=== PATIENT | female | born 1930 | race Caucasian/White ===

== ENCOUNTER 2016-11-12 22:23 | Emergency (ER) | payer OTHER ==
[~2016-11-12] VITALS: Ht 152.4 cm; Wt 67.0 kg
[~2016-11-12 22:23] MED LIST: ARTISOL8 OP; ASPEC81 PO; CALC0.2510 PO; CLON0.5T3 PO; LATA0.009; LEVO75TA33 PO; MULT-506 PO; NORT75CA2 PO; NRV5 PO; PRLSR20 PO; SIMV40TA2 PO
[2016-11-12 22:41] VITALS: O2SAT 93
[2016-11-12] MEDS ORDERED: SODIUM CHLORIDE 0.9% 1000ML 1,000 ML IV SCH (22:55)
[2016-11-12 22:57] VITALS: Ht 152.4 cm; Wt 67.0 kg
[2016-11-12 23:38] LABS: PARTIAL THROMBOPLASTIN RATIO 1.1; PROTHROMBIN TIME (PATIENT) 10.6 SECONDS (9.0-12.0)
--- NOTE | 2016-11-12 23:39 | DIAGNOSTIC IMAGING REPORT ---
CT SCAN OF THE BRAIN WITHOUT IV CONTRAST CLINICAL HISTORY: Strokelike symptoms. Fall. Weakness. COMPARISON STUDY: CT of the brain dated 03/24/2016. TECHNIQUE: Unenhanced axial CT scan of the brain is performed from the vertex to the skull base. CT DOSE: 1074.96 mGy.cm FINDINGS: Brain parenchyma: There are age-related involutional changes noting moderate to advanced subcortical and periventricular microangiopathic change. A small focus of left occipital encephalomalacia is unchanged and consistent with a remote infarct. There is no hemorrhage, mass effect, or evidence of acute territorial ischemia by CT criteria. Dean-white matter is preserved. No extra-axial fluid collection is seen. Ventricles, sulci, cisterns: Prominent secondary to involutional change. Intracranial vasculature: There is atherosclerotic calcification of the cavernous carotid and vertebral arteries. Calvarium: Unremarkable. Sinuses and mastoids: The visualized paranasal sinuses are clear. The mastoid air cells are well pneumatized. Orbits: The bony orbits are grossly intact. There are bilateral ocular lens implants. IMPRESSION: Senescent changes as above with no hemorrhage, mass effect, or evidence of acute territorial ischemia by CT criteria. Electronically signed by: Bharat Hester M.D. 11/12/2016 11:37 PM Dictated Date/Time: 11/12/2016 11:34 PM
[2016-11-12 23:40] LABS: BASO % 0.3 %; BASO ABS # 0.02 K/uL (0-0.2); COMPLETE YES; EOS % 1.5 %; HEMATOCRIT 33.9 % (37-47); IG% 0.5 %; LYMPH % 12.9 %; LYMPH ABS # 1.03 K/uL (1.2-3.4); MEAN CELL VOLUME 87.6 fL (80-100); MEAN CORPUSCULAR HEMOGLOBIN 29.7 pg (25-34); MEAN CORPUSCULAR HGB CONC 33.9 g/dl (32-36); MEAN PLATELET VOLUME 8.7 fL (7.4-10.4); MONO % 10.9 %; NEUT % 73.9 %; PLATELET COUNT 277 K/uL (130-400); RED BLOOD COUNT 3.87 M/uL (4.2-5.4); WHITE BLOOD COUNT 7.97 K/uL (4.8-10.8)
[2016-11-12 23:43] LABS: BLOOD UREA NITROGEN 29 mg/dl (7-18); BUN/CREATININE RATIO 16.2 (10-20); CALCIUM 9.5 mg/dl (8.5-10.1); CARBON DIOXIDE 25 mmol/L (21-32); CHLORIDE 94 mmol/L (98-107); GLUCOSE 109 mg/dl (70-99); POTASSIUM 4.4 mmol/L (3.5-5.1); SODIUM 127 mmol/L (136-145)
--- NOTE | 2016-11-12 23:44 | DIAGNOSTIC IMAGING REPORT ---
SINGLE VIEW CHEST CLINICAL HISTORY: Strokelike symptoms. Weakness. FINDINGS: An AP, portable, upright chest radiograph is compared to study dated 03/26/2016. The examination is degraded by portable technique and patient rotation. The heart is enlarged and there is atherosclerotic calcification of the thoracic aorta. The pulmonary vasculature is noncongested. Chronic interstitial thickening is observed. No airspace consolidation or pleural effusion is identified. No pneumothorax is seen. The skeletal structures are osteopenic. The bony thorax is grossly intact. Degenerative change is noted throughout the thoracic spine. IMPRESSION: Cardiomegaly with no acute cardiopulmonary abnormality. Electronically signed by: Bharat Hester M.D. 11/12/2016 11:43 PM Dictated Date/Time: 11/12/2016 11:42 PM
--- NOTE | 2016-11-12 23:47 | EMERGENCY ROOM VISIT NOTE ---
History Report prepared by Jhonny: Yuko Mohr Under the Supervision of: Dr. Jed Morales M.D. First contact with patient: 22:55 Chief Complaint: WEAKNESS Stated Complaint: FALL/ WEAK KNEES, LETHARGIC Nursing Triage Summary: Patient presents to ER via EMS. Per EMS, patient was watching television and was too weak to get off her sit. Once she was up, she attempted to walk to the kitchen using her walker. Patient had to let herself down to the floor and could not get up. Patient is responsive, alert and oriented. Patient lives at home with her . Patient reports UTI 7-10 days ago. 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 Per EMS the patient was watching TV and was too weak to get out of her chair. After getting up, the patient tried to walk to the kitchen but felt too weak and had to let herself down to the floor. The patient states that she was not able to get back up when she was on the floor. She notes that she was diagnosed with a UTI 1 week ago. The patient complains of double vision that she reports she has had intermittently throughout the last year. She denies any loss of consciousness or trauma. 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 Denies any trauma. Review of Systems See HPI for pertinent positives & negatives. A total of 10 systems reviewed and were otherwise negative. Past Medical & Surgical Medical Problems: (1) REBECCA (acute kidney injury) (2) CHF (congestive heart failure) (3) CKD (chronic kidney disease), stage III (4) CTS (carpal tunnel syndrome) (5) Elevated troponin (6) GERD (gastroesophageal reflux disease) (7) Hyperlipidemia (8) Hypertension (9) Hypothyroidism Surgical Problems: (1) H/O colonoscopy (2) H/O knee surgery (3) History of bladder surgery Family History No pertinent family history Social History Smoking Status: Never Smoker Marital Status: Occupation Status: retired Current/Historical Medications Scheduled Amlodipine (Norvasc), 5 MG PO HS Aspirin (Aspirin Ec), 81 MG PO DAILY Calcitriol (Rocaltrol Cap), 0.25 MCG PO DAILY Clonazepam (Klonopin), 0.5 MG PO HS Cyanocobalamin (Vitamin B-12), 1,000 MCG PO DAILY Latanoprost (Xalatan 0.005% Oph Cheryl), 1 DROPS OP HS Levothyroxine Sodium (Levothyroxine Sodium), 75 MCG PO DAILY Multivitamin (Multivitamin), 1 TAB PO DAILY Nortriptyline (Pamelor), 50 MG PO HS Omeprazole (Prilosec), 20 MG PO QAM Sennosides-Docusate Sodium (Senna S), 2 TABS PO HS Simvastatin (Zocor), 20 MG PO HS Scheduled PRN Acetaminophen Tab (Tylenol), 650 MG PO Q4 PRN for Pain or Fever Artificial Tear Solution (Artificial Tears), 1 DROPS OP QID PRN for DRYNESS Allergies Coded Allergies: Quinolones (Unverified Allergy, Mild, "FEELS AWEFUL", 11/13/16) Physical Exam Vital Signs Date Time Temp Pulse Resp B/P (MAP) Pulse Ox O2 Delivery O2 Flow Rate FiO2 11/13/16 01:34 36.7 88 20 136/104 95 11/12/16 22:53 84 23 93 11/12/16 22:41 93 Room Air 11/12/16 22:37 86 11/12/16 22:30 181/100 11/12/16 22:23 36.8 83 16 177/101 93 Room Air Physical Exam GENERAL: Patient is a healthy-appearing well-nourished female HEAD: Normocephalic atraumatic EYES: Ocular movements intact pupils equal and react to light OROPHARYNX mucous membranes are moist no exudates present no erythema or edema present NECK: Supple no nuchal rigidity CHEST: Good equal expansion LUNGS: Clear and equal to auscultation CARDIAC: Normal S1 and S2 ABDOMEN: Soft nontender no guarding BACK: No CVA tenderness EXTREMITIES: No pain upon palpation normal muscle strength in all groups no clubbing cyanosis or edema NEURO: Patient is following commands and answering questions appropriately. Alert and oriented x3 Cranial Nerves 2-12 grossly intact Medical Decision & Procedures ER Provider Diagnostic Interpretation: Radiology results as stated below per my review and radiologist interpretation: CT SCAN OF THE BRAIN WITHOUT IV CONTRAST FINDINGS: Brain parenchyma: There are age-related involutional changes noting moderate to advanced subcortical and periventricular microangiopathic change. A small focus of left occipital encephalomalacia is unchanged and consistent with a remote infarct. There is no hemorrhage, mass effect, or evidence of acute territorial ischemia by CT criteria. Dean-white matter is preserved. No extra-axial fluid collection is seen. Ventricles, sulci, cisterns: Prominent secondary to involutional change. Intracranial vasculature: There is atherosclerotic calcification of the cavernous carotid and vertebral arteries. Calvarium: Unremarkable. Sinuses and mastoids: The visualized paranasal sinuses are clear. The mastoid air cells are well pneumatized. Orbits: The bony orbits are grossly intact. There are bilateral ocular lens implants. IMPRESSION: Senescent changes as above with no hemorrhage, mass effect, or evidence of acute territorial ischemia by CT criteria. Electronically signed by: Bharat Hester M.D. 11/12/2016 11:37 PM Dictated Date/Time: 11/12/2016 11:34 PM SINGLE VIEW CHEST FINDINGS: An AP, portable, upright chest radiograph is compared to study dated 03/26/2016. The examination is degraded by portable technique and patient rotation. The heart is enlarged and there is atherosclerotic calcification of the thoracic aorta. The pulmonary vasculature is noncongested. Chronic interstitial thickening is observed. No airspace consolidation or pleural effusion is identified. No pneumothorax is seen. The skeletal structures are osteopenic. The bony thorax is grossly intact. Degenerative change is noted throughout the thoracic spine. IMPRESSION: Cardiomegaly with no acute cardiopulmonary abnormality. Electronically signed by: Bharat Hester M.D. 11/12/2016 11:43 PM Dictated Date/Time: 11/12/2016 11:42 PM Laboratory Results 11/12/16 23:01 Red Blood Count 3.87, Mean Corpuscular Volume 87.6, Mean Corpuscular Hemoglobin 29.7, Mean Corpuscular Hemoglobin Concent 33.9, Mean Platelet Volume 8.7, Neutrophils (%) (Auto) 73.9, Lymphocytes (%) (Auto) 12.9, Monocytes (%) (Auto) 10.9, Eosinophils (%) (Auto) 1.5, Basophils (%) (Auto) 0.3, Neutrophils # (Auto ) 5.89, Lymphocytes # (Auto) 1.03, Monocytes # (Auto) 0.87, Eosinophils # (Auto ) 0.12, Basophils # (Auto) 0.02 11/12/16 23:01 Test 11/12/16 22:51 11/12/16 23:01 11/13/16 00:05 Bedside Glucose 101 mg/dl (70-90) White Blood Count 7.97 K/uL (4.8-10.8) Red Blood Count 3.87 M/uL (4.2-5.4) Hemoglobin 11.5 g/dL (12.0-16.0) Hematocrit 33.9 % (37-47) Mean Corpuscular Volume 87.6 fL (80-100) Mean Corpuscular Hemoglobin 29.7 pg (25-34) Mean Corpuscular Hemoglobin Concent 33.9 g/dl (32-36) Platelet Count 277 K/uL (130-400) Mean Platelet Volume 8.7 fL (7.4-10.4) Neutrophils (%) (Auto) 73.9 % Lymphocytes (%) (Auto) 12.9 % Monocytes (%) (Auto) 10.9 % Eosinophils (%) (Auto) 1.5 % Basophils (%) (Auto) 0.3 % Neutrophils # (Auto) 5.89 K/uL (1.4-6.5) Lymphocytes # (Auto) 1.03 K/uL (1.2-3.4) Monocytes # (Auto) 0.87 K/uL (0.11-0.59) Eosinophils # (Auto) 0.12 K/uL (0-0.5) Basophils # (Auto) 0.02 K/uL (0-0.2) RDW Standard Deviation 45.3 fL (36.4-46.3) RDW Coefficient of Variation 14.1 % (11.5-14.5) Immature Granulocyte % (Auto) 0.5 % Immature Granulocyte # (Auto) 0.04 K/uL (0.00-0.02) Prothrombin Time 10.6 SECONDS (9.0-12.0) Prothromb Time International Ratio 1.0 (0.9-1.1) Activated Partial Thromboplast Time 29.2 SECONDS (21.0-31.0) Partial Thromboplastin Ratio 1.1 Anion Gap 8.0 mmol/L (3-11) Est Creatinine Clear Calc Drug Dose 18.8 ml/min Estimated GFR () 28.8 Estimated GFR (Non- 24.9 BUN/Creatinine Ratio 16.2 (10-20) Calcium Level 9.5 mg/dl (8.5-10.1) Total Creatine Kinase 93 U/L (26-192) Creatine Kinase MB 2.1 ng/ml (0.5-3.6) Creatine Kinase MB Ratio 2.3 (0-3.0) Troponin I < 0.015 ng/ml (0-0.045) Urine Color YELLOW Urine Appearance CLEAR (CLEAR) Urine pH 7.5 (4.5-7.5) Urine Specific Kinsley 1.011 (1.000-1.030) Urine Protein NEG (NEG) Urine Glucose (UA) NEG (NEG) Urine Ketones NEG (NEG) Urine Occult Blood NEG (NEG) Urine Nitrite NEG (NEG) Urine Bilirubin NEG (NEG) Urine Urobilinogen NEG (NEG) Urine Leukocyte Esterase NEG (NEG) Labs reviewed by ED physician. Medications Administered Medications (Trade) Dose Ordered Sig/Ernestine Route Start Time Stop Time Status Last Admin Dose Admin Sodium Chloride 1,000 ml @ 50 mls/hr Q20H IV 11/12/16 22:55 12/12/16 22:54 11/12/16 23:01 50 MLS/HR Sodium Chloride 500 ml @ 999 mls/hr Q31M STAT IV 11/12/16 23:55 11/13/16 00:25 DC 11/13/16 00:04 999 MLS/HR ECG Indication: weakness Rate (beats per minute): 83 Rhythm: sinus rhythm Findings: 1st degree AV block, no acute ischemic change, no ectopy ED Course 2255: Past medical records reviewed. The patient was evaluated in room B6. A complete history and physical examination was performed. 2255: Sodium Chloride 1000 ml @ 50 mls/hr IV. 2355: Sodium Chloride 500 ml @ 999 mls/hr IV. 0046: The patient was ambulated by nursing staff and is doing well. Her will be getting her in the morning. Medical Decision Differential diagnosis: Etiologies such as metabolic, infection, hypo/hyperglycemia, electrolyte abnormalities, cardiac sources, intracerebral event, toxicologic, neurologic, as well as others were entertained. Blood Pressure Screening: Patient was found to have an elevated blood pressure and was referred to their primary care doctor for recheck and further treatment Medication Reconciliation: I attest that I have personally reviewed the patient' s current medication list This is an 86-year-old female who presents emergency department complaining of generalized weakness. An IV was established, the patient was given normal saline bolus. She has a normal CBC normal renal profile normal liver profile and will chest x-ray normal CAT scan of the head. I do feel the patient can be safely discharged home however the patient's is unable to pick her up until the morning. Patient was in agreement with the treatment plan. Impression Primary Impression: Weakness Scribe Attestation The scribe's documentation has been prepared under my direction and personally reviewed by me in its entirety. I confirm that the note above accurately reflects all work, treatment, procedures, and medical decision making performed by me. Departure Information Dispostion Home / Self-Care Referrals Luther Jean M.D. (PCP) Forms HOME CARE DOCUMENTATION FORM, IMPORTANT VISIT INFORMATION Patient Instructions [facility]
[2016-11-12 23:48] LABS: CKMB/CK RATIO 2.3 (0-3.0)
[2016-11-12] MEDS ORDERED: SODIUM CHLORIDE 0.9% 500ML 500 ML IV STA (23:55)
[2016-11-13] MEDS ORDERED: NORT50CA PO (00:07)
[2016-11-13] MEDS ORDERED: SIMV20TA2 PO (00:07)
[2016-11-13] MEDS ORDERED: AMLO-110 PO (00:07)
[2016-11-13] MEDS ORDERED: LEVO75TA5 PO (00:08)
[2016-11-13] MEDS ORDERED: SENN-91 PO (00:10)
[2016-11-13] MEDS ORDERED: ASPI81TA28 PO (00:10)
[2016-11-13] MEDS ORDERED: LATA0.5S OP (00:11)
[2016-11-13] MEDS ORDERED: ACET325T96 PO (00:12)
[2016-11-13] MEDS ORDERED: CYAN10005 PO (00:12)
[2016-11-13] MEDS ORDERED: ARTISOL12 OP (00:12)
[2016-11-13 00:19] LABS: URINE APPEARANCE CLEAR (CLEAR); URINE BILIRUBIN NEG (NEG); URINE COLOR YELLOW; URINE NITRITE NEG (NEG); URINE PH 7.5 (4.5-7.5); URINE SPECIFIC GRAVITY 1.011 (1.000-1.030); UROBILINOGEN NEG (NEG); ZZUR CULT IF INDIC CLEAN CATCH NO
[2016-11-13 00:30] LABS: MANUAL MICROSCOPIC REQUIRED? NO; REVIEW REQ? NO
[2016-11-13 01:34] VITALS: BP 136/104; PULSE 88; TEMP 36.7; O2SAT 95
== END 2016-11-13 01:35 | disposition home or self-care (01) ==
LOC: EDBD 22:23 → C.EDB 22:24
DX: R53.1 Weakness (principal); N17.9 Acute kidney failure, unspecified; I50.9 Heart failure, unspecified; N18.3 Chronic kidney disease, stage 3 (moderate); G56.00 Carpal tunnel syndrome, unspecified upper limb; K21.9 Gastro-esophageal reflux disease without esophagitis; E78.5 Hyperlipidemia, unspecified; I10 Essential (primary) hypertension; E03.9 Hypothyroidism, unspecified; Z79.82 Long term (current) use of aspirin

== ENCOUNTER 2016-12-07 17:45 | Emergency (ER) | payer OTHER ==
[~2016-12-07] VITALS: Ht 157.5 cm; Wt 64.0 kg
[~2016-12-07 17:45] MED LIST changes: +ACET325T96 PO; +AMLO-110 PO; +ARTISOL12 OP; -ARTISOL8 OP; -ASPEC81 PO; +ASPI81TA28 PO; +CYAN10005 PO; -LATA0.009; +LATA0.5S OP; -LEVO75TA33 PO; +LEVO75TA5 PO; +NORT50CA PO; -NORT75CA2 PO; -NRV5 PO; +SENN-91 PO; +SIMV20TA2 PO; -SIMV40TA2 PO
[2016-12-07] MEDS ORDERED: ACETAMINOPHEN 500 MG TAB PO STA (18:02)
[2016-12-07 18:03] VITALS: TEMP 36.9; Ht 157.5 cm; Wt 64.0 kg
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
[2016-12-07 18:42] LABS: MANUAL MICROSCOPIC REQUIRED? NO; REVIEW REQ? NO; URINE APPEARANCE CLEAR (CLEAR); URINE BILIRUBIN NEG (NEG); URINE COLOR YELLOW; URINE NITRITE NEG (NEG); URINE SPECIFIC GRAVITY 1.008 (1.000-1.030); UROBILINOGEN NEG (NEG); ZZURINE CULT IF INDIC CATH NO
[2016-12-07 18:45] LABS: BASO % 0.3 %; BASO ABS # 0.02 K/uL (0-0.2); COMPLETE YES; EOS % 1.5 %; HEMATOCRIT 36.9 % (37-47); IG% 0.7 %; LYMPH % 14.6 %; MEAN CELL VOLUME 90.2 fL (80-100); MEAN CORPUSCULAR HEMOGLOBIN 29.8 pg (25-34); MEAN CORPUSCULAR HGB CONC 33.1 g/dl (32-36); MEAN PLATELET VOLUME 8.9 fL (7.4-10.4); MONO % 12.1 %; NEUT % 70.8 %; PLATELET COUNT 303 K/uL (130-400); RED BLOOD COUNT 4.09 M/uL (4.2-5.4); WHITE BLOOD COUNT 7.55 K/uL (4.8-10.8)
[2016-12-07 18:53] LABS: INR 0.9 (0.9-1.1); PARTIAL THROMBOPLASTIN RATIO 1.1
[2016-12-07 19:01] LABS: ALT/SGPT 19 U/L (12-78); BLOOD UREA NITROGEN 20 mg/dl (7-18); BUN/CREATININE RATIO 14.5 (10-20); CALCIUM 9.5 mg/dl (8.5-10.1); CARBON DIOXIDE 28 mmol/L (21-32); CHLORIDE 96 mmol/L (98-107); GLUCOSE 99 mg/dl (70-99); POTASSIUM 4.2 mmol/L (3.5-5.1); SODIUM 132 mmol/L (136-145)
[2016-12-07 19:06] LABS: ALKALINE PHOSPHATASE 100 U/L (45-117); AST/SGOT 23 U/L (15-37)
--- NOTE | 2016-12-07 19:07 | DIAGNOSTIC IMAGING REPORT ---
HEAD WITHOUT CONTRAST (CT) CLINICAL HISTORY: 86 years-old Female presenting with fall, hematoma. TECHNIQUE: Multidetector CT imaging of the head was performed without the use of intravenous contrast. IV contrast: None. A dose lowering technique was used consistent with the principles of ALARA (as low as reasonably achievable). COMPARISON: 11/12/2016. CT DOSE (mGy.cm): The estimated cumulative dose is 883.57 inclusive of the cervical spine.. FINDINGS: Fast Food Delivery Driver topogram: Unremarkable. Ventricles and sulci normal in size. Periventricular and subcortical white matter hypoattenuation similar to prior exam, nonspecific but likely indicative of chronic small vessel ischemic change. No mass effect or midline shift. No hemorrhage or acute territorial infarct. No extra-axial fluid collection. Paranasal sinuses and mastoid air cells clear. Calvarium intact. Infiltration of the soft tissues overlying the occipital region. IMPRESSION: 1. No acute intracranial pathology. 2. Possible subcutaneous contusion over the occiput. Electronically signed by: Jacob Vallejo M.D. 12/07/2016 7:06 PM Dictated Date/Time: 12/07/2016 7:03 PM
--- NOTE | 2016-12-07 19:10 | DIAGNOSTIC IMAGING REPORT ---
CT SCAN OF THE CERVICAL SPINE CLINICAL HISTORY: Trauma. Fall. COMPARISON STUDY: No priors. TECHNIQUE: CT scan of the cervical spine is performed from the skull base to the upper thoracic spine. Images are reviewed in the axial, sagittal, and coronal planes. IV contrast was not administered for this examination. A dose lowering technique was utilized adhering to the principles of ALARA. CT DOSE: 883.57 mGy.cm FINDINGS: Skeletal structures: The skeletal structures are osteopenic. There is no evidence of fracture or subluxation involving the cervical spine. Vertebral body height and alignment are maintained. The odontoid process and lateral masses are intact. The atlantoaxial articulation is preserved noting mild productive degenerative change. The spinous processes appear intact. There is moderate to advanced multilevel cervical spondylosis. Uncovertebral and facet arthropathy contribute to neural foraminal stenosis at most levels. Intervertebral discs: There is moderate degenerative disc space narrowing seen at C3-C4 at C6-C7. Mild disc space narrowing is seen at the remaining cervical levels. Central canal: Posterior disc osteophyte complexes at C4-C5, C5-C6, and C6-C7 likely contribute to multilevel acquired compromise of the central canal. Soft tissues: The prevertebral and paraspinous soft tissues are within normal limits. There is advanced atherosclerotic calcification of the carotid bulbs. Cerumen is noted in the right external auditory canal. The thyroid gland is atrophic. Calvarium: The visualized calvarium at the skull base appears intact. Brain parenchyma: Partially visualized brain parenchyma the skull base is within normal limits. Sinuses and mastoids: The visualized paranasal sinuses are clear. There is a trace left mastoid effusion. Lung apices: Clear as visualized. IMPRESSION: 1. There is no evidence of fracture or subluxation involving the cervical spine. 2. Osteopenia and spondylotic change as above. Electronically signed by: Bharat Hester M.D. 12/07/2016 7:09 PM Dictated Date/Time: 12/07/2016 7:04 PM
--- NOTE | 2016-12-07 19:20 | DIAGNOSTIC IMAGING REPORT ---
AP CHEST WITH LEFT-SIDED RIB SERIES CLINICAL HISTORY: Fall. Left-sided chest wall pain. FINDINGS: An AP chest radiograph with 4 additional views from a left-sided rib series is compared to study dated 11/12/2016. The heart is enlarged and there is atherosclerotic calcification of the thoracic aorta. The pulmonary vasculature is noncongested. Chronic interstitial thickening is similar to previous. No airspace consolidation, large pleural effusion, or pneumothorax is seen. The skeletal structures are osteopenic. There is no clear radiographic evidence of acute/distracted left-sided rib fracture on the rib series. Mild contour irregularity of several left anterior lower ribs is age indeterminant and may be chronic. The remainder of the bony thorax is grossly intact. Advanced arthritic changes present in the shoulders. Degenerative change is also seen in the thoracic spine. Lumbosacral spondylosis is partially imaged. IMPRESSION: 1. Cardiomegaly with no acute cardiopulmonary abnormality. 2. There is no definite radiographic evidence of acute/distracted left-sided rib fracture on the rib series. Mild contour deformity of several anterior left lower ribs is age indeterminant and may be chronic. Correlate for point tenderness. Electronically signed by: Bharat Hester M.D. 12/07/2016 7:18 PM Dictated Date/Time: 12/07/2016 7:14 PM
[2016-12-07] MEDS ORDERED: AMLODIPINE BESYLATE 5 MG TAB PO ONE (19:45)
[2016-12-07 20:50] VITALS: BP 192/96; PULSE 68; O2SAT 94
== END 2016-12-07 20:52 | disposition home or self-care (01) ==
LOC: EDBD 17:45 → C.EDA 17:47
DX: S00.03XA Contusion of scalp, initial encounter (principal); S30.1XXA Contusion of abdominal wall, initial encounter; W18.39XA Other fall on same level, initial encounter; W22.09XA Striking against other stationary object, initial encounter; I12.9 Hypertensive chronic kidney disease with stage 1 through stage 4 chronic kidney disease, or unspecified chronic kidney disease; N18.3 Chronic kidney disease, stage 3 (moderate); K21.9 Gastro-esophageal reflux disease without esophagitis; E78.5 Hyperlipidemia, unspecified; E03.9 Hypothyroidism, unspecified; Z98.890 Other specified postprocedural states; Z79.82 Long term (current) use of aspirin; Z79.899 Other long term (current) drug therapy

== ENCOUNTER 2017-04-03 10:16 | Inpatient (IN) | payer OTHER ==
[~2017-04-03] VITALS: Ht 152.4 cm; Wt 58.0 kg
[~2017-04-03 10:16] MED LIST changes: -AMLO-110 PO; +AMLO2.5T2 PO; +ANT25 PO; -ARTISOL12 OP; +ASPEC81 PO; -ASPI81TA28 PO; +CYCL0.052 OP; -LATA0.5S OP; -NORT50CA PO; -SENN-91 PO
[2017-04-03] MEDS ORDERED: ONDANSETRON INJ 2 MG/ML 2 ML VIAL ONE (11:25)
[2017-04-03] MEDS: CEFTRIAXONE SOD INJ 1 GM ADDVIAL IV STA ×2 (11:34→11:43)
[2017-04-03] MEDS ORDERED: SODIUM CHLORIDE 0.9% 1000ML 1,000 ML IV SCH ×2 (11:45→17:30)
[2017-04-03 11:57] LABS: BASO % 0.4 %; BASO ABS # 0.03 K/uL (0-0.2); COMPLETE YES; EOS % 0.4 %; HEMATOCRIT 38.2 % (37-47); IG% 0.4 %; LYMPH % 14.7 %; LYMPH ABS # 1.06 K/uL (1.2-3.4); MEAN CELL VOLUME 91.2 fL (80-100); MEAN CORPUSCULAR HEMOGLOBIN 30.8 pg (25-34); MEAN CORPUSCULAR HGB CONC 33.8 g/dl (32-36); MEAN PLATELET VOLUME 9.6 fL (7.4-10.4); MONO % 9.8 %; NEUT % 74.3 %; PLATELET COUNT 329 K/uL (130-400); RED BLOOD COUNT 4.19 M/uL (4.2-5.4); WHITE BLOOD COUNT 7.21 K/uL (4.8-10.8)
[2017-04-03] MEDS ORDERED: NORT75CA2 PO (12:10)
[2017-04-03] MEDS ORDERED: CLON0.5T3 PO ×2 (12:10)
[2017-04-03] MEDS ORDERED: LISI10TA PO (12:10)
[2017-04-03] MEDS ORDERED: FURO-85 PO (12:10)
[2017-04-03] MEDS ORDERED: POLY1SOL12 (12:10)
[2017-04-03 12:11] LABS: URINE APPEARANCE CLEAR (CLEAR); URINE BILIRUBIN NEG (NEG); URINE COLOR YELLOW; URINE EPITHELIAL CELL AUTO >30 /lpf (0-5); URINE NITRITE NEG (NEG); URINE PH 6.5 (4.5-7.5); URINE SPECIFIC GRAVITY 1.016 (1.000-1.030); UROBILINOGEN NEG (NEG)
[2017-04-03 12:12] LABS: MANUAL MICROSCOPIC REQUIRED? NO; REVIEW REQ? NO; ZZUR CULT IF INDIC CLEAN CATCH NO
[2017-04-03 12:23] LABS: ALT/SGPT 20 U/L (12-78); AST/SGOT 22 U/L (15-37); BLOOD UREA NITROGEN 18 mg/dl (7-18); CALCIUM 9.4 mg/dl (8.5-10.1); CARBON DIOXIDE 30 mmol/L (21-32); CHLORIDE 96 mmol/L (98-107); CREATININE 1.29 mg/dl (0.60-1.20); GLUCOSE 104 mg/dl (70-99); POTASSIUM 4.1 mmol/L (3.5-5.1); SODIUM 133 mmol/L (136-145)
[2017-04-03 12:25] LABS: ALKALINE PHOSPHATASE 92 U/L (45-117)
[2017-04-03] MEDS ORDERED: CEFTRIAXONE SOD INJ 1 GM ADDVIAL IV STA (12:34)
[2017-04-03] MEDS ORDERED: ONDANSETRON INJ 2 MG/ML 2 ML VIAL IV STA (16:10)
--- NOTE | 2017-04-03 16:12 | History and Physical ---
History & Physical Date & Time of Service: Apr 03, 2017 at 15:52 Chief Complaint: Severe Stomach Pain Since Tuesday Primary Care Physician: Luther Jean M.D. History of Present Illness This is a 87yo F with a PMH of diastolic HF, HTN, CKD III, hypothyroidism, last discharged from [facility] for evaluation of dizziness and found to have Benign paroxysmal vertigo without problems with urination and discharged on 03/19/2017, with patient now returning for urinary tract infection which as per ER documentation with associated symptoms of nausea x 2 weeks with dysuria and fevers but patient could not take outpatient oral medication Review of outpatient records that urine culture from 03/28/17 resulted in Klebsiella oxytoca with resistance to ampicillin, intermediate sensitivity to ampicillin/sulbactam, and is susepctible to the following: CEFEPIME, CEFTRIAXONE , CIPROFLOXACIN, GENTAMICIN, NITROFURANTOIN , and TRIMETH-SULFAMETHOXAZOLE . Patient has listed allergies to Quinolones and Bisacodyl Patient was given Ceftriaxone 1 gram IV in the ER on admission. Negative urinalysis on ED admission. Patient was see and evaluated by hospitalist physician. Patient reports some pain when urinating but no pain in abdomen or flanks or chest. No shortness of breath. She is wake and alert with no abdominal tenderness on physical exam Past Medical/Surgical History Medical Problems: (1) CHF (congestive heart failure) Status: Chronic (2) CKD (chronic kidney disease), stage III Status: Chronic (3) CTS (carpal tunnel syndrome) Status: Chronic (4) GERD (gastroesophageal reflux disease) Status: Chronic (5) Hyperlipidemia Status: Chronic (6) Hypertension Status: Chronic (7) Hypothyroidism Status: Chronic Surgical Problems: (1) H/O colonoscopy Status: Chronic (2) H/O knee surgery Status: Chronic (3) History of bladder surgery Status: Chronic Family History No pertinent family history Social History Smoking Status: Never Smoker Marital Status: Housing status: lives with family Occupational Status: retired Multi-Drug Resistant Organisms History of MDRO: No Allergies Coded Allergies: Quinolones (Unverified Allergy, Mild, "FEELS AWEFUL", 04/03/17) Home Medications Scheduled Aspirin (Aspirin EC Low Dose), 1 TAB PO DAILY Calcitriol (Rocaltrol Cap), 0.25 MCG PO DAILY Clonazepam (Klonopin), 1 TAB PO HS Cyanocobalamin (Vitamin B-12), 1,000 MCG PO DAILY Cyclosporine (Ophth) (Restasis), 1 DROP OP BID Furosemide (Lasix), 20 MG PO DAILY Levothyroxine Sodium (Levothyroxine Sodium), 75 MCG PO DAILY Lisinopril (Prinivil), 10 MG PO DAILY Multivitamin (Multivitamin), 1 TAB PO DAILY Nortriptyline Hcl (Pamelor), 75 MG PO DAILY Omeprazole (Prilosec), 20 MG PO QAM Simvastatin (Zocor), 40 MG PO HS Scheduled PRN Acetaminophen Tab (Tylenol), 650 MG PO Q4 PRN for Pain or Fever Meclizine HCl (Meclizine HCl), 25 MG PO Q8 PRN for Dizziness or Vertigo Miscellaneous Medications Clonazepam (Klonopin), 0.5 MG PO Polyvinyl Alcohol-Povidone (Op (Artificial Tears) Review of Systems Constitutional: + fever Eyes: No worsening of vision, No eye pain ENT: No nasal symptoms, No sore throat Respiratory: No cough, No sputum, No wheezing, No shortness of breath Cardiovascular: No chest pain, No edema, No palpitations Abdomen: No pain, No nausea, No vomiting, No diarrhea, No constipation Musculoskeletal: No joint pain, No muscle pain, No swelling, No calf pain Genitourinary - Female: + dysuria Neurologic: No weakness Psychiatric: No substance abuse Endocrine: No fatigue Hematologic / Lymphatic: No abnormal bleeding/bruising Integumentary: No rash, No itch Physical Exam Vital Signs Date Time Temp Pulse Resp B/P (MAP) Pulse Ox O2 Delivery O2 Flow Rate FiO2 04/03/17 15:17 79 18 213/94 96 Room Air 04/03/17 13:09 78 18 160/94 92 Room Air 04/03/17 12:59 88 04/03/17 12:43 75 17 176/76 95 Room Air 04/03/17 10:33 36.9 83 20 187/94 96 Room Air General Appearance: WD/WN, no apparent distress Head: normocephalic, atraumatic Eyes: normal inspection, PERRL, EOMI, sclerae normal ENT: normal ENT inspection, hearing grossly normal, pharynx normal Neck: supple, no JVD, trachea midline Respiratory/Chest: chest non-tender, lungs clear, normal breath sounds, no respiratory distress, no accessory muscle use Cardiovascular: regular rate, rhythm, no edema, no JVD Abdomen/GI: normal bowel sounds, non tender, soft Back: normal inspection, no CVA tenderness, no muscle spasm, normal range of motion Extremities/Musculoskelatal: normal inspection, no calf tenderness, normal capillary refill, no pedal edema, normal range of motion, non-tender Neurologic/Psych: no motor/sensory deficits, normal mood/affect, oriented x 3 Skin: normal color, warm/dry, no rash Diagnostics Laboratory Results Results Past 24 Hours Test 04/03/17 11:15 04/03/17 11:20 Range/Units Urine Color YELLOW Urine Appearance CLEAR CLEAR Urine pH 6.5 4.5-7.5 Urine Specific [place] 1.016 1.000-1.030 Urine Protein NEG NEG Urine Glucose (UA) NEG NEG Urine Ketones TRACE NEG Urine Occult Blood NEG NEG Urine Nitrite NEG NEG Urine Bilirubin NEG NEG Urine Urobilinogen NEG NEG Urine Leukocyte Esterase SMALL NEG Urine WBC (Auto) 1-5 0-5 /hpf Urine RBC (Auto) 0-4 0-4 /hpf Urine Hyaline Casts (Auto) 0 0-5 /lpf Urine Epithelial Cells (Auto) >30 0-5 /lpf Urine Bacteria (Auto) NEG NEG White Blood Count 7.21 4.8-10.8 K/uL Red Blood Count 4.19 4.2-5.4 M/uL Hemoglobin 12.9 12.0-16.0 g/dL Hematocrit 38.2 37-47 % Mean Corpuscular Volume 91.2 80-100 fL Mean Corpuscular Hemoglobin 30.8 25-34 pg Mean Corpuscular Hemoglobin Concent 33.8 32-36 g/dl Platelet Count 329 130-400 K/uL Mean Platelet Volume 9.6 7.4-10.4 fL Neutrophils (%) (Auto) 74.3 % Lymphocytes (%) (Auto) 14.7 % Monocytes (%) (Auto) 9.8 % Eosinophils (%) (Auto) 0.4 % Basophils (%) (Auto) 0.4 % Neutrophils # (Auto) 5.35 1.4-6.5 K/uL Lymphocytes # (Auto) 1.06 1.2-3.4 K/uL Monocytes # (Auto) 0.71 0.11-0.59 K/uL Eosinophils # (Auto) 0.03 0-0.5 K/uL Basophils # (Auto) 0.03 0-0.2 K/uL RDW Standard Deviation 47.9 36.4-46.3 fL RDW Coefficient of Variation 14.2 11.5-14.5 % Immature Granulocyte % (Auto) 0.4 % Immature Granulocyte # (Auto) 0.03 0.00-0.02 K/uL Sodium Level 133 136-145 mmol/L Potassium Level 4.1 3.5-5.1 mmol/L Chloride Level 96 98-107 mmol/L Carbon Dioxide Level 30 21-32 mmol/L Anion Gap 7.0 3-11 mmol/L Blood Urea Nitrogen 18 7-18 mg/dl Creatinine 1.29 0.60-1.20 mg/dl Est Creatinine Clear Calc Drug Dose 23.4 ml/min Estimated GFR () 42.8 Estimated GFR (Non- 36.9 BUN/Creatinine Ratio 14.0 10-20 Random Glucose 104 70-99 mg/dl Calcium Level 9.4 8.5-10.1 mg/dl Total Bilirubin 0.5 0.2-1 mg/dl Direct Bilirubin < 0.1 0-0.2 mg/dl Aspartate Amino Transf (AST/SGOT) 22 15-37 U/L Alanine Aminotransferase (ALT/SGPT) 20 12-78 U/L Alkaline Phosphatase 92 45-117 U/L Troponin I < 0.015 0-0.045 ng/ml Total Protein 8.6 6.4-8.2 gm/dl Albumin 3.9 3.4-5.0 gm/dl Lipase 105 73-393 U/L EKG Atrial fibrillation with a competing junctional pacemaker Abnormal ECG When compared with ECG of 18-MAR-2017 13:58, Atrial fibrillation has replaced Sinus rhythm QRS duration has decreased Impression Assessment and Plan This is a 87yo F with a PMH of diastolic HF, HTN, CKD III, hypothyroidism, last discharged from [facility] for evaluation of dizziness and found to have Benign paroxysmal vertigo without problems with urination and discharged on 03/19/2017, with patient now returning for urinary tract infection which as per ER documentation with associated symptoms of nausea x 2 weeks with dysuria and fevers but patient could not take outpatient oral medication Review of outpatient records that urine culture from 03/28/17 resulted in Klebsiella oxytoca with resistance to ampicillin, intermediate sensitivity to ampicillin/sulbactam, and is susepctible to the following: CEFEPIME, CEFTRIAXONE , CIPROFLOXACIN, GENTAMICIN, NITROFURANTOIN , and TRIMETH-SULFAMETHOXAZOLE . Patient has listed allergies to Quinolones and Bisacodyl Patient was given Ceftriaxone 1 gram IV in the ER on admission. Negative urinalysis on ED admission. Continue Ceftriaxone IV daily for now. Monitor clinical symptoms HTN history continue home dosed lisinopril Diastolic HF history continue home dosed Lasix, statin, aspirin Atrial fibrillation with a competing junctional pacemaker Abnormal ECG When compared with ECG of 18-MAR-2017 13:58, Atrial fibrillation has replaced Sinus rhythm QRS duration has decreased -some artifacts visible on the EKG, will obtain repeat EKG Hypothyroidism history continue home dosed Levothyroxine Benign paroxysmal vertigo, no acute complaints, meclizine if needed Vision: Continue home eye drops Continue home dose calcitriol and vitamins DVT ppx: heparin subc Full Code Level of Care Med/Surg Resuscitation Status FULL RESUSCITATION VTE Prophylaxis VTE Risk Assessment Done? Y/N: Yes Risk Level: Moderate Given or contraindicated: Unfractionated heparin SQ
[2017-04-03] MEDS ORDERED: AMLODIPINE BESYLATE 5 MG TAB PO SCH (16:15)
[2017-04-03 16:55] VITALS: BP 180/92; PULSE 93; TEMP 36.3; O2SAT 91
[2017-04-03 17:17] VITALS: Ht 152.4 cm; Wt 58.0 kg
--- NOTE | 2017-04-03 17:51 | EMERGENCY ROOM VISIT NOTE ---
History Report prepared by Jhonny: Yulissa Obregon Under the Supervision of: Dr. Elio Sosa M.D. First contact with patient: 10:48 Chief Complaint: ABDOMINAL PAIN Stated Complaint: SEVERE STOMACH PAIN SINCE TUESDAY History of Present Illness The patient is a 87 year old female who presents to the Emergency Room with complaints of worsening nausea beginning 2 weeks ago ago. The patient states that she was recently diagnosed with a urinary infection. She states that she was prescribed an antibiotic but has been too sick to take it. She also reports having burning with urination, fevers, and sinus pressure. Pt denies LOC, headache, chills, diaphoresis, visual changes, neck pain, chest pain, breathing difficulties, vomiting, abdominal pain, back pain, melena, hematochezia, numbness, weakness, lymphadenopathy, rash, or other complaints. The patient denies a history of heart problems. Source of History: patient Onset: 2 weeks ago Position: other (global) Quality: other (nausea) Timing: worsening Associated Symptoms: + fevers, + urinary symptoms (burning with urination ) , No headache Note: additional symptom: sinus pressure Review of Systems See HPI for pertinent positives and negatives. A total of ten systems were reviewed and were otherwise negative. Past Medical & Surgical Medical Problems: (1) REBECCA (acute kidney injury) (2) CHF (congestive heart failure) (3) CKD (chronic kidney disease), stage III (4) CTS (carpal tunnel syndrome) (5) Elevated troponin (6) GERD (gastroesophageal reflux disease) (7) Hyperlipidemia (8) Hypertension (9) Hypothyroidism (10) UTI (urinary tract infection) Surgical Problems: (1) H/O colonoscopy (2) H/O knee surgery (3) History of bladder surgery Family History No pertinent family history Social History Smoking Status: Never Smoker Marital Status: Occupation Status: retired Current/Historical Medications Scheduled Aspirin (Aspirin EC Low Dose), 1 TAB PO DAILY Calcitriol (Rocaltrol Cap), 0.25 MCG PO DAILY Clonazepam (Klonopin), 1 TAB PO HS Cyanocobalamin (Vitamin B-12), 1,000 MCG PO DAILY Cyclosporine (Ophth) (Restasis), 1 DROP OP BID Furosemide (Lasix), 20 MG PO DAILY Levothyroxine Sodium (Levothyroxine Sodium), 75 MCG PO DAILY Lisinopril (Prinivil), 10 MG PO DAILY Multivitamin (Multivitamin), 1 TAB PO DAILY Nortriptyline Hcl (Pamelor), 75 MG PO DAILY Omeprazole (Prilosec), 20 MG PO QAM Simvastatin (Zocor), 40 MG PO HS Scheduled PRN Acetaminophen Tab (Tylenol), 650 MG PO Q4 PRN for Pain or Fever Meclizine HCl (Meclizine HCl), 25 MG PO Q8 PRN for Dizziness or Vertigo Miscellaneous Medications Clonazepam (Klonopin), 0.5 MG PO Polyvinyl Alcohol-Povidone (Op (Artificial Tears) Allergies Coded Allergies: Quinolones (Unverified Allergy, Mild, "FEELS AWEFUL", 04/03/17) Physical Exam Vital Signs Date Time Temp Pulse Resp B/P (MAP) Pulse Ox O2 Delivery O2 Flow Rate FiO2 04/03/17 13:09 78 18 160/94 92 Room Air 04/03/17 12:59 88 04/03/17 12:43 75 17 176/76 95 Room Air 04/03/17 10:33 36.9 83 20 187/94 96 Room Air Physical Exam GENERAL: Awake, alert, well-appearing, in no distress HENT: Normocephalic, atraumatic. Oropharynx unremarkable. Dry mucous membranes. EYES: Normal conjunctiva. Sclera non-icteric. NECK: Supple. No nuchal rigidity. FROM. No JVD. RESPIRATORY: Clear to auscultation. CARDIAC: Borderline bradycardia, normal rhythm. Extremities warm and well perfused. Pulses equal. ABDOMEN: Soft, non-distended. No tenderness to palpation. No rebound or guarding. No masses. RECTAL: Deferred. MUSCULOSKELETAL: Chest examination reveals no tenderness. The back is symmetrical on inspection without obvious abnormality. There is no CVA tenderness to palpation. No joint edema. LOWER EXTREMITIES: Calves are equal size bilaterally and non-tender. No edema. No discoloration. NEURO: Normal sensorium. No sensory or motor deficits noted. SKIN: No rash or jaundice noted. Medical Decision & Procedures Laboratory Results 04/03/17 11:20 Red Blood Count 4.19, Mean Corpuscular Volume 91.2, Mean Corpuscular Hemoglobin 30.8, Mean Corpuscular Hemoglobin Concent 33.8, Mean Platelet Volume 9.6, Neutrophils (%) (Auto) 74.3, Lymphocytes (%) (Auto) 14.7, Monocytes (%) (Auto) 9.8, Eosinophils (%) (Auto) 0.4, Basophils (%) (Auto) 0.4, Neutrophils # (Auto) 5.35, Lymphocytes # (Auto) 1.06, Monocytes # (Auto) 0.71, Eosinophils # (Auto) 0.03, Basophils # (Auto) 0.03 04/03/17 11:20 Test 04/03/17 11:15 04/03/17 11:20 Urine Color YELLOW Urine Appearance CLEAR (CLEAR) Urine pH 6.5 (4.5-7.5) Urine Specific [place] 1.016 (1.000-1.030) Urine Protein NEG (NEG) Urine Glucose (UA) NEG (NEG) Urine Ketones TRACE (NEG) Urine Occult Blood NEG (NEG) Urine Nitrite NEG (NEG) Urine Bilirubin NEG (NEG) Urine Urobilinogen NEG (NEG) Urine Leukocyte Esterase SMALL (NEG) Urine WBC (Auto) 1-5 /hpf (0-5) Urine RBC (Auto) 0-4 /hpf (0-4) Urine Hyaline Casts (Auto) 0 /lpf (0-5) Urine Epithelial Cells (Auto) >30 /lpf (0-5) Urine Bacteria (Auto) NEG (NEG) White Blood Count 7.21 K/uL (4.8-10.8) Red Blood Count 4.19 M/uL (4.2-5.4) Hemoglobin 12.9 g/dL (12.0-16.0) Hematocrit 38.2 % (37-47) Mean Corpuscular Volume 91.2 fL (80-100) Mean Corpuscular Hemoglobin 30.8 pg (25-34) Mean Corpuscular Hemoglobin Concent 33.8 g/dl (32-36) Platelet Count 329 K/uL (130-400) Mean Platelet Volume 9.6 fL (7.4-10.4) Neutrophils (%) (Auto) 74.3 % Lymphocytes (%) (Auto) 14.7 % Monocytes (%) (Auto) 9.8 % Eosinophils (%) (Auto) 0.4 % Basophils (%) (Auto) 0.4 % Neutrophils # (Auto) 5.35 K/uL (1.4-6.5) Lymphocytes # (Auto) 1.06 K/uL (1.2-3.4) Monocytes # (Auto) 0.71 K/uL (0.11-0.59) Eosinophils # (Auto) 0.03 K/uL (0-0.5) Basophils # (Auto) 0.03 K/uL (0-0.2) RDW Standard Deviation 47.9 fL (36.4-46.3) RDW Coefficient of Variation 14.2 % (11.5-14.5) Immature Granulocyte % (Auto) 0.4 % Immature Granulocyte # (Auto) 0.03 K/uL (0.00-0.02) Anion Gap 7.0 mmol/L (3-11) Est Creatinine Clear Calc Drug Dose 23.4 ml/min Estimated GFR () 42.8 Estimated GFR (Non- 36.9 BUN/Creatinine Ratio 14.0 (10-20) Calcium Level 9.4 mg/dl (8.5-10.1) Total Bilirubin 0.5 mg/dl (0.2-1) Direct Bilirubin < 0.1 mg/dl (0-0.2) Aspartate Amino Transf (AST/SGOT) 22 U/L (15-37) Alanine Aminotransferase (ALT/SGPT) 20 U/L (12-78) Alkaline Phosphatase 92 U/L (45-117) Troponin I < 0.015 ng/ml (0-0.045) Total Protein 8.6 gm/dl (6.4-8.2) Albumin 3.9 gm/dl (3.4-5.0) Lipase 105 U/L (73-393) Laboratory results reviewed by me Medications Administered Medications (Trade) Dose Ordered Sig/Ernestine Route Start Time Stop Time Status Last Admin Dose Admin Ondansetron HCl (Zofran Inj) 4 mg STK-MED ONCE .ROUTE 04/03/17 11:25 04/03/17 11:26 DC 04/03/17 11:43 4 MG Sodium Chloride 1,000 ml @ 999 mls/hr Q1H1M IV 04/03/17 11:45 04/03/17 17:31 DC 04/03/17 11:45 999 MLS/HR ECG Indication: abdominal pain Rate (beats per minute): 76 Rhythm: sinus rhythm Findings: PAC, no acute ischemic change, other (poor baseline data ) ED Course 1124: The patient was evaluated in room C9. A complete history and physical exam was performed. 1125: Ordered Zofran Inj 4 mg. 1134: Ordered Ceftriaxone Sodium 1 gm IV. 1145: Ordered Sodium Chloride 1,000 ml @ 999 mls/hr IV. 1234: Ordered Rocephin Inj 1 gm IV. 1457: Discussed the patient's case with Dr. Foy. The patient will be evaluated for further treatment and disposition. 1505: Upon reexamination, the patient was resting. I discussed the test results and treatment plan with her. The patient will be evaluated for further management. Medical Decision Triage Nursing notes reviewed. The patient's presentation and history were concerning for nausea and recent diagnosis of UTI Etiologies such as urinary tract infection, pyelonephritis, medication side effect, food borne illness, infections, obstruction, pancreatitis, appendicitis , diverticulitis, inflammatory bowel disease, biliary pathology, as well as others were entertained. The patient was evaluated. She was uncomfortable but did not have any tenderness on examination of her abdomen. All records were obtained and she was found to have a Klebsiella UTI. This was sensitive to Rocephin. This was ordered. She was given Zofran. She was hydrated. On reassessment she was feeling somewhat better but still had nausea. She was given additional Zofran. [facility] She is not doing well as an outpatient further management in the hospital was appropriate to prevent further deterioration. Medication Reconcilliation Current Medication List: was personally reviewed by me Blood Pressure Screening Patient's blood pressure: Elevated blood pressure will be monitored by hospitalist Consults Time Called: 2007 Consulting Physician: Dr. Foy Returned Call: [phone] Discussed the patient's case. The patient will be evaluated for further treatment and disposition. Impression Primary Impression: UTI (urinary tract infection) Additional Impression: Nausea Scribe Attestation The scribe's documentation has been prepared under my direction and personally reviewed by me in its entirety. I confirm that the note above accurately reflects all work, treatment, procedures, and medical decision making performed by me. Departure Information Dispostion Being Evaluated By Hospitalist Referrals Luther Jean M.D. (PCP) Patient Instructions [facility] Problem Qualifiers
[2017-04-03] MEDS ORDERED: CLONAZEPAM 0.5 MG TAB PO SCH (21:00)
[2017-04-03] MEDS: NORTRIPTYLINE HCL 25 MG CAP PO SCH (21:13)
[2017-04-03] MEDS: HEPARIN SOD 5000 UNIT/0.5 ML CARP SQ SCH (21:14)
[2017-04-03] MEDS: CLONAZEPAM 0.5 MG TAB PO SCH (21:34)
[2017-04-03] MEDS: SIMVASTATIN 40 MG TAB PO SCH (22:08)
[2017-04-03] MEDS: HydrALAZINE HCL 20 MG/ML VIAL IV. PRN (22:15)
[2017-04-03 22:49] VITALS: BP 178/76; PULSE 69; TEMP 36.5; O2SAT 95
[2017-04-03 23:23] VITALS: BP 124/73; PULSE 78
[2017-04-04] MEDS: LEVOTHYROXINE 75 MCG TAB PO SCH (05:53)
[2017-04-04] MEDS: HEPARIN SOD 5000 UNIT/0.5 ML CARP SQ SCH ×3 (05:54→21:13)
[2017-04-04 07:19] VITALS: BP 124/69; PULSE 70; TEMP 36.4; O2SAT 95
[2017-04-04] MEDS ORDERED: LISINOPRIL 10 MG TAB PO SCH (08:00)
[2017-04-04] MEDS ORDERED: FUROSEMIDE 20 MG TAB PO SCH (08:00)
[2017-04-04 08:15] VITALS: O2SAT 95
[2017-04-04] MEDS: CALCITRIOL 0.25 MCG CAP PO SCH (08:16)
[2017-04-04] MEDS: PANTOprazole SOD 40 MG TAB PO SCH (08:16)
[2017-04-04] MEDS: MULTIVITAMIN TAB PO SCH (08:16)
[2017-04-04] MEDS: CYANOCOBALAMIN 500 MCG TAB (VIT B-12) PO SCH (08:17)
[2017-04-04] MEDS: ASPIRIN 81 MG ECTAB PO SCH (08:17)
[2017-04-04 08:58] LABS: BASO % 0.5 %; BASO ABS # 0.03 K/uL (0-0.2); COMPLETE YES; EOS % 1.9 %; HEMATOCRIT 34.5 % (37-47); IG% 0.3 %; LYMPH ABS # 1.12 K/uL (1.2-3.4); MEAN CORPUSCULAR HEMOGLOBIN 30.7 pg (25-34); MEAN PLATELET VOLUME 9.5 fL (7.4-10.4); MONO % 13.9 %; NEUT % 64.4 %; PLATELET COUNT 267 K/uL (130-400); RED BLOOD COUNT 3.71 M/uL (4.2-5.4); WHITE BLOOD COUNT 5.89 K/uL (4.8-10.8)
[2017-04-04 09:30] LABS: BUN/CREATININE RATIO 13.4 (10-20); CALCIUM 8.8 mg/dl (8.5-10.1); CREATININE 1.07 mg/dl (0.60-1.20); POTASSIUM 3.9 mmol/L (3.5-5.1)
[2017-04-04 09:36] LABS: ALB/GLOB RATIO 0.9 (0.9-2)
[2017-04-04] MEDS: CEFTRIAXONE SOD INJ 1 GM in DEXTROSE 5% ADD-VANTAGE 50ML 50 ML IV SCH (12:02)
[2017-04-04 15:30] VITALS: O2SAT 100
[2017-04-04 16:14] VITALS: BP 150/79; PULSE 66; TEMP 36.4; O2SAT 100
[2017-04-04] MEDS: NORTRIPTYLINE HCL 25 MG CAP PO SCH (21:11)
[2017-04-04] MEDS: CLONAZEPAM 0.5 MG TAB PO SCH (21:11)
[2017-04-04] MEDS: SIMVASTATIN 40 MG TAB PO SCH (21:12)
--- NOTE | 2017-04-04 22:42 | Progress Note ---
Internal Med Progress Note Date of Service: Apr 04, 2017. Provider Documentation: SUBJECTIVE: feels much better today no nausea or vomiting tolerating diet well no urinary symptoms no weakness wants to be discharged home tomorrow OBJECTIVE: Vital Signs-as noted below Exam: General-elderly female, no sign of distress, comfortable , very pleasant, conversing Eyes-sclera non icteric , PERRLA/EOMI ENT-normal hearing , normal oral mucosa ,normal oropharynx Neck-no thyromegaly , trachea midline Lungs-CTA , no wheeze rales Heart-regular S1/S2 Abdomen-soft,non tender Extremities-no edema, no rash or deformity Neuro-AO x3, no focal neurological deficit Lab data as noted below. ASSESSMENT & PLAN: UTI : Presented with urinary symptom nausea . vomiting , chills unable to keep PO abx symptom improved started empirically with IV Rocephin urine culture -pin point growth ( pt was on Abx ) can be changed to oral agent ( GI symptom has resolved ) HYPONATREMIA : due to poor pO intake /dehydration Na level normalized with IVF REBECCA ON CKD STAGE 3 due to poor pO intake /dehydration /UTI Cr improved to baseline with IVF GENERALIZED WEAKNESS : due to above improved DEPRESSION : on SSRI reports of ongoing depressive symptom /poor sleep Psych consulted for adjustment of meds DVT PROPHYLAXIS sub q heparin DISPOSITION PT/OT eval requested possible discharge home tomorrow Vital Signs: Date Time Temp Pulse Resp B/P (MAP) Pulse Ox O2 Delivery O2 Flow Rate FiO2 04/04/17 16:14 36.4 66 18 150/79 (102) 100 Room Air 04/04/17 15:30 100 Room Air 04/04/17 08:15 95 Room Air 04/04/17 07:19 36.4 70 18 124/69 (87) 95 Room Air 04/04/17 00:07 Room Air Lab Results: Results Past 24 Hours Test 04/04/17 07:36 Range/Units White Blood Count 5.89 4.8-10.8 K/uL Red Blood Count 3.71 4.2-5.4 M/uL Hemoglobin 11.4 12.0-16.0 g/dL Hematocrit 34.5 37-47 % Mean Corpuscular Volume 93.0 80-100 fL Mean Corpuscular Hemoglobin 30.7 25-34 pg Mean Corpuscular Hemoglobin Concent 33.0 32-36 g/dl Platelet Count 267 130-400 K/uL Mean Platelet Volume 9.5 7.4-10.4 fL Neutrophils (%) (Auto) 64.4 % Lymphocytes (%) (Auto) 19.0 % Monocytes (%) (Auto) 13.9 % Eosinophils (%) (Auto) 1.9 % Basophils (%) (Auto) 0.5 % Neutrophils # (Auto) 3.79 1.4-6.5 K/uL Lymphocytes # (Auto) 1.12 1.2-3.4 K/uL Monocytes # (Auto) 0.82 0.11-0.59 K/uL Eosinophils # (Auto) 0.11 0-0.5 K/uL Basophils # (Auto) 0.03 0-0.2 K/uL RDW Standard Deviation 49.6 36.4-46.3 fL RDW Coefficient of Variation 14.6 11.5-14.5 % Immature Granulocyte % (Auto) 0.3 % Immature Granulocyte # (Auto) 0.02 0.00-0.02 K/uL Sodium Level 137 136-145 mmol/L Potassium Level 3.9 3.5-5.1 mmol/L Chloride Level 101 98-107 mmol/L Carbon Dioxide Level 26 21-32 mmol/L Anion Gap 10.0 3-11 mmol/L Blood Urea Nitrogen 14 7-18 mg/dl Creatinine 1.07 0.60-1.20 mg/dl Est Creatinine Clear Calc Drug Dose 13.5 ml/min Estimated GFR () 53.7 Estimated GFR (Non- 46.3 BUN/Creatinine Ratio 13.4 10-20 Random Glucose 94 70-99 mg/dl Calcium Level 8.8 8.5-10.1 mg/dl Total Bilirubin 0.3 0.2-1 mg/dl Aspartate Amino Transf (AST/SGOT) 16 15-37 U/L Alanine Aminotransferase (ALT/SGPT) 13 12-78 U/L Alkaline Phosphatase 72 45-117 U/L Total Protein 6.9 6.4-8.2 gm/dl Albumin 3.2 3.4-5.0 gm/dl Globulin 3.7 2.5-4.0 gm/dl Albumin/Globulin Ratio 0.9 0.9-2
[2017-04-05] VITALS (7 sets, daily range): BP systolic 135–180; BP diastolic 72–83; PULSE 74–89; TEMP 36.4–36.7; O2SAT 94–95
[2017-04-05] MEDS: HydrALAZINE HCL 20 MG/ML VIAL IV. PRN (01:11)
[2017-04-05] MEDS: LEVOTHYROXINE 75 MCG TAB PO SCH (05:36)
[2017-04-05] MEDS: HEPARIN SOD 5000 UNIT/0.5 ML CARP SQ SCH ×3 (05:40→21:26)
[2017-04-05] MEDS: CYANOCOBALAMIN 500 MCG TAB (VIT B-12) PO SCH (07:50)
[2017-04-05] MEDS: ASPIRIN 81 MG ECTAB PO SCH (07:50)
[2017-04-05] MEDS: CALCITRIOL 0.25 MCG CAP PO SCH (07:50)
[2017-04-05] MEDS: MULTIVITAMIN TAB PO SCH (07:50)
[2017-04-05] MEDS: PANTOprazole SOD 40 MG TAB PO SCH (07:50)
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
[2017-04-05] MEDS ORDERED: ESCITALOPRAM OXALATE 10 MG TAB PO ONE (11:30)
[2017-04-05] MEDS: CEFTRIAXONE SOD INJ 1 GM in DEXTROSE 5% ADD-VANTAGE 50ML 50 ML IV SCH (12:06)
--- NOTE | 2017-04-05 13:37 | Progress Note ---
Internal Med Progress Note Date of Service: Apr 05, 2017. Provider Documentation: SUBJECTIVE: Seen and examined at bedside States feeling well today Dysuria, nausea resolved Denies chest pain, SOB, dizziness No other complaints Eager to get discharged OBJECTIVE: Vital Signs-as noted below Physical Exam: General Appearance:Moderately built and nourished, no apparent distress Head: normocephalic, Atraumatic Eyes: normal inspection, EOMI, PERRL Neck: supple, Trachea midline Respiratory/Chest: Normal breath sounds, Basal Creps Cardiovascular: S1, S2, No murmur Abdomen/GI:Soft, Non tender, Bowel sounds present Extremities/Musculoskelatal:normal inspection, no edema Neurologic/Psych:AAOX3, grossly no focal neurological deficits Skin: normal color, warm Lab data as noted below. ASSESSMENT & PLAN: UTI : Presented with urinary symptoms, nausea,chills unable to tolerate PO abx Continue IV Rocephin Day#3 urine culture: pending HYPONATREMIA : Likely due poor pO intake/dehydration Na level normalized S/P IVF REBECCA on CKD III: Likely prerenal Cr levels back to baseline S/P IVF Lisinopril, lasix held GENERALIZED WEAKNESS : due to above improved DEPRESSION : on SSRI reports of ongoing depressive symptom /poor sleep Appreciate Psych Input Nortriptyline discontinued secondary to side effects Started on Lexapro Continue Klonopin Needs follow up with Psych as outpatient DVT Px: SQ heparin DISPOSITION PT/OT Plan to discharge tomorrow if stable Vital Signs: Date Time Temp Pulse Resp B/P (MAP) Pulse Ox O2 Delivery O2 Flow Rate FiO2 04/05/17 08:00 95 Room Air 04/05/17 07:16 36.7 84 16 145/73 (97) 95 Room Air 04/05/17 03:00 135/81 (99) 04/05/17 01:00 165/81 (109) 04/05/17 00:00 36.6 74 18 180/72 (108) 94 Room Air 04/04/17 23:10 Room Air 04/04/17 16:14 36.4 66 18 150/79 (102) 100 Room Air 04/04/17 15:30 100 Room Air
[2017-04-05] MEDS: SIMVASTATIN 40 MG TAB PO SCH (21:26)
[2017-04-05] MEDS: CLONAZEPAM 0.5 MG TAB PO SCH (21:26)
[2017-04-06 00:03] VITALS: BP 162/70; PULSE 78; TEMP 36.6; O2SAT 97
[2017-04-06] MEDS: LEVOTHYROXINE 75 MCG TAB PO SCH (05:53)
[2017-04-06] MEDS: HEPARIN SOD 5000 UNIT/0.5 ML CARP SQ SCH (05:53)
[2017-04-06] MEDS: PANTOprazole SOD 40 MG TAB PO SCH (07:38)
[2017-04-06] MEDS: CYANOCOBALAMIN 500 MCG TAB (VIT B-12) PO SCH (07:38)
[2017-04-06] MEDS: MULTIVITAMIN TAB PO SCH (07:38)
[2017-04-06] MEDS: CALCITRIOL 0.25 MCG CAP PO SCH (07:38)
[2017-04-06] MEDS: ASPIRIN 81 MG ECTAB PO SCH (07:38)
[2017-04-06 07:48] VITALS: BP 166/76; PULSE 65; TEMP 36.2; O2SAT 97
[2017-04-06] MEDS ORDERED: ESCITALOPRAM OXALATE 10 MG TAB PO SCH (08:00)
[2017-04-06 08:31] LABS: HEMATOCRIT 38.2 % (37-47); MEAN CELL VOLUME 93.2 fL (80-100); MEAN CORPUSCULAR HEMOGLOBIN 30.5 pg (25-34); MEAN CORPUSCULAR HGB CONC 32.7 g/dl (32-36); MEAN PLATELET VOLUME 9.1 fL (7.4-10.4); PLATELET COUNT 287 K/uL (130-400); WHITE BLOOD COUNT 8.73 K/uL (4.8-10.8)
[2017-04-06 09:07] LABS: BUN/CREATININE RATIO 21.6 (10-20); CALCIUM 9.6 mg/dl (8.5-10.1); CREATININE 1.46 mg/dl (0.60-1.20); POTASSIUM 3.9 mmol/L (3.5-5.1)
[2017-04-06] MEDS: CEFTRIAXONE SOD INJ 1 GM in DEXTROSE 5% ADD-VANTAGE 50ML 50 ML IV SCH (11:40)
--- NOTE | 2017-04-06 15:01 | Progress Note ---
Internal Med Progress Note Date of Service: Apr 06, 2017. Provider Documentation: SUBJECTIVE: Seen and examined at bedside Doing well No new complaints Denies Dysuria nausea resolved Denies chest pain, SOB, dizziness Weakness improved Eager to get discharged Family at bedside OBJECTIVE: Vital Signs-as noted below Physical Exam: General Appearance:Moderately built and nourished, no apparent distress Head: normocephalic, Atraumatic Eyes: normal inspection, EOMI, PERRL Neck: supple, Trachea midline Respiratory/Chest: Normal breath sounds, Basal Creps Cardiovascular: S1, S2, No murmur Abdomen/GI:Soft, Non tender, Bowel sounds present Extremities/Musculoskelatal:normal inspection, no edema Neurologic/Psych:AAOX3, grossly no focal neurological deficits Skin: normal color, warm Lab data as noted below. ASSESSMENT & PLAN: UTI : Presented with urinary symptoms, nausea,chills unable to tolerate PO abx On IV Rocephin Day#3. Plan to discharge on Augmentin urine culture: Enterococcus HYPONATREMIA : Likely due poor pO intake/dehydration Na level normalized S/P IVF REBECCA on CKD III: Likely prerenal Cr levels back to baseline S/P IVF Lisinopril, lasix held GENERALIZED WEAKNESS : due to above improved DEPRESSION : on SSRI reports of ongoing depressive symptom /poor sleep Appreciate Psych Input Nortriptyline discontinued secondary to side effects Started on Lexapro Continue Klonopin Needs follow up with Psych as outpatient DVT Px: SQ heparin DISPOSITION PT/OT Plan to discharge home today Follow up with on 04/12/17 at 11:05am Follow up with your Psychiatrist in 2 weeks Seek immediate medical attention if your symptoms reoccur or worsen Your Urine culture is pending: Follow up with your Doctor for results Medication changes: Your Nortriptyline was discontinued (as per recommendations from Psychiatry) You are started on Lexapro 5mg daily Complete the antibiotic course as prescribed Vital Signs: Date Time Temp Pulse Resp B/P (MAP) Pulse Ox O2 Delivery O2 Flow Rate FiO2 04/06/17 08:15 Room Air 04/06/17 07:48 36.2 65 16 166/76 (106) 97 04/06/17 00:03 36.6 78 18 162/70 (100) 97 Room Air 04/06/17 00:00 Room Air 04/05/17 15:30 95 Room Air 04/05/17 15:11 36.4 89 18 159/83 (108) Room Air Lab Results: Results Past 24 Hours Test 04/06/17 08:20 Range/Units White Blood Count 8.73 4.8-10.8 K/uL Red Blood Count 4.10 4.2-5.4 M/uL Hemoglobin 12.5 12.0-16.0 g/dL Hematocrit 38.2 37-47 % Mean Corpuscular Volume 93.2 80-100 fL Mean Corpuscular Hemoglobin 30.5 25-34 pg Mean Corpuscular Hemoglobin Concent 32.7 32-36 g/dl RDW Standard Deviation 50.7 36.4-46.3 fL RDW Coefficient of Variation 14.9 11.5-14.5 % Platelet Count 287 130-400 K/uL Mean Platelet Volume 9.1 7.4-10.4 fL Sodium Level 136 136-145 mmol/L Potassium Level 3.9 3.5-5.1 mmol/L Chloride Level 102 98-107 mmol/L Carbon Dioxide Level 27 21-32 mmol/L Anion Gap 7.0 3-11 mmol/L Blood Urea Nitrogen 32 7-18 mg/dl Creatinine 1.46 0.60-1.20 mg/dl Est Creatinine Clear Calc Drug Dose 21.2 ml/min Estimated GFR () 36.9 Estimated GFR (Non- 31.8 BUN/Creatinine Ratio 21.6 10-20 Random Glucose 100 70-99 mg/dl Calcium Level 9.6 8.5-10.1 mg/dl
[2017-04-06] MEDS ORDERED: LXP10 PO (15:05)
[2017-04-06] MEDS ORDERED: AMOX500T PO (15:06)
--- NOTE | 2017-04-06 15:09 | Discharge Summary ---
Discharge Summary Date of Service Apr 06, 2017. Discharge Summary Admission Date: Apr 03, 2017 at 15:13 Discharge Date: Apr 06, 2017 Discharge Disposition: Home with services Principal Diagnosis: UTI Procedures: None Consultations: Psychiatry Pending Studies/Follow-Up: Follow up with on 04/12/17 at 11:05am Follow up with your Psychiatrist in 2 weeks Seek immediate medical attention if your symptoms reoccur or worsen Your Urine culture is pending: Follow up with your Doctor for results Medication changes: Your Nortriptyline was discontinued (as per recommendations from Psychiatry) You are started on Lexapro 5mg daily Complete the antibiotic course as prescribed Medication Reconciliation New Medications: Amoxicillin & Pot Clavulanate (Augmentin 500MG) 1 Tab Tab 500 MG PO BID for 5 Days, #10 TAB Escitalopram Oxalate (Escitalopram Oxalate) 10 Mg Tab 5 MG PO QAM for 30 Days, #30 TAB Continued Medications: Acetaminophen Tab (Tylenol) 325 Mg Tab 650 MG PO Q4 PRN for Pain or Fever Aspirin (Aspirin EC Low Dose) 81 Mg Ectab 1 TAB PO DAILY Calcitriol (Rocaltrol Cap) 0.25 Mcg Cap 0.25 MCG PO DAILY, CAP Clonazepam (Klonopin) 0.5 Mg Tab 0.5 MG PO, TAB Cyanocobalamin (Vitamin B-12) 1,000 Mcg Tab 1000 MCG PO DAILY Cyclosporine (Ophth) (Restasis) 0.05 % Emu 1 DROP OP BID, BTL Furosemide (Lasix) 20 Mg Tab 20 MG PO DAILY, TAB Levothyroxine Sodium (Levothyroxine Sodium) 75 Mcg Tab 75 MCG PO DAILY, 3 Refills Lisinopril (Prinivil) 10 Mg Tab 10 MG PO DAILY, TAB Meclizine HCl (Meclizine HCl) 25 Mg Tab 25 MG PO Q8 PRN for Dizziness or Vertigo for 10 Days, #30 TAB Multivitamin (Multivitamin) Tab 1 TAB PO DAILY, TAB Omeprazole (Prilosec) 20 Mg Capcr 20 MG PO QAM, 0 Refills Polyvinyl Alcohol-Povidone (Op (Artificial Tears) 1 Cheryl Cheryl Simvastatin (Zocor) 20 Mg Tab 40 MG PO HS, TAB Discontinued Medications: Clonazepam (Klonopin) 0.5 Mg Tab 1 TAB PO HS for 30 Days, TAB Nortriptyline Hcl (Pamelor) 75 Mg Cap 75 MG PO DAILY, CAP Admission Information HPI (per Admitting provider): This is a 87yo F with a PMH of diastolic HF, HTN, CKD III, hypothyroidism, last discharged from [facility] for evaluation of dizziness and found to have Benign paroxysmal vertigo without problems with urination and discharged on 03/19/2017, with patient now returning for urinary tract infection which as per ER documentation with associated symptoms of nausea x 2 weeks with dysuria and fevers but patient could not take outpatient oral medication Review of outpatient records that urine culture from 03/28/17 resulted in Klebsiella oxytoca with resistance to ampicillin, intermediate sensitivity to ampicillin/sulbactam, and is susepctible to the following: CEFEPIME, CEFTRIAXONE , CIPROFLOXACIN, GENTAMICIN, NITROFURANTOIN , and TRIMETH-SULFAMETHOXAZOLE . Patient has listed allergies to Quinolones and Bisacodyl Patient was given Ceftriaxone 1 gram IV in the ER on admission. Negative urinalysis on ED admission. Patient was see and evaluated by hospitalist physician. Patient reports some pain when urinating but no pain in abdomen or flanks or chest. No shortness of breath. She is wake and alert with no abdominal tenderness on physical exam Physical Exam (per Admitting): General Appearance: WD/WN, no apparent distress Head: normocephalic, atraumatic Eyes: normal inspection, PERRL, EOMI, sclerae normal ENT: normal ENT inspection, hearing grossly normal, pharynx normal Neck: supple, no JVD, trachea midline Respiratory/Chest: chest non-tender, lungs clear, normal breath sounds, no respiratory distress, no accessory muscle use Cardiovascular: regular rate, rhythm, no edema, no JVD Abdomen/GI: normal bowel sounds, non tender, soft Back: normal inspection, no CVA tenderness, no muscle spasm, normal range of motion Extremities/Musculoskelatal: normal inspection, no calf tenderness, normal capillary refill, no pedal edema, normal range of motion, non-tender Neurologic/Psych: no motor/sensory deficits, normal mood/affect, oriented x 3 Skin: normal color, warm/dry, no rash Hospital Course UTI : Presented with urinary symptoms, nausea,chills unable to tolerate PO abx On IV Rocephin Day#3. Plan to discharge on Augmentin urine culture: Enterococcus HYPONATREMIA : Likely due poor pO intake/dehydration Na level normalized S/P IVF REBECCA on CKD III: Likely prerenal Cr levels back to baseline S/P IVF Lisinopril, lasix held GENERALIZED WEAKNESS : due to above improved DEPRESSION : on SSRI reports of ongoing depressive symptom /poor sleep Appreciate Psych Input Nortriptyline discontinued secondary to side effects Started on Lexapro Continue Klonopin Needs follow up with Psych as outpatient DVT Px: SQ heparin DISPOSITION PT/OT Plan to discharge home today Follow up with on 04/12/17 at 11:05am Follow up with your Psychiatrist in 2 weeks Seek immediate medical attention if your symptoms reoccur or worsen Your Urine culture is pending: Follow up with your Doctor for results Medication changes: Your Nortriptyline was discontinued (as per recommendations from Psychiatry) You are started on Lexapro 5mg daily Complete the antibiotic course as prescribed Total time spent on discharge = 35 minutes This includes examination of the patient, discharge planning, medication reconciliation, and communication with other providers. Discharge Instructions Discharge Instructions Date of Service Apr 06, 2017. Admission Reason for Admission: Uti (Urinary Tract Infection) Discharge Discharge Diagnosis / Problem: UTI Discharge Goals Goal(s): Decrease discomfort, Improve function Activity Recommendations Activity Limitations: resume your previous activity Exercise/Sports Limitations: as tolerated . Instructions / Follow-Up Instructions / Follow-Up Follow up with on 04/12/17 at 11:05am Follow up with your Psychiatrist in 2 weeks Seek immediate medical attention if your symptoms reoccur or worsen Your Urine culture is pending: Follow up with your Doctor for results Medication changes: Your Nortriptyline was discontinued (as per recommendations from Psychiatry) You are started on Lexapro 5mg daily Complete the antibiotic course as prescribed Current Hospital Diet Patient's current hospital diet: AHA Diet (Heart Healthy) Discharge Diet Recommended Diet: AHA Diet (Heart Healthy) Pending Studies Studies pending at discharge: yes List of pending studies: Urine culture Medical Emergencies . Who to Call and When: Medical Emergencies: If at any time you feel your situation is an emergency, please call 911 immediately. . Non-Emergent Contact Non-Emergency issues call your: Primary Care Provider Call Non-Emergent contact if: you have a fever, your pain is not controlled, your pain is worsening, your pain is unusual for you, your pain is concerning you, you have any medication questions Seek immediate medical attention if your symptoms reoccur or worsen . . "Provider Documentation" section prepared by Jeison Howell. . VTE Core Measure Inpt VTE Proph given/why not?: Unfractionated heparin SQ
[2017-04-06 15:12] VITALS: BP 166/76; PULSE 65; TEMP 36.2; O2SAT 97
== END 2017-04-06 15:35 | disposition home health service (06) | DRG 690 ==
LOC: C.EDB 10:17 → C.MS4W 15:13 → ENRESERV 15:43
PROVIDERS: ADMIT Hospitalist; ATTEND Internal Medicine
DX: N39.0 Urinary tract infection, site not specified (principal); N17.9 Acute kidney failure, unspecified; E87.1 Hypo-osmolality and hyponatremia; F33.1 Major depressive disorder, recurrent, moderate; I13.0 Hypertensive heart and chronic kidney disease with heart failure and stage 1 through stage 4 chronic kidney disease, or unspecified chronic kidney disease; I50.30 Unspecified diastolic (congestive) heart failure; B95.2 Enterococcus as the cause of diseases classified elsewhere; R94.31 Abnormal electrocardiogram [ECG] [EKG]; E86.0 Dehydration; R11.2 Nausea with vomiting, unspecified; R53.1 Weakness; F41.1 Generalized anxiety disorder; N18.3 Chronic kidney disease, stage 3 (moderate); E03.9 Hypothyroidism, unspecified; H81.10 Benign paroxysmal vertigo, unspecified ear; Z95.0 Presence of cardiac pacemaker; Z79.82 Long term (current) use of aspirin; Z79.899 Other long term (current) drug therapy; Z88.1 Allergy status to other antibiotic agents

== ENCOUNTER 2017-04-09 18:18 | Inpatient (IN) | payer OTHER ==
[~2017-04-09] VITALS: Ht 152.4 cm; Wt 60.0 kg
[~2017-04-09 18:18] MED LIST changes: -AMLO2.5T2 PO; +AMOX500T PO; +FURO-85 PO; +LISI10TA PO; +LXP10 PO; +POLY1SOL12
[2017-04-09 18:39] LABS: BASO % 0.3 %; BASO ABS # 0.02 K/uL (0-0.2); COMPLETE YES; EOS % 0.8 %; HEMATOCRIT 34.5 % (37-47); IG% 0.8 %; LYMPH % 17.2 %; LYMPH ABS # 1.26 K/uL (1.2-3.4); MEAN CORPUSCULAR HEMOGLOBIN 30.6 pg (25-34); MEAN CORPUSCULAR HGB CONC 33.6 g/dl (32-36); MEAN PLATELET VOLUME 9.7 fL (7.4-10.4); MONO % 15.2 %; NEUT % 65.7 %; PLATELET COUNT 266 K/uL (130-400); RED BLOOD COUNT 3.79 M/uL (4.2-5.4); WHITE BLOOD COUNT 7.32 K/uL (4.8-10.8)
[2017-04-09 18:59] LABS: ALT/SGPT 22 U/L (12-78); BLOOD UREA NITROGEN 21 mg/dl (7-18); BUN/CREATININE RATIO 15.5 (10-20); CALCIUM 9.4 mg/dl (8.5-10.1); CARBON DIOXIDE 27 mmol/L (21-32); CHLORIDE 92 mmol/L (98-107); CREATININE 1.34 mg/dl (0.60-1.20); GLUCOSE 107 mg/dl (70-99); SODIUM 129 mmol/L (136-145)
[2017-04-09 19:01] LABS: URINE APPEARANCE CLEAR (CLEAR); URINE BILIRUBIN NEG (NEG); URINE COLOR YELLOW; URINE NITRITE NEG (NEG); URINE PH 7.5 (4.5-7.5); UROBILINOGEN NEG (NEG)
[2017-04-09 19:02] LABS: ALKALINE PHOSPHATASE 75 U/L (45-117); AST/SGOT 28 U/L (15-37)
[2017-04-09 19:04] LABS: MANUAL MICROSCOPIC REQUIRED? NO; REVIEW REQ? NO
[2017-04-09] MEDS ORDERED: ONDANSETRON INJ 2 MG/ML 2 ML VIAL IV PRN ×2 (19:15→23:45)
--- NOTE | 2017-04-09 19:38 | EMERGENCY ROOM VISIT NOTE ---
History First contact with patient: 18:25 Chief Complaint: ABDOMINAL PAIN Stated Complaint: ABD PAIN/DIARRHEA Nursing Triage Summary: Pt arrives ALS for evaluation of abd pain, nausea, diarrhea. Pt was recently d/c'd from [facility], 04/06/17. History of Present Illness The patient is an 87 year old female who presents to the Emergency Room with complaints of diarrhea and nausea for 3 days. The pt was admitted for a UTI last week and was discharged 4 days ago. She states she has not been taking an oral antibiotic despite discharge stating she would be on augmentin. She has had 3+ diarrheal episodes daily with urgency and several episodes of fecal incontinence. She states that it is dark brown in color and also reports it is followed by mucous. She may have noticed some blackness of the stool, but she is unsure. She denies maria luz blood. She reports no abdominal pain The nausea has been fairly constant and is not related to eating food. She has not vomited. The nausea is not improved by passing a bowel motion. Review of Systems Constitutional: + weakness, No fever, No chills, No sweats, No weight loss, No fatigue, No problem reported Eyes: No worsening of vision, No eye pain, No redness, No discharge, No diplopia, No problem reported ENT: No hearing loss, No unusual epistaxis, No nasal symptoms, No sore throat, No tinnitus, No dental problems, No trouble swallowing, No problem reported Respiratory: No cough, No sputum, No wheezing, No shortness of breath, No dyspnea on exertion, No dyspnea at rest, No hemoptysis, No problem reported Cardiovascular: No chest pain, No orthopnea, No PND, No edema, No claudication, No palpitations, No problem reported Abdomen: + nausea, + diarrhea, No pain, No vomiting, No constipation, No GI bleeding, No problem reported Genitourinary - Female: No dysuria, No urinary frequency, No urinary urgency , No urinary incontinence, No urinary retention, No hematuria, No dysmenorrhea, No menorrhagia, No metrorrhagia, No rash, No vaginal bleeding, No vaginal discharge, No vaginal itching, No vulvodynia, No , No problem reported Neurologic: + weakness (reports a few falls recently at home) Integumentary: No rash Past Medical/Surgical History Medical Problems: (1) REBECCA (acute kidney injury) (2) CHF (congestive heart failure) (3) CKD (chronic kidney disease), stage III (4) CTS (carpal tunnel syndrome) (5) Elevated troponin (6) Generalized anxiety disorder (7) GERD (gastroesophageal reflux disease) (8) Hyperlipidemia (9) Hypertension (10) Hypothyroidism (11) Major depressive disorder, recurrent, moderate (12) UTI (urinary tract infection) Surgical Problems: (1) H/O colonoscopy (2) H/O knee surgery (3) History of bladder surgery Family History No pertinent family history Social History Smoking Status: Never Smoker Marital Status: Occupation Status: retired Current/Historical Medications Scheduled Amoxicillin & Pot Clavulanate (Augmentin 500MG), 500 MG PO BID Aspirin (Aspirin EC Low Dose), 1 TAB PO DAILY Calcitriol (Rocaltrol Cap), 0.25 MCG PO DAILY Cyanocobalamin (Vitamin B-12), 1,000 MCG PO DAILY Cyclosporine (Ophth) (Restasis), 1 DROP OP BID Escitalopram Oxalate (Escitalopram Oxalate), 5 MG PO QAM Furosemide (Lasix), 20 MG PO DAILY Levothyroxine Sodium (Levothyroxine Sodium), 75 MCG PO DAILY Lisinopril (Prinivil), 10 MG PO DAILY Multivitamin (Multivitamin), 1 TAB PO DAILY Omeprazole (Prilosec), 20 MG PO QAM Simvastatin (Zocor), 40 MG PO HS Scheduled PRN Acetaminophen Tab (Tylenol), 650 MG PO Q4 PRN for Pain or Fever Meclizine HCl (Meclizine HCl), 25 MG PO Q8 PRN for Dizziness or Vertigo Miscellaneous Medications Clonazepam (Klonopin), 0.5 MG PO Polyvinyl Alcohol-Povidone (Op (Artificial Tears) Physical Exam Vital Signs Date Time Temp Pulse Resp B/P (MAP) Pulse Ox O2 Delivery O2 Flow Rate FiO2 04/09/17 23:45 84 20 185/80 95 Room Air 04/09/17 22:19 78 168/98 91 04/09/17 20:30 81 18 157/86 94 Room Air 04/09/17 19:42 78 20 175/109 96 Room Air 04/09/17 18:50 74 04/09/17 18:47 36.9 87 22 187/120 97 Room Air Physical Exam General Appearance: WD/WN, no apparent distress Head: normocephalic, atraumatic Eyes: normal inspection, EOMI ENT: normal ENT inspection, + pertinent finding (TELIDA) Neck: supple, no adenopathy Respiratory/Chest: chest non-tender, lungs clear, normal breath sounds, no respiratory distress, no accessory muscle use Cardiovascular: regular rate, rhythm, no edema, no gallop, no JVD, no murmur Abdomen / GI: normal bowel sounds, soft, no organomegaly, no pulsatile mass , + tenderness (RLQ) Extremities: normal inspection, no calf tenderness, no pedal edema Neurologic/Psych: pole inspector II-XII nml as tested, no motor/sensory deficits, alert , normal mood/affect, normal reflexes, oriented x 3 Medical Decision & Procedures ER Provider Diagnostic Interpretation: CT OF THE ABDOMEN AND PELVIS WITHOUT CONTRAST CLINICAL HISTORY: Right lower quadrant pain and diarrhea. COMPARISON STUDY: No previous studies for comparison. TECHNIQUE: Axial images of the abdomen and pelvis were obtained without IV contrast. Images were reviewed in the axial, sagittal, and coronal planes. A dose lowering technique was utilized adhering to the principles of ALARA. FINDINGS: Visualized portions of the lower chest demonstrate coarse calcifications within the lateral right breast. These are suboptimally assessed on this exam but favor a fibroadenoma. Unenhanced images of the liver, spleen, adrenal glands, kidneys and pancreas are unremarkable. Evaluation is suboptimal as unenhanced exam. There is no biliary or pancreatic ductal dilatation. There is no hydronephrosis. No urinary calculi are identified. There is no evidence for a bowel obstruction. A moderate amount stool within the colon is noted. The appendix is partially visualized. Visualized portions are normal. Moderate distention of the bladder is noted. A small right lateral bladder diverticulum is present. There is no lymphadenopathy. No pneumatosis, free air or portal venous gas is present. There is moderate atherosclerotic plaque of the abdominal aorta and major branch vessels. No bowel wall thickening is identified although sensitivity is diminished on this unenhanced exam. IMPRESSION: 1. No acute process within the abdomen or pelvis although evaluation suboptimal on this unenhanced exam. 2. No urinary calculi or hydronephrosis. 3. Mild cardiomegaly. 4. Moderate amount of stool within the colon. No bowel obstruction. 5. Moderate distention of the bladder. Laboratory Results Test 04/09/17 18:00 04/09/17 18:40 Immature Granulocyte % (Auto) 0.8 % White Blood Count 7.32 K/uL (4.8-10.8) Red Blood Count 3.79 M/uL (4.2-5.4) Hemoglobin 11.6 g/dL (12.0-16.0) Hematocrit 34.5 % (37-47) Mean Corpuscular Volume 91.0 fL (80-100) Mean Corpuscular Hemoglobin 30.6 pg (25-34) Mean Corpuscular Hemoglobin Concent 33.6 g/dl (32-36) Platelet Count 266 K/uL (130-400) Mean Platelet Volume 9.7 fL (7.4-10.4) Neutrophils (%) (Auto) 65.7 % Lymphocytes (%) (Auto) 17.2 % Monocytes (%) (Auto) 15.2 % Eosinophils (%) (Auto) 0.8 % Basophils (%) (Auto) 0.3 % Neutrophils # (Auto) 4.81 K/uL (1.4-6.5) Lymphocytes # (Auto) 1.26 K/uL (1.2-3.4) Monocytes # (Auto) 1.11 K/uL (0.11-0.59) Eosinophils # (Auto) 0.06 K/uL (0-0.5) Basophils # (Auto) 0.02 K/uL (0-0.2) Immature Granulocyte # (Auto) 0.06 K/uL (0.00-0.02) Total Bilirubin 0.3 mg/dl (0.2-1) Direct Bilirubin < 0.1 mg/dl (0-0.2) Aspartate Amino Transf (AST/SGOT) 28 U/L (15-37) Alanine Aminotransferase (ALT/SGPT) 22 U/L (12-78) Alkaline Phosphatase 75 U/L (45-117) Total Protein 8.1 gm/dl (6.4-8.2) Albumin 3.6 gm/dl (3.4-5.0) Lipase 217 U/L (73-393) Urine Color YELLOW Urine Appearance CLEAR (CLEAR) Urine pH 7.5 (4.5-7.5) Urine Specific [place] 1.010 (1.000-1.030) Urine Protein NEG (NEG) Urine Glucose (UA) NEG (NEG) Urine Ketones NEG (NEG) Urine Occult Blood NEG (NEG) Urine Nitrite NEG (NEG) Urine Bilirubin NEG (NEG) Urine Urobilinogen NEG (NEG) Urine Leukocyte Esterase NEG (NEG) Date/Time Source Procedure Growth Status 04/09/17 20:50 Stool C.difficile Toxin B Gene (PCR) - Final No C. difficile toxin B gene detected Complete Medications Administered Medications (Trade) Dose Ordered Sig/Ernestine Route Start Time Stop Time Status Last Admin Dose Admin Ondansetron HCl (Zofran Inj) 4 mg Q6H PRN IV 04/09/17 23:45 05/09/17 23:44 04/10/17 08:22 4 MG ECG Indication: abdominal pain Rate (beats per minute): 81 Rhythm: sinus rhythm Findings: 1st degree AV block, PAC Comparison ECG Date: 04/03/17 Change: no significant change ED Course 1830: full h&p obtained by myself 0: discussed case with Dr. Sosa. Ordered UA with cath, CBC, CMP, Stool C.diff 0: Discussed findings with patient and niece, both amenable with plan to admit 0: Dr. Sosa discusses case with Dr. Mcfadden, [facility], who will evaluate patient. Medical Decision Prior records/ancillary studies reviewed. Triage Nursing notes reviewed. Additional history obtained from patient. The patient's history was concerning for diarrhea. Differential diagnosis: Etiologies such as appendicitis, diverticulitis, PUD, biliary pathology, UTI, pancreatitis, obstruction, colitis, infections, inflammatory bowel disease, renal colic, as well as others were entertained. Physical examination findings: As above. ER treatment provided: Zofran 4 mg On reassessment the patient felt better. Diagnostics interpreted by me: ECG: as above The labs revealed negative C.diff toxin and Na+ of 129. Imaging studies: as above Consultation: A consultation was placed with the [facility] hospitalists. The case was discussed and diagnostics were reviewed. The patient was evaluated in the ER for further treatment. By the evaluation outlined above emergent etiologies such as appendicitis, diverticulitis, PUD, biliary pathology, UTI, pancreatitis, obstruction, mesenteric ischemia, aortic pathology, infections, inflammatory bowel disease, renal colic, as well as others were deemed relatively unlikely. Impression Primary Impression: Diarrhea Departure Information Dispostion Admitted as an inpatient Condition GOOD Referrals Luther Jean M.D. (PCP) Patient Instructions My [facility] Resident Tracking Resident Involvement: Resident Care Provided Care Provided: Adult ED Problem Qualifiers Primary Impression: Diarrhea Diarrhea type: unspecified type Qualified Codes: R19.7 - Diarrhea, unspecified
--- NOTE | 2017-04-09 20:56 | DIAGNOSTIC IMAGING REPORT ---
CT OF THE ABDOMEN AND PELVIS WITHOUT CONTRAST CLINICAL HISTORY: Right lower quadrant pain and diarrhea. COMPARISON STUDY: No previous studies for comparison. TECHNIQUE: Axial images of the abdomen and pelvis were obtained without IV contrast. Images were reviewed in the axial, sagittal, and coronal planes. A dose lowering technique was utilized adhering to the principles of ALARA. FINDINGS: Visualized portions of the lower chest demonstrate coarse calcifications within the lateral right breast. These are suboptimally assessed on this exam but favor a fibroadenoma. Unenhanced images of the liver, spleen, adrenal glands, kidneys and pancreas are unremarkable. Evaluation is suboptimal as unenhanced exam. There is no biliary or pancreatic ductal dilatation. There is no hydronephrosis. No urinary calculi are identified. There is no evidence for a bowel obstruction. A moderate amount stool within the colon is noted. The appendix is partially visualized. Visualized portions are normal. Moderate distention of the bladder is noted. A small right lateral bladder diverticulum is present. There is no lymphadenopathy. No pneumatosis, free air or portal venous gas is present. There is moderate atherosclerotic plaque of the abdominal aorta and major branch vessels. No bowel wall thickening is identified although sensitivity is diminished on this unenhanced exam. IMPRESSION: 1. No acute process within the abdomen or pelvis although evaluation suboptimal on this unenhanced exam. 2. No urinary calculi or hydronephrosis. 3. Mild cardiomegaly. 4. Moderate amount of stool within the colon. No bowel obstruction. 5. Moderate distention of the bladder. Electronically signed by: Anish Meraz M.D. 04/09/2017 8:55 PM Dictated Date/Time: 04/09/2017 8:48 PM
--- NOTE | 2017-04-09 22:57 | EMERGENCY ROOM VISIT NOTE ---
History Report prepared by Jhonny: Jaclyn Gonsalves Under the Supervision of: Dr. Elio Sosa M.D. First contact with patient: 18:25 Stated Complaint: ABD PAIN/DIARRHEA History of Present Illness The patient is an 87 year old female who presents to the Emergency Room with complaints of constant diarrhea starting 4 days ago. The patient states that she was here on the for UTI and was admitted to be treated with Rocephin. She was then discharged with Augmentin. She reports that she has had 4 days straight of diarrhea since being discharged. The patient complains of nausea and weakness. She denies taking any new medications since she started having diarrhea. Pt denies LOC, headache, fevers, chills, diaphoresis, visual changes, neck pain , chest pain, breathing difficulties, vomiting, abdominal pain, back pain, melena, hematochezia, urinary symptoms, numbness, lymphadenopathy, rash, or other complaints. Source of History: patient Onset: 4 days ago Position: other (global) Quality: other (global) Timing: constant Associated Symptoms: + nausea, + weakness Review of Systems See HPI for pertinent positives and negatives. A total of ten systems were reviewed and were otherwise negative. Past Medical & Surgical Medical Problems: (1) REBECCA (acute kidney injury) (2) CHF (congestive heart failure) (3) CKD (chronic kidney disease), stage III (4) CTS (carpal tunnel syndrome) (5) Elevated troponin (6) Generalized anxiety disorder (7) GERD (gastroesophageal reflux disease) (8) Hyperlipidemia (9) Hypertension (10) Hypothyroidism (11) Major depressive disorder, recurrent, moderate (12) UTI (urinary tract infection) Surgical Problems: (1) H/O colonoscopy (2) H/O knee surgery (3) History of bladder surgery Family History No pertinent family history Social History Smoking Status: Never Smoker Marital Status: Housing Status: lives with significant other Occupation Status: retired Current/Historical Medications Scheduled Amoxicillin & Pot Clavulanate (Augmentin 500MG), 500 MG PO BID Aspirin (Aspirin EC Low Dose), 1 TAB PO DAILY Calcitriol (Rocaltrol Cap), 0.25 MCG PO DAILY Cyanocobalamin (Vitamin B-12), 1,000 MCG PO DAILY Cyclosporine (Ophth) (Restasis), 1 DROP OP BID Escitalopram Oxalate (Escitalopram Oxalate), 5 MG PO QAM Furosemide (Lasix), 20 MG PO DAILY Levothyroxine Sodium (Levothyroxine Sodium), 75 MCG PO DAILY Lisinopril (Prinivil), 10 MG PO DAILY Multivitamin (Multivitamin), 1 TAB PO DAILY Omeprazole (Prilosec), 20 MG PO QAM Simvastatin (Zocor), 40 MG PO HS Scheduled PRN Acetaminophen Tab (Tylenol), 650 MG PO Q4 PRN for Pain or Fever Meclizine HCl (Meclizine HCl), 25 MG PO Q8 PRN for Dizziness or Vertigo Miscellaneous Medications Clonazepam (Klonopin), 0.5 MG PO Polyvinyl Alcohol-Povidone (Op (Artificial Tears) Allergies Coded Allergies: Quinolones (Unverified Allergy, Mild, "FEELS AWEFUL", 04/09/17) Physical Exam Vital Signs Date Time Temp Pulse Resp B/P (MAP) Pulse Ox O2 Delivery O2 Flow Rate FiO2 04/09/17 22:19 78 168/98 91 04/09/17 20:30 81 18 157/86 94 Room Air 04/09/17 19:42 78 20 175/109 96 Room Air 04/09/17 18:50 74 04/09/17 18:47 36.9 87 22 187/120 97 Room Air Physical Exam GENERAL: Awake, alert, well-appearing, in no distress HENT: Normocephalic, atraumatic. Oropharynx unremarkable. EYES: Normal conjunctiva. Sclera non-icteric. NECK: Supple. No nuchal rigidity. FROM. No JVD. RESPIRATORY: Clear to auscultation. CARDIAC: Regular rate, normal rhythm. Extremities warm and well perfused. Pulses equal. ABDOMEN: Soft, non-distended. RLQ tenderness to palpation. No rebound or guarding. No masses. RECTAL: Deferred. MUSCULOSKELETAL: Chest examination reveals no tenderness. The back is symmetrical on inspection without obvious abnormality. There is no CVA tenderness to palpation. No joint edema. LOWER EXTREMITIES: Calves are equal size bilaterally and non-tender. No edema. No discoloration. NEURO: Normal sensorium. No sensory or motor deficits noted. SKIN: No rash or jaundice noted. Medical Decision & Procedures ER Provider Diagnostic Interpretation: Radiology results as stated below per my review and radiologist interpretation: CT OF THE ABDOMEN AND PELVIS WITHOUT CONTRAST CLINICAL HISTORY: Right lower quadrant pain and diarrhea. COMPARISON STUDY: No previous studies for comparison. TECHNIQUE: Axial images of the abdomen and pelvis were obtained without IV contrast. Images were reviewed in the axial, sagittal, and coronal planes. A dose lowering technique was utilized adhering to the principles of ALARA. FINDINGS: Visualized portions of the lower chest demonstrate coarse calcifications within the lateral right breast. These are suboptimally assessed on this exam but favor a fibroadenoma. Unenhanced images of the liver, spleen, adrenal glands, kidneys and pancreas are unremarkable. Evaluation is suboptimal as unenhanced exam. There is no biliary or pancreatic ductal dilatation. There is no hydronephrosis. No urinary calculi are identified. There is no evidence for a bowel obstruction. A moderate amount stool within the colon is noted. The appendix is partially visualized. Visualized portions are normal. Moderate distention of the bladder is noted. A small right lateral bladder diverticulum is present. There is no lymphadenopathy. No pneumatosis, free air or portal venous gas is present. There is moderate atherosclerotic plaque of the abdominal aorta and major branch vessels. No bowel wall thickening is identified although sensitivity is diminished on this unenhanced exam. IMPRESSION: 1. No acute process within the abdomen or pelvis although evaluation suboptimal on this unenhanced exam. 2. No urinary calculi or hydronephrosis. 3. Mild cardiomegaly. 4. Moderate amount of stool within the colon. No bowel obstruction. 5. Moderate distention of the bladder. Electronically signed by: Anish Meraz M.D. 04/09/2017 8:55 PM Dictated Date/Time: 04/09/2017 8:48 PM Laboratory Results 04/09/17 18:00 Red Blood Count 3.79, Mean Corpuscular Volume 91.0, Mean Corpuscular Hemoglobin 30.6, Mean Corpuscular Hemoglobin Concent 33.6, Mean Platelet Volume 9.7, Neutrophils (%) (Auto) 65.7, Lymphocytes (%) (Auto) 17.2, Monocytes (%) (Auto) 15.2, Eosinophils (%) (Auto) 0.8, Basophils (%) (Auto) 0.3, Neutrophils # (Auto ) 4.81, Lymphocytes # (Auto) 1.26, Monocytes # (Auto) 1.11, Eosinophils # (Auto ) 0.06, Basophils # (Auto) 0.02 04/09/17 18:00 Test 04/09/17 18:00 04/09/17 18:40 White Blood Count 7.32 K/uL (4.8-10.8) Red Blood Count 3.79 M/uL (4.2-5.4) Hemoglobin 11.6 g/dL (12.0-16.0) Hematocrit 34.5 % (37-47) Mean Corpuscular Volume 91.0 fL (80-100) Mean Corpuscular Hemoglobin 30.6 pg (25-34) Mean Corpuscular Hemoglobin Concent 33.6 g/dl (32-36) Platelet Count 266 K/uL (130-400) Mean Platelet Volume 9.7 fL (7.4-10.4) Neutrophils (%) (Auto) 65.7 % Lymphocytes (%) (Auto) 17.2 % Monocytes (%) (Auto) 15.2 % Eosinophils (%) (Auto) 0.8 % Basophils (%) (Auto) 0.3 % Neutrophils # (Auto) 4.81 K/uL (1.4-6.5) Lymphocytes # (Auto) 1.26 K/uL (1.2-3.4) Monocytes # (Auto) 1.11 K/uL (0.11-0.59) Eosinophils # (Auto) 0.06 K/uL (0-0.5) Basophils # (Auto) 0.02 K/uL (0-0.2) RDW Standard Deviation 47.9 fL (36.4-46.3) RDW Coefficient of Variation 14.3 % (11.5-14.5) Immature Granulocyte % (Auto) 0.8 % Immature Granulocyte # (Auto) 0.06 K/uL (0.00-0.02) Anion Gap 10.0 mmol/L (3-11) Est Creatinine Clear Calc Drug Dose 23.5 ml/min Estimated GFR () 40.9 Estimated GFR (Non- 35.3 BUN/Creatinine Ratio 15.5 (10-20) Calcium Level 9.4 mg/dl (8.5-10.1) Total Bilirubin 0.3 mg/dl (0.2-1) Direct Bilirubin < 0.1 mg/dl (0-0.2) Aspartate Amino Transf (AST/SGOT) 28 U/L (15-37) Alanine Aminotransferase (ALT/SGPT) 22 U/L (12-78) Alkaline Phosphatase 75 U/L (45-117) Total Protein 8.1 gm/dl (6.4-8.2) Albumin 3.6 gm/dl (3.4-5.0) Lipase 217 U/L (73-393) Urine Color YELLOW Urine Appearance CLEAR (CLEAR) Urine pH 7.5 (4.5-7.5) Urine Specific [place] 1.010 (1.000-1.030) Urine Protein NEG (NEG) Urine Glucose (UA) NEG (NEG) Urine Ketones NEG (NEG) Urine Occult Blood NEG (NEG) Urine Nitrite NEG (NEG) Urine Bilirubin NEG (NEG) Urine Urobilinogen NEG (NEG) Urine Leukocyte Esterase NEG (NEG) Date/Time Source Procedure Growth Status 04/09/17 20:50 Stool C.difficile Toxin B Gene (PCR) - Final No C. difficile toxin B gene detected Complete Laboratory results reviewed by me ECG Indication: weakness Rate (beats per minute): 81 Rhythm: sinus rhythm Findings: 1st degree AV block, PAC, no acute ischemic change Comparison ECG Date: 04/03/2017 Change: no significant change ED Course 1909: The patient was evaluated in room B12B. A complete history and physical exam was performed. 1914: Ordered Zofran Inj 4 mg PRN IV Nausea. 2248: I reevaluated the patient and the family states that she is not doing well at home. Medical Decision Triage Nursing notes reviewed. The patient's presentation and history were concerning for diarrhea, nausea, and recent treatment for urinary tract infection. Etiologies such as C. difficile infection, medication side effect, metabolic, infection, hypo/hyperglycemia, electrolyte abnormalities, cardiac sources, intracerebral event, toxicologic, neurologic, as well as others were entertained. The patient was evaluated. She is generally weak. She has a mild right lower tenderness in her abdomen. CT imaging was ordered and noted as above. The patient had hyponatremia on her chemistry panel. Remainder of her labs are unremarkable. Urinalysis did not show any sign of infection. She was generally weak and having trouble ambulating. She had nausea and was treated with Zofran. The patient is doing well at home per family. Because of this further treatment in the hospital was felt to be appropriate given the hyponatremia and weakness with associated nausea. The patient had a stool sample sent and C. difficile was negative. Consultation with the hospitalist service. The patient was evaluated in the Emergency Room for further management. The patient was seen and examined with Dr. Mi Layton, resident physician. We discussed the case and treatments ordered, reviewed the results, and determine the disposition. Please refer to the resident's note for additional details. I have been directly involved with the management and disposition as well as independently evaluated the patient as documented in this note. . Medication Reconcilliation Current Medication List: was personally reviewed by me Blood Pressure Screening Patient's blood pressure: Elevated blood pressure Blood pressure disposition: Referred to PCP Consults Time Called: [id number] Consulting Physician: Dr. Mcfadden Returned Call: [phone] Discussed the patient's history, presentation, and workup. He will evaluate her for further management. Impression Primary Impression: Hyponatremia Additional Impressions: Nausea Weakness Scribe Attestation The scribe's documentation has been prepared under my direction and personally reviewed by me in its entirety. I confirm that the note above accurately reflects all work, treatment, procedures, and medical decision making performed by me. Departure Information Dispostion Being Evaluated By Hospitalist Referrals Luther Jean M.D. (PCP) Problem Qualifiers
[2017-04-09] MEDS ORDERED: ACETAMINOPHEN 325 MG TAB PO PRN ×2 (23:45)
[2017-04-09] MEDS ORDERED: MAGNESIUM HYDROXIDE SUSP 30 ML UDC PO PRN (23:45)
[2017-04-09] MEDS ORDERED: ALUMINUM/MAGNESIUM/SIMETH (MAALOX MAX) 30 ML UDC PO PRN (23:45)
[2017-04-10] VITALS (7 sets, daily range): BP systolic 109–190; BP diastolic 61–96; PULSE 41–90; TEMP 36.3–36.7; O2SAT 91–98; Ht 152.4 cm; Wt 60.0 kg
[2017-04-10] MEDS ORDERED: IV FLUIDS COMPLETED PRN (02:15)
--- NOTE | 2017-04-10 02:17 | History and Physical ---
History & Physical Date & Time of Service: Apr 10, 2017 at 02:03 Chief Complaint: Hyponatremia, Nausea, Weakness Primary Care Physician: Luther Jean M.D. History of Present Illness Source: patient, clinic records, hospital records This is an 87 year old female with a PMH of diastolic CHF, CKD stage 3, HTN, hypothyroidism, major depression presents with weakness, hyponatremia, diarrhea. Patient was recently here for enterococcal UTI at [facility]. Was discharged on 04/06 on Augmentin. She was doing well, but diarrhea started and she became really weak and tired. Upon presentation, noted to have low Na levels , diarrhea persisted. CT abdomen - no acute findings. Denies fevers/chills, denies shortness of breath, denies chest pain. Past Medical/Surgical History Medical Problems: (1) CHF (congestive heart failure) Status: Chronic (2) CKD (chronic kidney disease), stage III Status: Chronic (3) CTS (carpal tunnel syndrome) Status: Chronic (4) GERD (gastroesophageal reflux disease) Status: Chronic (5) Hyperlipidemia Status: Chronic (6) Hypertension Status: Chronic (7) Hypothyroidism Status: Chronic Surgical Problems: (1) H/O colonoscopy Status: Chronic (2) H/O knee surgery Status: Chronic (3) History of bladder surgery Status: Chronic Family History No pertinent family history Social History Smoking Status: Never Smoker Marital Status: Housing status: lives with family Occupational Status: retired Multi-Drug Resistant Organisms History of MDRO: No Allergies Coded Allergies: Quinolones (Unverified Allergy, Mild, "FEELS AWEFUL", 04/09/17) Home Medications Scheduled Amoxicillin & Pot Clavulanate (Augmentin 500MG), 500 MG PO BID Aspirin (Aspirin EC Low Dose), 1 TAB PO DAILY Calcitriol (Rocaltrol Cap), 0.25 MCG PO DAILY Cyanocobalamin (Vitamin B-12), 1,000 MCG PO DAILY Cyclosporine (Ophth) (Restasis), 1 DROP OP BID Escitalopram Oxalate (Escitalopram Oxalate), 5 MG PO QAM Furosemide (Lasix), 20 MG PO DAILY Levothyroxine Sodium (Levothyroxine Sodium), 75 MCG PO DAILY Lisinopril (Prinivil), 10 MG PO DAILY Multivitamin (Multivitamin), 1 TAB PO DAILY Omeprazole (Prilosec), 20 MG PO QAM Simvastatin (Zocor), 40 MG PO HS Scheduled PRN Acetaminophen Tab (Tylenol), 650 MG PO Q4 PRN for Pain or Fever Meclizine HCl (Meclizine HCl), 25 MG PO Q8 PRN for Dizziness or Vertigo Miscellaneous Medications Clonazepam (Klonopin), 0.5 MG PO Polyvinyl Alcohol-Povidone (Op (Artificial Tears) Review of Systems Constitutional: + weakness, + fatigue, No fever, No chills, No sweats, No weight loss Eyes: No eye pain ENT: No unusual epistaxis Respiratory: No cough, No sputum, No shortness of breath, No dyspnea on exertion, No dyspnea at rest, No hemoptysis Cardiovascular: No chest pain, No edema, No palpitations Abdomen: + nausea, + diarrhea, No pain, No vomiting, No constipation, No GI bleeding Musculoskeletal: No joint pain, No muscle pain Genitourinary - Female: No dysuria, No urinary frequency, No urinary urgency, No urinary incontinence, No urinary retention, No hematuria Neurologic: + weakness, No memory loss, No paralysis, No numbness/tingling, No vertigo, No balance problems Psychiatric: No depression symptoms, No anxiety, No insomnia Endocrine: No fatigue Hematologic / Lymphatic: No abnormal bleeding/bruising Integumentary: No rash, No itch Allergic / Immunologic: No environmental allergies, No seasonal allergies Physical Exam Vital Signs Date Time Temp Pulse Resp B/P (MAP) Pulse Ox O2 Delivery O2 Flow Rate FiO2 04/10/17 01:46 168/90 (116) 04/10/17 00:45 36.5 73 18 190/96 94 Room Air 04/09/17 23:45 84 20 185/80 95 Room Air 04/09/17 22:19 78 168/98 91 04/09/17 20:30 81 18 157/86 94 Room Air 04/09/17 19:42 78 20 175/109 96 Room Air 04/09/17 18:50 74 04/09/17 18:47 36.9 87 22 187/120 97 Room Air General Appearance: no apparent distress Head: normocephalic, atraumatic Eyes: normal inspection ENT: hearing grossly normal Neck: supple Respiratory/Chest: chest non-tender, lungs clear, normal breath sounds, no respiratory distress, no accessory muscle use Cardiovascular: regular rate, rhythm, no edema, no murmur Abdomen/GI: normal bowel sounds, soft, no organomegaly, + tenderness (mildly tender in the lower abdomen) Back: no muscle spasm Extremities/Musculoskelatal: normal inspection, no calf tenderness, normal capillary refill, no pedal edema, normal range of motion Neurologic/Psych: commercial retoucher II-XII nml as tested, no motor/sensory deficits, alert, normal mood/affect, oriented x 3 Skin: normal color Lymphatic: no adenopathy Diagnostics Laboratory Results Results Past 24 Hours Test 04/09/17 18:00 04/09/17 18:40 Range/Units White Blood Count 7.32 4.8-10.8 K/uL Red Blood Count 3.79 4.2-5.4 M/uL Hemoglobin 11.6 12.0-16.0 g/dL Hematocrit 34.5 37-47 % Mean Corpuscular Volume 91.0 80-100 fL Mean Corpuscular Hemoglobin 30.6 25-34 pg Mean Corpuscular Hemoglobin Concent 33.6 32-36 g/dl Platelet Count 266 130-400 K/uL Mean Platelet Volume 9.7 7.4-10.4 fL Neutrophils (%) (Auto) 65.7 % Lymphocytes (%) (Auto) 17.2 % Monocytes (%) (Auto) 15.2 % Eosinophils (%) (Auto) 0.8 % Basophils (%) (Auto) 0.3 % Neutrophils # (Auto) 4.81 1.4-6.5 K/uL Lymphocytes # (Auto) 1.26 1.2-3.4 K/uL Monocytes # (Auto) 1.11 0.11-0.59 K/uL Eosinophils # (Auto) 0.06 0-0.5 K/uL Basophils # (Auto) 0.02 0-0.2 K/uL RDW Standard Deviation 47.9 36.4-46.3 fL RDW Coefficient of Variation 14.3 11.5-14.5 % Immature Granulocyte % (Auto) 0.8 % Immature Granulocyte # (Auto) 0.06 0.00-0.02 K/uL Sodium Level 129 136-145 mmol/L Potassium Level 4.0 3.5-5.1 mmol/L Chloride Level 92 98-107 mmol/L Carbon Dioxide Level 27 21-32 mmol/L Anion Gap 10.0 3-11 mmol/L Blood Urea Nitrogen 21 7-18 mg/dl Creatinine 1.34 0.60-1.20 mg/dl Est Creatinine Clear Calc Drug Dose 23.5 ml/min Estimated GFR () 40.9 Estimated GFR (Non- 35.3 BUN/Creatinine Ratio 15.5 10-20 Random Glucose 107 70-99 mg/dl Calcium Level 9.4 8.5-10.1 mg/dl Total Bilirubin 0.3 0.2-1 mg/dl Direct Bilirubin < 0.1 0-0.2 mg/dl Aspartate Amino Transf (AST/SGOT) 28 15-37 U/L Alanine Aminotransferase (ALT/SGPT) 22 12-78 U/L Alkaline Phosphatase 75 45-117 U/L Total Protein 8.1 6.4-8.2 gm/dl Albumin 3.6 3.4-5.0 gm/dl Lipase 217 73-393 U/L Urine Color YELLOW Urine Appearance CLEAR CLEAR Urine pH 7.5 4.5-7.5 Urine Specific [place] 1.010 1.000-1.030 Urine Protein NEG NEG Urine Glucose (UA) NEG NEG Urine Ketones NEG NEG Urine Occult Blood NEG NEG Urine Nitrite NEG NEG Urine Bilirubin NEG NEG Urine Urobilinogen NEG NEG Urine Leukocyte Esterase NEG NEG Microbiology Results 04/09/17 C.difficile Toxin B Gene (PCR) - Final, Complete No C. difficile toxin B gene detected 04/09/17 Urine Culture, Received Pending Diagnostic Radiology CT OF THE ABDOMEN AND PELVIS WITHOUT CONTRAST CLINICAL HISTORY: Right lower quadrant pain and diarrhea. COMPARISON STUDY: No previous studies for comparison. TECHNIQUE: Axial images of the abdomen and pelvis were obtained without IV contrast. Images were reviewed in the axial, sagittal, and coronal planes. A dose lowering technique was utilized adhering to the principles of ALARA. FINDINGS: Visualized portions of the lower chest demonstrate coarse calcifications within the lateral right breast. These are suboptimally assessed on this exam but favor a fibroadenoma. Unenhanced images of the liver, spleen, adrenal glands, kidneys and pancreas are unremarkable. Evaluation is suboptimal as unenhanced exam. There is no biliary or pancreatic ductal dilatation. There is no hydronephrosis. No urinary calculi are identified. There is no evidence for a bowel obstruction. A moderate amount stool within the colon is noted. The appendix is partially visualized. Visualized portions are normal. Moderate distention of the bladder is noted. A small right lateral bladder diverticulum is present. There is no lymphadenopathy. No pneumatosis, free air or portal venous gas is present. There is moderate atherosclerotic plaque of the abdominal aorta and major branch vessels. No bowel wall thickening is identified although sensitivity is diminished on this unenhanced exam. IMPRESSION: 1. No acute process within the abdomen or pelvis although evaluation suboptimal on this unenhanced exam. 2. No urinary calculi or hydronephrosis. 3. Mild cardiomegaly. 4. Moderate amount of stool within the colon. No bowel obstruction. 5. Moderate distention of the bladder. EKG NSR 1st degree AV block Impression Assessment and Plan This is an 87 year old female with a PMH of diastolic CHF, CKD stage 3, HTN, hypothyroidism, major depression presents with weakness, hyponatremia, diarrhea Hyponatremia secondary to Diarrhea Weakness patient admitted with diarrhea; c. diff negative currently on Augmentin for enterococcal UTI; will continue x2 days IVF hydration recheck Na in AM monitor electrolytes discharge planning eval, PT/OT - may need placement CKD stage 3 continue IVFs creat at baseline HTN continue Lisinopril Hypothyroidism continue Synthroid DVT ppx subq heparin FULL CODE Advanced Directives Existing Living Will: No Existing Power of Flexo Operator: No VTE Prophylaxis VTE Risk Assessment Done? Y/N: Yes Risk Level: Moderate
[2017-04-10] MEDS ORDERED: AMLODIPINE BESYLATE 5 MG TAB PO ONE (03:00)
[2017-04-10] MEDS: SODIUM CHLORIDE 0.9% 1000ML 1,000 ML IV SCH ×2 (03:10→15:50)
[2017-04-10] MEDS: HEPARIN SOD 5000 UNIT/0.5 ML CARP SQ SCH ×3 (05:56→21:11)
[2017-04-10] MEDS: LEVOTHYROXINE 75 MCG TAB PO SCH (05:56)
[2017-04-10 06:53] LABS: HEMATOCRIT 34.1 % (37-47); MEAN CELL VOLUME 90.9 fL (80-100); MEAN CORPUSCULAR HEMOGLOBIN 31.5 pg (25-34); MEAN CORPUSCULAR HGB CONC 34.6 g/dl (32-36); MEAN PLATELET VOLUME 9.4 fL (7.4-10.4); PLATELET COUNT 240 K/uL (130-400); RED BLOOD COUNT 3.75 M/uL (4.2-5.4); WHITE BLOOD COUNT 6.56 K/uL (4.8-10.8)
[2017-04-10 07:22] LABS: BUN/CREATININE RATIO 14.9 (10-20); CALCIUM 9.5 mg/dl (8.5-10.1); CREATININE 0.97 mg/dl (0.60-1.20); POTASSIUM 3.7 mmol/L (3.5-5.1)
[2017-04-10] MEDS: CLONAZEPAM 0.5 MG TAB PO SCH ×2 (08:16→21:03)
[2017-04-10] MEDS: ESCITALOPRAM OXALATE 10 MG TAB PO SCH (08:17)
[2017-04-10] MEDS: ASPIRIN 81 MG ECTAB PO SCH (08:17)
[2017-04-10] MEDS: CALCITRIOL 0.25 MCG CAP PO SCH (08:18)
[2017-04-10] MEDS: PANTOprazole SOD 40 MG TAB PO SCH (08:18)
[2017-04-10] MEDS: AMOXICILLIN/CLAVULANATE TAB 500 MG TAB PO SCH ×2 (08:18→17:04)
[2017-04-10] MEDS ORDERED: LISINOPRIL 10 MG TAB PO SCH (09:00)
--- NOTE | 2017-04-10 14:12 | Progress Note ---
Internal Med Progress Note Date of Service: Apr 10, 2017. Provider Documentation: SUBJECTIVE: Seen and examined at bedside Feels tired Reports abdominal discomfort No diarrhea since hospitalization Denies chest pain, SOB, dizziness Family at bedside No other complaints OBJECTIVE: Vital Signs-as noted below Physical Exam: General Appearance:Moderately built and nourished, no apparent distress Head: normocephalic, Atraumatic Eyes: normal inspection, EOMI, PERRL Neck: supple, Trachea midline Respiratory/Chest: Normal breath sounds, L Basal creps Cardiovascular: S1, S2, No murmur Abdomen/GI:Soft, Non tender, Bowel sounds present, + distended Extremities/Musculoskelatal:normal inspection, no edema Neurologic/Psych:AAOX3, grossly no focal neurological deficits Skin: normal color, warm Lab data as noted below. ASSESSMENT & PLAN: Patient is an 87 yr old female with a PMH of diastolic CHF, CKD stage 3, HTN, hypothyroidism, major depression presents with weakness, hyponatremia, diarrhea. Constipation/Overflow Diarrhea Hyponatremia secondary to dehydration Generalized Weakness Stool for c.diff: negative CT ABD:Moderate stool Continue IV fluids Monitor sodium levels Urine culture: No growth continue Augmentin for enterococcal UTI Start bowel regimen encourage ambulation PT/OT CKD III: continue IVFs cr at baseline Monitor renal function HTN continue Lisinopril Hypothyroidism continue Synthroid DVT px SQ heparin Code Status: Full Code Disposition: surgical services assistant consulted PT/OT Vital Signs: Date Time Temp Pulse Resp B/P (MAP) Pulse Ox O2 Delivery O2 Flow Rate FiO2 04/10/17 08:00 Room Air 04/10/17 07:53 36.7 90 16 144/76 (98) 91 Room Air 04/10/17 05:56 152/77 (102) 04/10/17 01:46 168/90 (116) 04/10/17 00:45 36.5 73 18 190/96 94 Room Air 04/09/17 23:45 84 20 185/80 95 Room Air 04/09/17 22:19 78 168/98 91 04/09/17 20:30 81 18 157/86 94 Room Air 04/09/17 19:42 78 20 175/109 96 Room Air 04/09/17 18:50 74 04/09/17 18:47 36.9 87 22 187/120 97 Room Air Lab Results: Results Past 24 Hours Test 04/09/17 18:00 04/09/17 18:40 04/10/17 06:30 Range/Units White Blood Count 7.32 6.56 4.8-10.8 K/uL Red Blood Count 3.79 3.75 4.2-5.4 M/uL Hemoglobin 11.6 11.8 12.0-16.0 g/dL Hematocrit 34.5 34.1 37-47 % Mean Corpuscular Volume 91.0 90.9 80-100 fL Mean Corpuscular Hemoglobin 30.6 31.5 25-34 pg Mean Corpuscular Hemoglobin Concent 33.6 34.6 32-36 g/dl Platelet Count 266 240 130-400 K/uL Mean Platelet Volume 9.7 9.4 7.4-10.4 fL Neutrophils (%) (Auto) 65.7 % Lymphocytes (%) (Auto) 17.2 % Monocytes (%) (Auto) 15.2 % Eosinophils (%) (Auto) 0.8 % Basophils (%) (Auto) 0.3 % Neutrophils # (Auto) 4.81 1.4-6.5 K/uL Lymphocytes # (Auto) 1.26 1.2-3.4 K/uL Monocytes # (Auto) 1.11 0.11-0.59 K/uL Eosinophils # (Auto) 0.06 0-0.5 K/uL Basophils # (Auto) 0.02 0-0.2 K/uL RDW Standard Deviation 47.9 47.9 36.4-46.3 fL RDW Coefficient of Variation 14.3 14.4 11.5-14.5 % Immature Granulocyte % (Auto) 0.8 % Immature Granulocyte # (Auto) 0.06 0.00-0.02 K/uL Sodium Level 129 128 136-145 mmol/L Potassium Level 4.0 3.7 3.5-5.1 mmol/L Chloride Level 92 93 98-107 mmol/L Carbon Dioxide Level 27 28 21-32 mmol/L Anion Gap 10.0 7.0 3-11 mmol/L Blood Urea Nitrogen 21 14 7-18 mg/dl Creatinine 1.34 0.97 0.60-1.20 mg/dl Est Creatinine Clear Calc Drug Dose 23.5 32.0 ml/min Estimated GFR () 40.9 60.4 Estimated GFR (Non- 35.3 52.1 BUN/Creatinine Ratio 15.5 14.9 10-20 Random Glucose 107 106 70-99 mg/dl Calcium Level 9.4 9.5 8.5-10.1 mg/dl Total Bilirubin 0.3 0.2-1 mg/dl Direct Bilirubin < 0.1 0-0.2 mg/dl Aspartate Amino Transf (AST/SGOT) 28 15-37 U/L Alanine Aminotransferase (ALT/SGPT) 22 12-78 U/L Alkaline Phosphatase 75 45-117 U/L Total Protein 8.1 6.4-8.2 gm/dl Albumin 3.6 3.4-5.0 gm/dl Lipase 217 73-393 U/L Urine Color YELLOW Urine Appearance CLEAR CLEAR Urine pH 7.5 4.5-7.5 Urine Specific [place] 1.010 1.000-1.030 Urine Protein NEG NEG Urine Glucose (UA) NEG NEG Urine Ketones NEG NEG Urine Occult Blood NEG NEG Urine Nitrite NEG NEG Urine Bilirubin NEG NEG Urine Urobilinogen NEG NEG Urine Leukocyte Esterase NEG NEG Magnesium Level 2.0 1.8-2.4 mg/dl Microbiology Results 04/09/17 C.difficile Toxin B Gene (PCR) - Final, Complete No C. difficile toxin B gene detected 04/09/17 Urine Culture - Preliminary, Resulted NO GROWTH - LESS THAN 1,000 COLONIES/...
[2017-04-10] MEDS: LACTOBACILLUS ACIDOPHILUS 1 GM PACK PO SCH (17:04)
[2017-04-10] MEDS: DOCUSATE SODIUM/SENNA 50/8.6MG TAB PO SCH (21:03)
[2017-04-10] MEDS: SIMVASTATIN 20 MG TAB PO SCH (21:04)
[2017-04-11 00:20] VITALS: BP 186/80; PULSE 73
[2017-04-11] MEDS ORDERED: LISINOPRIL 10 MG TAB PO ONE (01:37)
[2017-04-11 02:57] VITALS: BP 170/79; PULSE 76
[2017-04-11] MEDS: SODIUM CHLORIDE 0.9% 1000ML 1,000 ML IV SCH (03:46)
[2017-04-11 05:04] VITALS: BP 173/71; PULSE 78; TEMP 36.6; O2SAT 94
[2017-04-11] MEDS: LEVOTHYROXINE 75 MCG TAB PO SCH (05:38)
[2017-04-11] MEDS: HEPARIN SOD 5000 UNIT/0.5 ML CARP SQ SCH ×3 (05:40→22:24)
[2017-04-11 06:29] LABS: BUN/CREATININE RATIO 10.2 (10-20); CALCIUM 8.6 mg/dl (8.5-10.1); CREATININE 0.94 mg/dl (0.60-1.20); POTASSIUM 3.4 mmol/L (3.5-5.1)
[2017-04-11 07:46] VITALS: BP 150/69; PULSE 65; TEMP 36.8; O2SAT 93
[2017-04-11] MEDS: PANTOprazole SOD 40 MG TAB PO SCH (07:55)
[2017-04-11] MEDS: ESCITALOPRAM OXALATE 10 MG TAB PO SCH (07:55)
[2017-04-11] MEDS: ASPIRIN 81 MG ECTAB PO SCH (07:55)
[2017-04-11] MEDS: AMOXICILLIN/CLAVULANATE TAB 500 MG TAB PO SCH ×2 (07:55→17:12)
[2017-04-11] MEDS: LACTOBACILLUS ACIDOPHILUS 1 GM PACK PO SCH ×3 (07:55→17:13)
[2017-04-11] MEDS: DOCUSATE SODIUM/SENNA 50/8.6MG TAB PO SCH (07:56)
[2017-04-11] MEDS: CLONAZEPAM 0.5 MG TAB PO SCH (07:56)
[2017-04-11] MEDS: CALCITRIOL 0.25 MCG CAP PO SCH (07:56)
[2017-04-11] MEDS ORDERED: POTASSIUM CHLORIDE 10 MEQ TABCR PO STA (14:23)
--- NOTE | 2017-04-11 14:41 | Progress Note ---
Internal Med Progress Note Date of Service: Apr 11, 2017. Provider Documentation: SUBJECTIVE: Seen and examined at bedside No BM yet, +flatus Denies abdominal pain, nausea No diarrhea since hospitalization Denies chest pain, SOB, dizziness Family at bedside No other complaints Encouraged to ambulate OBJECTIVE: Vital Signs-as noted below Physical Exam: General Appearance:Moderately built and nourished, no apparent distress Head: normocephalic, Atraumatic Eyes: normal inspection, EOMI, PERRL Neck: supple, Trachea midline Respiratory/Chest: Normal breath sounds, L Basal creps Cardiovascular: S1, S2, No murmur Abdomen/GI:Soft, Non tender, Bowel sounds present, + distended Extremities/Musculoskelatal:normal inspection, no edema Neurologic/Psych:AAOX3, grossly no focal neurological deficits Skin: normal color, warm Lab data as noted below. ASSESSMENT & PLAN: Patient is an 87 yr old female with a PMH of diastolic CHF, CKD stage 3, HTN, hypothyroidism, major depression presents with weakness, hyponatremia, diarrhea. Constipation/Overflow Diarrhea Hyponatremia secondary to dehydration Generalized Weakness Stool for c.diff: negative CT ABD:Moderate stool Sodium levels better DC IV fluids Urine culture: No growth continue Augmentin for enterococcal UTI (recent admission) continue bowel regimen encourage ambulation PT/OT No diarrhea since hospitalization CKD III: cr at baseline Monitor renal function HTN continue Lisinopril Hypothyroidism continue Synthroid DVT px SQ heparin Code Status: Full Code Disposition: micrographics services supervisor consulted PT/OT Plan to discharge tomorrow if stable Vital Signs: Date Time Temp Pulse Resp B/P (MAP) Pulse Ox O2 Delivery O2 Flow Rate FiO2 04/11/17 08:00 Room Air 04/11/17 07:46 36.8 65 18 150/69 (96) 93 04/11/17 05:04 36.6 78 18 173/71 (105) 94 Room Air 04/11/17 02:57 76 170/79 (109) 04/11/17 00:20 73 186/80 (115) 04/11/17 00:15 Room Air 04/10/17 23:51 36.4 41 20 179/70 (106) 95 Room Air 04/10/17 16:00 Room Air 04/10/17 15:08 36.3 54 18 154/77 (102) 98 Room Air 04/10/17 15:02 66 94 Lab Results: Results Past 24 Hours Test 04/11/17 05:25 Range/Units Sodium Level 131 136-145 mmol/L Potassium Level 3.4 3.5-5.1 mmol/L Chloride Level 97 98-107 mmol/L Carbon Dioxide Level 27 21-32 mmol/L Anion Gap 7.0 3-11 mmol/L Blood Urea Nitrogen 10 7-18 mg/dl Creatinine 0.94 0.60-1.20 mg/dl Est Creatinine Clear Calc Drug Dose 33.0 ml/min Estimated GFR () 62.8 Estimated GFR (Non- 54.2 BUN/Creatinine Ratio 10.2 10-20 Random Glucose 102 70-99 mg/dl Calcium Level 8.6 8.5-10.1 mg/dl Magnesium Level 2.0 1.8-2.4 mg/dl
[2017-04-11] MEDS ORDERED: POLYETHYLENE (MIRALAX) 17 GM PACK PO PRN (14:45)
[2017-04-11 15:55] VITALS: BP 171/67; PULSE 53; TEMP 36.2; O2SAT 97
[2017-04-11] MEDS: SIMVASTATIN 20 MG TAB PO SCH (22:22)
[2017-04-11 23:41] VITALS: BP 158/70; PULSE 70; TEMP 36.4; O2SAT 93
[2017-04-12] MEDS: LEVOTHYROXINE 75 MCG TAB PO SCH (05:57)
[2017-04-12] MEDS: HEPARIN SOD 5000 UNIT/0.5 ML CARP SQ SCH ×3 (06:00→20:35)
[2017-04-12 07:25] VITALS: BP 189/74; PULSE 66; TEMP 36.7; O2SAT 96
[2017-04-12 07:27] LABS: HEMATOCRIT 33.2 % (37-47); MEAN CELL VOLUME 91.2 fL (80-100); MEAN CORPUSCULAR HEMOGLOBIN 30.5 pg (25-34); MEAN CORPUSCULAR HGB CONC 33.4 g/dl (32-36); MEAN PLATELET VOLUME 9.8 fL (7.4-10.4); PLATELET COUNT 238 K/uL (130-400); RED BLOOD COUNT 3.64 M/uL (4.2-5.4); WHITE BLOOD COUNT 4.89 K/uL (4.8-10.8)
[2017-04-12 07:55] LABS: BUN/CREATININE RATIO 7.1 (10-20); CALCIUM 8.7 mg/dl (8.5-10.1); CREATININE 0.9 mg/dl (0.60-1.20); MAGNESIUM 2.1 mg/dl (1.8-2.4); POTASSIUM 3.9 mmol/L (3.5-5.1)
[2017-04-12] MEDS: LISINOPRIL 10 MG TAB PO SCH (08:54)
[2017-04-12] MEDS: CALCITRIOL 0.25 MCG CAP PO SCH (08:54)
[2017-04-12] MEDS: ASPIRIN 81 MG ECTAB PO SCH (08:55)
[2017-04-12] MEDS: ESCITALOPRAM OXALATE 10 MG TAB PO SCH (08:55)
[2017-04-12] MEDS: AMOXICILLIN/CLAVULANATE TAB 500 MG TAB PO SCH ×2 (08:55→17:18)
[2017-04-12] MEDS: PANTOprazole SOD 40 MG TAB PO SCH (08:56)
[2017-04-12] MEDS: DOCUSATE SODIUM/SENNA 50/8.6MG TAB PO SCH (08:56)
[2017-04-12] MEDS: LACTOBACILLUS ACIDOPHILUS 1 GM PACK PO SCH ×3 (08:57→17:18)
[2017-04-12] MEDS: CLONAZEPAM 0.5 MG TAB PO SCH ×2 (09:01→20:36)
[2017-04-12 11:45] VITALS: BP 187/73
--- NOTE | 2017-04-12 11:52 | Progress Note ---
Internal Med Progress Note Date of Service: Apr 12, 2017. Provider Documentation: SUBJECTIVE: Seen and examined at bedside Reports mild headache and dizziness BP high Constipation resolved Family at bedside Denies abdominal pain, nausea, chest pain, SOB No other complaints ambulating better OBJECTIVE: Vital Signs-as noted below Physical Exam: General Appearance:Moderately built and nourished, no apparent distress Head: normocephalic, Atraumatic Eyes: normal inspection, EOMI, PERRL Neck: supple, Trachea midline Respiratory/Chest: Normal breath sounds, CTA Cardiovascular: S1, S2, No murmur Abdomen/GI:Soft, Non tender, Bowel sounds present Extremities/Musculoskelatal:normal inspection, no edema Neurologic/Psych:AAOX3, grossly no focal neurological deficits Skin: normal color, warm Lab data as noted below. ASSESSMENT & PLAN: Patient is an 87 yr old female with a PMH of diastolic CHF, CKD stage 3, HTN, hypothyroidism, major depression presents with weakness, hyponatremia, diarrhea. Constipation/Overflow Diarrhea Hyponatremia secondary to dehydration Generalized Weakness Stool for c.diff: negative CT ABD:Moderate stool Sodium levels better DC IV fluids Urine culture: No growth continue Augmentin for enterococcal UTI (recent admission) to complete the course continue bowel regimen PRN encourage ambulation PT/OT constipation resolved CKD III: cr at baseline Monitor renal function Headache/Dizziness: Likely secondary to High BP Monitor HTN Labile continue Lisinopril Restart home amlodipine 5mg daily Hypothyroidism continue Synthroid DVT px SQ heparin Code Status: Full Code Disposition: manager support services consulted PT/OT Plan to discharge tomorrow if stable May benefit form Home PT Vital Signs: Date Time Temp Pulse Resp B/P (MAP) Pulse Ox O2 Delivery O2 Flow Rate FiO2 04/12/17 07:25 36.7 66 18 189/74 (112) 96 Room Air 04/12/17 07:20 Room Air 04/11/17 23:41 36.4 70 18 158/70 (99) 93 Room Air 04/11/17 23:40 Room Air 04/11/17 19:40 Room Air 04/11/17 16:00 Room Air 04/11/17 15:55 36.2 53 18 171/67 (101) 97 Room Air Lab Results: Results Past 24 Hours Test 04/12/17 06:51 Range/Units White Blood Count 4.89 4.8-10.8 K/uL Red Blood Count 3.64 4.2-5.4 M/uL Hemoglobin 11.1 12.0-16.0 g/dL Hematocrit 33.2 37-47 % Mean Corpuscular Volume 91.2 80-100 fL Mean Corpuscular Hemoglobin 30.5 25-34 pg Mean Corpuscular Hemoglobin Concent 33.4 32-36 g/dl RDW Standard Deviation 48.8 36.4-46.3 fL RDW Coefficient of Variation 14.6 11.5-14.5 % Platelet Count 238 130-400 K/uL Mean Platelet Volume 9.8 7.4-10.4 fL Sodium Level 130 136-145 mmol/L Potassium Level 3.9 3.5-5.1 mmol/L Chloride Level 98 98-107 mmol/L Carbon Dioxide Level 28 21-32 mmol/L Anion Gap 4.0 3-11 mmol/L Blood Urea Nitrogen 6 7-18 mg/dl Creatinine 0.90 0.60-1.20 mg/dl Est Creatinine Clear Calc Drug Dose 34.4 ml/min Estimated GFR () 66.2 Estimated GFR (Non- 57.1 BUN/Creatinine Ratio 7.1 10-20 Random Glucose 99 70-99 mg/dl Calcium Level 8.7 8.5-10.1 mg/dl Magnesium Level 2.1 1.8-2.4 mg/dl
[2017-04-12] MEDS ORDERED: AMLODIPINE BESYLATE 5 MG TAB PO ONE (12:00)
[2017-04-12] MEDS ORDERED: DOCUSATE SODIUM 100 MG CAP PO PRN (12:00)
[2017-04-12 13:22] VITALS: BP 152/85; PULSE 63
[2017-04-12 15:01] VITALS: BP 152/77; PULSE 79; TEMP 36.4; O2SAT 95
[2017-04-12] MEDS: SIMVASTATIN 20 MG TAB PO SCH (20:36)
[2017-04-12 22:43] VITALS: BP 137/76; PULSE 80; TEMP 36.8; O2SAT 95
[2017-04-13] VITALS: O2SAT 95
[2017-04-13] MEDS: LEVOTHYROXINE 75 MCG TAB PO SCH (05:58)
[2017-04-13] MEDS: HEPARIN SOD 5000 UNIT/0.5 ML CARP SQ SCH ×3 (05:58→21:04)
[2017-04-13 07:02] VITALS: BP 196/84; PULSE 79; TEMP 36.4; O2SAT 96
[2017-04-13 07:35] VITALS: BP 156/76
[2017-04-13] MEDS: CLONAZEPAM 0.5 MG TAB PO SCH ×2 (07:51→20:58)
[2017-04-13] MEDS: ESCITALOPRAM OXALATE 10 MG TAB PO SCH (07:51)
[2017-04-13] MEDS: PANTOprazole SOD 40 MG TAB PO SCH (07:51)
[2017-04-13] MEDS: AMOXICILLIN/CLAVULANATE TAB 500 MG TAB PO SCH ×2 (07:51→18:30)
[2017-04-13] MEDS: ASPIRIN 81 MG ECTAB PO SCH (07:51)
[2017-04-13] MEDS: CALCITRIOL 0.25 MCG CAP PO SCH (07:52)
[2017-04-13] MEDS: LISINOPRIL 10 MG TAB PO SCH (07:52)
[2017-04-13] MEDS: LACTOBACILLUS ACIDOPHILUS 1 GM PACK PO SCH ×3 (07:52→18:30)
[2017-04-13] MEDS ORDERED: FUROSEMIDE 20 MG TAB PO SCH (08:00)
[2017-04-13 08:11] LABS: MEAN CELL VOLUME 90.9 fL (80-100); MEAN CORPUSCULAR HEMOGLOBIN 29.8 pg (25-34); MEAN CORPUSCULAR HGB CONC 32.7 g/dl (32-36); MEAN PLATELET VOLUME 9.8 fL (7.4-10.4); PLATELET COUNT 253 K/uL (130-400); RED BLOOD COUNT 3.63 M/uL (4.2-5.4); WHITE BLOOD COUNT 6.75 K/uL (4.8-10.8)
[2017-04-13 08:42] LABS: BUN/CREATININE RATIO 14.3 (10-20); CALCIUM 9.2 mg/dl (8.5-10.1); CREATININE 1.05 mg/dl (0.60-1.20); POTASSIUM 3.9 mmol/L (3.5-5.1)
[2017-04-13 13:24] VITALS: BP 127/77; PULSE 73
[2017-04-13 15:03] VITALS: BP 147/78; PULSE 68; TEMP 36.6; O2SAT 98
[2017-04-13] MEDS ORDERED: SODIUM CHLORIDE 0.9% 1000ML 1,000 ML IV SCH (15:30)
[2017-04-13] MEDS ORDERED: NURSING VERBAL MED ORDER ONE (15:45)
[2017-04-13] MEDS: AMLODIPINE BESYLATE 5 MG TAB PO SCH (20:59)
[2017-04-13] MEDS: SIMVASTATIN 20 MG TAB PO SCH (21:00)
--- NOTE | 2017-04-13 21:31 | Progress Note ---
Medicine Progress Note Date & Time of Visit: Apr 13, 2017 at 21:28. Subjective patient seen resting in chair comfortable denies diarrhea denies headache, chest pain, dyspnea no other symptoms Objective Last 8 Hrs Date Time Temp Pulse Resp B/P (MAP) Pulse Ox O2 Delivery O2 Flow Rate FiO2 04/13/17 15:03 36.6 68 18 147/78 (101) 98 Room Air Physical Exam: General- oriented x 3, not in distress, speaks in sentences with no effort Head- atraumatic Eyes- PERRL, EOMI, anicteric ENT- oropharynx clear Neck- supple, no JVD, no adenopathy, no thyromegaly Lungs- clear to auscultation bilaterally Heart- regular rhythm; no murmur, normal rate Abdomen- normal bowel sounds, soft, nontender, no masses or hepatosplenomegaly Extremities- no pretibial edema, no calf tenderness; peripheral pulses intact Neuro- alert, oriented x 3; no gross focal deficits Skin- warm & dry Laboratory Results: Last 24 Hours Test 04/13/17 07:30 White Blood Count 6.75 K/uL Red Blood Count 3.63 M/uL Hemoglobin 10.8 g/dL Hematocrit 33.0 % Mean Corpuscular Volume 90.9 fL Mean Corpuscular Hemoglobin 29.8 pg Mean Corpuscular Hemoglobin Concent 32.7 g/dl RDW Standard Deviation 48.5 fL RDW Coefficient of Variation 14.4 % Platelet Count 253 K/uL Mean Platelet Volume 9.8 fL Sodium Level 129 mmol/L Potassium Level 3.9 mmol/L Chloride Level 96 mmol/L Carbon Dioxide Level 26 mmol/L Anion Gap 7.0 mmol/L Blood Urea Nitrogen 15 mg/dl Creatinine 1.05 mg/dl Est Creatinine Clear Calc Drug Dose 29.5 ml/min Estimated GFR () 54.9 Estimated GFR (Non- 47.4 BUN/Creatinine Ratio 14.3 Random Glucose 107 mg/dl Calcium Level 9.2 mg/dl Assessment & Plan Patient is an 87 yr old female with a PMH of diastolic CHF, CKD stage 3, HTN, hypothyroidism, major depression presents with weakness, hyponatremia, diarrhea. Constipation/Overflow Diarrhea Hyponatremia secondary to dehydration Generalized Weakness Stool for c.diff: negative CT ABD:Moderate stool Sodium levels better DC IV fluids Urine culture: No growth continue Augmentin for enterococcal UTI (recent admission) to complete the course continue bowel regimen PRN encourage ambulation PT/OT constipation resolved -- Na not improving, still at 129 appears hypovolemic stop Lasix IV NSS at 60cc/hr monitor Na CKD III: cr at baseline Monitor renal function Headache/Dizziness: Likely secondary to High BP resolved HTN Labile continue Lisinopril Restarted home amlodipine 5mg daily -- BP improved Hypothyroidism continue Synthroid DVT px SQ heparin Code Status: Full Code Disposition: possible d/c home when sodium improves Current Inpatient Medications: Current Inpatient Medications Medications (Trade) Dose Ordered Sig/Ernestine Route Start Time Stop Time Status Last Admin Dose Admin Heparin Sodium (Porcine) (Heparin Sq 5000 Unit/0.5ml) 5,000 unit Q8H SQ 04/10/17 06:00 05/10/17 05:59 04/13/17 21:04 5,000 UNIT Acetaminophen (Tylenol Tab) 650 mg Q4H PRN PO 04/09/17 23:45 05/09/17 23:44 Al Hydrox/Mg Hydrox/Simethicone (Maalox Max Susp) 15 ml Q4H PRN PO 04/09/17 23:45 05/09/17 23:44 Magnesium Hydroxide (Milk Of Magnesia Susp) 30 ml Q6H PRN PO 04/09/17 23:45 05/09/17 23:44 04/11/17 07:56 30 ML Ondansetron HCl (Zofran Inj) 4 mg Q6H PRN IV 04/09/17 23:45 05/09/17 23:44 04/10/17 08:22 4 MG Amoxicillin/ Clavulanate Potassium (Augmentin Tab) 500 mg BIDM PO 04/10/17 08:00 04/20/17 07:59 04/13/17 18:30 500 MG Aspirin (Ecotrin Tab) 81 mg DAILY PO 04/10/17 09:00 05/10/17 08:59 04/13/17 07:51 81 MG Calcitriol (Rocaltrol Cap) 0.25 mcg DAILY PO 04/10/17 09:00 05/10/17 08:59 04/13/17 07:52 0.25 MCG Clonazepam (Klonopin Tab) 0.5 mg BID PO 04/10/17 09:00 05/10/17 08:59 04/13/17 20:58 0.5 MG Escitalopram Oxalate (Lexapro Tab) 5 mg QAM PO 04/10/17 09:00 05/10/17 08:59 04/13/17 07:51 5 MG Levothyroxine Sodium (Synthroid Tab) 75 mcg DAILYBB PO 04/10/17 06:30 05/10/17 06:59 04/13/17 05:58 75 MCG Simvastatin (Zocor Tab) 40 mg HS PO 04/10/17 21:00 05/10/17 20:59 04/13/17 21:00 40 MG Pantoprazole Sodium (Protonix Tab) 40 mg QAM PO 04/10/17 09:00 05/10/17 08:59 04/13/17 07:51 40 MG Miscellaneous (Iv Fluids Completed) 1 ea PRN PRN N/A 04/10/17 02:15 04/10/18 02:14 Lactobacillus Acidophilus (Lactinex Granules Pack) 1 gm TIDM PO 04/10/17 17:00 05/10/17 16:59 04/13/17 18:30 1 GM Lisinopril (Zestril Tab) 10 mg DAILY PO 04/12/17 08:00 05/10/17 08:59 04/13/17 07:52 10 MG Polyethylene (Miralax Powder Packet) 17 gm DAILY PRN PO 04/11/17 14:45 05/11/17 14:44 Amlodipine Besylate (Norvasc Tab) 5 mg QPM PO 04/13/17 21:00 05/13/17 20:59 04/13/17 20:59 5 MG Docusate Sodium (coLACE CAP) 100 mg BID PRN PO 04/12/17 12:00 05/12/17 11:59 Sodium Chloride 1,000 ml @ 60 mls/hr [id number] IV 04/13/17 15:30 05/13/17 15:29 04/13/17 15:38 60 MLS/HR
[2017-04-13 22:46] VITALS: BP 162/76; PULSE 73; TEMP 36.9; O2SAT 96
[2017-04-14] VITALS (7 sets, daily range): BP systolic 125–179; BP diastolic 71–78; PULSE 64–76; TEMP 36.6–36.9; O2SAT 96–98
[2017-04-14] MEDS: HEPARIN SOD 5000 UNIT/0.5 ML CARP SQ SCH ×2 (02:00→13:27)
[2017-04-14] MEDS: LEVOTHYROXINE 75 MCG TAB PO SCH (06:14)
[2017-04-14] MEDS: ASPIRIN 81 MG ECTAB PO SCH (08:10)
[2017-04-14] MEDS: CALCITRIOL 0.25 MCG CAP PO SCH (08:10)
[2017-04-14] MEDS: AMOXICILLIN/CLAVULANATE TAB 500 MG TAB PO SCH ×2 (08:10→18:28)
[2017-04-14] MEDS: ESCITALOPRAM OXALATE 10 MG TAB PO SCH (08:10)
[2017-04-14] MEDS: PANTOprazole SOD 40 MG TAB PO SCH (08:10)
[2017-04-14] MEDS: LISINOPRIL 10 MG TAB PO SCH (08:12)
[2017-04-14] MEDS: LACTOBACILLUS ACIDOPHILUS 1 GM PACK PO SCH ×3 (08:12→18:28)
[2017-04-14] MEDS: CLONAZEPAM 0.5 MG TAB PO SCH ×2 (08:14→20:29)
[2017-04-14] MEDS: SODIUM CHLORIDE 0.9% 1000ML 1,000 ML IV SCH (16:20)
--- NOTE | 2017-04-14 17:10 | NEPHROLOGY CONSULTATION ---
DATE OF CONSULTATION: 04/14/2017 ATTENDING OF RECORD: Dr. Gotti. REASON FOR CONSULTATION: Hyponatremia. HISTORY OF PRESENT ILLNESS: This is an 87-year-old female with significant history of diastolic heart failure, hypertension with underlying chronic kidney disease stage III, with UTI symptoms, had enterococcal UTI and was treated with Augmentin. The patient though developed diarrhea, generalized weakness, and significant abdominal pain. CT was negative. Sodium levels on admission were noted to be 129 and was 129-130 over the first 4 days, but then trended down to 123 and is now 126. The patient is out of bed to chair and sitting down with her . The patient feels good, although interested in going home soon. PAST MEDICAL HISTORY: Diastolic heart failure, CKD stage III, GERD, hypertension, hyperlipidemia, and hypothyroidism. PAST SURGICAL HISTORY: Knee surgery and bladder procedures. FAMILY HISTORY: No renal disease in family. SOCIAL HISTORY: No smoking, no alcohol, and no drugs. She is and lives at home with family. CURRENT MEDICATIONS: 1. Heparin 5,000 units subQ q. 12 hours. 2. Norvasc 5 mg a day. 3. Colace as needed. 4. Lisinopril 10 mg daily. 5. Zocor 40 mg at night. 6. Aspirin 81 mg a day. 7. Calcitriol 0.25 mcg daily. 8. Klonopin 0.5 mg p.o. b.i.d. 9. Protonix 40 mg daily. 10. Augmentin 500 mg p.o. b.i.d. 11. Synthroid 75 mcg daily. REVIEW OF SYSTEMS: Memory not good. The patient is with difficulty hearing. No headaches, no blurry vision, no dysphagia, no shortness of breath, no chest pain, no nausea or vomiting, no diarrhea or constipation, and no dysuria or hematuria. All other review of systems otherwise negative. PHYSICAL EXAMINATION: VITAL SIGNS: Temperature 36.6, pulse 64, respiratory rate 18, blood pressure 139/78, and satting 96% on room air. GENERAL: Awake, alert, and oriented x2 with poor memory. EYES: No scleral icterus. ENT: Mucous membranes are dry. NECK: Supple. PULMONARY: Clear to auscultation. CARDIAC: Regular rate with occasional ectopy. ABDOMEN: Bowel sounds positive. Soft, nontender, and nondistended. EXTREMITIES: No significant clubbing, cyanosis or edema. NEUROLOGICALLY: Nonfocal except for poor memory. DERMATOLOGIC: No rash or ulcers noted. LABORATORY DATA: Sodium level is 126, potassium 3.9, chloride is 96, bicarbonate is 26, BUN is 15, creatinine is 1.05, glucose 107, calcium is 9.2, and magnesium is 2.1. White count 6, H&H 10 and 33, and platelet count is 253. UA was bland on admission. C. diff was negative. Urine cultures negative. Abdominal pelvis CT on admission showed moderate distention of the bladder, mild cardiomegaly. No acute process in the abdomen. Moderate amount of stool within the colon. IMPRESSION AND PLAN: Hyponatremia. The patient originally presented with hyponatremia with sodium level of 129, dropped down to 128 in the setting of what appeared to be volume depletion with diarrhea, abdominal pain and poor appetite. Sodium levels were relatively stable during the first 4 days; however, on the , the patient's sodium levels dropped down to 123. The patient did take Lasix 2 doses on the and 1 dose on the and then was stopped with the sodium levels trending down. The patient was started on normal saline at 60 mL an hour for a liter. From the to , sodium levels went from 123 up to 126. Urine osm has been ordered and is pending. We will place the patient on 1 liter fluid restriction and start the patient on low rate normal saline at 50 mL an hour. Monitor for diastolic heart failure and volume overload. I personally feel that the patient still is dry and would benefit from normal saline. I will follow the sodium levels and if the sodium levels start to drop more significantly, we will stop the IV fluids. There is a possibility that the patient have an underlying syndrome of inappropriate antidiuretic hormone as well and may benefit from salt tablets and Lasix, but for now we would rather give normal saline since in my clinical examination, the patient appears hypovolemic. I appreciate the consultation. RAGHAV
--- NOTE | 2017-04-14 20:01 | Progress Note ---
Medicine Progress Note Date & Time of Visit: Apr 14, 2017 at 19:58. Subjective seen resting in bed, comfortable states she feels fine overall denies confusion, abdominal pain, headache, dizziness no other symptoms Objective Last 8 Hrs Date Time Temp Pulse Resp B/P (MAP) Pulse Ox O2 Delivery O2 Flow Rate FiO2 04/14/17 19:55 150/75 (100) 04/14/17 19:39 36.6 64 18 96 04/14/17 19:23 36.9 65 16 179/76 (110) 98 Room Air 04/14/17 16:00 Room Air 04/14/17 15:06 36.6 64 18 139/78 (98) 96 Room Air Physical Exam: General- oriented x 3, not in distress, speaks in sentences with no effort Eyes- EOMI, anicteric Neck- supple, no JVD Lungs- clear breath sounds bilaterally Heart- regular rhythm; no murmur, normal rate Abdomen- normal bowel sounds, soft, nontender Extremities- no pretibial edema, no calf tenderness Neuro- alert, oriented x 3; no gross focal deficits Skin- warm & dry Laboratory Results: Last 24 Hours Test 04/13/17 21:56 04/14/17 04:14 04/14/17 09:38 04/14/17 15:50 Sodium Level 123 mmol/L 126 mmol/L 126 mmol/L Urine Osmolality 445 mOms/kg Test 04/14/17 16:00 04/14/17 18:07 Sodium Level 120 mmol/L 125 mmol/L Assessment & Plan Patient is an 87 yr old female with a PMH of diastolic CHF, CKD stage 3, HTN, hypothyroidism, major depression presents with weakness, hyponatremia, diarrhea. HYPONATREMIA - Urine Osm 445 - Hypovolemic? was having diarrhea and was on Lasix on NSS 50cc/hr monitor Na - from Lexapro? hold for now Constipation/Overflow Diarrhea Generalized Weakness Stool for c.diff: negative CT ABD:Moderate stool Urine culture: No growth constipation resolved UTI continue Augmentin for enterococcal UTI (recent admission) to complete the course CKD III: cr at baseline Monitor renal function Headache/Dizziness: Likely secondary to High BP resolved HTN Labile continue Lisinopril Restarted home amlodipine 5mg daily -- BP improved Hypothyroidism continue Synthroid DVT px SQ heparin Code Status: Full Code Disposition: possible d/c home when sodium improves Current Inpatient Medications: Current Inpatient Medications Medications (Trade) Dose Ordered Sig/Ernestine Route Start Time Stop Time Status Last Admin Dose Admin Acetaminophen (Tylenol Tab) 650 mg Q4H PRN PO 04/09/17 23:45 05/09/17 23:44 Al Hydrox/Mg Hydrox/Simethicone (Maalox Max Susp) 15 ml Q4H PRN PO 04/09/17 23:45 05/09/17 23:44 Magnesium Hydroxide (Milk Of Magnesia Susp) 30 ml Q6H PRN PO 04/09/17 23:45 05/09/17 23:44 04/11/17 07:56 30 ML Ondansetron HCl (Zofran Inj) 4 mg Q6H PRN IV 04/09/17 23:45 05/09/17 23:44 04/10/17 08:22 4 MG Amoxicillin/ Clavulanate Potassium (Augmentin Tab) 500 mg BIDM PO 04/10/17 08:00 04/20/17 07:59 04/14/17 18:28 500 MG Aspirin (Ecotrin Tab) 81 mg DAILY PO 04/10/17 09:00 05/10/17 08:59 04/14/17 08:10 81 MG Calcitriol (Rocaltrol Cap) 0.25 mcg DAILY PO 04/10/17 09:00 05/10/17 08:59 04/14/17 08:10 0.25 MCG Clonazepam (Klonopin Tab) 0.5 mg BID PO 04/10/17 09:00 05/10/17 08:59 04/14/17 08:14 0.5 MG Levothyroxine Sodium (Synthroid Tab) 75 mcg DAILYBB PO 04/10/17 06:30 05/10/17 06:59 04/14/17 06:14 75 MCG Simvastatin (Zocor Tab) 40 mg HS PO 04/10/17 21:00 05/10/17 20:59 04/13/17 21:00 40 MG Pantoprazole Sodium (Protonix Tab) 40 mg QAM PO 04/10/17 09:00 05/10/17 08:59 04/14/17 08:10 40 MG Miscellaneous (Iv Fluids Completed) 1 ea PRN PRN N/A 04/10/17 02:15 04/10/18 02:14 Lactobacillus Acidophilus (Lactinex Granules Pack) 1 gm TIDM PO 04/10/17 17:00 05/10/17 16:59 04/14/17 18:28 1 GM Lisinopril (Zestril Tab) 10 mg DAILY PO 04/12/17 08:00 05/10/17 08:59 04/14/17 08:12 10 MG Polyethylene (Miralax Powder Packet) 17 gm DAILY PRN PO 04/11/17 14:45 05/11/17 14:44 Amlodipine Besylate (Norvasc Tab) 5 mg QPM PO 04/13/17 21:00 05/13/17 20:59 04/13/17 20:59 5 MG Docusate Sodium (coLACE CAP) 100 mg BID PRN PO 04/12/17 12:00 05/12/17 11:59 Heparin Sodium (Porcine) (Heparin Sq 5000 Unit/0.5ml) 5,000 unit Q12H SQ 04/14/17 02:00 05/10/17 05:59 04/14/17 13:27 5,000 UNIT Sodium Chloride 1,000 ml @ 50 mls/hr Q20H IV 04/14/17 15:30 05/14/17 15:29 04/14/17 16:20 50 MLS/HR
[2017-04-14] MEDS: SIMVASTATIN 20 MG TAB PO SCH (20:29)
[2017-04-14] MEDS: AMLODIPINE BESYLATE 5 MG TAB PO SCH (20:29)
[2017-04-15] VITALS (11 sets, daily range): BP systolic 149–167; BP diastolic 70–77; PULSE 60–77; TEMP 36.3–36.9; O2SAT 95–98
[2017-04-15] MEDS: SODIUM CHLORIDE 0.9% 1000ML 1,000 ML IV SCH ×3 (03:10→23:41)
[2017-04-15] MEDS: HEPARIN SOD 5000 UNIT/0.5 ML CARP SQ SCH ×2 (03:12→13:30)
[2017-04-15 05:18] LABS: THYROID STIMULATING HORMONE 1.65 uIu/ml (0.300-4.500)
[2017-04-15] MEDS: LEVOTHYROXINE 75 MCG TAB PO SCH (06:35)
--- NOTE | 2017-04-15 06:35 | Psychiatric Consultation ---
Psychiatric Consultation Date of Service: Apr 14, 2017. Request from Dr. Cueva o discuss meds. Patient with hyponatremia just started last month on Lexapro. Is questioning other meds. Patient's mood is generally good, although frustrated that she can't go home yet, per attending. Recommend allowing her to stay off of antidepressants for now, trending Na. Generally all ADM's can contribute to hyponatremia, Dr. Cueva did not require a full consult at this time.
[2017-04-15] MEDS: LISINOPRIL 10 MG TAB PO SCH (07:50)
[2017-04-15] MEDS: ASPIRIN 81 MG ECTAB PO SCH (07:51)
[2017-04-15] MEDS: LACTOBACILLUS ACIDOPHILUS 1 GM PACK PO SCH ×3 (07:51→16:43)
[2017-04-15] MEDS: AMOXICILLIN/CLAVULANATE TAB 500 MG TAB PO SCH ×2 (07:51→16:43)
[2017-04-15] MEDS: CALCITRIOL 0.25 MCG CAP PO SCH (07:51)
[2017-04-15] MEDS: PANTOprazole SOD 40 MG TAB PO SCH (07:51)
[2017-04-15] MEDS: CLONAZEPAM 0.5 MG TAB PO SCH ×2 (07:53→21:41)
--- NOTE | 2017-04-15 08:53 | Nephrology Progress Note ---
Nephrology Progress Note Date of Service: Apr 15, 2017. Subjective 87 yo female with hyponatremia which is improving on normal saline and free water restriction. sodium above 130 this morning. pt comfortable. hoping to go home soon. no complaints. no sob. Objective Date Time Temp Pulse Resp B/P (MAP) Pulse Ox O2 Delivery O2 Flow Rate FiO2 04/15/17 07:50 36.8 66 16 158/70 (99) 98 04/15/17 04:00 96 Room Air 04/15/17 00:02 96 Room Air 04/14/17 20:00 96 Room Air 04/14/17 19:55 150/75 (100) 04/14/17 19:39 36.6 64 18 96 04/14/17 19:23 36.9 65 16 179/76 (110) 98 Room Air 04/14/17 16:00 Room Air 04/14/17 15:06 36.6 64 18 139/78 (98) 96 Room Air Physical Exam: General-aaox2 Eyes-no scleral icterus ENT-mmm Neck-supple Lungs-cta Heart-regular with ectopy Abdomen-bs+ s/nt/nd Extremities-no c/c/e Neuro-nonfocal except for memory Current Inpatient Medications Medications (Trade) Dose Ordered Sig/Ernestine Route Start Time Stop Time Status Last Admin Dose Admin Acetaminophen (Tylenol Tab) 650 mg Q4H PRN PO 04/09/17 23:45 05/09/17 23:44 Al Hydrox/Mg Hydrox/Simethicone (Maalox Max Susp) 15 ml Q4H PRN PO 04/09/17 23:45 05/09/17 23:44 Magnesium Hydroxide (Milk Of Magnesia Susp) 30 ml Q6H PRN PO 04/09/17 23:45 05/09/17 23:44 04/11/17 07:56 30 ML Ondansetron HCl (Zofran Inj) 4 mg Q6H PRN IV 04/09/17 23:45 05/09/17 23:44 04/10/17 08:22 4 MG Amoxicillin/ Clavulanate Potassium (Augmentin Tab) 500 mg BIDM PO 04/10/17 08:00 04/20/17 07:59 04/15/17 07:51 500 MG Aspirin (Ecotrin Tab) 81 mg DAILY PO 04/10/17 09:00 05/10/17 08:59 04/15/17 07:51 81 MG Calcitriol (Rocaltrol Cap) 0.25 mcg DAILY PO 04/10/17 09:00 05/10/17 08:59 04/15/17 07:51 0.25 MCG Clonazepam (Klonopin Tab) 0.5 mg BID PO 04/10/17 09:00 05/10/17 08:59 04/15/17 07:53 0.5 MG Levothyroxine Sodium (Synthroid Tab) 75 mcg DAILYBB PO 04/10/17 06:30 05/10/17 06:59 04/15/17 06:35 75 MCG Simvastatin (Zocor Tab) 40 mg HS PO 04/10/17 21:00 05/10/17 20:59 04/14/17 20:29 40 MG Pantoprazole Sodium (Protonix Tab) 40 mg QAM PO 04/10/17 09:00 05/10/17 08:59 04/15/17 07:51 40 MG Miscellaneous (Iv Fluids Completed) 1 ea PRN PRN N/A 04/10/17 02:15 04/10/18 02:14 Lactobacillus Acidophilus (Lactinex Granules Pack) 1 gm TIDM PO 04/10/17 17:00 05/10/17 16:59 04/15/17 07:51 1 GM Lisinopril (Zestril Tab) 10 mg DAILY PO 04/12/17 08:00 05/10/17 08:59 04/15/17 07:50 10 MG Polyethylene (Miralax Powder Packet) 17 gm DAILY PRN PO 04/11/17 14:45 05/11/17 14:44 Amlodipine Besylate (Norvasc Tab) 5 mg QPM PO 04/13/17 21:00 05/13/17 20:59 04/14/17 20:29 5 MG Docusate Sodium (coLACE CAP) 100 mg BID PRN PO 04/12/17 12:00 05/12/17 11:59 Heparin Sodium (Porcine) (Heparin Sq 5000 Unit/0.5ml) 5,000 unit Q12H SQ 04/14/17 02:00 05/10/17 05:59 04/15/17 03:12 5,000 UNIT Sodium Chloride 1,000 ml @ 100 mls/hr Q10H IV 04/14/17 15:30 05/14/17 15:29 04/15/17 03:10 100 MLS/HR Last 24 Hours Test 04/14/17 09:38 04/14/17 15:50 04/14/17 16:00 04/14/17 18:07 Sodium Level 126 mmol/L 120 mmol/L 125 mmol/L Urine Osmolality 445 mOms/kg Test 04/14/17 20:07 04/14/17 23:45 04/15/17 04:14 04/15/17 08:08 Sodium Level 123 mmol/L 128 mmol/L 128 mmol/L 132 mmol/L Thyroid Stimulating Hormone (TSH) 1.650 uIu/ml Assessment & Plan hyponatremia-appears pt had hypovolemic hyponatremia since sodium levels are improving with normal saline with urine osm in the 400s. continue normal saline for 24 hours and stop tomorrow morning. continue the free water restriction as well. does not need q4 hour labs, will switch to q8.
--- NOTE | 2017-04-15 18:44 | Progress Note ---
Medicine Progress Note Date & Time of Visit: Apr 15, 2017 at 18:42. Subjective patient seen resting in bedside chair comfortable, in good spirits states she feels fine denies dizziness, weakness, nausea no other symptoms Objective Last 8 Hrs Date Time Temp Pulse Resp B/P (MAP) Pulse Ox O2 Delivery O2 Flow Rate FiO2 04/15/17 16:21 36.5 77 22 150/77 (101) 97 Room Air 04/15/17 16:00 95 Room Air 04/15/17 12:00 95 Room Air 04/15/17 11:30 36.9 60 16 149/76 (100) 95 Physical Exam: General- oriented x 3, not in distress, speaks in sentences with no effort Eyes- anicteric Neck- no JVD Lungs- clear breath sounds bilaterally, no rales/wheezes Heart- regular rhythm; no murmur, normal rate Abdomen- normal bowel sounds, soft, nontender Extremities- no pretibial edema, no calf tenderness Neuro- alert, oriented x 3; no gross focal deficits Skin- warm & dry Laboratory Results: Last 24 Hours Test 04/14/17 20:07 04/14/17 23:45 04/15/17 04:14 04/15/17 08:08 Sodium Level 123 mmol/L 128 mmol/L 128 mmol/L 132 mmol/L Thyroid Stimulating Hormone (TSH) 1.650 uIu/ml Test 04/15/17 16:08 Sodium Level 130 mmol/L Assessment & Plan Patient is an 87 yr old female with a PMH of diastolic CHF, CKD stage 3, HTN, hypothyroidism, major depression presents with weakness, hyponatremia, diarrhea. HYPONATREMIA - Urine Osm 445 - Hypovolemic? was having diarrhea and was on Lasix on NSS 100cc/hr Na improving to 130s appreciate Dr. Murrell's recommendations - from Lexapro? hold for now Constipation/Overflow Diarrhea Generalized Weakness Stool for c.diff: negative CT ABD:Moderate stool Urine culture: No growth constipation resolved UTI continue Augmentin for enterococcal UTI (recent admission) to complete the course CKD III: cr at baseline Monitor renal function Headache/Dizziness: Likely secondary to High BP resolved HTN Labile continue Lisinopril Restarted home amlodipine 5mg daily -- BP improved Hypothyroidism continue Synthroid DVT px SQ heparin Code Status: Full Code Disposition: possible d/c home when sodium improves Current Inpatient Medications: Current Inpatient Medications Medications (Trade) Dose Ordered Sig/Ernestine Route Start Time Stop Time Status Last Admin Dose Admin Acetaminophen (Tylenol Tab) 650 mg Q4H PRN PO 04/09/17 23:45 05/09/17 23:44 Al Hydrox/Mg Hydrox/Simethicone (Maalox Max Susp) 15 ml Q4H PRN PO 04/09/17 23:45 05/09/17 23:44 Magnesium Hydroxide (Milk Of Magnesia Susp) 30 ml Q6H PRN PO 04/09/17 23:45 05/09/17 23:44 04/11/17 07:56 30 ML Ondansetron HCl (Zofran Inj) 4 mg Q6H PRN IV 04/09/17 23:45 05/09/17 23:44 04/10/17 08:22 4 MG Amoxicillin/ Clavulanate Potassium (Augmentin Tab) 500 mg BIDM PO 04/10/17 08:00 04/20/17 07:59 04/15/17 16:43 500 MG Aspirin (Ecotrin Tab) 81 mg DAILY PO 04/10/17 09:00 05/10/17 08:59 04/15/17 07:51 81 MG Calcitriol (Rocaltrol Cap) 0.25 mcg DAILY PO 04/10/17 09:00 05/10/17 08:59 04/15/17 07:51 0.25 MCG Clonazepam (Klonopin Tab) 0.5 mg BID PO 04/10/17 09:00 05/10/17 08:59 04/15/17 07:53 0.5 MG Levothyroxine Sodium (Synthroid Tab) 75 mcg DAILYBB PO 04/10/17 06:30 05/10/17 06:59 04/15/17 06:35 75 MCG Simvastatin (Zocor Tab) 40 mg HS PO 04/10/17 21:00 05/10/17 20:59 04/14/17 20:29 40 MG Pantoprazole Sodium (Protonix Tab) 40 mg QAM PO 04/10/17 09:00 05/10/17 08:59 04/15/17 07:51 40 MG Miscellaneous (Iv Fluids Completed) 1 ea PRN PRN N/A 04/10/17 02:15 04/10/18 02:14 Lactobacillus Acidophilus (Lactinex Granules Pack) 1 gm TIDM PO 04/10/17 17:00 05/10/17 16:59 04/15/17 16:43 1 GM Lisinopril (Zestril Tab) 10 mg DAILY PO 04/12/17 08:00 05/10/17 08:59 04/15/17 07:50 10 MG Polyethylene (Miralax Powder Packet) 17 gm DAILY PRN PO 04/11/17 14:45 05/11/17 14:44 Amlodipine Besylate (Norvasc Tab) 5 mg QPM PO 04/13/17 21:00 05/13/17 20:59 04/14/17 20:29 5 MG Docusate Sodium (coLACE CAP) 100 mg BID PRN PO 04/12/17 12:00 05/12/17 11:59 Heparin Sodium (Porcine) (Heparin Sq 5000 Unit/0.5ml) 5,000 unit Q12H SQ 04/14/17 02:00 05/10/17 05:59 04/15/17 13:30 5,000 UNIT Sodium Chloride 1,000 ml @ 100 mls/hr Q10H IV 04/14/17 15:30 05/14/17 15:29 04/15/17 13:30 100 MLS/HR
[2017-04-15] MEDS: SIMVASTATIN 20 MG TAB PO SCH (21:42)
[2017-04-15] MEDS: AMLODIPINE BESYLATE 5 MG TAB PO SCH (21:42)
[2017-04-16 03:40] VITALS: BP 145/56; PULSE 73; TEMP 36.4; O2SAT 97
[2017-04-16] MEDS: HEPARIN SOD 5000 UNIT/0.5 ML CARP SQ SCH ×2 (03:54→14:00)
[2017-04-16 04:00] VITALS: O2SAT 95
[2017-04-16 06:23] LABS: HEMATOCRIT 31.6 % (37-47); MEAN CELL VOLUME 91.9 fL (80-100); MEAN CORPUSCULAR HEMOGLOBIN 30.2 pg (25-34); MEAN CORPUSCULAR HGB CONC 32.9 g/dl (32-36); MEAN PLATELET VOLUME 10.1 fL (7.4-10.4); PLATELET COUNT 244 K/uL (130-400); RED BLOOD COUNT 3.44 M/uL (4.2-5.4); WHITE BLOOD COUNT 8.07 K/uL (4.8-10.8)
[2017-04-16] MEDS: LEVOTHYROXINE 75 MCG TAB PO SCH (06:24)
[2017-04-16 06:55] LABS: CALCIUM 8.8 mg/dl (8.5-10.1); CREATININE 1.01 mg/dl (0.60-1.20); POTASSIUM 3.7 mmol/L (3.5-5.1)
[2017-04-16 08:07] VITALS: BP 161/96; PULSE 90; TEMP 36.8; O2SAT 93
[2017-04-16] MEDS: PANTOprazole SOD 40 MG TAB PO SCH (08:09)
[2017-04-16] MEDS: ASPIRIN 81 MG ECTAB PO SCH (08:10)
[2017-04-16] MEDS: LACTOBACILLUS ACIDOPHILUS 1 GM PACK PO SCH ×2 (08:10→12:30)
[2017-04-16] MEDS: LISINOPRIL 10 MG TAB PO SCH (08:10)
[2017-04-16] MEDS: AMOXICILLIN/CLAVULANATE TAB 500 MG TAB PO SCH (08:10)
[2017-04-16] MEDS: CALCITRIOL 0.25 MCG CAP PO SCH (08:11)
[2017-04-16] MEDS: CLONAZEPAM 0.5 MG TAB PO SCH (08:14)
--- NOTE | 2017-04-16 08:44 | Nephrology Progress Note ---
Nephrology Progress Note Date of Service: Apr 16, 2017. Subjective 87 yo female with hyponatremia which improved on normal saline and free water restriction. pt doing well. no sob. no complaints. urinating a lot from the iv fluids. Objective Date Time Temp Pulse Resp B/P (MAP) Pulse Ox O2 Delivery O2 Flow Rate FiO2 04/16/17 08:07 36.8 90 18 161/96 (117) 93 Room Air 04/16/17 04:00 95 Room Air 04/16/17 03:40 36.4 73 16 145/56 (85) 97 Room Air 04/15/17 23:59 95 Room Air 04/15/17 23:40 36.3 72 16 167/75 (105) 95 Room Air 04/15/17 20:00 95 Room Air 04/15/17 16:21 36.5 77 22 150/77 (101) 97 Room Air 04/15/17 16:00 95 Room Air 04/15/17 12:00 95 Room Air 04/15/17 11:30 36.9 60 16 149/76 (100) 95 Physical Exam: General-aaox2 Eyes-no scleral icterus ENT-mmm Neck-supple Lungs-clear Heart-regular with ectopy Abdomen-bs+ s/nt/nd Extremities-no c/c/e Neuro-nonfocal Current Inpatient Medications Medications (Trade) Dose Ordered Sig/Ernestine Route Start Time Stop Time Status Last Admin Dose Admin Acetaminophen (Tylenol Tab) 650 mg Q4H PRN PO 04/09/17 23:45 05/09/17 23:44 Al Hydrox/Mg Hydrox/Simethicone (Maalox Max Susp) 15 ml Q4H PRN PO 04/09/17 23:45 05/09/17 23:44 Magnesium Hydroxide (Milk Of Magnesia Susp) 30 ml Q6H PRN PO 04/09/17 23:45 05/09/17 23:44 04/11/17 07:56 30 ML Ondansetron HCl (Zofran Inj) 4 mg Q6H PRN IV 04/09/17 23:45 05/09/17 23:44 04/10/17 08:22 4 MG Amoxicillin/ Clavulanate Potassium (Augmentin Tab) 500 mg BIDM PO 04/10/17 08:00 04/20/17 07:59 04/16/17 08:10 500 MG Aspirin (Ecotrin Tab) 81 mg DAILY PO 04/10/17 09:00 05/10/17 08:59 04/16/17 08:10 81 MG Calcitriol (Rocaltrol Cap) 0.25 mcg DAILY PO 04/10/17 09:00 05/10/17 08:59 04/16/17 08:11 0.25 MCG Clonazepam (Klonopin Tab) 0.5 mg BID PO 04/10/17 09:00 05/10/17 08:59 04/16/17 08:14 0.5 MG Levothyroxine Sodium (Synthroid Tab) 75 mcg DAILYBB PO 04/10/17 06:30 05/10/17 06:59 04/16/17 06:24 75 MCG Simvastatin (Zocor Tab) 40 mg HS PO 04/10/17 21:00 05/10/17 20:59 04/15/17 21:42 40 MG Pantoprazole Sodium (Protonix Tab) 40 mg QAM PO 04/10/17 09:00 05/10/17 08:59 04/16/17 08:09 40 MG Miscellaneous (Iv Fluids Completed) 1 ea PRN PRN N/A 04/10/17 02:15 04/10/18 02:14 Lactobacillus Acidophilus (Lactinex Granules Pack) 1 gm TIDM PO 04/10/17 17:00 05/10/17 16:59 04/16/17 08:10 1 GM Lisinopril (Zestril Tab) 10 mg DAILY PO 04/12/17 08:00 05/10/17 08:59 04/16/17 08:10 10 MG Polyethylene (Miralax Powder Packet) 17 gm DAILY PRN PO 04/11/17 14:45 05/11/17 14:44 Amlodipine Besylate (Norvasc Tab) 5 mg QPM PO 04/13/17 21:00 05/13/17 20:59 04/15/17 21:42 5 MG Docusate Sodium (coLACE CAP) 100 mg BID PRN PO 04/12/17 12:00 05/12/17 11:59 Heparin Sodium (Porcine) (Heparin Sq 5000 Unit/0.5ml) 5,000 unit Q12H SQ 04/14/17 02:00 05/10/17 05:59 04/16/17 03:54 5,000 UNIT Last 24 Hours Test 04/15/17 16:08 04/16/17 05:36 Sodium Level 130 mmol/L 134 mmol/L White Blood Count 8.07 K/uL Red Blood Count 3.44 M/uL Hemoglobin 10.4 g/dL Hematocrit 31.6 % Mean Corpuscular Volume 91.9 fL Mean Corpuscular Hemoglobin 30.2 pg Mean Corpuscular Hemoglobin Concent 32.9 g/dl RDW Standard Deviation 49.6 fL RDW Coefficient of Variation 14.7 % Platelet Count 244 K/uL Mean Platelet Volume 10.1 fL Potassium Level 3.7 mmol/L Chloride Level 101 mmol/L Carbon Dioxide Level 27 mmol/L Anion Gap 6.0 mmol/L Blood Urea Nitrogen 16 mg/dl Creatinine 1.01 mg/dl Est Creatinine Clear Calc Drug Dose 31.2 ml/min Estimated GFR () 57.6 Estimated GFR (Non- 49.7 BUN/Creatinine Ratio 16.0 Random Glucose 106 mg/dl Calcium Level 8.8 mg/dl Assessment & Plan hyponatremia-appears pt had hypovolemic hyponatremia initially. pts volume stores appear repleted. may have underlying siadh component as well of unclear etiology. would continue the free water restriction and recheck sodium levels on tuesday as an outpt. to recheck urine osm again today if possible. tsh levels are good. stopped the iv fluids this morning.
[2017-04-16 11:32] VITALS: BP 161/78; PULSE 71; TEMP 36.3; O2SAT 94
--- NOTE | 2017-04-16 15:50 | Progress Note ---
Medicine Progress Note Date & Time of Visit: Apr 16, 2017 at 15:46. Subjective patient seen resting in chair, comfortable, in good spirits states she feels fine overall denies dizziness, nausea, confusion no chest pain, dyspnea, palpitations no other symptoms states she is ready and would like to be discharged today Objective Last 8 Hrs Date Time Temp Pulse Resp B/P (MAP) Pulse Ox O2 Delivery O2 Flow Rate FiO2 04/16/17 12:00 Room Air 04/16/17 11:32 36.3 71 18 161/78 (105) 94 Room Air 04/16/17 08:07 36.8 90 18 161/96 (117) 93 Room Air 04/16/17 08:00 Room Air Physical Exam: General- oriented x 3, not in distress, speaks in sentences with no effort Eyes- anicteric Neck- no JVD Lungs- clear breath sounds bilaterally, no wheezing, no crackles Heart- regular rhythm; no murmur, normal rate Abdomen- normal bowel sounds, soft, nontender Extremities- no pretibial edema, no calf tenderness Neuro- alert, oriented x 3; no gross focal deficits Skin- warm & dry Laboratory Results: Last 24 Hours Test 04/15/17 16:08 04/16/17 05:36 04/16/17 09:55 Sodium Level 130 mmol/L 134 mmol/L White Blood Count 8.07 K/uL Red Blood Count 3.44 M/uL Hemoglobin 10.4 g/dL Hematocrit 31.6 % Mean Corpuscular Volume 91.9 fL Mean Corpuscular Hemoglobin 30.2 pg Mean Corpuscular Hemoglobin Concent 32.9 g/dl RDW Standard Deviation 49.6 fL RDW Coefficient of Variation 14.7 % Platelet Count 244 K/uL Mean Platelet Volume 10.1 fL Potassium Level 3.7 mmol/L Chloride Level 101 mmol/L Carbon Dioxide Level 27 mmol/L Anion Gap 6.0 mmol/L Blood Urea Nitrogen 16 mg/dl Creatinine 1.01 mg/dl Est Creatinine Clear Calc Drug Dose 31.2 ml/min Estimated GFR () 57.6 Estimated GFR (Non- 49.7 BUN/Creatinine Ratio 16.0 Random Glucose 106 mg/dl Calcium Level 8.8 mg/dl Urine Osmolality 359 mOms/kg Assessment & Plan Patient is an 87 yr old female with a PMH of diastolic CHF, CKD stage 3, HTN, hypothyroidism, major depression presents with weakness, hyponatremia, diarrhea. HYPONATREMIA - Urine Osm 445 - likely Hypovolemic from Diarrhea, Lasix Na went as low as [address] Murrell consulted given NSS 100cc/hr Na improving to 130s - HOLD lasix for now Fluid restriction 1500cc/day repeat Na on Tuesday04/18/17 - from Lexapro? hold for now monitor as outpatient Constipation/Overflow Diarrhea Generalized Weakness Stool for c.diff: negative CT ABD:Moderate stool Urine culture: No growth constipation and diarrhea resolved UTI received Augmentin for enterococcal UTI (recent admission) x 7 days asymptomatic CKD III: cr at baseline Monitor renal function Headache/Dizziness: Likely secondary to High BP resolved HTN Labile continue Lisinopril Restarted home amlodipine 5mg daily -- BP improved Hypothyroidism continue Synthroid DVT px SQ heparin Code Status: Full Code Disposition: d/c home ff up with PCP in 3-5 days Current Inpatient Medications: Current Inpatient Medications Medications (Trade) Dose Ordered Sig/Ernestine Route Start Time Stop Time Status Last Admin Dose Admin Acetaminophen (Tylenol Tab) 650 mg Q4H PRN PO 04/09/17 23:45 05/09/17 23:44 Al Hydrox/Mg Hydrox/Simethicone (Maalox Max Susp) 15 ml Q4H PRN PO 04/09/17 23:45 05/09/17 23:44 Magnesium Hydroxide (Milk Of Magnesia Susp) 30 ml Q6H PRN PO 04/09/17 23:45 05/09/17 23:44 04/11/17 07:56 30 ML Ondansetron HCl (Zofran Inj) 4 mg Q6H PRN IV 04/09/17 23:45 05/09/17 23:44 04/10/17 08:22 4 MG Amoxicillin/ Clavulanate Potassium (Augmentin Tab) 500 mg BIDM PO 04/10/17 08:00 04/20/17 07:59 04/16/17 08:10 500 MG Aspirin (Ecotrin Tab) 81 mg DAILY PO 04/10/17 09:00 05/10/17 08:59 04/16/17 08:10 81 MG Calcitriol (Rocaltrol Cap) 0.25 mcg DAILY PO 04/10/17 09:00 05/10/17 08:59 04/16/17 08:11 0.25 MCG Clonazepam (Klonopin Tab) 0.5 mg BID PO 04/10/17 09:00 05/10/17 08:59 04/16/17 08:14 0.5 MG Levothyroxine Sodium (Synthroid Tab) 75 mcg DAILYBB PO 04/10/17 06:30 05/10/17 06:59 04/16/17 06:24 75 MCG Simvastatin (Zocor Tab) 40 mg HS PO 04/10/17 21:00 05/10/17 20:59 04/15/17 21:42 40 MG Pantoprazole Sodium (Protonix Tab) 40 mg QAM PO 04/10/17 09:00 05/10/17 08:59 04/16/17 08:09 40 MG Miscellaneous (Iv Fluids Completed) 1 ea PRN PRN N/A 04/10/17 02:15 04/10/18 02:14 Lactobacillus Acidophilus (Lactinex Granules Pack) 1 gm TIDM PO 04/10/17 17:00 05/10/17 16:59 04/16/17 12:30 1 GM Lisinopril (Zestril Tab) 10 mg DAILY PO 04/12/17 08:00 05/10/17 08:59 04/16/17 08:10 10 MG Polyethylene (Miralax Powder Packet) 17 gm DAILY PRN PO 04/11/17 14:45 05/11/17 14:44 Amlodipine Besylate (Norvasc Tab) 5 mg QPM PO 04/13/17 21:00 05/13/17 20:59 04/15/17 21:42 5 MG Docusate Sodium (coLACE CAP) 100 mg BID PRN PO 04/12/17 12:00 05/12/17 11:59 Heparin Sodium (Porcine) (Heparin Sq 5000 Unit/0.5ml) 5,000 unit Q12H SQ 04/14/17 02:00 05/10/17 05:59 04/16/17 03:54 5,000 UNIT
[2017-04-16] MEDS ORDERED: NRV5 PO (15:51)
--- NOTE | 2017-04-16 15:57 | Discharge Instructions ---
Discharge Instructions Date of Service Apr 16, 2017. Admission Reason for Admission: Hyponatremia, Nausea, Weakness Discharge Discharge Diagnosis / Problem: WEAKNESS, CONSTIPATION, LOW SODIUM LEVEL Discharge Goals Goal(s): Diagnostic testing, Therapeutic intervention Activity Recommendations Activity Limitations: as noted below (INCREASE ACTIVITY GRADUALLY TOLERATED) . Instructions / Follow-Up Instructions / Follow-Up PLEASE REVIEW YOUR NEW MEDICATION LIST AND FOLLOW INSTRUCTIONS CAREFULLY. REPEAT BLOOD WORK ON Tuesday04/18/[address] GODFREY'S OFFICE. DO NOT EXCEED FLUID INTAKE MORE THAN 1500CC PER DAY. CALL YOUR DOCTOR OR RETURN TO ER IMMEDIATELY IF WITH RECURRENCE/WORSENING OF SYMPTOMS, LEG SWELLING, SHORTNESS OF BREATH. FOLLOW UP WITH PRIMARY CARE PHYSICIAN IN 3-5 DAYS. (CLINIC WILL CALL YOU FOR THE APPOINTMENT). Current Hospital Diet Patient's current hospital diet: AHA Diet (Heart Healthy) Discharge Diet Recommended Diet: AHA Diet (Heart Healthy) Fluid Restriction: 1500 ml (6 cups) Procedures Procedures Performed: CT ABDOMEN Pending Studies Studies pending at discharge: yes List of pending studies: REPEAT BLOODWORK ON Tuesday04/18/[address] GODFREY'S OFFICE Medical Emergencies . Who to Call and When: Medical Emergencies: If at any time you feel your situation is an emergency, please call 911 immediately. . Non-Emergent Contact Non-Emergency issues call your: Primary Care Provider Call Non-Emergent contact if: you have a fever, you have any medication questions . . "Provider Documentation" section prepared by Hugo Gotti. . VTE Core Measure Inpt VTE Proph given/why not?: Unfractionated heparin SQ
[2017-04-16 16:03] VITALS: BP 161/78; PULSE 71; TEMP 36.3; O2SAT 94
--- NOTE | 2017-04-16 16:26 | Discharge Summary ---
Discharge Summary Date of Service Apr 16, 2017. Discharge Summary Admission Date: Apr 14, 2017 at 09:09 Discharge Date: Apr 16, 2017 Discharge Disposition: Home Principal Diagnosis: Constipation/Overflow Diarrhea; Generalized Weakness Secondary Diagnoses/Problems: Please refer to hospital course below. Procedures: CT OF THE ABDOMEN AND PELVIS WITHOUT CONTRAST CLINICAL HISTORY: Right lower quadrant pain and diarrhea. COMPARISON STUDY: No previous studies for comparison. TECHNIQUE: Axial images of the abdomen and pelvis were obtained without IV contrast. Images were reviewed in the axial, sagittal, and coronal planes. A dose lowering technique was utilized adhering to the principles of ALARA. FINDINGS: Visualized portions of the lower chest demonstrate coarse calcifications within the lateral right breast. These are suboptimally assessed on this exam but favor a fibroadenoma. Unenhanced images of the liver, spleen, adrenal glands, kidneys and pancreas are unremarkable. Evaluation is suboptimal as unenhanced exam. There is no biliary or pancreatic ductal dilatation. There is no hydronephrosis. No urinary calculi are identified. There is no evidence for a bowel obstruction. A moderate amount stool within the colon is noted. The appendix is partially visualized. Visualized portions are normal. Moderate distention of the bladder is noted. A small right lateral bladder diverticulum is present. There is no lymphadenopathy. No pneumatosis, free air or portal venous gas is present. There is moderate atherosclerotic plaque of the abdominal aorta and major branch vessels. No bowel wall thickening is identified although sensitivity is diminished on this unenhanced exam. IMPRESSION: 1. No acute process within the abdomen or pelvis although evaluation suboptimal on this unenhanced exam. 2. No urinary calculi or hydronephrosis. 3. Mild cardiomegaly. 4. Moderate amount of stool within the colon. No bowel obstruction. 5. Moderate distention of the bladder. Electronically signed by: Ainsh Meraz M.D. 04/09/2017 8:55 PM Consultations: Nephrology Dr. Murrell Pending Studies/Follow-Up: Please refer to hospital course below. Medication Reconciliation New Medications: Amlodipine Besylate (Amlodipine Besylate) 5 Mg Tab 5 MG PO QPM for 30 Days, #30 TAB 2 Refills Continued Medications: Acetaminophen Tab (Tylenol) 325 Mg Tab 650 MG PO Q4 PRN for Pain or Fever Aspirin (Aspirin EC Low Dose) 81 Mg Ectab 1 TAB PO DAILY Calcitriol (Rocaltrol Cap) 0.25 Mcg Cap 0.25 MCG PO DAILY, CAP Clonazepam (Klonopin) 0.5 Mg Tab 0.5 MG PO, TAB Cyanocobalamin (Vitamin B-12) 1,000 Mcg Tab 1000 MCG PO DAILY Cyclosporine (Ophth) (Restasis) 0.05 % Emu 1 DROP OP BID, BTL Levothyroxine Sodium (Levothyroxine Sodium) 75 Mcg Tab 75 MCG PO DAILY, 3 Refills Lisinopril (Prinivil) 10 Mg Tab 10 MG PO DAILY, TAB Meclizine HCl (Meclizine HCl) 25 Mg Tab 25 MG PO Q8 PRN for Dizziness or Vertigo for 10 Days, #30 TAB Multivitamin (Multivitamin) Tab 1 TAB PO DAILY, TAB Omeprazole (Prilosec) 20 Mg Capcr 20 MG PO QAM, 0 Refills Polyvinyl Alcohol-Povidone (Op (Artificial Tears) 1 Cheryl Cheryl Simvastatin (Zocor) 20 Mg Tab 40 MG PO HS, TAB Discontinued Medications: Escitalopram Oxalate (Escitalopram Oxalate) 10 Mg Tab 5 MG PO QAM for 30 Days, #30 TAB Furosemide (Lasix) 20 Mg Tab 20 MG PO DAILY, TAB Admission Information HPI (per Admitting provider): This is an 87 year old female with a PMH of diastolic CHF, CKD stage 3, HTN, hypothyroidism, major depression presents with weakness, hyponatremia, diarrhea. Patient was recently here for enterococcal UTI at [facility]. Was discharged on 04/06 on Augmentin. She was doing well, but diarrhea started and she became really weak and tired. Upon presentation, noted to have low Na levels , diarrhea persisted. CT abdomen - no acute findings. Denies fevers/chills, denies shortness of breath, denies chest pain. Physical Exam (per Admitting): General Appearance: no apparent distress Head: normocephalic, atraumatic Eyes: normal inspection ENT: hearing grossly normal Neck: supple Respiratory/Chest: chest non-tender, lungs clear, normal breath sounds, no respiratory distress, no accessory muscle use Cardiovascular: regular rate, rhythm, no edema, no murmur Abdomen/GI: normal bowel sounds, soft, no organomegaly, + tenderness ( mildly tender in the lower abdomen) Back: no muscle spasm Extremities/Musculoskelatal: normal inspection, no calf tenderness, normal capillary refill, no pedal edema, normal range of motion 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 HYPONATREMIA - likely Hypovolemic from Diarrhea, Lasix - Urine Osm 445 Na went as low as [address] Murrell consulted given NSS 100cc/hr Na improving to 130s - HOLD lasix for now Fluid restriction 1500cc/day repeat Na on Tuesday04/18/17 - from Lexapro? hold for now monitor as outpatient Constipation/Overflow Diarrhea Generalized Weakness Stool for c.diff: negative CT ABD:Moderate stool Urine culture: No growth constipation and diarrhea resolved UTI received Augmentin for enterococcal UTI (recent admission) x 7 days asymptomatic CKD III: cr at baseline Monitor renal function Headache/Dizziness: Likely secondary to High BP resolved HTN Labile continue Lisinopril Restarted home amlodipine 5mg daily -- BP improved Hypothyroidism continue Synthroid Disposition: d/c home ff up with PCP in 3-5 days Total time spent on discharge = 30 minutes This includes examination of the patient, discharge planning, medication reconciliation, and communication with other providers. Discharge Instructions Discharge Instructions Date of Service Apr 16, 2017. Admission Reason for Admission: Hyponatremia, Nausea, Weakness Discharge Discharge Diagnosis / Problem: WEAKNESS, CONSTIPATION, LOW SODIUM LEVEL Discharge Goals Goal(s): Diagnostic testing, Therapeutic intervention Activity Recommendations Activity Limitations: as noted below (INCREASE ACTIVITY GRADUALLY TOLERATED) . Instructions / Follow-Up Instructions / Follow-Up PLEASE REVIEW YOUR NEW MEDICATION LIST AND FOLLOW INSTRUCTIONS CAREFULLY. REPEAT BLOOD WORK ON Tuesday04/18/[address] GODFREY'S OFFICE. DO NOT EXCEED FLUID INTAKE MORE THAN 1500CC PER DAY. CALL YOUR DOCTOR OR RETURN TO ER IMMEDIATELY IF WITH RECURRENCE/WORSENING OF SYMPTOMS, LEG SWELLING, SHORTNESS OF BREATH. FOLLOW UP WITH PRIMARY CARE PHYSICIAN IN 3-5 DAYS. (CLINIC WILL CALL YOU FOR THE APPOINTMENT). Current Hospital Diet Patient's current hospital diet: AHA Diet (Heart Healthy) Discharge Diet Recommended Diet: AHA Diet (Heart Healthy) Fluid Restriction: 1500 ml (6 cups) Procedures Procedures Performed: CT ABDOMEN Pending Studies Studies pending at discharge: yes List of pending studies: REPEAT BLOODWORK ON Tuesday04/18/[address] GODFREY'S OFFICE Medical Emergencies . Who to Call and When: Medical Emergencies: If at any time you feel your situation is an emergency, please call 911 immediately. . Non-Emergent Contact Non-Emergency issues call your: Primary Care Provider Call Non-Emergent contact if: you have a fever, you have any medication questions . . "Provider Documentation" section prepared by Hugo Gotti. . VTE Core Measure Inpt VTE Proph given/why not?: Unfractionated heparin SQ
== END 2017-04-16 16:30 | disposition home health service (06) | DRG 641 ==
LOC: EDBD 18:18 → C.EDB 18:21 → C.MED 23:47 → ENRESERV 04-10 00:11 → C.MS4W 04-11 20:01 → OBSVTOIN 04-14 09:09 → ENRESERV 04-14 18:17 → C.2T 04-14 19:38
PROVIDERS: ADMIT Family Medicine; ATTEND Internal Medicine
DX: E87.1 Hypo-osmolality and hyponatremia (principal); I13.0 Hypertensive heart and chronic kidney disease with heart failure and stage 1 through stage 4 chronic kidney disease, or unspecified chronic kidney disease; I50.30 Unspecified diastolic (congestive) heart failure; N39.0 Urinary tract infection, site not specified; K59.00 Constipation, unspecified; R19.7 Diarrhea, unspecified; E86.0 Dehydration; B95.2 Enterococcus as the cause of diseases classified elsewhere; N18.3 Chronic kidney disease, stage 3 (moderate); K21.9 Gastro-esophageal reflux disease without esophagitis; E78.5 Hyperlipidemia, unspecified; E03.9 Hypothyroidism, unspecified; F32.9 Major depressive disorder, single episode, unspecified; R51 Headache; R42 Dizziness and giddiness; Z79.2 Long term (current) use of antibiotics; Z79.82 Long term (current) use of aspirin; Z79.899 Other long term (current) drug therapy

== ENCOUNTER 2017-09-17 16:27 | Inpatient (IN) | payer OTHER ==
[~2017-09-17] VITALS: Ht 152.4 cm; Wt 57.5 kg
[~2017-09-17 16:27] MED LIST changes: +ACET-1693 PO; -ACET325T96 PO; -AMOX500T PO; -ASPEC81 PO; +ASPI-320 PO; -FURO-85 PO; -LXP10 PO; +NRV5 PO
[2017-09-17] MEDS ORDERED: AMLO-110 PO (17:01)
[2017-09-17] MEDS ORDERED: LEVO75TA PO (17:01)
[2017-09-17] MEDS ORDERED: MECL1TAB42 PO (17:01)
[2017-09-17] MEDS ORDERED: HydrALAZINE HCL 20 MG/ML VIAL IV. STA (17:18)
--- NOTE | 2017-09-17 17:24 | EMERGENCY ROOM VISIT NOTE ---
History Report prepared by Jhonny: Jaclyn Gonsalves Under the Supervision of: Dr. Ellie Campo M.D. First contact with patient: 16:37 Stated Complaint: DIZZY History of Present Illness The patient is an 87 year old female who presents to the Emergency Room with complaints of worsening dizziness starting today. The patient states that she just does not feel well. She describes it as "feeling awful." She states that she has not been able to urinate, but when she can, it patel. The patient complains of weakness and some abdominal pain. She notes that she did take her blood pressure medications today. Source of History: patient Onset: today Position: other (global) Quality: other (dizziness) Timing: worsening Associated Symptoms: + abdominal pain, + urinary symptoms, + weakness Note: The patient complains of feeling awful. Review of Systems See HPI for pertinent positives & negatives. A total of 10 systems reviewed and were otherwise negative. Past Medical & Surgical Medical Problems: (1) REBECCA (acute kidney injury) (2) CHF (congestive heart failure) (3) CKD (chronic kidney disease), stage III (4) CTS (carpal tunnel syndrome) (5) Elevated troponin (6) Generalized anxiety disorder (7) GERD (gastroesophageal reflux disease) (8) Hyperlipidemia (9) Hypertension (10) Hypothyroidism (11) Major depressive disorder, recurrent, moderate (12) UTI (urinary tract infection) Surgical Problems: (1) H/O colonoscopy (2) H/O knee surgery (3) History of bladder surgery Family History No pertinent family history Social History Smoking Status: Never Smoker Marital Status: Housing Status: lives with significant other Occupation Status: retired Current/Historical Medications Scheduled Amlodipine (Norvasc), 2.5 MG PO DAILY Aspirin (Aspirin EC Low Dose), 81 MG PO DAILY Calcitriol (Rocaltrol Cap), 0.25 MCG PO DAILY Cyanocobalamin (Vitamin B-12), 1,000 MCG PO DAILY Cyclosporine (Ophth) (Restasis), 1 DROP OP BID Levothyroxine Sodium (Synthroid), 75 MCG PO DAILY Lisinopril (Prinivil), 5 MG PO DAILY Multivitamin (Multivitamin), 1 TAB PO DAILY Omeprazole (Prilosec), 20 MG PO QAM Simvastatin (Zocor), 40 MG PO HS Scheduled PRN Acetaminophen Tab (Tylenol), 650 MG PO Q4 PRN for Pain or Fever Meclizine Hcl (Meclizine Hcl), 25 MG PO TID PRN for Dizziness or Vertigo Allergies Coded Allergies: Quinolones (Unverified Allergy, Mild, "FEELS AWEFUL", 04/09/17) Physical Exam Vital Signs Date Time Temp Pulse Resp B/P (MAP) Pulse Ox O2 Delivery O2 Flow Rate FiO2 09/17/17 20:13 76 162/83 98 Room Air 09/17/17 19:14 101 182/67 91 Room Air 09/17/17 18:03 96 18 223/106 99 Room Air 09/17/17 17:37 87 24 242/178 94 Room Air 09/17/17 17:27 71 20 216/111 95 Room Air 09/17/17 16:52 71 09/17/17 16:45 36.8 78 26 242/178 98 Room Air Physical Exam Vital signs reviewed. Noted to be hypertensive. General: Elderly, well-appearing, in no significant distress. HEENT: No scleral icterus, PERRLA, neck supple. Atraumatic. Cardiovascular: Controlled rate and irregular rhythm, no extra sounds. Pulmonary: Coarse breath sounds bilaterally, normal work of breathing. Abdomen: Soft, mild suprapubic abdominal tenderness, nondistended, positive bowel sounds. Musculoskeletal: Atraumatic, no peripheral edema. Neurologic: Patient awake alert and oriented x 3, full strength in all 4 extremities. Cranial nerves 2 through 12 grossly intact. Skin: Warm, dry, no rash Medical Decision & Procedures ER Provider Diagnostic Interpretation: Radiology results as stated below per my review and radiologist interpretation: CHEST ONE VIEW PORTABLE CLINICAL HISTORY: 87 years-old Female presenting with dizzy. TECHNIQUE: Portable upright AP view of the chest was obtained. COMPARISON: 03/18/2017. FINDINGS: Atherosclerosis of aortic arch. Cardiac silhouette enlarged. Pulmonary vascular prominence. No focal opacity. No large effusion or pneumothorax. Degenerative changes of the thoracic spine. Upper abdomen normal. IMPRESSION: 1. Cardiomegaly. No other convincing evidence of acute cardiopulmonary disease. Electronically signed by: Jacob Vallejo M.D. 09/17/2017 5:35 PM Dictated Date/Time: 09/17/2017 5:34 PM ABD/PELVIS NO IV OR ORAL CONT CLINICAL HISTORY: 87 years-old Female presenting with LLQ abd pain. TECHNIQUE: Multidetector CT of the abdomen and pelvis was performed without the use of intravenous contrast. IV contrast: None. A dose lowering technique was used consistent with the principles of ALARA (as low as reasonably achievable). COMPARISON: 04/09/2017. CT DOSE (mGy.cm): The estimated cumulative dose is 236.81 mGy.cm. FINDINGS: Internal Medicine Nurse topogram: Unremarkable. Lung bases: Lungs and pleural spaces clear. Normal heart size. Coronary artery calcification. No pericardial or pleural effusion. Liver: Normal morphology. Normal density. Questionable lesion may be present in the right hepatic lobe (series 3 image 46), indeterminate. Biliary: No gross biliary ductal dilatation allowing for noncontrast technique. Normal gallbladder. Pancreas: Moderate parenchymal atrophy. Spleen: Normal noncontrast appearance. Adrenal glands: Nodular thickening of the bilateral adrenal glands, nonspecific. Underlying nodule is difficult to exclude. Kidneys and ureters: Normal noncontrast appearance. No nephrolithiasis. No hydronephrosis. Normal ureters. Bladder: Bladder diverticulum noted along the right lateral wall.. Pelvic organs: Normal noncontrast appearance. Bowel: Moderate stool burden in the right colon. The appendix is normal. No bowel obstruction. Peritoneal cavity: No free fluid or intraperitoneal gas. Lymph nodes: No gross lymphadenopathy allowing for noncontrast technique. Vasculature: Atherosclerosis of the normal caliber abdominal aorta. Abdominal wall: Diastasis of the rectus abdominis. Musculoskeletal: Degenerative changes of the spine. Osteopenia. Old deformities of right lateral ribs. IMPRESSION: 1. No acute intra-abdominal pathology. 2. Moderate stool burden. 3. Nonspecific nodular thickening of the bilateral adrenal glands, unchanged. 4. Questionable lesion in the right hepatic lobe. There is clinical concern, nonurgent ultrasound could be obtained. 5. Osteopenia. Electronically signed by: Jacob Vallejo M.D. 09/17/2017 7:25 PM Dictated Date/Time: 09/17/2017 7:18 PM Laboratory Results Test 09/17/17 16:51 09/17/17 17:28 Urine Color YELLOW Urine Appearance CLEAR (CLEAR) Urine pH 8.0 (4.5-7.5) Urine Specific Lynd 1.009 (1.000-1.030) Urine Protein NEG (NEG) Urine Glucose (UA) NEG (NEG) Urine Ketones NEG (NEG) Urine Occult Blood TRACE (NEG) Urine Nitrite NEG (NEG) Urine Bilirubin NEG (NEG) Urine Urobilinogen NEG (NEG) Urine Leukocyte Esterase NEG (NEG) Urine WBC (Auto) 0 /hpf (0-5) Urine RBC (Auto) 0-4 /hpf (0-4) Urine Hyaline Casts (Auto) 0 /lpf (0-5) Urine Epithelial Cells (Auto) 0-5 /lpf (0-5) Urine Bacteria (Auto) NEG (NEG) Urine Osmolality 187 mOms/kg (500-800) Urine Random Sodium 70 mEq/L Magnesium Level 2.1 mg/dl (1.8-2.4) Total Bilirubin 0.5 mg/dl (0.2-1) Direct Bilirubin mg/dl (0-0.2) Aspartate Amino Transf (AST/SGOT) 29 U/L (15-37) Alanine Aminotransferase (ALT/SGPT) 22 U/L (12-78) Alkaline Phosphatase 77 U/L (45-117) Troponin I < 0.015 ng/ml (0-0.045) Total Protein 8.7 gm/dl (6.4-8.2) Albumin 3.9 gm/dl (3.4-5.0) Lipase 251 U/L (73-393) Thyroid Stimulating Hormone (TSH) 1.150 uIu/ml (0.300-4.500) Chemistry Specimen Hemolysis Laboratory results per my review. Medications Administered Medications (Trade) Dose Ordered Sig/Ernestine Route Start Time Stop Time Status Last Admin Dose Admin Hydralazine HCl (HydrALAZINE INJ) 10 mg NOW STAT IV. 09/17/17 17:18 09/17/17 17:22 DC 09/17/17 17:39 10 MG Sodium Chloride 1,000 ml @ 125 mls/hr Q8H STAT IV 09/17/17 18:16 09/17/17 23:33 DC 09/17/17 18:16 125 MLS/HR Fentanyl Citrate (Fentanyl Inj) 25 mcg NOW STAT IV 09/17/17 18:29 09/17/17 18:30 DC 09/17/17 18:42 25 MCG Lisinopril (Zestril Tab) 10 mg NOW STAT PO 09/17/17 20:11 09/17/17 20:12 DC 09/17/17 20:26 10 MG ECG Per My Interpretation Indication: other (dizziness) Rate (beats per minute): 81 Rhythm: atrial fibrillation Findings: no acute ischemic change, no ectopy ED Course 1645: Past medical records reviewed. The patient was evaluated in room A11B. A complete history and physical examination was performed. 1717: Ordered Hydralazine HCl 10 mg IV. 1815: Ordered NSS 1000 ml @ 125 mls/hr IV. 1821: I reevaluated the patient and she is now complaining of abdominal pain. 1828: Ordered Fentanyl Citrate 25 mcg IV. 1948: I reviewed the patient's case with Dr. Marcos Luque. He will evaluate the patient for further management. 2006: I reevaluated the patient and updated her on the treatment plan. Medical Decision Differential diagnosis: Etiologies such as benign positional vertigo, dehydration, hypovolemia, anemia, tumor, infection, hypoglycemia, electrolyte abnormalities, cardiac sources, intracerebral event, toxicologic, neurologic, as well as others were entertained. This patient was evaluated and appeared to be in no significant distress. Physical examination is notable for a marked hypertension. Patient was otherwise unrevealing on exam. Patient was straight cathed for urine sample. This appears to be negative for infection. Laboratory work reveals a hyponatremia. Patient did receive hydralazine 10 mg IV 2. She was hydrated with normal saline solution. She did complain of abdominal pain in the left lower quadrant a CT scan was performed. She did receive 25 mcg of IV fentanyl at this time. CT scan is significant for a moderate stool burden and chronic findings, otherwise negative. Given the patient's hyponatremia and hypertension , which have been an issue in the past, she will be referred to the hospitalist service for further evaluation and management. Medication Reconcilliation Current Medication List: was personally reviewed by me Blood Pressure Screening Patient's blood pressure: Elevated blood pressure Will be further monitored by the hospitalist. Consults Time Called: 1941 Consulting Physician: Dr. Marcos Luque Returned Call: 1948 I reviewed the patient's case with Dr. Marcos Luque. He will evaluate the patient for further management. Impression Primary Impression: Hyponatremia Additional Impression: Hypertension Scribe Attestation The scribe's documentation has been prepared under my direction and personally reviewed by me in its entirety. I confirm that the note above accurately reflects all work, treatment, procedures, and medical decision making performed by me. Departure Information Dispostion Being Evaluated By Hospitalist Referrals Luther Jean M.D. (PCP) Problem Qualifiers
--- NOTE | 2017-09-17 17:37 | DIAGNOSTIC IMAGING REPORT ---
CHEST ONE VIEW PORTABLE CLINICAL HISTORY: 87 years-old Female presenting with dizzy. TECHNIQUE: Portable upright AP view of the chest was obtained. COMPARISON: 03/18/2017. FINDINGS: Atherosclerosis of aortic arch. Cardiac silhouette enlarged. Pulmonary vascular prominence. No focal opacity. No large effusion or pneumothorax. Degenerative changes of the thoracic spine. Upper abdomen normal. IMPRESSION: 1. Cardiomegaly. No other convincing evidence of acute cardiopulmonary disease. Electronically signed by: Jacob Vallejo M.D. 09/17/2017 5:35 PM Dictated Date/Time: 09/17/2017 5:34 PM
[2017-09-17 18:04] LABS: ALBUMIN 3.9 gm/dl (3.4-5.0); ALKALINE PHOSPHATASE 77 U/L (45-117); ALT/SGPT 22 U/L (12-78); AST/SGOT 29 U/L (15-37); BLOOD UREA NITROGEN 17 mg/dl (7-18); CALCIUM 9.1 mg/dl (8.5-10.1); CARBON DIOXIDE 28 mmol/L (21-32); GLUCOSE 90 mg/dl (70-99); LIPASE 251 U/L (73-393); POTASSIUM 4.2 mmol/L (3.5-5.1); SODIUM 123 mmol/L (136-145); TOTAL PROTEIN 8.7 gm/dl (6.4-8.2)
[2017-09-17] MEDS ORDERED: SODIUM CHLORIDE 0.9% 1000ML 1,000 ML IV STA (18:16)
[2017-09-17] MEDS ORDERED: FENTANYL CITRATE INJ 50 MCG/1 ML 2 ML VIAL IV STA (18:29)
[2017-09-17 19:06] LABS: BASO % 0.1 %; BASO ABS # 0.01 K/uL (0-0.2); EOS % 0.4 %; EOS ABS # 0.03 K/uL (0-0.5); HEMATOCRIT 37.4 % (37-47); HEMOGLOBIN 13.3 g/dL (12.0-16.0); IG# 0.04 K/uL (0.00-0.02); LYMPH % 12.9 %; LYMPH ABS # 1.03 K/uL (1.2-3.4); MEAN CELL VOLUME 86.8 fL (80-100); MEAN CORPUSCULAR HEMOGLOBIN 30.9 pg (25-34); MEAN CORPUSCULAR HGB CONC 35.6 g/dl (32-36); MEAN PLATELET VOLUME 8.2 fL (7.4-10.4); MONO % 10.9 %; MONO ABS # 0.87 K/uL (0.11-0.59); NEUT % 75.2 %; NEUT ABS # 5.99 K/uL (1.4-6.5); PLATELET COUNT 297 K/uL (130-400); RED CELL DISTRIBUTION WIDTH CV 14.1 % (11.5-14.5); RED CELL DISTRIBUTION WIDTH SD 44.8 fL (36.4-46.3); WHITE BLOOD COUNT 7.97 K/uL (4.8-10.8)
--- NOTE | 2017-09-17 19:27 | DIAGNOSTIC IMAGING REPORT ---
ABD/PELVIS NO IV OR ORAL CONT CLINICAL HISTORY: 87 years-old Female presenting with LLQ abd pain. TECHNIQUE: Multidetector CT of the abdomen and pelvis was performed without the use of intravenous contrast. IV contrast: None. A dose lowering technique was used consistent with the principles of ALARA (as low as reasonably achievable). COMPARISON: 04/09/2017. CT DOSE (mGy.cm): The estimated cumulative dose is 236.81 mGy.cm. FINDINGS: Appian Bpm Developer topogram: Unremarkable. Lung bases: Lungs and pleural spaces clear. Normal heart size. Coronary artery calcification. No pericardial or pleural effusion. Liver: Normal morphology. Normal density. Questionable lesion may be present in the right hepatic lobe (series 3 image 46), indeterminate. Biliary: No gross biliary ductal dilatation allowing for noncontrast technique. Normal gallbladder. Pancreas: Moderate parenchymal atrophy. Spleen: Normal noncontrast appearance. Adrenal glands: Nodular thickening of the bilateral adrenal glands, nonspecific. Underlying nodule is difficult to exclude. Kidneys and ureters: Normal noncontrast appearance. No nephrolithiasis. No hydronephrosis. Normal ureters. Bladder: Bladder diverticulum noted along the right lateral wall.. Pelvic organs: Normal noncontrast appearance. Bowel: Moderate stool burden in the right colon. The appendix is normal. No bowel obstruction. Peritoneal cavity: No free fluid or intraperitoneal gas. Lymph nodes: No gross lymphadenopathy allowing for noncontrast technique. Vasculature: Atherosclerosis of the normal caliber abdominal aorta. Abdominal wall: Diastasis of the rectus abdominis. Musculoskeletal: Degenerative changes of the spine. Osteopenia. Old deformities of right lateral ribs. IMPRESSION: 1. No acute intra-abdominal pathology. 2. Moderate stool burden. 3. Nonspecific nodular thickening of the bilateral adrenal glands, unchanged. 4. Questionable lesion in the right hepatic lobe. There is clinical concern, nonurgent ultrasound could be obtained. 5. Osteopenia. Electronically signed by: Jacob Vallejo M.D. 09/17/2017 7:25 PM Dictated Date/Time: 09/17/2017 7:18 PM
[2017-09-17] MEDS ORDERED: LISINOPRIL 10 MG TAB PO STA (20:11)
[2017-09-17 20:40] LABS: OSMOLALITY,URINE 187 mOms/kg (500-800)
[2017-09-17 20:41] LABS: SODIUM RANDOM URINE 70 mEq/L
--- NOTE | 2017-09-17 21:31 | DIAGNOSTIC IMAGING REPORT ---
HEAD WITHOUT CONTRAST (CT) CLINICAL HISTORY: 87 years-old Female presenting with dizzy, crowe. TECHNIQUE: Multidetector CT imaging of the head was performed without the use of intravenous contrast. IV contrast: None. A dose lowering technique was used consistent with the principles of ALARA (as low as reasonably achievable). COMPARISON: 03/18/2017. CT DOSE (mGy.cm): The estimated cumulative dose is 601.98 mGy.cm. FINDINGS: Printed Circuit Board Preassembler topogram: Unremarkable. Proportional ventricular and sulcal prominence, likely age-related parenchymal volume loss. Periventricular and subcortical white matter hypoattenuation, nonspecific but likely indicative of chronic small vessel ischemic change. 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 No mass effect or midline shift. No hemorrhage or acute territorial infarct. No extra-axial fluid collection. Paranasal sinuses and mastoid air cells clear. Calvarium intact. Bilateral [place] lenses are absent. IMPRESSION: 1. Chronic small vessel ischemic change. 2. 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 3. No acute intracranial abnormality. Electronically signed by: Jacob Vallejo M.D. 09/17/2017 9:29 PM Dictated Date/Time: 09/17/2017 9:27 PM
[2017-09-17] MEDS ORDERED: ACETAMINOPHEN 325 MG TAB PO PRN (22:00)
[2017-09-17] MEDS ORDERED: PROCHLORPERAZINE INJ 5 MG in SYRINGE 4 ML IV PRN (22:00)
[2017-09-17] MEDS ORDERED: MECLIZINE HCL 12.5 MG TAB PO PRN (22:00)
[2017-09-17] MEDS ORDERED: NITROGLYCERIN 0.4 MG SL PER TAB CHARGE SL PRN (22:00)
[2017-09-17] MEDS ORDERED: TRAMADOL HCL 50 MG TAB PO PRN (22:00)
[2017-09-17 22:34] VITALS: BP 152/70; PULSE 113; TEMP 36.4; O2SAT 97
[2017-09-17 23:30] VITALS: Ht 152.4 cm; Wt 57.5 kg
[2017-09-18] VITALS (7 sets, daily range): BP systolic 114–189; BP diastolic 67–93; PULSE 68–84; TEMP 36.6–36.9; O2SAT 92–99
--- NOTE | 2017-09-18 00:46 | HISTORY & PHYSICAL EXAMINATION ---
DATE OF ADMISSION: 09/17/2017 PRIMARY CARE PHYSICIAN: Dr. Jean. CHIEF COMPLAINT: Dizziness. HISTORY OF PRESENT ILLNESS: History obtained from patient and records. Medical history is significant for hypertension, mood disorder, anxiety disorder , hyperlipidemia, hypothyroidism, chronic hyponatremia. Patient admitted in March 2017 for hyponatremia, nausea, weakness. Patient seen at PCP's office about 2 weeks ago for left knee pain, given intra- articular triamcinolone injection. More left leg swelling noted. Patient thinks steroid injection made LLE pain worse. Yesterday, she noted dizziness described as lightheadedness as if she is going to pass out. She also had frontal headache symptoms, achy. Some nausea, appetite not too good, feeling awful. Patient has good bowel movement. Some bladder discomfort. Some stress taking care of her at home. Compliant with home meds. Denies NSAID intake. Unaware of BP control at home. Patient brought to the Emergency Room. MEDICAL HISTORY: As above. SURGERIES: She has had knee surgery, bladder surgery. HOME MEDICATIONS: Levothyroxine, lisinopril, meclizine, multivitamins, Prilosec, Zocor, Tylenol, Norvasc, aspirin, Restasis, Rocaltrol, vitamin B12. ALLERGIES: QUINOLONES. FAMILY HISTORY: Hypertension. 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 REVIEW OF SYSTEMS: As per HPI. All 10 systems reviewed, all other ROS negative. PHYSICAL EXAMINATION: VITAL SIGNS: Blood pressure noted to be 216/111, pulse rate is 70, RR 24, temperature 36.6. Initial blood pressure 240/178. GENERAL: Noted to be slightly anxious, no respiratory distress, looks younger for stated age. some hearing impairment SKIN: Normal color, warm. HEENT: [place] palpebral conjunctivae. No ptosis. Dry mucosa. NECK: Supple, nontender. CHEST: CTA, no tenderness. HEART: Regular rate and rhythm, no murmur. ABDOMEN: Some distention, nontender. EXTREMITIES: Minimal left lower extremity swelling, minimal tenderness. NEUROLOGIC: No gross focality except for marked hearing impairment. LABORATORY DATA: Hemoglobin was noted to be 13.3, hematocrit 37.4, white blood cell count 7.97, platelets 297. Sodium 122, potassium 4.2, CO2 of 28, BUN 17, creatinine 0.9, glucose was noted to be 90. Chest x-ray, cardiomegaly. EKG, as per my interpretation, rate 80 NSR, normal axis, no ischemia. UA, trace occult blood, negative ketones. CT head, no acute pathology. CT abdomen and pelvis showed moderate stool burden, questionable lesion in right hepatic lobe. ASSESSMENT: 1. [id number] hyponatremia secondary to poor p.o. intake secondary to possible uncontrolled blood pressure possibly related to recent steroid injection 2. anxiety contributory to HTN 3. hyperlipidemia on statin therapy. PLAN: PCU. Careful correction of sodium. Sodium restriction Nephrology consult RE hyponatremia. (Patient known to [facility].) Titrate blood pressure medicine. PT, OT eval. DVT prophylaxis, Lovenox subQ. Full code. MTDD
[2017-09-18 03:48] LABS: BASO % 0.1 %; BASO ABS # 0.01 K/uL (0-0.2); EOS % 0.4 %; EOS ABS # 0.04 K/uL (0-0.5); HEMATOCRIT 34.6 % (37-47); HEMOGLOBIN 12.1 g/dL (12.0-16.0); IG# 0.03 K/uL (0.00-0.02); LYMPH % 6.6 %; LYMPH ABS # 0.67 K/uL (1.2-3.4); MEAN CELL VOLUME 87.6 fL (80-100); MEAN CORPUSCULAR HEMOGLOBIN 30.6 pg (25-34); MEAN PLATELET VOLUME 8.2 fL (7.4-10.4); MONO ABS # 1.11 K/uL (0.11-0.59); NEUT % 81.6 %; NEUT ABS # 8.24 K/uL (1.4-6.5); PLATELET COUNT 267 K/uL (130-400); RED CELL DISTRIBUTION WIDTH CV 14.5 % (11.5-14.5); RED CELL DISTRIBUTION WIDTH SD 46.3 fL (36.4-46.3)
[2017-09-18 04:19] LABS: CALCIUM 8.7 mg/dl (8.5-10.1); CREATININE 0.95 mg/dl (0.60-1.20)
[2017-09-18] MEDS ORDERED: SODIUM CHLORIDE 0.9% 1000ML 1,000 ML IV ONE (04:30)
[2017-09-18] MEDS: LEVOTHYROXINE 75 MCG TAB PO SCH (06:00)
[2017-09-18] MEDS: ASPIRIN 81 MG ECTAB PO SCH (07:47)
[2017-09-18] MEDS: MULTIVITAMIN TAB PO SCH (07:47)
[2017-09-18] MEDS: PANTOprazole SOD 40 MG TAB PO SCH (07:48)
[2017-09-18] MEDS: AMLODIPINE BESYLATE 5 MG TAB PO SCH (07:48)
[2017-09-18] MEDS: RESTASIS~ORDER AWAITING ACTION SCH ×4 (08:50→23:33)
[2017-09-18] MEDS ORDERED: LISINOPRIL 10 MG TAB PO SCH (09:00)
--- NOTE | 2017-09-18 09:29 | DIAGNOSTIC IMAGING REPORT ---
L VENOUS DOPP LOWER EXT UNILAT HISTORY: 87 years-old Female LLE swelling acute left lower extremity pain and swelling COMPARISON: None available TECHNIQUE: Multiple real-time sonographic images of the left lower extremity deep venous structures were obtained assessing grayscale appearance, color and spectral flow FINDINGS: Normal compressibility, flow, phasicity and augmentation of the left lower extremity deep venous structures. IMPRESSION: No sonographic evidence of deep venous thrombosis. The above report was generated using voice recognition software. It may contain grammatical, syntax or spelling errors. Electronically signed by: Shade Hopkins M.D. 09/18/2017 9:28 AM Dictated Date/Time: 09/18/2017 9:27 AM
[2017-09-18] MEDS: ENOXAPARIN 30 MG/0.3 ML SYR SC SCH (09:45)
--- NOTE | 2017-09-18 10:06 | Progress Note ---
Medicine Progress Note Date & Time of Visit: September 18, 2017 at 10:06. Subjective seen resting in bed, comfortable talking with family at bedside states she feels improved no dizziness (+) lower abdominal pain- mild no BM yet denies other symptoms Objective Last 8 Hrs Date Time Temp Pulse Resp B/P (MAP) Pulse Ox O2 Delivery O2 Flow Rate FiO2 09/18/17 08:00 Room Air 09/18/17 07:26 36.9 69 18 174/93 (120) 95 Room Air 09/18/17 04:40 36.7 72 18 140/76 (97) 93 Room Air 09/18/17 04:10 Room Air Physical Exam: General- oriented x 3, not in distress, speaks in sentences with no effort Head- atraumatic Eyes- PERRL, EOMI, anicteric ENT- oropharynx clear Neck- supple, no JVD, no adenopathy Lungs- clear breath sounds bilaterally, no rales/wheezes Heart- regular rhythm; no murmur, normal rate Abdomen- normal bowel sounds, soft, nontender,non distended Extremities- no pretibial edema, no calf tenderness; peripheral pulses intact Neuro- alert, oriented x 3; decreased hearing otherwise, no other gross focal deficits Laboratory Results: Last 24 Hours Test 09/17/17 16:51 09/17/17 17:28 09/17/17 21:36 09/18/17 00:07 Urine Color YELLOW Urine Appearance CLEAR Urine pH 8.0 Urine Specific Col[place] 1.009 Urine Protein NEG Urine Glucose (UA) NEG Urine Ketones NEG Urine Occult Blood TRACE Urine Nitrite NEG Urine Bilirubin NEG Urine Urobilinogen NEG Urine Leukocyte Esterase NEG Urine WBC (Auto) 0 /hpf Urine RBC (Auto) 0-4 /hpf Urine Hyaline Casts (Auto) 0 /lpf Urine Epithelial Cells (Auto) 0-5 /lpf Urine Bacteria (Auto) NEG Urine Osmolality 187 mOms/kg Urine Random Sodium 70 mEq/L White Blood Count 7.97 K/uL Red Blood Count 4.31 M/uL Hemoglobin 13.3 g/dL Hematocrit 37.4 % Mean Corpuscular Volume 86.8 fL Mean Corpuscular Hemoglobin 30.9 pg Mean Corpuscular Hemoglobin Concent 35.6 g/dl Platelet Count 297 K/uL Mean Platelet Volume 8.2 fL Neutrophils (%) (Auto) 75.2 % Lymphocytes (%) (Auto) 12.9 % Monocytes (%) (Auto) 10.9 % Eosinophils (%) (Auto) 0.4 % Basophils (%) (Auto) 0.1 % Neutrophils # (Auto) 5.99 K/uL Lymphocytes # (Auto) 1.03 K/uL Monocytes # (Auto) 0.87 K/uL Eosinophils # (Auto) 0.03 K/uL Basophils # (Auto) 0.01 K/uL RDW Standard Deviation 44.8 fL RDW Coefficient of Variation 14.1 % Immature Granulocyte % (Auto) 0.5 % Immature Granulocyte # (Auto) 0.04 K/uL Sodium Level 123 mmol/L 127 mmol/L Potassium Level 4.2 mmol/L Chloride Level 87 mmol/L Carbon Dioxide Level 28 mmol/L Anion Gap 8.0 mmol/L Blood Urea Nitrogen 17 mg/dl Creatinine 0.90 mg/dl Est Creatinine Clear Calc Drug Dose 34.7 ml/min Estimated GFR () 66.2 Estimated GFR (Non- 57.1 BUN/Creatinine Ratio 18.9 Random Glucose 90 mg/dl Calcium Level 9.1 mg/dl Magnesium Level 2.1 mg/dl Total Bilirubin 0.5 mg/dl Direct Bilirubin mg/dl Aspartate Amino Transf (AST/SGOT) 29 U/L Alanine Aminotransferase (ALT/SGPT) 22 U/L Alkaline Phosphatase 77 U/L Troponin I < 0.015 ng/ml Total Protein 8.7 gm/dl Albumin 3.9 gm/dl Lipase 251 U/L Thyroid Stimulating Hormone (TSH) 1.150 uIu/ml Chemistry Specimen Hemolysis Osmolality 262 mOsm/kg Test 09/18/17 03:40 White Blood Count 10.10 K/uL Red Blood Count 3.95 M/uL Hemoglobin 12.1 g/dL Hematocrit 34.6 % Mean Corpuscular Volume 87.6 fL Mean Corpuscular Hemoglobin 30.6 pg Mean Corpuscular Hemoglobin Concent 35.0 g/dl Platelet Count 267 K/uL Mean Platelet Volume 8.2 fL Neutrophils (%) (Auto) 81.6 % Lymphocytes (%) (Auto) 6.6 % Monocytes (%) (Auto) 11.0 % Eosinophils (%) (Auto) 0.4 % Basophils (%) (Auto) 0.1 % Neutrophils # (Auto) 8.24 K/uL Lymphocytes # (Auto) 0.67 K/uL Monocytes # (Auto) 1.11 K/uL Eosinophils # (Auto) 0.04 K/uL Basophils # (Auto) 0.01 K/uL RDW Standard Deviation 46.3 fL RDW Coefficient of Variation 14.5 % Immature Granulocyte % (Auto) 0.3 % Immature Granulocyte # (Auto) 0.03 K/uL Prothrombin Time 10.3 SECONDS Prothromb Time International Ratio 1.0 Sodium Level 127 mmol/L Potassium Level 4.0 mmol/L Chloride Level 96 mmol/L Carbon Dioxide Level 28 mmol/L Anion Gap 3.0 mmol/L Blood Urea Nitrogen 17 mg/dl Creatinine 0.95 mg/dl Est Creatinine Clear Calc Drug Dose 32.3 ml/min Estimated GFR () 62.0 Estimated GFR (Non- 53.5 BUN/Creatinine Ratio 18.0 Random Glucose 111 mg/dl Calcium Level 8.7 mg/dl Assessment & Plan 87 year old female wit history of HTN, Anxiety, Hyponatremia 1. [id number] hyponatremia secondary to poor p.o. intake -- IV NSS started Na improved to 127 -- Nephro consulted 2. Lower Abdominal Pain -- likely from constipation Laxatives ordered -- UA normal 3. HTN -- stable continue Amlodipine and Lisinopril DVT Prophylaxis Lovenox Disposition pending lives at home with PT/OT jes Current Inpatient Medications: Current Inpatient Medications Medications (Trade) Dose Ordered Sig/Ernestine Route Start Time Stop Time Status Last Admin Dose Admin Lisinopril (Zestril Tab) 10 mg DAILY PO 09/18/17 09:00 10/18/17 08:59 09/18/17 07:48 10 MG Enoxaparin Sodium (Lovenox Inj) 30 mg Q24H SC 09/18/17 09:00 10/18/17 08:59 09/18/17 09:45 30 MG Acetaminophen (Tylenol Tab) 650 mg Q4H PRN PO 09/17/17 22:00 10/17/17 21:59 09/18/17 09:42 650 MG Nitroglycerin (Nitrostat Tab) 0.4 mg UD PRN SL 09/17/17 22:00 10/17/17 21:59 Amlodipine Besylate (Norvasc Tab) 2.5 mg DAILY PO 09/18/17 09:00 10/18/17 08:59 09/18/17 07:48 2.5 MG Aspirin (Ecotrin Tab) 81 mg DAILY PO 09/18/17 09:00 10/18/17 08:59 09/18/17 07:47 81 MG Levothyroxine Sodium (Synthroid Tab) 75 mcg DAILYBB PO 09/18/17 06:30 10/18/17 06:59 09/18/17 06:00 75 MCG Meclizine HCl (Antivert Tab) 25 mg TID PRN PO 09/17/17 22:00 10/17/17 21:59 Multivitamins (Multivitamin Tab) 1 tab DAILY PO 09/18/17 09:00 10/18/17 08:59 09/18/17 07:47 1 TAB Simvastatin (Zocor Tab) 40 mg HS PO 09/18/17 21:00 10/18/17 20:59 Miscellaneous Information (Order Awaiting Action) 1 ea QS N/A 09/18/17 00:00 10/18/17 00:00 Pantoprazole Sodium (Protonix Tab) 40 mg QAM PO 09/18/17 09:00 10/18/17 08:59 09/18/17 07:48 40 MG Prochlorperazine Edisylate 5 mg/ Syringe 5 ml @ 5 mls/min Q6H PRN IV 09/17/17 22:00 10/17/17 21:59 Tramadol HCl (Ultram Tab) 25 mg Q6H PRN PO 09/17/17 22:00 10/17/17 21:59 Sodium Chloride 1,000 ml @ 60 mls/hr [id number] ONCE IV 09/18/17 04:30 09/18/17 21:09 09/18/17 05:39 60 MLS/HR
[2017-09-18] MEDS ORDERED: MAGNESIUM HYDROXIDE SUSP 30 ML UDC PO PRN (10:15)
[2017-09-18] MEDS ORDERED: DOCUSATE SODIUM/SENNA 50/8.6MG TAB PO ONE (10:15)
--- NOTE | 2017-09-18 12:12 | Nephrology Consultation ---
Nephrology Consultation Date of Consultation: September 18, 2017. Attending Physician: Dr Gotti Requesting Physician: Dr Gotti Reason for Consultation: hyponatremia History of Present Illness 87 year old female admitted overnight for acute on chronic hyponatremia and uncontrolled bp whom I'm asked to evaluate for the same after she presented last evening to ER w/ dizziness and feeling poorly. her presenting sodium was 123 last evening at 1730; it came up to 127 at 0300 this am. Serum osms were 262; urine osms [address] urine Na 70; urine specific gravity 1.009. She developed presyncopal sx and severe frontal LINDSAY and N yesterday and presented to ER for eval. Has hx of chronic hyponatremia and other disorders as below. At home she drinks probably at probably at least 64 oz water and tea daily. denies decreased food intake or more water intake or thirst recently. Recently had L knee injection mid August. Past Medical/Surgical History -chronic hyponatremia >> admitted here 03/2017 for same -ckd 3 follows w/ me in CKD clinic -HTN -hypothyroid -anxiety -OA -HL -chronic voiding sx/urinary frequency/ nocturnal polyuria baseline 3-4 voids/ night c/b UTI; follows w/ urology -chronic ambulatory dysfunction/walker dependent -hx knee and bladder surgery Family History No pertinent family history Social History Smoking Status: Never Smoker Marital Status: Housing Status: lives with significant other Occupation Status: retired Allergies Coded Allergies: Quinolones (Unverified Allergy, Mild, "FEELS AWEFUL", 04/09/17) Medications Current Inpatient Medications Medications (Trade) Dose Ordered Sig/Ernestine Route Start Time Stop Time Status Last Admin Dose Admin Lisinopril (Zestril Tab) 10 mg DAILY PO 09/18/17 09:00 10/18/17 08:59 09/18/17 07:48 10 MG Enoxaparin Sodium (Lovenox Inj) 30 mg Q24H SC 09/18/17 09:00 10/18/17 08:59 09/18/17 09:45 30 MG Acetaminophen (Tylenol Tab) 650 mg Q4H PRN PO 09/17/17 22:00 10/17/17 21:59 09/18/17 09:42 650 MG Nitroglycerin (Nitrostat Tab) 0.4 mg UD PRN SL 09/17/17 22:00 6/4/18 21:59 Amlodipine Besylate (Norvasc Tab) 2.5 mg DAILY PO 09/18/17 09:00 10/18/17 08:59 09/18/17 07:48 2.5 MG Aspirin (Ecotrin Tab) 81 mg DAILY PO 09/18/17 09:00 10/18/17 08:59 09/18/17 07:47 81 MG Levothyroxine Sodium (Synthroid Tab) 75 mcg DAILYBB PO 09/18/17 06:30 10/18/17 06:59 09/18/17 06:00 75 MCG Meclizine HCl (Antivert Tab) 25 mg TID PRN PO 09/17/17 22:00 10/17/17 21:59 Multivitamins (Multivitamin Tab) 1 tab DAILY PO 09/18/17 09:00 10/18/17 08:59 09/18/17 07:47 1 TAB Simvastatin (Zocor Tab) 40 mg HS PO 09/18/17 21:00 10/18/17 20:59 Miscellaneous Information (Order Awaiting Action) 1 ea QS N/A 09/18/17 00:00 10/18/17 00:00 Pantoprazole Sodium (Protonix Tab) 40 mg QAM PO 09/18/17 09:00 10/18/17 08:59 09/18/17 07:48 40 MG Prochlorperazine Edisylate 5 mg/ Syringe 5 ml @ 5 mls/min Q6H PRN IV 09/17/17 22:00 10/17/17 21:59 Tramadol HCl (Ultram Tab) 25 mg Q6H PRN PO 09/17/17 22:00 10/17/17 21:59 Sodium Chloride 1,000 ml @ 60 mls/hr [id number] ONCE IV 09/18/17 04:30 09/18/17 21:09 09/18/17 05:39 60 MLS/HR Magnesium Hydroxide (Milk Of Magnesia Susp) 30 ml Q6H PRN PO 09/18/17 10:15 10/18/17 10:14 UNV Senna/Docusate Sodium (Senokot S Tab) 1 tab QAM PO 09/19/17 09:00 10/19/17 08:59 UNV Senna/Docusate Sodium (Senokot S Tab) 1 tab ONE PO 09/18/17 10:15 10/18/17 10:14 UNV Home Meds and Scripts Medications Dose Route/Sig Max Daily Dose Days Date Category Meclizine Hcl 25 Mg Tab 25 Mg PO TID PRN 09/17/17 Reported Synthroid (Levothyroxine Sodium) 75 Mcg Tab 75 Mcg PO DAILY 09/17/17 Reported Norvasc (Amlodipine Besylate) 5 Mg Tab 2.5 Mg PO DAILY 09/17/17 Reported Prinivil (Lisinopril) 10 Mg Tab 5 Mg PO DAILY 04/03/17 Reported Aspirin EC Low Dose (Aspirin) 81 Mg Ectab 81 Mg PO DAILY 03/18/17 Reported Restasis (Cyclosporine (Ophth)) 0.05 % Emu 1 Drop OP BID 03/18/17 Reported Tylenol (Acetaminophen) 325 Mg Tab 650 Mg PO Q4 PRN 11/13/16 Reported Vitamin B-12 (Cyanocobalamin) 1,000 Mcg Tab 1,000 Mcg PO DAILY 11/13/16 Reported Zocor (Simvastatin) 20 Mg Tab 40 Mg PO HS 11/13/16 Reported Rocaltrol Cap (Calcitriol) 0.25 Mcg Cap 0.25 Mcg PO DAILY 03/24/16 Reported Multivitamin (Multivitamins) Tab 1 Tab PO DAILY 03/24/16 Reported Prilosec (Omeprazole) 20 Mg Capcr 20 Mg PO QAM 05/03/08 Reported Review of Systems Constitutional: + weakness, + fatigue Eyes: No worsening of vision ENT: No hearing loss Respiratory: No cough, No shortness of breath Cardiac: No chest pain, No edema, No palpitations Abdomen: + pain (low ant abd pain), + nausea, + constipation, No vomiting, No diarrhea Musculoskeletal: + joint pain (knee), No muscle pain Female : + urinary frequency, No dysuria, No hematuria Neuro: + weakness, + problem reported (lindsay [employer]), No memory loss Psych: + anxiety, No depression symptoms Heme: No abnormal bleeding/bruising Endo: + fatigue Skin: No rash, No itch, No new/changing skin lesions Physical Exam Date Time Temp Pulse Resp B/P (MAP) Pulse Ox O2 Delivery O2 Flow Rate FiO2 09/18/17 08:00 Room Air 09/18/17 07:26 36.9 69 18 174/93 (120) 95 Room Air 09/18/17 04:40 36.7 72 18 140/76 (97) 93 Room Air 09/18/17 04:10 Room Air 09/18/17 00:00 Room Air 09/17/17 23:30 Room Air 09/17/17 22:34 36.4 113 17 152/70 (97) 97 Room Air 09/17/17 22:12 113 190/91 94 09/17/17 20:13 76 162/83 98 Room Air 09/17/17 19:14 101 182/67 91 Room Air 09/17/17 18:03 96 18 223/106 99 Room Air 09/17/17 17:37 87 24 242/178 94 Room Air 09/17/17 17:27 71 20 216/111 95 Room Air 09/17/17 16:52 71 09/17/17 16:45 36.8 78 26 242/178 98 Room Air General Appearance: WD/WN, no apparent distress, + pertinent finding (on RA, maneuvers w/ help for exam) Eyes: EOMI ENT: + pertinent finding (hard of hearing) Neck: supple Respiratory/Chest: no respiratory distress, + decreased breath sounds, + crackles (leonel R base) Cardiovascular: regular rate, rhythm, no edema Abdomen: normal bowel sounds, non tender, soft, + pertinent finding (no galeano) Extremities: no pedal edema Neurologic/Psych: alert, normal mood/affect, oriented x 3 (slight psychomotor delay leonel in answering ? d/t hearing ) Skin: no jaundice, warm/dry, no rash, + pallor Diagnostics Last 24 Hours Test 09/17/17 16:51 09/17/17 17:28 09/17/17 21:36 09/18/17 00:07 Urine Color YELLOW Urine Appearance CLEAR Urine pH 8.0 Urine Specific Tucker 1.009 Urine Protein NEG Urine Glucose (UA) NEG Urine Ketones NEG Urine Occult Blood TRACE Urine Nitrite NEG Urine Bilirubin NEG Urine Urobilinogen NEG Urine Leukocyte Esterase NEG Urine WBC (Auto) 0 /hpf Urine RBC (Auto) 0-4 /hpf Urine Hyaline Casts (Auto) 0 /lpf Urine Epithelial Cells (Auto) 0-5 /lpf Urine Bacteria (Auto) NEG Urine Osmolality 187 mOms/kg Urine Random Sodium 70 mEq/L White Blood Count 7.97 K/uL Red Blood Count 4.31 M/uL Hemoglobin 13.3 g/dL Hematocrit 37.4 % Mean Corpuscular Volume 86.8 fL Mean Corpuscular Hemoglobin 30.9 pg Mean Corpuscular Hemoglobin Concent 35.6 g/dl Platelet Count 297 K/uL Mean Platelet Volume 8.2 fL Neutrophils (%) (Auto) 75.2 % Lymphocytes (%) (Auto) 12.9 % Monocytes (%) (Auto) 10.9 % Eosinophils (%) (Auto) 0.4 % Basophils (%) (Auto) 0.1 % Neutrophils # (Auto) 5.99 K/uL Lymphocytes # (Auto) 1.03 K/uL Monocytes # (Auto) 0.87 K/uL Eosinophils # (Auto) 0.03 K/uL Basophils # (Auto) 0.01 K/uL RDW Standard Deviation 44.8 fL RDW Coefficient of Variation 14.1 % Immature Granulocyte % (Auto) 0.5 % Immature Granulocyte # (Auto) 0.04 K/uL Sodium Level 123 mmol/L 127 mmol/L Potassium Level 4.2 mmol/L Chloride Level 87 mmol/L Carbon Dioxide Level 28 mmol/L Anion Gap 8.0 mmol/L Blood Urea Nitrogen 17 mg/dl Creatinine 0.90 mg/dl Est Creatinine Clear Calc Drug Dose 34.7 ml/min Estimated GFR () 66.2 Estimated GFR (Non- 57.1 BUN/Creatinine Ratio 18.9 Random Glucose 90 mg/dl Calcium Level 9.1 mg/dl Magnesium Level 2.1 mg/dl Total Bilirubin 0.5 mg/dl Direct Bilirubin mg/dl Aspartate Amino Transf (AST/SGOT) 29 U/L Alanine Aminotransferase (ALT/SGPT) 22 U/L Alkaline Phosphatase 77 U/L Troponin I < 0.015 ng/ml Total Protein 8.7 gm/dl Albumin 3.9 gm/dl Lipase 251 U/L Thyroid Stimulating Hormone (TSH) 1.150 uIu/ml Chemistry Specimen Hemolysis Osmolality 262 mOsm/kg Test 09/18/17 03:40 White Blood Count 10.10 K/uL Red Blood Count 3.95 M/uL Hemoglobin 12.1 g/dL Hematocrit 34.6 % Mean Corpuscular Volume 87.6 fL Mean Corpuscular Hemoglobin 30.6 pg Mean Corpuscular Hemoglobin Concent 35.0 g/dl Platelet Count 267 K/uL Mean Platelet Volume 8.2 fL Neutrophils (%) (Auto) 81.6 % Lymphocytes (%) (Auto) 6.6 % Monocytes (%) (Auto) 11.0 % Eosinophils (%) (Auto) 0.4 % Basophils (%) (Auto) 0.1 % Neutrophils # (Auto) 8.24 K/uL Lymphocytes # (Auto) 0.67 K/uL Monocytes # (Auto) 1.11 K/uL Eosinophils # (Auto) 0.04 K/uL Basophils # (Auto) 0.01 K/uL RDW Standard Deviation 46.3 fL RDW Coefficient of Variation 14.5 % Immature Granulocyte % (Auto) 0.3 % Immature Granulocyte # (Auto) 0.03 K/uL Prothrombin Time 10.3 SECONDS Prothromb Time International Ratio 1.0 Sodium Level 127 mmol/L Potassium Level 4.0 mmol/L Chloride Level 96 mmol/L Carbon Dioxide Level 28 mmol/L Anion Gap 3.0 mmol/L Blood Urea Nitrogen 17 mg/dl Creatinine 0.95 mg/dl Est Creatinine Clear Calc Drug Dose 32.3 ml/min Estimated GFR () 62.0 Estimated GFR (Non- 53.5 BUN/Creatinine Ratio 18.0 Random Glucose 111 mg/dl Calcium Level 8.7 mg/dl Diagnostic Radiology: cxr > cardiomegaly; no acute CP disease CT abd/pelvis>no acute bowel process; moderate stool burden; ? R hepatic lobe lesion for non urgent f/u Assessment & Plan 87 y/o F w/ chronic hyponatremia and HTN admitted w/ same. hypotonic hyponatremia w/ evidence of low solute diet/ too much water ingestion -imrpoving appropriately> recheck at noon and 1800 (orders adjusted) -for now cont 2L fluid limit > may need to adjust depending on f/u labs -she is getting low rate of NS and appears to be tolerating/improving with this -goal sNa for tomorrow AM is 130 HTN -recheck after am meds--on 10 mg here rather than 5 mg lisinopril home dose; on 2.5 mg amlodipine here and home -use hydralazine prn if bp remains elevated; avoid bblockade given ambulatory dysfunction appreciate consult; will follow with you. Care coordinated w/ Dr. Gotti
[2017-09-18 12:24] LABS: CALCIUM 8.3 mg/dl (8.5-10.1); CREATININE 1.01 mg/dl (0.60-1.20); POTASSIUM 3.7 mmol/L (3.5-5.1)
[2017-09-18 18:31] LABS: CALCIUM 8.3 mg/dl (8.5-10.1); CREATININE 1.06 mg/dl (0.60-1.20); POTASSIUM 3.7 mmol/L (3.5-5.1)
[2017-09-18] MEDS ORDERED: SIMVASTATIN 20 MG TAB PO SCH (21:00)
[2017-09-19 03:49] VITALS: BP 215/84; PULSE 84; TEMP 36.5; O2SAT 97
[2017-09-19] MEDS ORDERED: LISINOPRIL 10 MG TAB PO ONE (04:20)
[2017-09-19] MEDS: LEVOTHYROXINE 75 MCG TAB PO SCH (04:48)
[2017-09-19] MEDS: RESTASIS~ORDER AWAITING ACTION SCH (07:02)
[2017-09-19 07:05] VITALS: BP 184/74; PULSE 75; TEMP 36.5; O2SAT 98
[2017-09-19 07:20] LABS: CALCIUM 8.6 mg/dl (8.5-10.1); CREATININE 0.9 mg/dl (0.60-1.20); POTASSIUM 3.8 mmol/L (3.5-5.1)
[2017-09-19] MEDS: MULTIVITAMIN TAB PO SCH (07:42)
[2017-09-19] MEDS: AMLODIPINE BESYLATE 5 MG TAB PO SCH (07:42)
[2017-09-19] MEDS: ASPIRIN 81 MG ECTAB PO SCH (07:42)
[2017-09-19] MEDS: ENOXAPARIN 30 MG/0.3 ML SYR SC SCH (07:43)
[2017-09-19] MEDS: PANTOprazole SOD 40 MG TAB PO SCH (07:43)
[2017-09-19] MEDS ORDERED: LISINOPRIL 10 MG TAB PO SCH (09:00)
[2017-09-19] MEDS ORDERED: DOCUSATE SODIUM/SENNA 50/8.6MG TAB PO SCH (09:00)
[2017-09-19 10:23] VITALS: BP 127/63; O2SAT 97
[2017-09-19 11:51] VITALS: BP 163/74; PULSE 85; TEMP 36.4; O2SAT 98
[2017-09-19 15:12] VITALS: BP 155/75; PULSE 75; TEMP 36.7; O2SAT 95
--- NOTE | 2017-09-19 16:36 | Progress Note ---
Medicine Progress Note Date & Time of Visit: September 19, 2017 at 16:21. Subjective seen resting in bed, comfortable states she feels much better denies dizziness, ambulating with no problems abdominal pain has resolved denies other symptoms patient and her states she is back to her baseline states she is ready and would like to be discharged today Objective Last 8 Hrs Date Time Temp Pulse Resp B/P (MAP) Pulse Ox O2 Delivery O2 Flow Rate FiO2 09/19/17 15:12 36.7 75 18 155/75 (101) 95 Room Air 09/19/17 12:00 Room Air 09/19/17 11:51 36.4 85 18 163/74 (103) 98 Room Air 09/19/17 10:23 97 Physical Exam: General- oriented x 3, not in distress, speaks in sentences with no effort Eyes-anicteric Neck- supple, no JVD Lungs- clear BS bilaterally, no rales/wheezes Heart- regular rhythm; no murmur, normal rate Abdomen- normal bowel sounds, soft, nontender,non distended Extremities- no pretibial edema, no calf tenderness Neuro- alert, oriented x 3; decreased hearing otherwise, no other gross focal deficits Laboratory Results: Last 24 Hours Test 09/18/17 17:56 09/19/17 06:12 Sodium Level 126 mmol/L 129 mmol/L Potassium Level 3.7 mmol/L 3.8 mmol/L Chloride Level 95 mmol/L 95 mmol/L Carbon Dioxide Level 25 mmol/L 28 mmol/L Anion Gap 6.0 mmol/L 6.0 mmol/L Blood Urea Nitrogen 19 mg/dl 13 mg/dl Creatinine 1.06 mg/dl 0.90 mg/dl Est Creatinine Clear Calc Drug Dose 28.9 ml/min 34.3 ml/min Estimated GFR () 54.3 66.2 Estimated GFR (Non- 46.8 57.1 BUN/Creatinine Ratio 18.3 14.2 Random Glucose 120 mg/dl 103 mg/dl Calcium Level 8.3 mg/dl 8.6 mg/dl Assessment & Plan 87 year old female wit history of HTN, Anxiety, Hyponatremia 1. [id number] hyponatremia, Hypotonic/Hypovolemic -- serum osm 260s (low) -- IV NSS given Na gradually improved from 123 to 129 -- Nephro consulted- Dr. Stephne/Dr. Murrell -- on discharge day 09/19/18, Sodium level improved to 129 advised to ensure adequate daily fluid intake- 6 glasses/daily advised not to drink iced tea anymore, recommended plain water -- repeat Na level on 09/21/17 2. Lower Abdominal Pain -- likely from constipation Laxatives ordered (+) BMs, abdominal pain resolved -- UA normal 3. HTN -- elevated up to systolic 220s on admission Lisinopril gradually improved -- discharge on Lisinopril 20mg continue Amlodipine -- monitor BP as outpatient Disposition d/c home with home health services ff up with PCP Dr. Rodriguez TueSeptember 21, 2017 at 10:05 AM. Current Inpatient Medications: Current Inpatient Medications Medications (Trade) Dose Ordered Sig/Ernestine Route Start Time Stop Time Status Last Admin Dose Admin Enoxaparin Sodium (Lovenox Inj) 30 mg Q24H SC 09/18/17 09:00 10/18/17 08:59 09/19/17 07:43 30 MG Acetaminophen (Tylenol Tab) 650 mg Q4H PRN PO 09/17/17 22:00 10/17/17 21:59 09/18/17 09:42 650 MG Nitroglycerin (Nitrostat Tab) 0.4 mg UD PRN SL 09/17/17 22:00 10/17/17 21:59 Amlodipine Besylate (Norvasc Tab) 2.5 mg DAILY PO 09/18/17 09:00 10/18/17 08:59 09/19/17 07:42 2.5 MG Aspirin (Ecotrin Tab) 81 mg DAILY PO 09/18/17 09:00 10/18/17 08:59 09/19/17 07:42 81 MG Levothyroxine Sodium (Synthroid Tab) 75 mcg DAILYBB PO 09/18/17 06:30 10/18/17 06:59 09/19/17 04:48 75 MCG Meclizine HCl (Antivert Tab) 25 mg TID PRN PO 09/17/17 22:00 10/17/17 21:59 Multivitamins (Multivitamin Tab) 1 tab DAILY PO 09/18/17 09:00 10/18/17 08:59 09/19/17 07:42 1 TAB Simvastatin (Zocor Tab) 40 mg HS PO 09/18/17 21:00 10/18/17 20:59 5/6/18 20:44 40 MG Miscellaneous Information (Order Awaiting Action) 1 ea QS N/A 09/18/17 00:00 10/18/17 00:00 Pantoprazole Sodium (Protonix Tab) 40 mg QAM PO 09/18/17 09:00 10/18/17 08:59 09/19/17 07:43 40 MG Prochlorperazine Edisylate 5 mg/ Syringe 5 ml @ 5 mls/min Q6H PRN IV 09/17/17 22:00 10/17/17 21:59 Tramadol HCl (Ultram Tab) 25 mg Q6H PRN PO 09/17/17 22:00 10/17/17 21:59 Magnesium Hydroxide (Milk Of Magnesia Susp) 30 ml Q6H PRN PO 09/18/17 10:15 10/18/17 10:14 09/18/17 22:40 30 ML Senna/Docusate Sodium (Senokot S Tab) 1 tab QAM PO 09/19/17 09:00 10/19/17 08:59 09/19/17 07:42 1 TAB Lisinopril (Zestril Tab) 20 mg DAILY PO 09/20/17 09:00 10/18/17 08:59
[2017-09-19] MEDS ORDERED: LSN10 PO (16:41)
[2017-09-19] MEDS ORDERED: SENN8.6T7 PO (16:41)
--- NOTE | 2017-09-19 16:45 | Discharge Instructions ---
Discharge Instructions Date of Service September 19, 2017. Admission Reason for Admission: Hyponatremia Discharge Discharge Diagnosis / Problem: LOW SODIUM LEVEL Discharge Goals Goal(s): Diagnostic testing, Therapeutic intervention Activity Recommendations Activity Limitations: as noted below (NO HEAVY EXERTION UNTIL RE-EVALUATED BY PRIMARY CARE PHYSICIAN) Lifting Limitations: until after follow-up appointment Exercise/Sports Limitations: until after follow-up appointment Driving or Machine Use: NO DRIVING . Instructions / Follow-Up Instructions / Follow-Up PLEASE REVIEW YOUR NEW MEDICATION LIST AND FOLLOW INSTRUCTIONS CAREFULLY. CALL YOUR PRIMARY CARE PHYSICIAN OR RETURN TO ER IMMEDIATELY IF WITH RECURRENCE OF SYMPTOMS, DIZZINESS, LIGHTHEADEDNESS, WEAKNESS. PLEASE FOLLOW UP WITH DR. JACOB (ASSOCIATE OF DR. GODFREY) ON THURSDAY SEPTEMBER 21, 2017 AT 10:05 AM TO HAVE YOUR BLOOD PRESSURE CHECKED AND FOR BLOOD WORK TO CHECK YOUR SODIUM. Current Hospital Diet Patient's current hospital diet: AHA Diet (Heart Healthy) Discharge Diet Recommended Diet: AHA Diet (Heart Healthy) Fluid Restriction: 2000 ml (8 cups) Pending Studies Studies pending at discharge: yes List of pending studies: REPEAT BLOODWORK CARE OF PRIMARY CARE PHYSICIAN ON WEDNESDAY SEPTEMBER 20, 2017. Medical Emergencies . Who to Call and When: Medical Emergencies: If at any time you feel your situation is an emergency, please call 911 immediately. . Non-Emergent Contact Non-Emergency issues call your: Primary Care Provider Call Non-Emergent contact if: you have a fever, your pain is not controlled, your pain is worsening, you have any medication questions . . "Provider Documentation" section prepared by Hugo Gotti. .
[2017-09-19 17:16] VITALS: BP 155/75; PULSE 75; TEMP 36.7; O2SAT 95
[2017-09-20] MEDS ORDERED: LISINOPRIL 10 MG TAB PO SCH (09:00)
--- NOTE | 2017-09-20 17:52 | Discharge Summary ---
Discharge Summary Date of Service September 20, 2017. Discharge Summary Admission Date: September 17, 2017 at 21:34 Discharge Date: September 19, 2017 Discharge Disposition: Home Principal Diagnosis: [id number] hyponatremia, Hypotonic/Hypovolemic Secondary Diagnoses/Problems: Please refer to hospital course below. Procedures: HEAD WITHOUT CONTRAST (CT) CLINICAL HISTORY: 87 years-old Female presenting with dizzy, crowe. TECHNIQUE: Multidetector CT imaging of the head was performed without the use of intravenous contrast. IV contrast: None. A dose lowering technique was used consistent with the principles of ALARA (as low as reasonably achievable). COMPARISON: 03/18/2017. CT DOSE (mGy.cm): The estimated cumulative dose is 601.98 mGy.cm. 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 Proportional ventricular and sulcal prominence, likely age-related parenchymal volume loss. Periventricular and subcortical white matter hypoattenuation, nonspecific but likely indicative of chronic small vessel ischemic change. 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 No mass effect or midline shift. No hemorrhage or acute territorial infarct. No extra-axial fluid collection. Paranasal sinuses and mastoid air cells clear. Calvarium intact. Bilateral kluti kaah lenses are absent. IMPRESSION: 1. Chronic small vessel ischemic change. 2. 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 3. No acute intracranial abnormality. ABD/PELVIS NO IV OR ORAL CONT CLINICAL HISTORY: 87 years-old Female presenting with LLQ abd pain. TECHNIQUE: Multidetector CT of the abdomen and pelvis was performed without the use of intravenous contrast. IV contrast: None. A dose lowering technique was used consistent with the principles of ALARA (as low as reasonably achievable). COMPARISON: 04/09/2017. CT DOSE (mGy.cm): The estimated cumulative dose is 236.81 mGy.cm. 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 Lung bases: Lungs and pleural spaces clear. Normal heart size. Coronary artery calcification. No pericardial or pleural effusion. Liver: Normal morphology. Normal density. Questionable lesion may be present in the right hepatic lobe (series 3 image 46), indeterminate. Biliary: No gross biliary ductal dilatation allowing for noncontrast technique. Normal gallbladder. Pancreas: Moderate parenchymal atrophy. Spleen: Normal noncontrast appearance. Adrenal glands: Nodular thickening of the bilateral adrenal glands, nonspecific. Underlying nodule is difficult to exclude. Kidneys and ureters: Normal noncontrast appearance. No nephrolithiasis. No hydronephrosis. Normal ureters. Bladder: Bladder diverticulum noted along the right lateral wall.. Pelvic organs: Normal noncontrast appearance. Bowel: Moderate stool burden in the right colon. The appendix is normal. No bowel obstruction. Peritoneal cavity: No free fluid or intraperitoneal gas. Lymph nodes: No gross lymphadenopathy allowing for noncontrast technique. Vasculature: Atherosclerosis of the normal caliber abdominal aorta. Abdominal wall: Diastasis of the rectus abdominis. Musculoskeletal: Degenerative changes of the spine. Osteopenia. Old deformities of right lateral ribs. IMPRESSION: 1. No acute intra-abdominal pathology. 2. Moderate stool burden. 3. Nonspecific nodular thickening of the bilateral adrenal glands, unchanged. 4. Questionable lesion in the right hepatic lobe. There is clinical concern, nonurgent ultrasound could be obtained. 5. Osteopenia. L VENOUS DOPP LOWER EXT UNILAT HISTORY: 87 years-old Female LLE swelling acute left lower extremity pain and swelling COMPARISON: None available TECHNIQUE: Multiple real-time sonographic images of the left lower extremity deep venous structures were obtained assessing grayscale appearance, color and spectral flow FINDINGS: Normal compressibility, flow, phasicity and augmentation of the left lower extremity deep venous structures. IMPRESSION: No sonographic evidence of deep venous thrombosis. Consultations: Nephrology Dr. Murrell, Dr. Stephen Medication Reconciliation New Medications: Lisinopril (Zestril) 10 Mg Tab 20 MG PO DAILY for 30 Days, #60 TAB 2 Refills Sennosides-Docusate Sodium (Senokot S) 1 Tab Tab 1 TAB PO QAM PRN for Constipation for 10 Days, #10 TAB 1 Refill take 1 tab po daily PRN for constipation Continued Medications: Acetaminophen Tab (Tylenol) 325 Mg Tab 650 MG PO Q4 PRN for Pain or Fever Amlodipine (Norvasc) 5 Mg Tab 2.5 MG PO DAILY Aspirin (Aspirin EC Low Dose) 81 Mg Ectab 81 MG PO DAILY Calcitriol (Rocaltrol Cap) 0.25 Mcg Cap 0.25 MCG PO DAILY, CAP Cyanocobalamin (Vitamin B-12) 1,000 Mcg Tab 1000 MCG PO DAILY Cyclosporine (Ophth) (Restasis) 0.05 % Emu 1 DROP OP BID, BTL Levothyroxine Sodium (Synthroid) 75 Mcg Tab 75 MCG PO DAILY Meclizine Hcl (Meclizine Hcl) 25 Mg Tab 25 MG PO TID PRN for Dizziness or Vertigo Multivitamin (Multivitamin) Tab 1 TAB PO DAILY, TAB Omeprazole (Prilosec) 20 Mg Capcr 20 MG PO QAM Simvastatin (Zocor) 20 Mg Tab 40 MG PO HS, TAB Discontinued Medications: Lisinopril (Prinivil) 10 Mg Tab 5 MG PO DAILY Admission Information HPI (per Admitting provider): DATE OF ADMISSION: 09/17/2017 PRIMARY CARE PHYSICIAN: Dr. Jean. CHIEF COMPLAINT: Dizziness. HISTORY OF PRESENT ILLNESS: History obtained from patient and records. Medical history is significant for hypertension, mood disorder, anxiety disorder , hyperlipidemia, hypothyroidism, chronic hyponatremia. Patient admitted in March 2017 for hyponatremia, nausea, weakness. Patient seen at PCP's office about 2 weeks ago for left knee pain, given intra- articular triamcinolone injection. More left leg swelling noted. Patient thinks steroid injection made LLE pain worse. Yesterday, she noted dizziness described as lightheadedness as if she is going to pass out. She also had frontal headache symptoms, achy. Some nausea, appetite not too good, feeling awful. Patient has good bowel movement. Some bladder discomfort. Some stress taking care of her at home. Compliant with home meds. Denies NSAID intake. Unaware of BP control at home. Physical Exam (per Admitting): VITAL SIGNS: Blood pressure noted to be 216/111, pulse rate is 70, RR 24, temperature 36.6. Initial blood pressure 240/178. GENERAL: Noted to be slightly anxious, no respiratory distress, looks younger for stated age. some hearing impairment SKIN: Normal color, warm. HEENT: [place] palpebral conjunctivae. No ptosis. Dry mucosa. NECK: Supple, nontender. CHEST: CTA, no tenderness. HEART: Regular rate and rhythm, no murmur. ABDOMEN: Some distention, nontender. EXTREMITIES: Minimal left lower extremity swelling, minimal tenderness. NEUROLOGIC: No gross focality except for marked hearing impairment. Hospital Course 87 year old female wit history of HTN, Anxiety, Hyponatremia 1. [id number] hyponatremia, Hypotonic/Hypovolemic -- serum osm 260s (low) -- IV NSS given Na gradually improved from 123 to 129 -- Nephro consulted- Dr. Stephen/Dr. Murrell -- on discharge day 09/19/18, Sodium level improved to 129 advised to ensure adequate daily fluid intake- 6 glasses/daily advised not to drink iced tea anymore, recommended plain water -- repeat Na level on 09/21/17 2. Lower Abdominal Pain -- likely from constipation Laxatives ordered (+) BMs, abdominal pain resolved -- UA normal 3. HTN -- elevated up to systolic 220s on admission Lisinopril gradually improved -- discharge on Lisinopril 20mg continue Amlodipine -- monitor BP as outpatient 4. Abnormal CT findings - Nonspecific nodular thickening of the bilateral adrenal glands, unchanged. Questionable lesion in the right hepatic lobe. There is clinical concern, nonurgent ultrasound could be obtained. - further work up and ff up as outpatient Disposition d/c home with home health services ff up with PCP Dr. Jacob TueSeptember 21, 2017 at 10:05 AM. Total time spent on discharge = 40 minutes This includes examination of the patient, discharge planning, medication reconciliation, and communication with other providers. Discharge Instructions Discharge Instructions Date of Service September 19, 2017. Admission Reason for Admission: Hyponatremia Discharge Discharge Diagnosis / Problem: LOW SODIUM LEVEL Discharge Goals Goal(s): Diagnostic testing, Therapeutic intervention Activity Recommendations Activity Limitations: as noted below (NO HEAVY EXERTION UNTIL RE-EVALUATED BY PRIMARY CARE PHYSICIAN) Lifting Limitations: until after follow-up appointment Exercise/Sports Limitations: until after follow-up appointment Driving or Machine Use: NO DRIVING . Instructions / Follow-Up Instructions / Follow-Up PLEASE REVIEW YOUR NEW MEDICATION LIST AND FOLLOW INSTRUCTIONS CAREFULLY. CALL YOUR PRIMARY CARE PHYSICIAN OR RETURN TO ER IMMEDIATELY IF WITH RECURRENCE OF SYMPTOMS, DIZZINESS, LIGHTHEADEDNESS, WEAKNESS. PLEASE FOLLOW UP WITH DR. JACOB (ASSOCIATE OF DR. JEAN) ON THURSDAY SEPTEMBER 21, 2017 AT 10:05 AM TO HAVE YOUR BLOOD PRESSURE CHECKED AND FOR BLOOD WORK TO CHECK YOUR SODIUM. Current Hospital Diet Patient's current hospital diet: AHA Diet (Heart Healthy) Discharge Diet Recommended Diet: AHA Diet (Heart Healthy) Fluid Restriction: 2000 ml (8 cups) Pending Studies Studies pending at discharge: yes List of pending studies: REPEAT BLOODWORK CARE OF PRIMARY CARE PHYSICIAN ON WEDNESDAY SEPTEMBER 20, 2017. Medical Emergencies . Who to Call and When: Medical Emergencies: If at any time you feel your situation is an emergency, please call 911 immediately. . Non-Emergent Contact Non-Emergency issues call your: Primary Care Provider Call Non-Emergent contact if: you have a fever, your pain is not controlled, your pain is worsening, you have any medication questions . . "Provider Documentation" section prepared by Hugo Gotti. .
== END 2017-09-19 17:51 | disposition home health service (06) | DRG 641 ==
LOC: EDBD 16:27 → C.EDA 16:28 → C.MED 21:34 → CANRESERV 21:56 → ENRESERV 21:56
PROVIDERS: ADMIT Hospitalist; ATTEND Internal Medicine
DX: E87.1 Hypo-osmolality and hyponatremia (principal); F33.1 Major depressive disorder, recurrent, moderate; N18.3 Chronic kidney disease, stage 3 (moderate); F41.1 Generalized anxiety disorder; E03.9 Hypothyroidism, unspecified; I12.9 Hypertensive chronic kidney disease with stage 1 through stage 4 chronic kidney disease, or unspecified chronic kidney disease; K21.9 Gastro-esophageal reflux disease without esophagitis; E78.5 Hyperlipidemia, unspecified; K59.00 Constipation, unspecified; E86.1 Hypovolemia; Z79.82 Long term (current) use of aspirin; Z79.899 Other long term (current) drug therapy; Z87.440 Personal history of urinary (tract) infections

== ENCOUNTER 2017-12-09 07:15 | Emergency (ER) | payer OTHER ==
[~2017-12-09] VITALS: Ht 152.4 cm; Wt 59.7 kg
[~2017-12-09 07:15] MED LIST changes: +AMLO5TAB3 PO; -ANT25 PO; +BUSP5TAB59 PO; -CLON0.5T3 PO; -CYCL0.052 OP; +DOCU-94 PO; +LEVO75TA PO; -LEVO75TA5 PO; +LISI-730 PO; -LISI10TA PO; +MECL1TAB42 PO; -NRV5 PO; +ONDA4TAB46 PO; -POLY1SOL12; +TRAM-10 PO
[2017-12-09] MEDS ORDERED: ACETAMINOPHEN 325 MG TAB PO STA (07:24)
[2017-12-09 07:25] VITALS: TEMP 37; Ht 152.4 cm; Wt 59.7 kg
[2017-12-09] MEDS ORDERED: FENTANYL CITRATE INJ 50 MCG/1 ML 2 ML VIAL IV ONE (07:30)
--- NOTE | 2017-12-09 07:30 | EMERGENCY ROOM VISIT NOTE ---
History Report prepared by Jhonny: Chandu Pablo Under the Supervision of: Dr. Trevon Joseph M.D. First contact with patient: 07:17 Stated Complaint: HIP PAIN/ LUMP IN THROAT X 2 WKS History of Present Illness The patient is an 87 year old white female with a past medical history of CHF, CKD, CTS, GERD, HLD, Hypothyroid disorder, and major depressive disorder, who presents to the Emergency Room with complaints of persistent hip pain that began 4 weeks ago following a falling episode. She rates the severity of her current pain as a 10/10 in severity. The patient was seen in the emergency department on 11/09 after a falling episode where she received a laceration to her forehead above her left eyebrow. The patient notes that her hip pain was present before the fall occurred. She is able to ambulate with a walker. She also complains of a "lump" in her throat along with nausea and vomiting. She did not take her blood pressure medications this morning. Source of History: patient Onset: 4 weeks ago Position: leg (hip) Symptom Intensity: 10/10 Timing: other (persistent) Associated Symptoms: + sorethroat ("Lump in her throat' ), + nausea, + vomiting Review of Systems See HPI for pertinent positives and negatives. A total of ten systems were reviewed and were otherwise negative. Past Medical & Surgical Medical Problems: (1) REBECCA (acute kidney injury) (2) CHF (congestive heart failure) (3) CKD (chronic kidney disease), stage III (4) CTS (carpal tunnel syndrome) (5) Elevated troponin (6) Generalized anxiety disorder (7) GERD (gastroesophageal reflux disease) (8) Hyperlipidemia (9) Hypertension (10) Hypothyroidism (11) Major depressive disorder, recurrent, moderate (12) UTI (urinary tract infection) Surgical Problems: (1) H/O colonoscopy (2) H/O knee surgery (3) History of bladder surgery Family History No pertinent family history Social History Smoking Status: Never Smoker Marital Status: Housing Status: lives with significant other Occupation Status: retired Current/Historical Medications Scheduled Amlodipine (Norvasc), 2.5 MG PO HS Aspirin (Aspirin EC Low Dose), 81 MG PO QAM Calcitriol (Rocaltrol Cap), 0.25 MCG PO QAM Cyanocobalamin (Vitamin B-12), 1,000 MCG PO Q2D WITH LUNCH Docusate Sodium (Colace), 100 MG PO BID Levothyroxine Sodium (Synthroid), 75 MCG PO DAILYBB Lisinopril (Lisinopril), 5 MG PO QAM Multivitamin (Multivitamin), 1 TAB PO QDL Omeprazole (Prilosec), 20 MG PO BIDM Simvastatin (Zocor), 20 MG PO HS Scheduled PRN Acetaminophen Tab (Tylenol), 650 MG PO Q4 PRN for Pain or Fever Buspirone Hcl (Buspirone Hcl), 5 MG PO BID PRN for Anxiety/Agitation Meclizine Hcl (Meclizine Hcl), 25 MG PO Q8 PRN for Dizziness or Vertigo Ondansetron Hcl (Zofran), 4 MG PO Q12 PRN for Nausea Tramadol (Ultram), 100 MG PO Q4H PRN for Pain Allergies Coded Allergies: Quinolones (Verified Allergy, Mild, "FEELS AWEFUL", 11/09/17) Uncoded Allergies: "CUT FLOWER" (Allergy, Mild, "MAYES MY NOSE", 11/08/17) "PERFUMES" (Allergy, Mild, "MAYES MY NOSE", 11/08/17) Physical Exam Vital Signs Date Time Temp Pulse Resp B/P (MAP) Pulse Ox O2 Delivery O2 Flow Rate FiO2 12/09/17 09:23 85 18 198/113 97 Room Air 12/09/17 07:29 65 12/09/17 07:25 37.0 75 16 179/97 97 Room Air Physical Exam GENERAL: Awake, alert, well-appearing, NAD HENT: Normocephalic, atraumatic.posterior oropharynx is clear. No tonsillar or uvular swelling/deviation. EYES: Normal conjunctiva. Sclera non-icteric. PERRL. No anisocoria. NECK: Supple. No nuchal rigidity. FROM. Non-stridulous. RESPIRATORY: CTAB, no rhonchi, wheezing, crackles CARDIAC: RRR, no MRG ABDOMEN: Soft, NTND, BS+ MSK: No chest wall TTP, no LE edema. Bilateral hip discomfort on exam. NVI distally. NEURO: GCS 15, CN 2-12 intact, moves all 4s on command SKIN: No rash or jaundice noted. Medical Decision & Procedures ER Provider Diagnostic Interpretation: Radiology results as stated below per my review and radiologist interpretation: CHEST 1 VW FRONT-NOT PORTABLE CLINICAL HISTORY: FALL 3 WEEKS AGO trauma COMPARISON STUDY: 09/17/2017 FINDINGS: The bones soft tissues and hemidiaphragms are normal. The cardiomediastinal silhouette is normal. The lungs are clear. The pulmonary vasculature is normal. IMPRESSION: Negative chest. The above report was generated using voice recognition software. It may contain grammatical, syntax or spelling errors. Electronically signed by: Arsalan Coffman M.D. 12/09/2017 8:43 AM Dictated Date/Time: 12/09/2017 8:43 AM PELVIS/BILATERAL HIP 2 VIEWS: CLINICAL HISTORY: Trauma COMPARISON STUDY: None FINDINGS: No acute bony abnormality. Moderate degenerative change. IMPRESSION: No evidence for fracture or acute bony pathology. The above report was generated using voice recognition software. It may contain grammatical, syntax or spelling errors. Electronically signed by: Arsalan Coffman M.D. 12/09/2017 8:53 AM Dictated Date/Time: 12/09/2017 8:49 AM Laboratory Results 12/09/17 07:15 Red Blood Count 4.11, Mean Corpuscular Volume 91.5, Mean Corpuscular Hemoglobin 32.6, Mean Corpuscular Hemoglobin Concent 35.6, Mean Platelet Volume 8.8, Neutrophils (%) (Auto) 68.2, Lymphocytes (%) (Auto) 15.0, Monocytes (%) (Auto) 12.5, Eosinophils (%) (Auto) 0.1, Basophils (%) (Auto) 0.1, Neutrophils # (Auto ) 5.67, Lymphocytes # (Auto) 1.25, Monocytes # (Auto) 1.04, Eosinophils # (Auto ) 0.01, Basophils # (Auto) 0.01 12/09/17 07:15 Test 12/09/17 07:15 White Blood Count 8.32 K/uL (4.8-10.8) Red Blood Count 4.11 M/uL (4.2-5.4) Hemoglobin 13.4 g/dL (12.0-16.0) Hematocrit 37.6 % (37-47) Mean Corpuscular Volume 91.5 fL (80-100) Mean Corpuscular Hemoglobin 32.6 pg (25-34) Mean Corpuscular Hemoglobin Concent 35.6 g/dl (32-36) Platelet Count 235 K/uL (130-400) Mean Platelet Volume 8.8 fL (7.4-10.4) Neutrophils (%) (Auto) 68.2 % Lymphocytes (%) (Auto) 15.0 % Monocytes (%) (Auto) 12.5 % Eosinophils (%) (Auto) 0.1 % Basophils (%) (Auto) 0.1 % Neutrophils # (Auto) 5.67 K/uL (1.4-6.5) Lymphocytes # (Auto) 1.25 K/uL (1.2-3.4) Monocytes # (Auto) 1.04 K/uL (0.11-0.59) Eosinophils # (Auto) 0.01 K/uL (0-0.5) Basophils # (Auto) 0.01 K/uL (0-0.2) RDW Standard Deviation 50.7 fL (36.4-46.3) RDW Coefficient of Variation 15.0 % (11.5-14.5) Immature Granulocyte % (Auto) 4.1 % Immature Granulocyte # (Auto) 0.34 K/uL (0.00-0.02) Anion Gap 9.0 mmol/L (3-11) Est Creatinine Clear Calc Drug Dose 29.1 ml/min Estimated GFR () 53.1 Estimated GFR (Non- 45.8 BUN/Creatinine Ratio 18.8 (10-20) Calcium Level 8.9 mg/dl (8.5-10.1) Total Bilirubin 0.8 mg/dl (0.2-1) Direct Bilirubin 0.2 mg/dl (0-0.2) Aspartate Amino Transf (AST/SGOT) 16 U/L (15-37) Alanine Aminotransferase (ALT/SGPT) 19 U/L (12-78) Alkaline Phosphatase 80 U/L (45-117) Total Protein 7.0 gm/dl (6.4-8.2) Albumin 3.6 gm/dl (3.4-5.0) Lipase 171 U/L (73-393) Laboratory results reviewed by me Medications Administered Medications (Trade) Dose Ordered Sig/Ernestine Route Start Time Stop Time Status Last Admin Dose Admin Acetaminophen (Tylenol Tab) 650 mg NOW STAT PO 12/09/17 07:24 12/09/17 07:27 DC 12/09/17 07:54 650 MG Fentanyl Citrate (Fentanyl Inj) 25 mcg NOW ONCE IV 12/09/17 07:30 12/09/17 07:31 DC 12/09/17 08:01 25 MCG Sodium Chloride 500 ml @ 999 mls/hr Q31M STAT IV 12/09/17 08:10 12/09/17 08:40 DC 12/09/17 08:10 999 MLS/HR Lisinopril (Zestril Tab) 5 mg STK-MED ONCE .ROUTE 12/09/17 09:17 12/09/17 09:18 DC 12/09/17 09:17 5 MG ECG Per My Interpretation Indication: other (lump in throat) Rate (beats per minute): 66 Rhythm: sinus with SA Findings: T-wave inversion (Lead 3), other (normal axis, ) ED Course 0717: The patient was evaluated in room A10. A complete history and physical exam was performed. 0943: The [employer] has informed me that the patient does in fact have Home Health care for both her and her . She has a shower helper as well. Medical Decision The patient is an 87 year old white female with a past medical history of CHF, CKD, CTS, GERD, HLD, Hypothyroid disorder, and major depressive disorder, who presents to the Emergency Room with complaints of persistent hip pain that began 4 weeks ago following a falling episode. Nursing notes reviewed. Ancillary studies and prior records reviewed. Differential diagnosis: Etiologies such as viral syndrome, tonsillitis, streptococcal pharyngitis, mononucleosis, peritonsillar abscess, retropharyngeal abscess, otitis, pneumonia , influenza, fracture, dislocation, neurovascular compromise, compartment syndrome, soft tissue injury, as well as others were entertained. Patient was seen in and evaluated the bedside. The patient had been relating to having some hip pain and sore throat. Patient's sore throat is described as feeling as though there is a lump throat ongoing 2 weeks. The patient has had chronic hip pain it has been ongoing for some time. This proceeded a fall that occurred 3 weeks prior where she did receive stitches to her forehead. The patient did not take her morning antihypertensive medication. Patient did blood work completed, EKG, troponin, chest x-ray, and pelvis film with hip views. Patient was also given medications for symptom control. Patient's blood work is fairly unremarkable. EKG unremarkable and troponin was not elevated. Patient's plain films do not show any acute issues. Patient was feeling improved. I do not believe that she requires advanced imaging of the neck as she is non-stridulous not tachypneic nor hypoxic and the patient is handling her secretions without issue. I did discuss the patient's social situation. She lives at home with her who is 89. I did ask whether not the patient would like some in-home help including possible PT and/or OT. Patient is amenable. Case management did discuss this with the patient. Medication Reconcilliation Current Medication List: was personally reviewed by me Blood Pressure Screening Patient's blood pressure: Elevated blood pressure Blood pressure disposition: Referred to PCP Impression Primary Impression: Hip pain, bilateral Additional Impressions: Globus sensation Hypertension Scribe Attestation The scribe's documentation has been prepared under my direction and personally reviewed by me in its entirety. I confirm that the note above accurately reflects all work, treatment, procedures, and medical decision making performed by me. Departure Information Dispostion Home / Self-Care Referrals Luther Jean M.D. (PCP) Patient Instructions My [facility], Sore Throat - [facility] Additional Instructions Please return to the emergency department if you have worsening or recurrent symptoms not amenable to at-home treatment. Please call for a follow-up appointment with her primary care physician. Please take your medications as prescribed. If you have other concerns and/or complaints please feel free to also call your primary care physician's office or return the ED for further evaluation, management, and treatment. You were found to have an elevated blood pressure today (>120 sytolic or >90 diastolic). Per medicare guidelines, you need to follow up with this blood pressure screening with your Primary Care Physician (PCP). For a new PCP call [phone]. You may take tylenol 550 mg every 6 hours as needed for pain/fever unless told by your physician to not take it or have liver problems. Take your medications as prescribed. You have been examined and treated today on an emergency basis only. This is not a substitute for, or an effort to provide, complete comprehensive medical care. It is impossible to recognize and treat all injuries or illnesses in a single emergency department visit. It is therefore important that you follow up closely with [facility], your PCP, and/or your specialist(s). Call as soon as possible for an appointment. Thank you for your time and consideration. I look forward to speaking with you again soon. Please don't hesitate to call us if you have any questions. Problem Qualifiers
[2017-12-09 07:41] LABS: BASO % 0.1 %; BASO ABS # 0.01 K/uL (0-0.2); EOS % 0.1 %; EOS ABS # 0.01 K/uL (0-0.5); HEMATOCRIT 37.6 % (37-47); HEMOGLOBIN 13.4 g/dL (12.0-16.0); IG# 0.34 K/uL (0.00-0.02); LYMPH ABS # 1.25 K/uL (1.2-3.4); MEAN CELL VOLUME 91.5 fL (80-100); MEAN CORPUSCULAR HEMOGLOBIN 32.6 pg (25-34); MEAN CORPUSCULAR HGB CONC 35.6 g/dl (32-36); MEAN PLATELET VOLUME 8.8 fL (7.4-10.4); MONO % 12.5 %; MONO ABS # 1.04 K/uL (0.11-0.59); NEUT % 68.2 %; NEUT ABS # 5.67 K/uL (1.4-6.5); PLATELET COUNT 235 K/uL (130-400); RED CELL DISTRIBUTION WIDTH SD 50.7 fL (36.4-46.3); WHITE BLOOD COUNT 8.32 K/uL (4.8-10.8)
[2017-12-09 08:00] LABS: ALBUMIN 3.6 gm/dl (3.4-5.0); CALCIUM 8.9 mg/dl (8.5-10.1); CREATININE 1.08 mg/dl (0.60-1.20); POTASSIUM 3.6 mmol/L (3.5-5.1)
[2017-12-09] MEDS ORDERED: SODIUM CHLORIDE 0.9% 500ML 500 ML IV STA (08:10)
--- NOTE | 2017-12-09 08:45 | DIAGNOSTIC IMAGING REPORT ---
CHEST 1 VW FRONT-NOT PORTABLE CLINICAL HISTORY: FALL 3 WEEKS AGO trauma COMPARISON STUDY: 09/17/2017 FINDINGS: The bones soft tissues and hemidiaphragms are normal. The cardiomediastinal silhouette is normal. The lungs are clear. The pulmonary vasculature is normal. IMPRESSION: Negative chest. The above report was generated using voice recognition software. It may contain grammatical, syntax or spelling errors. Electronically signed by: Arsalan Coffman M.D. 12/09/2017 8:43 AM Dictated Date/Time: 12/09/2017 8:43 AM
--- NOTE | 2017-12-09 08:54 | DIAGNOSTIC IMAGING REPORT ---
PELVIS/BILATERAL HIP 2 VIEWS: CLINICAL HISTORY: Trauma COMPARISON STUDY: None FINDINGS: No acute bony abnormality. Moderate degenerative change. IMPRESSION: No evidence for fracture or acute bony pathology. The above report was generated using voice recognition software. It may contain grammatical, syntax or spelling errors. Electronically signed by: Arsalan Coffman M.D. 12/09/2017 8:53 AM Dictated Date/Time: 12/09/2017 8:49 AM
[2017-12-09] MEDS ORDERED: LISINOPRIL 5 MG TAB PO SCH (09:00)
[2017-12-09] MEDS ORDERED: LISINOPRIL 5 MG TAB ONE (09:17)
[2017-12-09 13:06] VITALS: BP 177/95; PULSE 73; O2SAT 99
== END 2017-12-09 12:57 | disposition home or self-care (01) ==
LOC: EDBD 07:15 → C.EDA 07:17
DX: M25.551 Pain in right hip (principal); M25.552 Pain in left hip; F45.8 Other somatoform disorders; I13.0 Hypertensive heart and chronic kidney disease with heart failure and stage 1 through stage 4 chronic kidney disease, or unspecified chronic kidney disease; R11.2 Nausea with vomiting, unspecified; I50.9 Heart failure, unspecified; N18.3 Chronic kidney disease, stage 3 (moderate); E78.5 Hyperlipidemia, unspecified; K21.9 Gastro-esophageal reflux disease without esophagitis; E03.9 Hypothyroidism, unspecified; Z79.82 Long term (current) use of aspirin; Z79.899 Other long term (current) drug therapy; Z88.1 Allergy status to other antibiotic agents; Z91.048 Other nonmedicinal substance allergy status

== ENCOUNTER 2017-12-31 11:19 | Inpatient (IN) | payer OTHER ==
[~2017-12-31] VITALS: Ht 152.4 cm; Wt 56.0 kg
[2017-12-31 12:17] LABS: BASO % 0.2 %; BASO ABS # 0.02 K/uL (0-0.2); EOS % 0.1 %; EOS ABS # 0.01 K/uL (0-0.5); HEMATOCRIT 35.1 % (37-47); IG# 0.19 K/uL (0.00-0.02); LYMPH % 10.4 %; MEAN CELL VOLUME 93.6 fL (80-100); MEAN CORPUSCULAR HGB CONC 34.2 g/dl (32-36); MONO % 15.7 %; MONO ABS # 1.66 K/uL (0.11-0.59); NEUT % 71.8 %; NEUT ABS # 7.61 K/uL (1.4-6.5); PLATELET COUNT 425 K/uL (130-400); RED CELL DISTRIBUTION WIDTH SD 54.9 fL (36.4-46.3); WHITE BLOOD COUNT 10.59 K/uL (4.8-10.8)
--- NOTE | 2017-12-31 12:23 | EMERGENCY ROOM VISIT NOTE ---
ED Visit Note First contact with patient: 11:35 The patient was seen and examined with Abel Rivera PA-C. I agree with the history, physical and findings. Please see the note for disposition and details.
[2017-12-31 12:28] LABS: ALBUMIN 3.7 gm/dl (3.4-5.0); ALKALINE PHOSPHATASE 94 U/L (45-117); ALT/SGPT 23 U/L (12-78); AST/SGOT 18 U/L (15-37); BLOOD UREA NITROGEN 23 mg/dl (7-18); CALCIUM 9.1 mg/dl (8.5-10.1); CARBON DIOXIDE 26 mmol/L (21-32); CREATININE 1.12 mg/dl (0.60-1.20); GLUCOSE 107 mg/dl (70-99); POTASSIUM 3.7 mmol/L (3.5-5.1); SODIUM 128 mmol/L (136-145); TOTAL PROTEIN 7.3 gm/dl (6.4-8.2)
--- NOTE | 2017-12-31 13:28 | DIAGNOSTIC IMAGING REPORT ---
L-SPINE MIN 4 VIEWS ROUTINE CLINICAL HISTORY: 87 years-old Female presenting with low back pain. TECHNIQUE: Frontal, bilateral oblique, lateral, and coned in lateral views of the lumbar spine were obtained. COMPARISON: CT from 11/08/2017. FINDINGS: No significant scoliosis. Straightening of normal lumbar lordosis. Interval development of a compression deformity of the inferior endplate of L1 with approximately 50% anterior vertebral body height loss. This is new from the prior exam. Remaining vertebral bodies demonstrate normal height and alignment. Multilevel intervertebral disc height loss with vacuum disc phenomenon and osteophytosis noted at several levels. There is also significant posterior bony spurring resulting in multilevel osseous neural foraminal narrowing. Osteopenia. Atherosclerosis. Marked stool burden in the right colon with a moderate stool burden in the remaining colon. Lung bases clear. IMPRESSION: 1. Interval development of a compression deformity of L1 consistent with compression fracture in the setting of osteopenia. 2. Advanced multilevel degenerative changes with multilevel osseous neural foraminal narrowing. Electronically signed by: Jacob Vallejo M.D. 12/31/2017 1:26 PM Dictated Date/Time: 12/31/2017 1:24 PM
[2017-12-31] MEDS ORDERED: OXYCODONE/ACETAMINOPHEN 5-325 TAB PO STA (14:42)
[2017-12-31] MEDS ORDERED: SENN-83 PO (15:14)
[2017-12-31] MEDS ORDERED: OXYC-57 PO (15:14)
[2017-12-31] MEDS ORDERED: VLTG TOP (15:14)
[2017-12-31] MEDS ORDERED: POLY335019 PO (15:14)
[2017-12-31] MEDS ORDERED: CYCL0.052 OP (15:14)
[2017-12-31] MEDS ORDERED: LISI-461 PO (15:14)
--- NOTE | 2017-12-31 15:41 | History and Physical ---
History & Physical Date & Time of Service: Dec 31, 2017 at 15:41 . Chief Complaint: severe low back pain . Primary Care Physician: Luther Jean M.D. . History of Present Illness Source: patient, clinic records, hospital records 87-year-old female followed by Dr. Jean. History of hypertension, diastolic CHF, lumbar spinal stenosis, and other problems noted below. She lives at home with her . They live in a two-story dwelling, but stay on the first floor. Patient ambulates with a walker. is in declining health. She has been experiencing low back pain for several years, but recently worse. Back pain attributed to lumbar spinal stenosis. She has been seen by Pain Management. Fell 2 or 3 months ago and suffered a laceration of her forehead. Recently experiencing worsening low back pain radiating to both hips. Taking tramadol and oxycodone/acetaminophen with minimal relief. Evaluated today in the ED. Unable to ambulate independently; referred for hospitalization. . Past Medical/Surgical History Chronic and Resolved Medical Problems: (1) CHF (congestive heart failure) Status: Chronic (2) CKD (chronic kidney disease), stage III Status: Chronic (3) CTS (carpal tunnel syndrome) Status: Chronic (4) Generalized anxiety disorder Status: Chronic (5) GERD (gastroesophageal reflux disease) Status: Chronic (6) Glaucoma Status: Chronic (7) Hyperlipidemia Status: Chronic (8) Hypertension Status: Chronic (9) Hyponatremia Status: Chronic (10) Hypothyroidism Status: Chronic (11) Major depressive disorder, recurrent, moderate Status: Chronic (12) Osteoporosis Status: Chronic (13) Spinal stenosis of lumbar region Status: Chronic Surgical Problems: (1) H/O colonoscopy Status: Chronic (2) H/O knee surgery Status: Chronic (3) History of bladder surgery Status: Chronic . Family History Cancer MOTHER SISTER Social History Smoking Status: Never Smoker Alcohol Use: none Marital Status: Housing status: lives with family Occupational Status: retired Allergies Coded Allergies: Quinolones (Verified Adverse Reaction, Mild, "FEELS AWFUL", 12/31/17) Uncoded Allergies: "CUT FLOWER" (Allergy, Mild, "MAYES MY NOSE", 11/08/17) "PERFUMES" (Allergy, Mild, "MAYES MY NOSE", 11/08/17) deodorant (Adverse Reaction, Intermediate, RASH, 12/31/17) Home Medications Scheduled Amlodipine (Norvasc), 2.5 MG PO HS Aspirin (Aspirin EC Low Dose), 81 MG PO QAM Calcitriol (Rocaltrol Cap), 0.25 MCG PO QAM Cyanocobalamin (Vitamin B-12), 1,000 MCG PO Q2D Cyclosporine (Ophth) (Restasis), 1 DROP OP BID Diclofenac Sod (Voltaren), 1 APPLN TOP BID Docusate Sodium (Colace), 100 MG PO BID Levothyroxine Sodium (Synthroid), 75 MCG PO DAILYBB Lisinopril (Zestril), 20 MG PO DAILY Multivitamin (Multivitamin), 1 TAB PO QDL Omeprazole (Prilosec), 20 MG PO BIDM Polyethylene Glycol 3350 (Miralax), 17 GM PO DAILY Simvastatin (Zocor), 20 MG PO HS Scheduled PRN Acetaminophen Tab (Tylenol), 650 MG PO Q4 PRN for Pain or Fever Buspirone Hcl (Buspirone Hcl), 5 MG PO BID PRN for Anxiety/Agitation Meclizine Hcl (Meclizine Hcl), 25 MG PO Q8 PRN for Dizziness or Vertigo Ondansetron Hcl (Zofran), 4 MG PO Q12 PRN for Nausea Oxycodone/Acetaminophen 5MG/325MG (Percocet 5MG/325MG), 1 TABLET PO Q6H PRN for Pain Sennosides-Docusate Sodium ([place]-S), 1 TAB PO DAILY PRN for Constipation Tramadol (Ultram), 50 MG PO Q6 PRN for Pain Review of Systems Constitutional: No fever, No weight loss Eyes: No worsening of vision ENT: + hearing loss, + nasal symptoms Respiratory: No cough, No shortness of breath Cardiovascular: + edema (pedal), No chest pain Abdomen: + nausea, + constipation, No vomiting, No diarrhea, No GI bleeding Musculoskeletal: + joint pain (back and knees) Genitourinary - Female: No dysuria, No hematuria Neurologic: + balance problems, No memory loss Psychiatric: + depression symptoms Endocrine: + fatigue Hematologic / Lymphatic: + abnormal bleeding/bruising Integumentary: No rash Physical Exam Vital Signs Date Time Temp Pulse Resp B/P (MAP) Pulse Ox O2 Delivery O2 Flow Rate FiO2 12/31/17 14:39 68 207/120 95 Room Air 12/31/17 13:36 62 17 179/120 95 Room Air 12/31/17 12:48 72 20 191/120 96 Room Air 12/31/17 11:30 77 20 176/89 95 Room Air 12/31/17 11:28 64 12/31/17 11:23 36.6 72 20 153/104 95 Room Air CONSTITUTIONAL vital signs as noted above elderly female, no acute distress EYES conjunctivae clear; lids normal pupils equal and reactive to light EARS, NOSE, MOUTH AND THROAT external inspection of ears and nose unremarkable hearing grossly intact to spoken voice with hearing aids oropharynx clear NECK no masses; trachea midline thyroid normal RESPIRATORY normal respiratory effort; no respiratory distress clear to percussion clear to auscultation CARDIOVASCULAR regular rate and rhythm with occasional ectopy II/ systolic murmur at base, S4 gallop no JVD carotid arteries 2/2; no bruits appreciated pedal pulses diminished capillary refill toes 2-3 sec no pretibial edema GASTROINTESTINAL normal bowel sounds, soft, nontender; no palpable masses no hepatomegaly; no splenomegaly LYMPHATIC no cervical adenopathy MUSCULOSKELETAL no lumbar spinal or paraspinal tenderness no pain with straight leg raising bilaterally no cyanosis; no digital clubbing no calf tenderness motor strength extremities grossly intact SKIN no rash warm and dry NEUROLOGIC PERRL, EOMI, no facial palsy, no dysarthria, tongue midline patellar DTR's 1/2 PSYCHIATRIC oriented to person, place, time depressed, tearful . Diagnostics Laboratory Results Results Past 24 Hours Test 12/31/17 10:50 12/31/17 13:20 Range/Units White Blood Count 10.59 4.8-10.8 K/uL Red Blood Count 3.75 4.2-5.4 M/uL Hemoglobin 12.0 12.0-16.0 g/dL Hematocrit 35.1 37-47 % Mean Corpuscular Volume 93.6 80-100 fL Mean Corpuscular Hemoglobin 32.0 25-34 pg Mean Corpuscular Hemoglobin Concent 34.2 32-36 g/dl Platelet Count 425 130-400 K/uL Mean Platelet Volume 9.0 7.4-10.4 fL Neutrophils (%) (Auto) 71.8 % Lymphocytes (%) (Auto) 10.4 % Monocytes (%) (Auto) 15.7 % Eosinophils (%) (Auto) 0.1 % Basophils (%) (Auto) 0.2 % Neutrophils # (Auto) 7.61 1.4-6.5 K/uL Lymphocytes # (Auto) 1.10 1.2-3.4 K/uL Monocytes # (Auto) 1.66 0.11-0.59 K/uL Eosinophils # (Auto) 0.01 0-0.5 K/uL Basophils # (Auto) 0.02 0-0.2 K/uL RDW Standard Deviation 54.9 36.4-46.3 fL RDW Coefficient of Variation 16.0 11.5-14.5 % Immature Granulocyte % (Auto) 1.8 % Immature Granulocyte # (Auto) 0.19 0.00-0.02 K/uL Sodium Level 128 136-145 mmol/L Potassium Level 3.7 3.5-5.1 mmol/L Chloride Level 92 98-107 mmol/L Carbon Dioxide Level 26 21-32 mmol/L Anion Gap 10.0 3-11 mmol/L Blood Urea Nitrogen 23 7-18 mg/dl Creatinine 1.12 0.60-1.20 mg/dl Estimated GFR () 50.8 Estimated GFR (Non- 43.8 BUN/Creatinine Ratio 20.1 10-20 Random Glucose 107 70-99 mg/dl Calcium Level 9.1 8.5-10.1 mg/dl Total Bilirubin 0.5 0.2-1 mg/dl Aspartate Amino Transf (AST/SGOT) 18 15-37 U/L Alanine Aminotransferase (ALT/SGPT) 23 12-78 U/L Alkaline Phosphatase 94 45-117 U/L Total Protein 7.3 6.4-8.2 gm/dl Albumin 3.7 3.4-5.0 gm/dl Globulin 3.6 2.5-4.0 gm/dl Albumin/Globulin Ratio 1.0 0.9-2 Urine Color YELLOW Urine Appearance CLEAR CLEAR Urine pH 7.5 4.5-7.5 Urine Specific [place] 1.009 1.000-1.030 Urine Protein NEG NEG Urine Glucose (UA) NEG NEG Urine Ketones NEG NEG Urine Occult Blood NEG NEG Urine Nitrite NEG NEG Urine Bilirubin NEG NEG Urine Urobilinogen NEG NEG Urine Leukocyte Esterase TRACE NEG Urine WBC (Auto) 5-10 0-5 /hpf Urine RBC (Auto) 0-4 0-4 /hpf Urine Hyaline Casts (Auto) 1-5 0-5 /lpf Urine Epithelial Cells (Auto) 20-30 0-5 /lpf Urine Bacteria (Auto) NEG NEG Microbiology Results 12/31/17 Urine Culture, Received Pending Diagnostic Radiology X-RAY LS SPINE FINDINGS: No significant scoliosis. Straightening of normal lumbar lordosis. Interval development of a compression deformity of the inferior endplate of L1 with approximately 50% anterior vertebral body height loss. This is new from the prior exam. Remaining vertebral bodies demonstrate normal height and alignment. Multilevel intervertebral disc height loss with vacuum disc phenomenon and osteophytosis noted at several levels. There is also significant posterior bony spurring resulting in multilevel osseous neural foraminal narrowing. Osteopenia. Atherosclerosis. Marked stool burden in the right colon with a moderate stool burden in the remaining colon. Lung bases clear. IMPRESSION: 1. Interval development of a compression deformity of L1 consistent with compression fracture in the setting of osteopenia. 2. Advanced multilevel degenerative changes with multilevel osseous neural foraminal narrowing. Electronically signed by: Jacob Vallejo M.D. 12/31/2017 1:26 PM Dictated Date/Time: 12/31/2017 1:24 PM . Impression Assessment and Plan BACK PAIN History of lumbar spinal stenosis. Now with superimposed compression fracture of L1. Intractable pain and unable to ambulate independently. Titrate analgesics. PT / OT evaluations. OSTEOPOROSIS Check vitamin D level. HYPERTENSION / HYPERTENSIVE URGENCY Blood pressures elevated in the ED. Patient is uncomfortable and upset. Furthermore, she did not take her morning dose of lisinopril. Continue lisinopril and amlodipine. Follow and titrate therapy. CHF Chronic left ventricular diastolic heart failure. Compensated. Diurese PRN. HYPONATREMIA Serum sodium 128. Chronic. Probable SIADH. Fluid restriction. Follow. CKD III Serum creatinine 1.12. Avoid potential nephrotoxins when able, but consider short course of NSAID for severe back pain. HYPOTHYROIDISM Check TSH. Continue levothyroxine. DEPRESSION Continue SSRI, but best to wait until hyponatremia better. VTE PROPHYLAXIS Moderate risk for VTE. SQ heparin. Ambulate as able. RESUSCITATION STATUS Discussed with patient. She does not have a living will. She would like resuscitation attempted in the event of a cardiopulmonary arrest. Therefore, code status = "Level 1" (full resuscitation). DISPOSITION Observation status. Anticipate need for skilled care prior to eventual return to home. Family Medicine follow-up with Dr. Jean. . Resuscitation Status VTE Prophylaxis Will order VTE Prophylaxis: Yes
[2017-12-31] MEDS ORDERED: LISINOPRIL 20 MG TAB PO ONE (16:15)
[2017-12-31] MEDS ORDERED: IV FLUIDS COMPLETED PRN (16:15)
--- NOTE | 2017-12-31 16:44 | EMERGENCY ROOM VISIT NOTE ---
History First contact with patient: 11:35 Chief Complaint: HIP PAIN Stated Complaint: HIP PAIN History of Present Illness The patient is a 87 year old white female who presents to the Emergency Room with complaints of bilateral hip pain, though she points to her pelvis as the area of discomfort. Pain is over her SI joints. She has a long-standing history of low back and SI joint pain. She has been seen by her PCP and is on chronic Percocet. On she received 4 betamethasone injections in her SI joints. This did not help her pain. This morning her pain was intolerable and she could not ambulate. She lives at home with her 92-year-old who is wheelchair-bound. Her niece from [place] is currently staying with her for another week. There were no recent falls. Because of her pain and inability to ambulate, EMS was called and brought her to the ED. She did receive fentanyl 50 mcg IV in route. Pain is currently 8/10 while laying still in the bed. It increases considerably with movement. She denies any numbness or tingling to her lower extremities. No loss of bowel or bladder control. She was trying physical therapy but states she was told to avoid PT for 2 days after the SI joint injection. Review of Systems REVIEW OF SYSTEM: HEENT: No dizziness, visual problems, hearing loss, or tinnitus. There is no difficulty swallowing and no oral lesions are present. LYMPH: No adenopathy. PULMONARY: No cough, shortness of breath, sputum production or hemoptysis. CARDIOVASCULAR: No chest pain, palpitations, shortness of breath or peripheral edema. GASTROINTESTINAL: No diarrhea, constipation, nausea, vomiting, or abdominal pain. GENITOURINARY: No dysuria, frequency, urgency or nocturia. NEUROLOGIC: No weakness, muscle tenderness, epilepsy or history of neurological problems. MUSCULOSKELETAL: No history of joint tenderness/swelling. Positive history of arthritis and arthralgias. SKIN: No rashes or lesions. PSYCHIATRIC: Positive history of depression. No other mental illness. ENDOCRINE: No history of diabetes or abnormal hair growth. Past Medical/Surgical History Medical Problems: (1) REBECCA (acute kidney injury) (2) Back pain (3) CHF (congestive heart failure) (4) CKD (chronic kidney disease), stage III (5) CTS (carpal tunnel syndrome) (6) Elevated troponin (7) Generalized anxiety disorder (8) GERD (gastroesophageal reflux disease) (9) Hyperlipidemia (10) Hypertension (11) Hypertensive urgency (12) Hypothyroidism (13) Major depressive disorder, recurrent, moderate (14) UTI (urinary tract infection) Surgical Problems: (1) H/O colonoscopy (2) H/O knee surgery (3) History of bladder surgery Right total knee arthroplasty by Dr. Pérez, carpal tunnel release, cystostomy with excision of bladder tumor Family History No pertinent family history Significant for cancer in her sister Social History Smoking Status: Never Smoker Smokeless Tobacco Use: No Alcohol Use: none Drug Use: none Marital Status: Housing Status: lives with significant other Occupation Status: retired Current/Historical Medications Scheduled Amlodipine (Norvasc), 2.5 MG PO HS Aspirin (Aspirin EC Low Dose), 81 MG PO QAM Calcitriol (Rocaltrol Cap), 0.25 MCG PO QAM Cyanocobalamin (Vitamin B-12), 1,000 MCG PO Q2D Cyclosporine (Ophth) (Restasis), 1 DROP OP BID Diclofenac Sod (Voltaren), 1 APPLN TOP BID Docusate Sodium (Colace), 100 MG PO BID Levothyroxine Sodium (Synthroid), 75 MCG PO DAILYBB Lisinopril (Zestril), 20 MG PO DAILY Multivitamin (Multivitamin), 1 TAB PO QDL Omeprazole (Prilosec), 20 MG PO BIDM Polyethylene Glycol 3350 (Miralax), 17 GM PO DAILY Simvastatin (Zocor), 20 MG PO HS Scheduled PRN Acetaminophen Tab (Tylenol), 650 MG PO Q4 PRN for Pain or Fever Buspirone Hcl (Buspirone Hcl), 5 MG PO BID PRN for Anxiety/Agitation Meclizine Hcl (Meclizine Hcl), 25 MG PO Q8 PRN for Dizziness or Vertigo Ondansetron Hcl (Zofran), 4 MG PO Q12 PRN for Nausea Oxycodone/Acetaminophen 5MG/325MG (Percocet 5MG/325MG), 1 TABLET PO Q6H PRN for Pain Sennosides-Docusate Sodium (Senexon-S), 1 TAB PO DAILY PRN for Constipation Tramadol (Ultram), 50 MG PO Q6 PRN for Pain Physical Exam Vital Signs Date Time Temp Pulse Resp B/P (MAP) Pulse Ox O2 Delivery O2 Flow Rate FiO2 12/31/17 14:39 68 207/120 95 Room Air 12/31/17 13:36 62 17 179/120 95 Room Air 12/31/17 12:48 72 20 191/120 96 Room Air 12/31/17 11:30 77 20 176/89 95 Room Air 12/31/17 11:28 64 12/31/17 11:23 36.6 72 20 153/104 95 Room Air Physical Exam General: Frail, elderly white female, in obvious discomfort. Laying on the bed. Alert and oriented. Skin: Warm and dry with good turgor. No rashes or lesions. No ecchymosis or erythema. The patient is not diaphoretic. No abrasions. Heart: Heart RRR. No MGR. Peripheral pulses are 2+. Lungs: Lungs are clear to auscultation. No crackles rhonchi or wheezing. Good air movement. The patient is able to take a deep breath. Abdomen: Abdomen was inspected, auscultated, and palpated. Bowel sounds present x 4. Soft, nontender to palpation. No hepato-splenomegaly. No masses noted. No rebound, negative Willard sign. No pain over McBurney's point. No CVA tenderness. Musculoskeletal: Patient has no discomfort with palpation over her anterior flexion creases, quadriceps, or abductors. No pain with palpation over her thoracic spine. She does complain of some discomfort over the low lumbar and especially into the SI joints bilaterally. Pain extends into the buttocks. No pain with palpation over the greater trochanter or IT band on either leg. No pain with passive logrolling of either hip. No pain with passive flexion of either hip. Sitting up and reclining back does increase the pain in her SI joints. She was unable to participate in an ambulation trial secondary to pain. Neurologic: Gross sensation is intact across both lower extremities by soft touch. DTRs are 2+ bilaterally at the knees. Peripheral pulses are 2+. Medical Decision & Procedures ER Provider Diagnostic Interpretation: Radiographic imaging obtained today of the lumbar spine was reviewed by me and read by radiology. Interval development of a compression deformity of L1 consistent with compression fracture in the setting of osteopenia. Advanced multilevel degenerative changes with multilevel osseous neural foraminal narrowing. Laboratory Results 12/31/17 10:50 Red Blood Count 3.75, Mean Corpuscular Volume 93.6, Mean Corpuscular Hemoglobin 32.0, Mean Corpuscular Hemoglobin Concent 34.2, Mean Platelet Volume 9.0, Neutrophils (%) (Auto) 71.8, Lymphocytes (%) (Auto) 10.4, Monocytes (%) (Auto) 15.7, Eosinophils (%) (Auto) 0.1, Basophils (%) (Auto) 0.2, Neutrophils # (Auto ) 7.61, Lymphocytes # (Auto) 1.10, Monocytes # (Auto) 1.66, Eosinophils # (Auto ) 0.01, Basophils # (Auto) 0.02 12/31/17 10:50 Test 12/31/17 10:50 12/31/17 13:20 White Blood Count 10.59 K/uL (4.8-10.8) Red Blood Count 3.75 M/uL (4.2-5.4) Hemoglobin 12.0 g/dL (12.0-16.0) Hematocrit 35.1 % (37-47) Mean Corpuscular Volume 93.6 fL (80-100) Mean Corpuscular Hemoglobin 32.0 pg (25-34) Mean Corpuscular Hemoglobin Concent 34.2 g/dl (32-36) Platelet Count 425 K/uL (130-400) Mean Platelet Volume 9.0 fL (7.4-10.4) Neutrophils (%) (Auto) 71.8 % Lymphocytes (%) (Auto) 10.4 % Monocytes (%) (Auto) 15.7 % Eosinophils (%) (Auto) 0.1 % Basophils (%) (Auto) 0.2 % Neutrophils # (Auto) 7.61 K/uL (1.4-6.5) Lymphocytes # (Auto) 1.10 K/uL (1.2-3.4) Monocytes # (Auto) 1.66 K/uL (0.11-0.59) Eosinophils # (Auto) 0.01 K/uL (0-0.5) Basophils # (Auto) 0.02 K/uL (0-0.2) RDW Standard Deviation 54.9 fL (36.4-46.3) RDW Coefficient of Variation 16.0 % (11.5-14.5) Immature Granulocyte % (Auto) 1.8 % Immature Granulocyte # (Auto) 0.19 K/uL (0.00-0.02) Prothrombin Time 10.1 SECONDS (9.0-12.0) Prothromb Time International Ratio 1.0 (0.9-1.1) Activated Partial Thromboplast Time 25.2 SECONDS (21.0-31.0) Partial Thromboplastin Ratio 1.0 Anion Gap 10.0 mmol/L (3-11) Estimated GFR () 50.8 Estimated GFR (Non- 43.8 BUN/Creatinine Ratio 20.1 (10-20) Calcium Level 9.1 mg/dl (8.5-10.1) Total Bilirubin 0.5 mg/dl (0.2-1) Aspartate Amino Transf (AST/SGOT) 18 U/L (15-37) Alanine Aminotransferase (ALT/SGPT) 23 U/L (12-78) Alkaline Phosphatase 94 U/L (45-117) Total Protein 7.3 gm/dl (6.4-8.2) Albumin 3.7 gm/dl (3.4-5.0) Globulin 3.6 gm/dl (2.5-4.0) Albumin/Globulin Ratio 1.0 (0.9-2) Urine Color YELLOW Urine Appearance CLEAR (CLEAR) Urine pH 7.5 (4.5-7.5) Urine Specific [place] 1.009 (1.000-1.030) Urine Protein NEG (NEG) Urine Glucose (UA) NEG (NEG) Urine Ketones NEG (NEG) Urine Occult Blood NEG (NEG) Urine Nitrite NEG (NEG) Urine Bilirubin NEG (NEG) Urine Urobilinogen NEG (NEG) Urine Leukocyte Esterase TRACE (NEG) Urine WBC (Auto) 5-10 /hpf (0-5) Urine RBC (Auto) 0-4 /hpf (0-4) Urine Hyaline Casts (Auto) 1-5 /lpf (0-5) Urine Epithelial Cells (Auto) 20-30 /lpf (0-5) Urine Bacteria (Auto) NEG (NEG) CBC, chemistry panel, and UA were obtained. CBC and UA are essentially unremarkable. Patient is hyponatremic and hypochloremic. This is consistent with her previous visits. Medications Administered Medications (Trade) Dose Ordered Sig/Ernestine Route Start Time Stop Time Status Last Admin Dose Admin Oxycodone/ Acetaminophen (Percocet 5-325mg Tab) 1 tab NOW STAT PO 12/31/17 14:42 12/31/17 14:43 DC 12/31/17 14:52 1 TAB Percocet 5/325 mg p.o. ED Course Patient, her , and her niece were educated regarding today's findings. Conservative care measures were discussed. IV was established. Labs were obtained. Radiographic imaging of the lumbar spine was obtained. I do think she would benefit from a [facility] facility for rehab, or a rehab hospital. Unfortunately, her insurance company is not open on the weekend. She is unable to be discharged home. She cannot function at home. She cannot ambulate and cannot rely on her 92-year-old for assistance. I did recommend admission until she can be placed at a [facility] facility. She and the family are in agreement. [facility] hospitalist was consulted. Please see that dictation for final management. Patient has failed outpatient treatment for her SI joint dysfunction. Patient remained hypertensive while in the ED today. She did not take her morning antihypertensives. I suspect that her pain is also elevating her BP. Patient was seen in conjunction with Dr. Finn, who also evaluated the patient and agreed with today's diagnosis and treatment plan. Medical Decision Possibility of disc disease, nerve root impingement, fracture, osteoarthritis, cauda equina, SI joint dysfunction, and sciatica were considered among others. [place] Drug Monitoring Program Search Results: patient reviewed within database Medication Reconcilliation Current Medication List: was personally reviewed by me Blood Pressure Screening Blood pressure disposition: Elevated BP felt to be situational Impression Primary Impression: Intractable low back pain Departure Information Referrals Luther Jean M.D. (PCP) Patient Instructions [facility]
[2017-12-31 17:21] LABS: PTT PATIENT 25.2 SECONDS (21.0-31.0)
[2017-12-31 17:43] VITALS: BP 184/83; PULSE 73; TEMP 36.6; O2SAT 97; Ht 152.4 cm; Wt 56.0 kg
[2017-12-31] MEDS ORDERED: ONDANSETRON 4 MG TAB PO PRN (18:00)
[2017-12-31 19:03] VITALS: BP 130/65; PULSE 50; TEMP 36.3; O2SAT 92
[2017-12-31] MEDS: OXYCODONE HCL IR 5 MG TAB (IMMEDIATE RELEASE) PO PRN (19:58)
[2017-12-31] MEDS: DOCUSATE SODIUM 100 MG CAP PO SCH (19:59)
[2017-12-31] MEDS: ACETAMINOPHEN 500 MG TAB PO SCH (19:59)
[2017-12-31] MEDS: SIMVASTATIN 20 MG TAB PO SCH (19:59)
[2017-12-31] MEDS: AMLODIPINE BESYLATE 5 MG TAB PO SCH (20:00)
[2017-12-31] MEDS: DICLOFENAC SOD 1% GEL 100 GM TUBE EXT SCH (20:01)
[2017-12-31] MEDS: HEPARIN SOD 5000 UNIT/0.5 ML CARP SQ SCH (20:05)
[2017-12-31 23:28] VITALS: BP 137/93; PULSE 74; TEMP 36.6; O2SAT 98
[2018-01-01] VITALS (7 sets, daily range): BP systolic 104–177; BP diastolic 62–77; PULSE 52–89; TEMP 36.4–36.7; O2SAT 94–97
[2018-01-01] MEDS: OXYCODONE HCL IR 5 MG TAB (IMMEDIATE RELEASE) PO PRN ×2 (04:52→08:48)
[2018-01-01] MEDS: PANTOprazole SOD 40 MG TAB PO SCH ×2 (06:05→16:42)
[2018-01-01] MEDS: LEVOTHYROXINE 75 MCG TAB PO SCH (06:05)
[2018-01-01 08:29] LABS: CALCIUM 8.9 mg/dl (8.5-10.1); CREATININE 1.19 mg/dl (0.60-1.20); POTASSIUM 4.6 mmol/L (3.5-5.1)
[2018-01-01] MEDS: CALCITRIOL 0.25 MCG CAP PO SCH (08:48)
[2018-01-01] MEDS: LIDODERM (LIDOCAINE) PATCH 5% TD SCH (08:49)
[2018-01-01] MEDS: LISINOPRIL 20 MG TAB PO SCH (08:49)
[2018-01-01] MEDS: CeleBREX 100 MG CAP PO SCH ×2 (08:50→16:42)
[2018-01-01] MEDS: ASPIRIN 81 MG ECTAB PO SCH (08:50)
[2018-01-01] MEDS: CYANOCOBALAMIN 500 MCG TAB (VIT B-12) PO SCH (08:50)
[2018-01-01] MEDS: ACETAMINOPHEN 500 MG TAB PO SCH ×3 (08:51→21:16)
[2018-01-01] MEDS: DICLOFENAC SOD 1% GEL 100 GM TUBE EXT SCH ×2 (08:52→21:14)
[2018-01-01] MEDS: DOCUSATE SODIUM 100 MG CAP PO SCH ×2 (08:52→21:15)
[2018-01-01] MEDS: HEPARIN SOD 5000 UNIT/0.5 ML CARP SQ SCH ×2 (08:55→21:15)
--- NOTE | 2018-01-01 10:18 | Progress Note ---
Medicine Progress Note Date & Time of Visit: Jan 01, 2018 at 10:18 . Subjective CC: Follow-up visit for severe back pain and other problems. HPI: Persistent severe low back pain. ROS: General- no fever, no chills Resp- no cough; no shortness of breath Cardiac- no chest pain, no edema GI- no nausea, no vomiting, no diarrhea, no constipation - no dysuria . Objective Last 8 Hrs Date Time Temp Pulse Resp B/P (MAP) Pulse Ox O2 Delivery O2 Flow Rate FiO2 01/01/18 08:42 36.5 82 20 112/72 (85) 94 Room Air 01/01/18 08:00 96 Room Air 01/01/18 03:37 36.6 89 17 177/70 (105) 96 Room Air Physical Exam: General- no distress Lungs- clear to auscultation; no respiratory distress Cardiovascular- irregular; II/ systolic murmur LSB; no gallop appreciated; no JVD; no pretibial edema Abdomen- + bowel sounds, soft, nontender Extremities- no cyanosis; no calf tenderness Neuro- alert, oriented Skin- warm & dry . Laboratory Results: Last 24 Hours Test 12/31/17 10:50 12/31/17 13:20 01/01/18 06:56 White Blood Count 10.59 K/uL Red Blood Count 3.75 M/uL Hemoglobin 12.0 g/dL Hematocrit 35.1 % Mean Corpuscular Volume 93.6 fL Mean Corpuscular Hemoglobin 32.0 pg Mean Corpuscular Hemoglobin Concent 34.2 g/dl Platelet Count 425 K/uL Mean Platelet Volume 9.0 fL Neutrophils (%) (Auto) 71.8 % Lymphocytes (%) (Auto) 10.4 % Monocytes (%) (Auto) 15.7 % Eosinophils (%) (Auto) 0.1 % Basophils (%) (Auto) 0.2 % Neutrophils # (Auto) 7.61 K/uL Lymphocytes # (Auto) 1.10 K/uL Monocytes # (Auto) 1.66 K/uL Eosinophils # (Auto) 0.01 K/uL Basophils # (Auto) 0.02 K/uL RDW Standard Deviation 54.9 fL RDW Coefficient of Variation 16.0 % Immature Granulocyte % (Auto) 1.8 % Immature Granulocyte # (Auto) 0.19 K/uL Prothrombin Time 10.1 SECONDS Prothromb Time International Ratio 1.0 Activated Partial Thromboplast Time 25.2 SECONDS Partial Thromboplastin Ratio 1.0 Sodium Level 128 mmol/L 130 mmol/L Potassium Level 3.7 mmol/L 4.6 mmol/L Chloride Level 92 mmol/L 93 mmol/L Carbon Dioxide Level 26 mmol/L 28 mmol/L Anion Gap 10.0 mmol/L 9.0 mmol/L Blood Urea Nitrogen 23 mg/dl 25 mg/dl Creatinine 1.12 mg/dl 1.19 mg/dl Estimated GFR () 50.8 47.2 Estimated GFR (Non- 43.8 40.7 BUN/Creatinine Ratio 20.1 20.7 Random Glucose 107 mg/dl 97 mg/dl Calcium Level 9.1 mg/dl 8.9 mg/dl Total Bilirubin 0.5 mg/dl Aspartate Amino Transf (AST/SGOT) 18 U/L Alanine Aminotransferase (ALT/SGPT) 23 U/L Alkaline Phosphatase 94 U/L Total Protein 7.3 gm/dl Albumin 3.7 gm/dl Globulin 3.6 gm/dl Albumin/Globulin Ratio 1.0 Urine Color YELLOW Urine Appearance CLEAR Urine pH 7.5 Urine Specific [place] 1.009 Urine Protein NEG Urine Glucose (UA) NEG Urine Ketones NEG Urine Occult Blood NEG Urine Nitrite NEG Urine Bilirubin NEG Urine Urobilinogen NEG Urine Leukocyte Esterase TRACE Urine WBC (Auto) 5-10 /hpf Urine RBC (Auto) 0-4 /hpf Urine Hyaline Casts (Auto) 1-5 /lpf Urine Epithelial Cells (Auto) 20-30 /lpf Urine Bacteria (Auto) NEG Est Creatinine Clear Calc Drug Dose 23.5 ml/min 25-Hydroxy Vitamin D Total 28.2 ng/ml Thyroid Stimulating Hormone (TSH) 4.460 uIu/ml Date/Time Source Procedure Growth Status 12/31/17 13:20 Urine , Clean Catch Urine Culture - Final MORE THAN THREE TYPES OF ORGANISMS NV... Complete Assessment & Plan BACK PAIN History of lumbar spinal stenosis. Now with superimposed osteoporotic compression fracture of L1. Intractable pain and unable to ambulate independently. Continue analgesics- celecoxib, acetaminophen, lidocaine patch, tramadol, oxycodone. PT / OT evaluations. OSTEOPOROSIS Vitamin D level = 28. Supplement. HYPERTENSION / HYPERTENSIVE URGENCY Blood pressures as high as 211/118 in the ED. Patient did not take her lisinopril the morning admission. BP this morning 112/72. Continue lisinopril and amlodipine. Follow and titrate therapy. ARRHYTHMIA hall monitor data reviewed, possible WAP. 12-lead EKG ordered, ? sinus arrhythmia (formal interpretation pending). CHF Chronic left ventricular diastolic heart failure. Compensated. Diurese PRN. HYPONATREMIA Serum sodium 128 at time of admission. Chronic. Probable SIADH. Na today = 130. Fluid restriction. Follow. CKD III Serum creatinine 1.12. Avoid potential nephrotoxins when able. Trial of celecoxib for severe back pain with caution. HYPOTHYROIDISM Check TSH. Continue levothyroxine. DEPRESSION Consider SSRI, but best to wait until hyponatremia better. VTE PROPHYLAXIS Moderate risk for VTE. SQ heparin. Ambulate as able. RESUSCITATION STATUS Full code as discussed in admission H&P. DISPOSITION Observation status. Anticipated need for skilled care prior to eventual return to home. Family Medicine follow-up with Dr. Jean. . Current Inpatient Medications: Current Inpatient Medications Medications (Trade) Dose Ordered Sig/Ernestine Route Start Time Stop Time Status Last Admin Dose Admin Heparin Sodium (Porcine) (Heparin Sq 5000 Unit/0.5ml) 5,000 unit Q12 SQ 12/31/17 21:00 01/30/18 20:59 01/01/18 08:55 5,000 UNIT Miscellaneous (Iv Fluids Completed) 1 ea PRN PRN N/A 12/31/17 16:15 12/31/18 16:14 Amlodipine Besylate (Norvasc Tab) 2.5 mg HS PO 12/31/17 21:00 01/30/18 20:59 12/31/17 20:00 2.5 MG Aspirin (Ecotrin Tab) 81 mg QAM PO 01/01/18 09:00 01/31/18 08:59 01/01/18 08:50 81 MG Buspirone HCl (Buspar Tab) 5 mg BID PRN PO 12/31/17 18:00 01/30/18 17:59 Calcitriol (Rocaltrol Cap) 0.25 mcg QAM PO 01/01/18 09:00 01/31/18 08:59 01/01/18 08:48 0.25 MCG Cyanocobalamin (Vitamin B-12 Tab) 1,000 mcg Q2D@0900 PO 01/01/18 09:00 01/31/18 08:59 01/01/18 08:50 1,000 MCG Diclofenac Sodium (Voltaren 1% Top Gel) 1 appln BID EXT 12/31/17 21:00 01/30/18 20:59 01/01/18 08:52 1 APPLN Docusate Sodium (coLACE CAP) 100 mg BID PO 12/31/17 21:00 01/30/18 20:59 01/01/18 08:52 100 MG Levothyroxine Sodium (Synthroid Tab) 75 mcg DAILYBB PO 01/01/18 06:00 01/31/18 05:59 01/01/18 06:05 75 MCG Lisinopril (Zestril Tab) 20 mg DAILY PO 01/01/18 09:00 01/31/18 08:59 01/01/18 08:49 20 MG Ondansetron HCl (Zofran Tab) 4 mg Q12 PRN PO 12/31/17 18:00 01/30/18 17:59 Simvastatin (Zocor Tab) 20 mg HS PO 12/31/17 21:00 01/30/18 20:59 12/31/17 19:59 20 MG Tramadol HCl (Ultram Tab) 50 mg Q6 PRN PO 12/31/17 18:00 01/30/18 17:59 Miscellaneous Information (Order Awaiting Action) 1 ea QS N/A 01/01/18 00:00 01/31/18 00:00 Pantoprazole Sodium (Protonix Tab) 40 mg BIDM PO 01/01/18 07:30 01/31/18 07:29 01/01/18 06:05 40 MG Polyethylene (Miralax Powder Packet) 17 gm BID PRN PO 12/31/17 18:00 01/30/18 17:59 Acetaminophen (Tylenol Tab) 1,000 mg TID PO 12/31/17 21:00 01/30/18 20:59 01/01/18 08:51 1,000 MG Oxycodone HCl (Roxicodone Immediate Rel Tab) 5 mg Q6H PRN PO 12/31/17 18:00 01/14/18 17:59 01/01/18 08:48 5 MG Lidocaine (Lidoderm Patch 5%) 1 patch QAM TD 01/01/18 09:00 01/31/18 08:59 01/01/18 08:49 1 PATCH Miscellaneous (Remove Lidoderm Patch) 1 ea DAILY@21 N/A 01/01/18 21:00 01/31/18 20:59 Celecoxib (CeleBREX CAP) 100 mg BIDM PO 01/01/18 07:30 01/31/18 07:29 01/01/18 08:50 100 MG Clonidine HCl (Catapres Tab) 0.1 mg Q6H PRN PO 12/31/17 18:15 01/30/18 18:14
[2018-01-01] MEDS: RESTASIS-ORDER AWAITING ACTION SCH ×3 (16:43→23:43)
[2018-01-01] MEDS: SIMVASTATIN 20 MG TAB PO SCH (21:15)
[2018-01-01] MEDS: AMLODIPINE BESYLATE 5 MG TAB PO SCH (21:17)
[2018-01-01] MEDS: CLONIDINE HCL 0.1 MG TAB PO PRN (23:43)
[2018-01-02] VITALS (8 sets, daily range): BP systolic 133–195; BP diastolic 66–97; PULSE 18–76; TEMP 36.4–37.1; O2SAT 94–96
[2018-01-02] MEDS: OXYCODONE HCL IR 5 MG TAB (IMMEDIATE RELEASE) PO PRN ×3 (06:00→23:40)
[2018-01-02] MEDS: PANTOprazole SOD 40 MG TAB PO SCH ×2 (06:00→16:17)
[2018-01-02] MEDS: LEVOTHYROXINE 75 MCG TAB PO SCH (06:00)
[2018-01-02 07:12] LABS: CALCIUM 8.7 mg/dl (8.5-10.1); CREATININE 1.48 mg/dl (0.60-1.20); POTASSIUM 4.2 mmol/L (3.5-5.1)
[2018-01-02] MEDS: RESTASIS-ORDER AWAITING ACTION SCH ×3 (08:00→23:03)
[2018-01-02] MEDS: LISINOPRIL 20 MG TAB PO SCH (08:13)
[2018-01-02] MEDS: LIDODERM (LIDOCAINE) PATCH 5% TD SCH (08:13)
[2018-01-02] MEDS: DICLOFENAC SOD 1% GEL 100 GM TUBE EXT SCH ×2 (08:13→20:15)
[2018-01-02] MEDS: CALCITRIOL 0.25 MCG CAP PO SCH (08:14)
[2018-01-02] MEDS: DOCUSATE SODIUM 100 MG CAP PO SCH ×2 (08:14→20:14)
[2018-01-02] MEDS: ASPIRIN 81 MG ECTAB PO SCH (08:14)
[2018-01-02] MEDS: ACETAMINOPHEN 500 MG TAB PO SCH ×3 (08:14→21:00)
[2018-01-02] MEDS: HEPARIN SOD 5000 UNIT/0.5 ML CARP SQ SCH ×2 (08:16→20:20)
[2018-01-02] MEDS: CLONIDINE HCL 0.1 MG TAB PO PRN (12:20)
[2018-01-02] MEDS: POLYETHYLENE (MIRALAX) 17 GM PACK PO PRN (16:27)
[2018-01-02] MEDS: AMLODIPINE BESYLATE 5 MG TAB PO SCH (20:15)
[2018-01-02] MEDS: SIMVASTATIN 20 MG TAB PO SCH (20:16)
--- NOTE | 2018-01-02 20:59 | Progress Note ---
Medicine Progress Note Date & Time of Visit: Jan 02, 2018 at 18:30 . Subjective CC: Follow-up visit for severe back pain and other problems. HPI: Persistent severe low back pain. Blood pressures fluctuating. Upset because had to be hospitalized today. 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 ROS: General- no fever, no chills Resp- no cough; no shortness of breath Cardiac- no chest pain, no edema GI- no nausea, no vomiting, no diarrhea, no constipation - no dysuria . Objective Last 8 Hrs Date Time Temp Pulse Resp B/P (MAP) Pulse Ox O2 Delivery O2 Flow Rate FiO2 01/02/18 19:18 36.5 70 16 133/66 (88) 96 Room Air 01/02/18 15:02 36.4 58 16 166/92 (116) 96 Room Air Physical Exam: General- lying in bed; no acute distress ENT- hard of hearing Lungs- clear to auscultation; no respiratory distress Cardiovascular- irregular; II/ systolic murmur LSB; no gallop appreciated; no JVD; no pretibial edema Abdomen- + bowel sounds, soft, nontender Extremities- no cyanosis; no calf tenderness Neuro- alert, oriented Skin- warm & dry . Laboratory Results: Last 24 Hours Test 01/02/18 06:22 Sodium Level 129 mmol/L Potassium Level 4.2 mmol/L Chloride Level 93 mmol/L Carbon Dioxide Level 28 mmol/L Anion Gap 8.0 mmol/L Blood Urea Nitrogen 25 mg/dl Creatinine 1.48 mg/dl Est Creatinine Clear Calc Drug Dose 20.6 ml/min Estimated GFR () 36.3 Estimated GFR (Non- 31.3 BUN/Creatinine Ratio 17.2 Random Glucose 100 mg/dl Calcium Level 8.7 mg/dl Assessment & Plan BACK PAIN History of lumbar spinal stenosis. Now with superimposed osteoporotic compression fracture of L1. Intractable pain and unable to ambulate independently. Stop celecoxib because of rising creatinine. Continue analgesics- acetaminophen, lidocaine patch, tramadol, oxycodone. PT / OT evaluations. Consider Ortho Spine and / or Pain Management consults if no improvement. OSTEOPOROSIS 25-OH D level = 28. Continue calcitriol. HYPERTENSION / HYPERTENSIVE URGENCY Blood pressures as high as 211/118 in the ED. Patient did not take her lisinopril the morning admission. BP's fluctuating due to back pain and emotional stress. Continue lisinopril and amlodipine. Follow and titrate therapy. ARRHYTHMIAS Sinus arrhythmia vs WAP on telemetry. Sinus bradycardia in 30's while sleeping. Check nocturnal pulse oximetry to rule out nocturnal hypoxia. CHF Chronic left ventricular diastolic heart failure. Compensated. Diurese PRN. HYPONATREMIA Serum sodium 128 at time of admission. Chronic. Probable SIADH. Na today = 129. Follow. CKD III Serum creatinine 1.12 at time of admission. Avoid potential nephrotoxins when able. Tried celecoxib for severe back pain, but creatinine aretha to 1.48. Follow. HYPOTHYROIDISM Check TSH. Continue levothyroxine. DEPRESSION Consider SSRI, but best to wait until hyponatremia better. VTE PROPHYLAXIS Moderate risk for VTE. SQ heparin. Ambulate as able. RESUSCITATION STATUS Full code as discussed in admission H&P. DISPOSITION Observation status. Anticipated need for skilled care prior to eventual return to home. Family Medicine follow-up with Dr. Jean. . Current Inpatient Medications: Current Inpatient Medications Medications (Trade) Dose Ordered Sig/Ernestine Route Start Time Stop Time Status Last Admin Dose Admin Heparin Sodium (Porcine) (Heparin Sq 5000 Unit/0.5ml) 5,000 unit Q12 SQ 12/31/17 21:00 01/30/18 20:59 01/02/18 20:20 5,000 UNIT Miscellaneous (Iv Fluids Completed) 1 ea PRN PRN N/A 12/31/17 16:15 12/31/18 16:14 Amlodipine Besylate (Norvasc Tab) 2.5 mg HS PO 12/31/17 21:00 01/30/18 20:59 01/02/18 20:15 2.5 MG Aspirin (Ecotrin Tab) 81 mg QAM PO 01/01/18 09:00 01/31/18 08:59 01/02/18 08:14 81 MG Buspirone HCl (Buspar Tab) 5 mg BID PRN PO 12/31/17 18:00 01/30/18 17:59 Calcitriol (Rocaltrol Cap) 0.25 mcg QAM PO 01/01/18 09:00 01/31/18 08:59 01/02/18 08:14 0.25 MCG Cyanocobalamin (Vitamin B-12 Tab) 1,000 mcg Q2D@0900 PO 01/01/18 09:00 01/31/18 08:59 01/01/18 08:50 1,000 MCG Diclofenac Sodium (Voltaren 1% Top Gel) 1 appln BID EXT 12/31/17 21:00 01/30/18 20:59 01/02/18 20:15 1 APPLN Docusate Sodium (coLACE CAP) 100 mg BID PO 12/31/17 21:00 01/30/18 20:59 01/02/18 20:14 100 MG Levothyroxine Sodium (Synthroid Tab) 75 mcg DAILYBB PO 01/01/18 06:00 01/31/18 05:59 01/02/18 06:00 75 MCG Lisinopril (Zestril Tab) 20 mg DAILY PO 01/01/18 09:00 01/31/18 08:59 01/02/18 08:13 20 MG Ondansetron HCl (Zofran Tab) 4 mg Q12 PRN PO 12/31/17 18:00 01/30/18 17:59 Simvastatin (Zocor Tab) 20 mg HS PO 12/31/17 21:00 01/30/18 20:59 01/02/18 20:16 20 MG Tramadol HCl (Ultram Tab) 50 mg Q6 PRN PO 12/31/17 18:00 01/30/18 17:59 Miscellaneous Information (Order Awaiting Action) 1 ea QS N/A 01/01/18 00:00 01/31/18 00:00 01/01/18 16:43 1 EA Pantoprazole Sodium (Protonix Tab) 40 mg BIDM PO 01/01/18 07:30 01/31/18 07:29 01/02/18 16:17 40 MG Polyethylene (Miralax Powder Packet) 17 gm BID PRN PO 12/31/17 18:00 01/30/18 17:59 01/02/18 16:27 17 GM Acetaminophen (Tylenol Tab) 1,000 mg TID PO 12/31/17 21:00 01/30/18 20:59 01/02/18 12:21 1,000 MG Oxycodone HCl (Roxicodone Immediate Rel Tab) 5 mg Q6H PRN PO 12/31/17 18:00 9/1/18 17:59 01/02/18 06:00 5 MG Lidocaine (Lidoderm Patch 5%) 1 patch QAM TD 01/01/18 09:00 01/31/18 08:59 01/02/18 08:13 1 PATCH Miscellaneous (Remove Lidoderm Patch) 1 ea DAILY@21 N/A 01/01/18 21:00 01/31/18 20:59 01/01/18 21:14 1 EA Clonidine HCl (Catapres Tab) 0.1 mg Q6H PRN PO 12/31/17 18:15 01/30/18 18:14 01/02/18 12:20 0.1 MG
[2018-01-03] VITALS (8 sets, daily range): BP systolic 108–192; BP diastolic 61–99; PULSE 59–82; TEMP 36.3–36.8; O2SAT 94–96
[2018-01-03] MEDS: LEVOTHYROXINE 75 MCG TAB PO SCH (05:46)
[2018-01-03] MEDS: TRAMADOL HCL 50 MG TAB PO PRN (05:51)
[2018-01-03 07:24] LABS: HEMOGLOBIN 11.9 g/dL (12.0-16.0); MEAN CELL VOLUME 94.2 fL (80-100); MEAN PLATELET VOLUME 8.5 fL (7.4-10.4); PLATELET COUNT 343 K/uL (130-400); RED CELL DISTRIBUTION WIDTH CV 15.6 % (11.5-14.5); RED CELL DISTRIBUTION WIDTH SD 53.8 fL (36.4-46.3); WHITE BLOOD COUNT 9.25 K/uL (4.8-10.8)
[2018-01-03 07:43] LABS: CALCIUM 8.8 mg/dl (8.5-10.1); CREATININE 1.1 mg/dl (0.60-1.20); POTASSIUM 4.5 mmol/L (3.5-5.1)
[2018-01-03] MEDS: RESTASIS-ORDER AWAITING ACTION SCH ×2 (08:00→15:51)
[2018-01-03] MEDS: CYANOCOBALAMIN 500 MCG TAB (VIT B-12) PO SCH (08:18)
[2018-01-03] MEDS: DICLOFENAC SOD 1% GEL 100 GM TUBE EXT SCH ×2 (08:18→20:56)
[2018-01-03] MEDS: ASPIRIN 81 MG ECTAB PO SCH (08:18)
[2018-01-03] MEDS: DOCUSATE SODIUM 100 MG CAP PO SCH (08:19)
[2018-01-03] MEDS: ACETAMINOPHEN 500 MG TAB PO SCH ×3 (08:19→20:59)
[2018-01-03] MEDS: CALCITRIOL 0.25 MCG CAP PO SCH (08:19)
[2018-01-03] MEDS: PANTOprazole SOD 40 MG TAB PO SCH ×2 (08:20→16:28)
[2018-01-03] MEDS: LISINOPRIL 20 MG TAB PO SCH (08:20)
[2018-01-03] MEDS: LIDODERM (LIDOCAINE) PATCH 5% TD SCH (08:21)
[2018-01-03] MEDS: HEPARIN SOD 5000 UNIT/0.5 ML CARP SQ SCH ×2 (08:28→21:00)
[2018-01-03] MEDS: CLONIDINE HCL 0.1 MG TAB PO PRN (08:30)
[2018-01-03] MEDS ORDERED: CYCLOBENZAPRINE HCL 5 MG TAB PO ONE (10:58)
--- NOTE | 2018-01-03 11:08 | Progress Note ---
Medicine Progress Note Date & Time of Visit: Jan 03, 2018 at 10:59. Subjective seen resting in bed not in distress but still reports moderate-severe back pain- more on the right para lumbar/posterior pelvic region- worse with movement denies shooting leg pain/leg weakness/numbness denies headache/dizziness/nausea/chest pain/dyspnea no other symptoms Objective Last 8 Hrs Date Time Temp Pulse Resp B/P (MAP) Pulse Ox O2 Delivery O2 Flow Rate FiO2 01/03/18 08:00 Room Air 01/03/18 07:19 36.4 75 20 172/97 (122) 95 Room Air 192/83 (119) 01/03/18 04:04 36.5 63 18 191/99 (129) 96 Physical Exam: General- oriented x 2, not in distress, speaks in sentences with no effort Head- atraumatic Eyes- PERRL, EOMI, anicteric ENT- oropharynx clear Neck- supple, no JVD, no adenopathy, no thyromegaly Lungs- clear breath sounds bilaterally Heart- regular rhythm; no murmur, normal rate Abdomen- normal bowel sounds, soft, nontender Extremities- no pretibial edema, no calf tenderness; peripheral pulses intact Back- moderate tenderness to the paralumbar/posterior pelvic region Neuro- alert, oriented x 2 (+) decreased hearing no other gross focal deficits Skin- warm & dry Laboratory Results: Last 24 Hours Test 01/03/18 07:03 White Blood Count 9.25 K/uL Red Blood Count 3.61 M/uL Hemoglobin 11.9 g/dL Hematocrit 34.0 % Mean Corpuscular Volume 94.2 fL Mean Corpuscular Hemoglobin 33.0 pg Mean Corpuscular Hemoglobin Concent 35.0 g/dl RDW Standard Deviation 53.8 fL RDW Coefficient of Variation 15.6 % Platelet Count 343 K/uL Mean Platelet Volume 8.5 fL Sodium Level 128 mmol/L Potassium Level 4.5 mmol/L Chloride Level 93 mmol/L Carbon Dioxide Level 27 mmol/L Anion Gap 8.0 mmol/L Blood Urea Nitrogen 19 mg/dl Creatinine 1.10 mg/dl Est Creatinine Clear Calc Drug Dose 27.9 ml/min Estimated GFR () 51.9 Estimated GFR (Non- 44.8 BUN/Creatinine Ratio 17.0 Random Glucose 98 mg/dl Calcium Level 8.8 mg/dl Assessment & Plan BACK PAIN History of lumbar spinal stenosis. New osteoporotic compression fracture of L1. Intractable pain and unable to ambulate independently. Stopped celecoxib because of rising creatinine. currently on analgesics- PRN Oxycodone, Tramadol on Tyenol TID, Lidoderm Patch will add Flexeril for possible muscular pain component will consult Pain Management [facility] PT / OT evaluations. HYPERTENSION / HYPERTENSIVE URGENCY Blood pressures as high as 211/118 in the ED. Patient did not take her lisinopril the morning admission. BP's fluctuating due to back pain and emotional stress. increase Amlodipine from 2.5 to 5mg po daily Continue lisinopril, PRN Clonidine monitor BP OSTEOPOROSIS 25-OH D level = 28. Continue calcitriol. ARRHYTHMIAS Sinus arrhythmia vs WAP on telemetry. Sinus bradycardia in 30's while sleeping. nocturnal pulse oximetry to rule out nocturnal hypoxia: pending CHF, Chronic left ventricular diastolic heart failure. euvolemic Diurese PRN. HYPONATREMIA Serum sodium 128 at time of admission. Chronic. Probable SIADH. Na today = 128 Follow. CKD III Serum creatinine 1.12 at time of admission. Avoid potential nephrotoxins when able. Tried celecoxib for severe back pain, but creatinine aretha to 1.48. --- crea improved to 1.10 monitor HYPOTHYROIDISM TSH 4.4 Continue levothyroxine. DEPRESSION Consider SSRI, but best to wait until hyponatremia better. VTE PROPHYLAXIS Moderate risk for VTE. SQ heparin. Ambulate as able. RESUSCITATION STATUS Full code as discussed in admission H&P. DISPOSITION Anticipated need for skilled care prior to eventual return to home. Family Medicine follow-up with Dr. Jean. . Current Inpatient Medications: Current Inpatient Medications Medications (Trade) Dose Ordered Sig/Ernestine Route Start Time Stop Time Status Last Admin Dose Admin Heparin Sodium (Porcine) (Heparin Sq 5000 Unit/0.5ml) 5,000 unit Q12 SQ 12/31/17 21:00 01/30/18 20:59 01/03/18 08:28 5,000 UNIT Miscellaneous (Iv Fluids Completed) 1 ea PRN PRN N/A 12/31/17 16:15 12/31/18 16:14 Aspirin (Ecotrin Tab) 81 mg QAM PO 01/01/18 09:00 01/31/18 08:59 01/03/18 08:18 81 MG Buspirone HCl (Buspar Tab) 5 mg BID PRN PO 12/31/17 18:00 01/30/18 17:59 01/03/18 08:20 5 MG Calcitriol (Rocaltrol Cap) 0.25 mcg QAM PO 01/01/18 09:00 01/31/18 08:59 01/03/18 08:19 0.25 MCG Cyanocobalamin (Vitamin B-12 Tab) 1,000 mcg Q2D@0900 PO 01/01/18 09:00 01/31/18 08:59 01/03/18 08:18 1,000 MCG Diclofenac Sodium (Voltaren 1% Top Gel) 1 appln BID EXT 12/31/17 21:00 01/30/18 20:59 01/03/18 08:18 1 APPLN Docusate Sodium (coLACE CAP) 100 mg BID PO 12/31/17 21:00 01/30/18 20:59 01/03/18 08:19 100 MG Levothyroxine Sodium (Synthroid Tab) 75 mcg DAILYBB PO 01/01/18 06:00 01/31/18 05:59 01/03/18 05:46 75 MCG Lisinopril (Zestril Tab) 20 mg DAILY PO 01/01/18 09:00 01/31/18 08:59 01/03/18 08:20 20 MG Ondansetron HCl (Zofran Tab) 4 mg Q12 PRN PO 12/31/17 18:00 01/30/18 17:59 01/03/18 00:25 4 MG Simvastatin (Zocor Tab) 20 mg HS PO 12/31/17 21:00 01/30/18 20:59 01/02/18 20:16 20 MG Tramadol HCl (Ultram Tab) 50 mg Q6 PRN PO 12/31/17 18:00 01/30/18 17:59 01/03/18 05:51 50 MG Miscellaneous Information (Order Awaiting Action) 1 ea QS N/A 01/01/18 00:00 01/31/18 00:00 01/01/18 16:43 1 EA Pantoprazole Sodium (Protonix Tab) 40 mg BIDM PO 01/01/18 07:30 01/31/18 07:29 01/03/18 08:20 40 MG Polyethylene (Miralax Powder Packet) 17 gm BID PRN PO 12/31/17 18:00 01/30/18 17:59 01/02/18 16:27 17 GM Acetaminophen (Tylenol Tab) 1,000 mg TID PO 12/31/17 21:00 01/30/18 20:59 01/03/18 08:19 1,000 MG Oxycodone HCl (Roxicodone Immediate Rel Tab) 5 mg Q6H PRN PO 12/31/17 18:00 01/14/18 17:59 01/02/18 23:40 5 MG Lidocaine (Lidoderm Patch 5%) 1 patch QAM TD 01/01/18 09:00 01/31/18 08:59 01/03/18 08:21 1 PATCH Miscellaneous (Remove Lidoderm Patch) 1 ea DAILY@21 N/A 01/01/18 21:00 01/31/18 20:59 01/02/18 21:00 1 EA Clonidine HCl (Catapres Tab) 0.1 mg Q6H PRN PO 12/31/17 18:15 01/30/18 18:14 01/03/18 08:30 0.1 MG Amlodipine Besylate (Norvasc Tab) 5 mg HS PO 01/03/18 21:00 01/30/18 20:59 UNV
[2018-01-03] MEDS ORDERED: POLYETHYLENE (MIRALAX) 17 GM PACK PO PRN (11:15)
[2018-01-03] MEDS: OXYCODONE HCL IR 5 MG TAB (IMMEDIATE RELEASE) PO PRN (16:29)
[2018-01-03] MEDS: AMLODIPINE BESYLATE 5 MG TAB PO SCH (20:57)
[2018-01-03] MEDS: SIMVASTATIN 20 MG TAB PO SCH (20:59)
[2018-01-03] MEDS: CYCLOBENZAPRINE HCL 5 MG TAB PO PRN (20:59)
[2018-01-04 03:47] VITALS: BP 147/79; PULSE 69; TEMP 37; O2SAT 93
[2018-01-04 05:29] VITALS: PULSE 63; O2SAT 97
[2018-01-04] MEDS: OXYCODONE HCL IR 5 MG TAB (IMMEDIATE RELEASE) PO PRN ×2 (05:54→23:52)
[2018-01-04] MEDS: LEVOTHYROXINE 75 MCG TAB PO SCH (05:54)
[2018-01-04 07:01] VITALS: BP 166/83; PULSE 73; TEMP 36.6; O2SAT 92
--- NOTE | 2018-01-04 09:06 | Pain Management Consultation ---
Pain Management Consultation Date of Consultation Jan 04, 2018. Reason for Consultation Intractable back pain, gait dysfunction Pain Location 1 - 2 - History This is an 87-year-old white female that has been seen [facility] for intractable low back pain. She was found to have an L1 compression fracture. She states that the pain is located along the low back and radiates into the right groin. Pain is aggravated with positional changes and standing. She describes a constant deep aching and intermittent sharp stabbing pain. Pain is rated 6/10 currently. She does have oxycodone 5 mg ordered every 6 hours as needed for pain relief. She does also have Flexeril 5 mg twice daily, lidocaine patches, diclofenac gel, Tylenol, and tramadol ordered. She has been ambulating with assistance to the bathroom. Patient states that she is not aware of how often she can take pain medication. Her daughter would control her pain medication for her at home. She denies any constipation, leg weakness. Case discussed with Dr. Kathleen Enciso Past Medical/Surgical History (1) Spinal stenosis of lumbar region (2) Osteoporosis (3) Hyponatremia (4) Glaucoma (5) Hypertension (6) Hyperlipidemia (7) Hypothyroidism (8) CTS (carpal tunnel syndrome) (9) CKD (chronic kidney disease), stage III (10) CHF (congestive heart failure) (11) GERD (gastroesophageal reflux disease) (12) Generalized anxiety disorder (13) Major depressive disorder, recurrent, moderate (14) Back pain (15) Intractable low back pain (16) H/O colonoscopy (17) H/O knee surgery (18) History of bladder surgery Family History Cancer MOTHER SISTER Social / Work History Smokeless Tobacco Use: No Alcohol Use: none Marital Status: Housing Status: lives with family Occupation: retired Allergies Coded Allergies: Quinolones (Verified Adverse Reaction, Mild, "FEELS AWFUL", 12/31/17) Uncoded Allergies: "CUT FLOWER" (Allergy, Mild, "MAYES MY NOSE", 11/08/17) "PERFUMES" (Allergy, Mild, "MAYES MY NOSE", 11/08/17) deodorant (Adverse Reaction, Intermediate, RASH, 12/31/17) Medications Current Inpatient Medications Medications (Trade) Dose Ordered Sig/Ernestine Route Start Time Stop Time Status Last Admin Dose Admin Heparin Sodium (Porcine) (Heparin Sq 5000 Unit/0.5ml) 5,000 unit Q12 SQ 12/31/17 21:00 01/30/18 20:59 01/03/18 21:00 5,000 UNIT Miscellaneous (Iv Fluids Completed) 1 ea PRN PRN N/A 12/31/17 16:15 12/31/18 16:14 Aspirin (Ecotrin Tab) 81 mg QAM PO 01/01/18 09:00 01/31/18 08:59 01/03/18 08:18 81 MG Buspirone HCl (Buspar Tab) 5 mg BID PRN PO 12/31/17 18:00 01/30/18 17:59 01/03/18 08:20 5 MG Calcitriol (Rocaltrol Cap) 0.25 mcg QAM PO 01/01/18 09:00 01/31/18 08:59 01/03/18 08:19 0.25 MCG Cyanocobalamin (Vitamin B-12 Tab) 1,000 mcg Q2D@0900 PO 01/01/18 09:00 01/31/18 08:59 01/03/18 08:18 1,000 MCG Diclofenac Sodium (Voltaren 1% Top Gel) 1 appln BID EXT 12/31/17 21:00 01/30/18 20:59 01/03/18 20:56 1 APPLN Levothyroxine Sodium (Synthroid Tab) 75 mcg DAILYBB PO 01/01/18 06:00 01/31/18 05:59 01/04/18 05:54 75 MCG Lisinopril (Zestril Tab) 20 mg DAILY PO 01/01/18 09:00 01/31/18 08:59 01/03/18 08:20 20 MG Ondansetron HCl (Zofran Tab) 4 mg Q12 PRN PO 12/31/17 18:00 01/30/18 17:59 01/03/18 00:25 4 MG Simvastatin (Zocor Tab) 20 mg HS PO 12/31/17 21:00 01/30/18 20:59 01/03/18 20:59 20 MG Tramadol HCl (Ultram Tab) 50 mg Q6 PRN PO 12/31/17 18:00 01/30/18 17:59 01/03/18 05:51 50 MG Miscellaneous Information (Order Awaiting Action) 1 ea QS N/A 01/01/18 00:00 01/31/18 00:00 01/01/18 16:43 1 EA Pantoprazole Sodium (Protonix Tab) 40 mg BIDM PO 01/01/18 07:30 01/31/18 07:29 01/03/18 16:28 40 MG Polyethylene (Miralax Powder Packet) 17 gm BID PRN PO 12/31/17 18:00 01/30/18 17:59 01/02/18 16:27 17 GM Acetaminophen (Tylenol Tab) 1,000 mg TID PO 12/31/17 21:00 01/30/18 20:59 01/03/18 20:59 1,000 MG Oxycodone HCl (Roxicodone Immediate Rel Tab) 5 mg Q6H PRN PO 12/31/17 18:00 01/14/18 17:59 01/04/18 05:54 5 MG Lidocaine (Lidoderm Patch 5%) 1 patch QAM TD 01/01/18 09:00 01/31/18 08:59 01/03/18 08:21 1 PATCH Miscellaneous (Remove Lidoderm Patch) 1 ea DAILY@21 N/A 01/01/18 21:00 01/31/18 20:59 01/03/18 21:01 1 EA Clonidine HCl (Catapres Tab) 0.1 mg Q6H PRN PO 12/31/17 18:15 01/30/18 18:14 01/03/18 08:30 0.1 MG Amlodipine Besylate (Norvasc Tab) 5 mg HS PO 01/03/18 21:00 01/30/18 20:59 01/03/18 20:57 5 MG Cyclobenzaprine HCl (Flexeril Tab) 5 mg BID PRN PO 01/03/18 11:00 02/02/18 10:59 01/03/18 20:59 5 MG Senna/Docusate Sodium (Senokot S Tab) 1 tab QAM PO 01/04/18 09:00 02/03/18 08:59 Polyethylene (Miralax Powder Packet) 17 gm DAILY PRN PO 01/03/18 11:15 02/02/18 11:14 Review of Systems Denies any constitutional, cardiac, pulmonary, neurological, GI, , extremity, endocrine, neuro, ENT, dermatological, or musculoskeletal complaints other than stated in HPI Physical Exam Height & Weight: Height 5 feet, 0.00 inches. Weight 55.900 (Kilograms) 123 (Pounds) Last Vital Signs Documentation Date Time Temp Pulse Resp B/P (MAP) Pulse Ox O2 Delivery O2 Flow Rate FiO2 01/04/18 07:01 36.6 73 20 166/83 (110) 92 Room Air Exam: GENERAL: This is an 87 y/o white female that appears her stated age. Speech and cognition is intact. She is hard of hearing but communication was effective. Mood and affect is appropriate. No acute distress. BACK:There is thoracic kyphosis and loss of lumbar lordosis. There is no focal midline or facet joint tenderness. Moderate right SI joint tenderness. There is mild lower lumbar paravertebral muscle spasm without trigger points noted. LOWER EXTREMITIES: Negative straight leg raise bilaterally. R Hip flexion +5; hip extension +5; knee extension +5; knee flexion +5; dorsiflexion +5; plantar flexion +5 L Hip flexion +5; hip extension +5; knee extension +5; knee flexion +5; dorsiflexion +5; plantar flexion +5 NEURO: Gait was not witnessed. Awake, alert, and oriented x 3. Laboratory Laboratory Results (Last CBC): 01/03/18 07:03 Imaging Radiology Findings L-SPINE MIN 4 VIEWS ROUTINE CLINICAL HISTORY: 87 years-old Female presenting with low back pain. TECHNIQUE: Frontal, bilateral oblique, lateral, and coned in lateral views of the lumbar spine were obtained. COMPARISON: CT from 11/08/2017. FINDINGS: No significant scoliosis. Straightening of normal lumbar lordosis. Interval development of a compression deformity of the inferior endplate of L1 with approximately 50% anterior vertebral body height loss. This is new from the prior exam. Remaining vertebral bodies demonstrate normal height and alignment. Multilevel intervertebral disc height loss with vacuum disc phenomenon and osteophytosis noted at several levels. There is also significant posterior bony spurring resulting in multilevel osseous neural foraminal narrowing. Osteopenia. Atherosclerosis. Marked stool burden in the right colon with a moderate stool burden in the remaining colon. Lung bases clear. IMPRESSION: 1. Interval development of a compression deformity of L1 consistent with compression fracture in the setting of osteopenia. 2. Advanced multilevel degenerative changes with multilevel osseous neural foraminal narrowing. [place] Drug Monitoring Program Search Results: patient reviewed within database Drug Monitoring Findings: There have been opioid prescriptions starting on 11/08/17. She has since received #60 tramadol, #30 Adams 5/325 mg, and #90 Percocet. Last prescription was on 12/30/17. Assessment 1. L1 compression fracture 2. Intractable low back pain Recommendations 1. Continue the current regimen of Oxycodone, Tylenol, Diclofenac gel, Lidocaine patch, and Flexeril. 2. I have encouraged the patient to ask for the oxycodone more often if she is experiencing pain. It is ordered for x 6 hours PRN and she is taking it once or twice a day currently. She is understanding. 3. If she does not report relief with taking the Oxycodone x 6 hours, consider increasing Flexeril frequency to TID. 4. Recommend PT/OT. 5. LSO back brace may be difficult for fitting on the patient. Will hold on ordering for now.
[2018-01-04] MEDS: PANTOprazole SOD 40 MG TAB PO SCH ×2 (09:11→16:20)
[2018-01-04] MEDS: LISINOPRIL 20 MG TAB PO SCH (09:11)
[2018-01-04] MEDS: CALCITRIOL 0.25 MCG CAP PO SCH (09:11)
[2018-01-04] MEDS: DICLOFENAC SOD 1% GEL 100 GM TUBE EXT SCH ×2 (09:12→21:18)
[2018-01-04] MEDS: HEPARIN SOD 5000 UNIT/0.5 ML CARP SQ SCH ×2 (09:13→21:20)
[2018-01-04] MEDS: ASPIRIN 81 MG ECTAB PO SCH (09:15)
[2018-01-04] MEDS: CYCLOBENZAPRINE HCL 5 MG TAB PO PRN ×2 (09:16→21:18)
[2018-01-04] MEDS: ACETAMINOPHEN 500 MG TAB PO SCH ×2 (09:16→14:18)
[2018-01-04] MEDS: RESTASIS-ORDER AWAITING ACTION SCH ×4 (09:17→20:03)
[2018-01-04] MEDS: DOCUSATE SODIUM/SENNA 50/8.6MG TAB PO SCH (09:17)
[2018-01-04] MEDS: LIDODERM (LIDOCAINE) PATCH 5% TD SCH (09:18)
[2018-01-04 12:05] VITALS: BP 159/91; PULSE 87; TEMP 36.8; O2SAT 95
[2018-01-04 15:15] VITALS: BP 140/66; PULSE 62; TEMP 36.7; O2SAT 96
--- NOTE | 2018-01-04 15:34 | Progress Note ---
Medicine Progress Note Date & Time of Visit: Jan 04, 2018 at 15:25. Subjective seen resting in bed, sitting up pain somewhat improved, able to ambulate with less pain no headache, dizziness, chest pain, dyspnea no other symptoms Objective Last 8 Hrs Date Time Temp Pulse Resp B/P (MAP) Pulse Ox O2 Delivery O2 Flow Rate FiO2 01/04/18 12:05 36.8 87 20 159/91 (113) 95 Room Air 01/04/18 08:00 Room Air Physical Exam: General- oriented x 2, not in distress, speaks in sentences with no effort Eyes- anicteric ENT- oropharynx clear Neck- supple, no JVD Lungs- clear breath sounds bilaterally, no rales/wheezes Heart- regular rhythm; no murmur, normal rate Abdomen- normal bowel sounds, soft, nontender Extremities- no pretibial edema, no calf tenderness Back- moderate tenderness to the paralumbar/posterior pelvic region Neuro- alert, oriented x 2 (+) decreased hearing no other gross focal deficits Skin- warm & dry Assessment & Plan BACK PAIN History of lumbar spinal stenosis. New osteoporotic compression fracture of L1. Intractable pain and unable to ambulate independently. Stopped celecoxib because of rising creatinine. currently on analgesics- PRN Oxycodone, Tramadol on Tyenol TID, Lidoderm Patch added Flexeril, pain slightly improved encouraged to maximize Oxycodone Pain Management SVC consulted- appreciate the recommendations continue PT/OT evaluation HYPERTENSION / HYPERTENSIVE URGENCY Blood pressures as high as 211/118 in the ED. Patient did not take her lisinopril the morning admission. BP's fluctuating due to back pain and emotional stress. increase Amlodipine from 2.5 to 5mg po daily Continue lisinopril, PRN Clonidine will continue to monitor response, BP elevation likely related to pain OSTEOPOROSIS 25-OH D level = 28. -- Continue calcitriol. ARRHYTHMIAS Sinus arrhythmia vs WAP on telemetry. Sinus bradycardia in 30's while sleeping. -- nocturnal pulse oximetry to rule out nocturnal hypoxia CHF, Chronic left ventricular diastolic heart failure. euvolemic Diurese PRN. HYPONATREMIA Serum sodium 128 at time of admission. Chronic. Probable SIADH. Na today = 128 Follow. CKD III Serum creatinine 1.12 at time of admission. Avoid potential nephrotoxins when able. Tried celecoxib for severe back pain, but creatinine aretha to 1.48. --- crea improved to 1.10 monitor HYPOTHYROIDISM TSH 4.4 Continue levothyroxine. DEPRESSION Consider SSRI, but best to wait until hyponatremia better. VTE PROPHYLAXIS Moderate risk for VTE. SQ heparin. Ambulate as able. RESUSCITATION STATUS Full code as discussed in admission H&P. DISPOSITION Anticipated need for skilled care prior to eventual return to home. Family Medicine follow-up with Dr. Jean. . Current Inpatient Medications: Current Inpatient Medications Medications (Trade) Dose Ordered Sig/Ernestine Route Start Time Stop Time Status Last Admin Dose Admin Heparin Sodium (Porcine) (Heparin Sq 5000 Unit/0.5ml) 5,000 unit Q12 SQ 12/31/17 21:00 01/30/18 20:59 01/04/18 09:13 5,000 UNIT Miscellaneous (Iv Fluids Completed) 1 ea PRN PRN N/A 12/31/17 16:15 12/31/18 16:14 Aspirin (Ecotrin Tab) 81 mg QAM PO 01/01/18 09:00 01/31/18 08:59 01/04/18 09:15 81 MG Buspirone HCl (Buspar Tab) 5 mg BID PRN PO 12/31/17 18:00 01/30/18 17:59 01/04/18 09:12 5 MG Calcitriol (Rocaltrol Cap) 0.25 mcg QAM PO 01/01/18 09:00 01/31/18 08:59 01/04/18 09:11 0.25 MCG Cyanocobalamin (Vitamin B-12 Tab) 1,000 mcg Q2D@0900 PO 01/01/18 09:00 01/31/18 08:59 01/03/18 08:18 1,000 MCG Diclofenac Sodium (Voltaren 1% Top Gel) 1 appln BID EXT 12/31/17 21:00 01/30/18 20:59 01/04/18 09:12 1 APPLN Levothyroxine Sodium (Synthroid Tab) 75 mcg DAILYBB PO 01/01/18 06:00 01/31/18 05:59 01/04/18 05:54 75 MCG Lisinopril (Zestril Tab) 20 mg DAILY PO 01/01/18 09:00 01/31/18 08:59 01/04/18 09:11 20 MG Ondansetron HCl (Zofran Tab) 4 mg Q12 PRN PO 12/31/17 18:00 01/30/18 17:59 01/03/18 00:25 4 MG Simvastatin (Zocor Tab) 20 mg HS PO 12/31/17 21:00 01/30/18 20:59 01/03/18 20:59 20 MG Tramadol HCl (Ultram Tab) 50 mg Q6 PRN PO 12/31/17 18:00 01/30/18 17:59 01/03/18 05:51 50 MG Miscellaneous Information (Order Awaiting Action) 1 ea QS N/A 01/01/18 00:00 01/31/18 00:00 01/01/18 16:43 1 EA Pantoprazole Sodium (Protonix Tab) 40 mg BIDM PO 01/01/18 07:30 01/31/18 07:29 01/04/18 09:11 40 MG Polyethylene (Miralax Powder Packet) 17 gm BID PRN PO 12/31/17 18:00 01/30/18 17:59 01/02/18 16:27 17 GM Acetaminophen (Tylenol Tab) 1,000 mg TID PO 12/31/17 21:00 01/30/18 20:59 01/04/18 14:18 1,000 MG Oxycodone HCl (Roxicodone Immediate Rel Tab) 5 mg Q6H PRN PO 12/31/17 18:00 01/14/18 17:59 01/04/18 05:54 5 MG Lidocaine (Lidoderm Patch 5%) 1 patch QAM TD 01/01/18 09:00 01/31/18 08:59 01/04/18 09:18 1 PATCH Miscellaneous (Remove Lidoderm Patch) 1 ea DAILY@21 N/A 01/01/18 21:00 01/31/18 20:59 01/03/18 21:01 1 EA Clonidine HCl (Catapres Tab) 0.1 mg Q6H PRN PO 12/31/17 18:15 01/30/18 18:14 01/03/18 08:30 0.1 MG Amlodipine Besylate (Norvasc Tab) 5 mg HS PO 01/03/18 21:00 01/30/18 20:59 01/03/18 20:57 5 MG Cyclobenzaprine HCl (Flexeril Tab) 5 mg BID PRN PO 01/03/18 11:00 02/02/18 10:59 01/04/18 09:16 5 MG Senna/Docusate Sodium (Senokot S Tab) 1 tab QAM PO 01/04/18 09:00 02/03/18 08:59 01/04/18 09:17 1 TAB Polyethylene (Miralax Powder Packet) 17 gm DAILY PRN PO 01/03/18 11:15 02/02/18 11:14
[2018-01-04] MEDS: SODIUM CHLORIDE 0.9% 1000ML 1,000 ML IV SCH (17:31)
[2018-01-04 19:10] VITALS: BP 170/70; PULSE 66; TEMP 36.4; O2SAT 95
[2018-01-04] MEDS: SIMVASTATIN 20 MG TAB PO SCH (21:19)
[2018-01-04] MEDS: AMLODIPINE BESYLATE 5 MG TAB PO SCH (21:19)
[2018-01-04 21:48] LABS: CALCIUM 8.8 mg/dl (8.5-10.1); CREATININE 1.18 mg/dl (0.60-1.20); POTASSIUM 4.4 mmol/L (3.5-5.1)
[2018-01-05] VITALS (9 sets, daily range): BP systolic 138–222; BP diastolic 65–103; PULSE 60–96; TEMP 36.3–37; O2SAT 94–96
[2018-01-05 03:30] LABS: CALCIUM 8.8 mg/dl (8.5-10.1); CREATININE 1.2 mg/dl (0.60-1.20); POTASSIUM 4.5 mmol/L (3.5-5.1)
[2018-01-05] MEDS: SODIUM CHLORIDE 0.9% 1000ML 1,000 ML IV SCH (05:50)
[2018-01-05] MEDS: LEVOTHYROXINE 75 MCG TAB PO SCH (05:51)
[2018-01-05] MEDS: CYCLOBENZAPRINE HCL 5 MG TAB PO PRN (06:35)
[2018-01-05] MEDS: RESTASIS-ORDER AWAITING ACTION SCH ×3 (08:00→23:31)
[2018-01-05] MEDS: OXYCODONE HCL IR 5 MG TAB (IMMEDIATE RELEASE) PO PRN ×4 (08:14→21:19)
[2018-01-05] MEDS: TRAMADOL HCL 50 MG TAB PO PRN (08:14)
[2018-01-05] MEDS: LISINOPRIL 20 MG TAB PO SCH (08:16)
[2018-01-05] MEDS: PANTOprazole SOD 40 MG TAB PO SCH ×2 (08:16→15:49)
[2018-01-05] MEDS: CALCITRIOL 0.25 MCG CAP PO SCH (08:17)
[2018-01-05] MEDS: DOCUSATE SODIUM/SENNA 50/8.6MG TAB PO SCH (08:17)
[2018-01-05] MEDS: CYANOCOBALAMIN 500 MCG TAB (VIT B-12) PO SCH (08:17)
[2018-01-05] MEDS: LIDODERM (LIDOCAINE) PATCH 5% TD SCH (08:18)
[2018-01-05] MEDS: DICLOFENAC SOD 1% GEL 100 GM TUBE EXT SCH ×2 (08:18→19:46)
[2018-01-05] MEDS: ASPIRIN 81 MG ECTAB PO SCH (08:18)
[2018-01-05] MEDS: HEPARIN SOD 5000 UNIT/0.5 ML CARP SQ SCH ×2 (08:20→19:48)
[2018-01-05 10:12] LABS: CALCIUM 8.9 mg/dl (8.5-10.1); CREATININE 1.09 mg/dl (0.60-1.20); POTASSIUM 3.9 mmol/L (3.5-5.1)
--- NOTE | 2018-01-05 10:39 | Progress Note ---
Medicine Progress Note Date & Time of Visit: Jan 05, 2018 at 10:34. Objective Last 8 Hrs Date Time Temp Pulse Resp B/P (MAP) Pulse Ox O2 Delivery O2 Flow Rate FiO2 01/05/18 08:00 Room Air 01/05/18 07:28 36.3 80 22 170/98 (122) 96 Room Air 01/05/18 04:22 36.7 70 18 176/84 (114) 96 01/05/18 03:07 222/103 (142) 195/76 (115) 01/05/18 03:01 36.6 70 16 96 Room Air Physical Exam: General- oriented x 2, not in distress, speaks in sentences with no effort Eyes- anicteric ENT- oropharynx clear Neck- supple, no JVD Lungs- clear breath sounds bilaterally, no rales/wheezes Heart- regular rhythm; no murmur, normal rate Abdomen- normal bowel sounds, soft, nontender Extremities- no pretibial edema, no calf tenderness Back- moderate tenderness to the paralumbar/posterior pelvic region Neuro- alert, oriented x 2 (+) decreased hearing no other gross focal deficits Skin- warm & dry Laboratory Results: Last 24 Hours Test 01/04/18 15:42 01/04/18 17:37 01/04/18 20:52 01/05/18 02:58 Sodium Level 125 mmol/L 125 mmol/L 130 mmol/L Osmolality 262 mOsm/kg Potassium Level 4.4 mmol/L 4.5 mmol/L Chloride Level 91 mmol/L 95 mmol/L Carbon Dioxide Level 27 mmol/L 27 mmol/L Anion Gap 7.0 mmol/L 8.0 mmol/L Blood Urea Nitrogen 18 mg/dl 18 mg/dl Creatinine 1.18 mg/dl 1.20 mg/dl Est Creatinine Clear Calc Drug Dose 25.8 ml/min 25.4 ml/min Estimated GFR () 47.7 46.7 Estimated GFR (Non- 41.1 40.3 BUN/Creatinine Ratio 15.0 14.7 Random Glucose 101 mg/dl 113 mg/dl Calcium Level 8.8 mg/dl 8.8 mg/dl Test 01/05/18 09:15 Sodium Level 132 mmol/L Potassium Level 3.9 mmol/L Chloride Level 96 mmol/L Carbon Dioxide Level 27 mmol/L Anion Gap 9.0 mmol/L Blood Urea Nitrogen 14 mg/dl Creatinine 1.09 mg/dl Est Creatinine Clear Calc Drug Dose 28.0 ml/min Estimated GFR () 52.5 Estimated GFR (Non- 45.3 BUN/Creatinine Ratio 13.2 Random Glucose 117 mg/dl Calcium Level 8.9 mg/dl Assessment & Plan BACK PAIN History of lumbar spinal stenosis. New osteoporotic compression fracture of L1. Intractable pain and unable to ambulate independently. Stopped celecoxib because of rising creatinine pain level about the same start Prednisone 20mg discussed with RN, advised to utilize PRN pain medications more often PRN Oxycodone, Tramadol, Flexeril, Lidoderm patch currently on analgesics- PRN Oxycodone, Tramadol Pain Management SVC consulted- appreciate the recommendations continue PT/OT evaluation HYPERTENSION / HYPERTENSIVE URGENCY Blood pressures as high as 211/118 in the ED. Patient did not take her lisinopril the morning admission. BP's fluctuating due to back pain and emotional stress. increased Amlodipine from 2.5 to 5mg po daily Continue lisinopril, PRN Clonidine will continue to monitor response, BP elevation likely related to pain OSTEOPOROSIS 25-OH D level = 28. -- Continue calcitriol. ARRHYTHMIAS Sinus arrhythmia vs WAP on telemetry. Sinus bradycardia in 30's while sleeping. -- nocturnal pulse oximetry to rule out nocturnal hypoxia CHF, Chronic left ventricular diastolic heart failure. euvolemic Diurese PRN. HYPONATREMIA Serum sodium 128 at time of admission. Chronic. Probable SIADH. Na 125 --> given iV nSS --> Na 132 monitor CKD III Serum creatinine 1.12 at time of admission. Avoid potential nephrotoxins when able. Tried celecoxib for severe back pain, but creatinine aretha to 1.48. --- crea improved to 1.10 monitor HYPOTHYROIDISM TSH 4.4 Continue levothyroxine. DEPRESSION mood stable Consider SSRI, but best to wait until hyponatremia better. VTE PROPHYLAXIS Moderate risk for VTE. SQ heparin. Ambulate as able. RESUSCITATION STATUS Full code as discussed in admission H&P. DISPOSITION Anticipated need for skilled care prior to eventual return to home. Family Medicine follow-up with Dr. Jean. . Current Inpatient Medications: Current Inpatient Medications Medications (Trade) Dose Ordered Sig/Ernestine Route Start Time Stop Time Status Last Admin Dose Admin Heparin Sodium (Porcine) (Heparin Sq 5000 Unit/0.5ml) 5,000 unit Q12 SQ 12/31/17 21:00 01/30/18 20:59 01/05/18 08:20 5,000 UNIT Miscellaneous (Iv Fluids Completed) 1 ea PRN PRN N/A 12/31/17 16:15 12/31/18 16:14 Aspirin (Ecotrin Tab) 81 mg QAM PO 01/01/18 09:00 01/31/18 08:59 01/05/18 08:18 81 MG Buspirone HCl (Buspar Tab) 5 mg BID PRN PO 12/31/17 18:00 01/30/18 17:59 01/05/18 08:14 5 MG Calcitriol (Rocaltrol Cap) 0.25 mcg QAM PO 01/01/18 09:00 01/31/18 08:59 01/05/18 08:17 0.25 MCG Cyanocobalamin (Vitamin B-12 Tab) 1,000 mcg Q2D@0900 PO 01/01/18 09:00 01/31/18 08:59 01/05/18 08:17 1,000 MCG Diclofenac Sodium (Voltaren 1% Top Gel) 1 appln BID EXT 12/31/17 21:00 01/30/18 20:59 01/05/18 08:18 1 APPLN Levothyroxine Sodium (Synthroid Tab) 75 mcg DAILYBB PO 01/01/18 06:00 01/31/18 05:59 01/05/18 05:51 75 MCG Lisinopril (Zestril Tab) 20 mg DAILY PO 01/01/18 09:00 01/31/18 08:59 01/05/18 08:16 20 MG Ondansetron HCl (Zofran Tab) 4 mg Q12 PRN PO 12/31/17 18:00 01/30/18 17:59 01/03/18 00:25 4 MG Simvastatin (Zocor Tab) 20 mg HS PO 12/31/17 21:00 01/30/18 20:59 01/04/18 21:19 20 MG Tramadol HCl (Ultram Tab) 50 mg Q6 PRN PO 12/31/17 18:00 01/30/18 17:59 01/05/18 08:14 50 MG Miscellaneous Information (Order Awaiting Action) 1 ea QS N/A 01/01/18 00:00 01/31/18 00:00 01/01/18 16:43 1 EA Pantoprazole Sodium (Protonix Tab) 40 mg BIDM PO 01/01/18 07:30 01/31/18 07:29 01/05/18 08:16 40 MG Polyethylene (Miralax Powder Packet) 17 gm BID PRN PO 12/31/17 18:00 01/30/18 17:59 01/02/18 16:27 17 GM Oxycodone HCl (Roxicodone Immediate Rel Tab) 5 mg Q6H PRN PO 12/31/17 18:00 01/14/18 17:59 01/05/18 08:14 5 MG Lidocaine (Lidoderm Patch 5%) 1 patch QAM TD 01/01/18 09:00 01/31/18 08:59 01/05/18 08:18 1 PATCH Miscellaneous (Remove Lidoderm Patch) 1 ea DAILY@21 N/A 01/01/18 21:00 01/31/18 20:59 01/04/18 21:21 1 EA Clonidine HCl (Catapres Tab) 0.1 mg Q6H PRN PO 12/31/17 18:15 01/30/18 18:14 01/03/18 08:30 0.1 MG Amlodipine Besylate (Norvasc Tab) 5 mg HS PO 01/03/18 21:00 01/30/18 20:59 01/04/18 21:19 5 MG Cyclobenzaprine HCl (Flexeril Tab) 5 mg BID PRN PO 01/03/18 11:00 02/02/18 10:59 01/05/18 06:35 5 MG Senna/Docusate Sodium (Senokot S Tab) 1 tab QAM PO 01/04/18 09:00 02/03/18 08:59 01/05/18 08:17 1 TAB Polyethylene (Miralax Powder Packet) 17 gm DAILY PRN PO 01/03/18 11:15 02/02/18 11:14
[2018-01-05] MEDS ORDERED: FENTANYL 12 MCG/HR TDSY TD SCH (12:00)
[2018-01-05] MEDS: CHECK FENTANYL PATCH PLACEMENT SCH ×2 (15:49→23:31)
[2018-01-05 16:40] LABS: CALCIUM 9.4 mg/dl (8.5-10.1); CREATININE 1.13 mg/dl (0.60-1.20); POTASSIUM 4.5 mmol/L (3.5-5.1)
[2018-01-05] MEDS: AMLODIPINE BESYLATE 5 MG TAB PO SCH (19:47)
[2018-01-05] MEDS: SIMVASTATIN 20 MG TAB PO SCH (19:47)
[2018-01-06 04:06] VITALS: BP 155/105; PULSE 91; TEMP 37; O2SAT 96
[2018-01-06] MEDS: LEVOTHYROXINE 75 MCG TAB PO SCH (06:07)
[2018-01-06 06:35] LABS: HEMATOCRIT 34.3 % (37-47); HEMOGLOBIN 11.7 g/dL (12.0-16.0); MEAN CELL VOLUME 96.3 fL (80-100); MEAN CORPUSCULAR HEMOGLOBIN 32.9 pg (25-34); MEAN CORPUSCULAR HGB CONC 34.1 g/dl (32-36); MEAN PLATELET VOLUME 8.9 fL (7.4-10.4); PLATELET COUNT 323 K/uL (130-400); RED CELL DISTRIBUTION WIDTH CV 15.8 % (11.5-14.5); RED CELL DISTRIBUTION WIDTH SD 55.7 fL (36.4-46.3); WHITE BLOOD COUNT 10.45 K/uL (4.8-10.8)
[2018-01-06 07:07] LABS: CALCIUM 9.3 mg/dl (8.5-10.1); CREATININE 1.24 mg/dl (0.60-1.20); POTASSIUM 4.6 mmol/L (3.5-5.1)
[2018-01-06 07:21] VITALS: BP 167/71; PULSE 77; TEMP 36.8; O2SAT 96
[2018-01-06] MEDS: RESTASIS-ORDER AWAITING ACTION SCH ×2 (08:00→16:00)
[2018-01-06] MEDS: PANTOprazole SOD 40 MG TAB PO SCH ×2 (08:38→17:22)
[2018-01-06] MEDS: HEPARIN SOD 5000 UNIT/0.5 ML CARP SQ SCH (08:39)
[2018-01-06] MEDS: CHECK FENTANYL PATCH PLACEMENT SCH ×2 (08:41→16:00)
[2018-01-06] MEDS: ASPIRIN 81 MG ECTAB PO SCH (08:42)
[2018-01-06] MEDS: DICLOFENAC SOD 1% GEL 100 GM TUBE EXT SCH (08:42)
[2018-01-06] MEDS: LISINOPRIL 20 MG TAB PO SCH (08:43)
[2018-01-06] MEDS: DOCUSATE SODIUM/SENNA 50/8.6MG TAB PO SCH (08:43)
[2018-01-06] MEDS: CALCITRIOL 0.25 MCG CAP PO SCH (08:43)
[2018-01-06] MEDS: LIDODERM (LIDOCAINE) PATCH 5% TD SCH (08:44)
[2018-01-06] MEDS: OXYCODONE HCL IR 5 MG TAB (IMMEDIATE RELEASE) PO PRN ×2 (08:50→13:34)
[2018-01-06] MEDS: TRAMADOL HCL 50 MG TAB PO PRN (10:38)
[2018-01-06 11:12] VITALS: BP 101/65; PULSE 80; TEMP 36.6; O2SAT 96
[2018-01-06] MEDS: POLYETHYLENE (MIRALAX) 17 GM PACK PO PRN (14:30)
[2018-01-06 15:02] VITALS: BP 123/77; PULSE 71; TEMP 36.4; O2SAT 98
--- NOTE | 2018-01-06 15:49 | Progress Note ---
Medicine Progress Note Date & Time of Visit: Jan 06, 2018 at 15:26. Subjective seen resting in bedside chair , sitting up states her back pain is better today denies chest pain, palpitations, dyspnea, dizziness able to ambulate with less pain states she is ready for discharge today Objective Last 8 Hrs Date Time Temp Pulse Resp B/P (MAP) Pulse Ox O2 Delivery O2 Flow Rate FiO2 01/06/18 11:12 36.6 80 20 101/65 (77) 96 Room Air 01/06/18 08:00 Room Air Physical Exam: General- oriented x 2, not in distress, speaks in sentences with no effort Eyes- anicteric ENT- oropharynx clear Neck- no JVD Lungs- clear BS BL no rales/wheezes Heart- regular rhythm; no murmur, normal rate Abdomen- normal bowel sounds, soft, nontender Extremities- no pretibial edema, no calf tenderness Neuro- alert, oriented x 2 (+) decreased hearing no other gross focal deficits Skin- warm & dry Laboratory Results: Last 24 Hours Test 01/05/18 15:41 01/06/18 06:15 Sodium Level 130 mmol/L 131 mmol/L Potassium Level 4.5 mmol/L 4.6 mmol/L Chloride Level 97 mmol/L 97 mmol/L Carbon Dioxide Level 23 mmol/L 23 mmol/L Anion Gap 10.0 mmol/L 10.0 mmol/L Blood Urea Nitrogen 18 mg/dl 26 mg/dl Creatinine 1.13 mg/dl 1.24 mg/dl Est Creatinine Clear Calc Drug Dose 27.0 ml/min 24.6 ml/min Estimated GFR () 50.3 44.9 Estimated GFR (Non- 43.4 38.8 BUN/Creatinine Ratio 16.0 20.8 Random Glucose 172 mg/dl 105 mg/dl Calcium Level 9.4 mg/dl 9.3 mg/dl White Blood Count 10.45 K/uL Red Blood Count 3.56 M/uL Hemoglobin 11.7 g/dL Hematocrit 34.3 % Mean Corpuscular Volume 96.3 fL Mean Corpuscular Hemoglobin 32.9 pg Mean Corpuscular Hemoglobin Concent 34.1 g/dl RDW Standard Deviation 55.7 fL RDW Coefficient of Variation 15.8 % Platelet Count 323 K/uL Mean Platelet Volume 8.9 fL Assessment & Plan BACK PAIN likely secondary to New osteoporotic compression fracture of L1 History of lumbar spinal stenosis. Intractable pain and unable to ambulate independently. Stopped celecoxib because of rising creatinine pain medications titrated during admission due to severe, intractable back pain given Prednisone 20mg PRN Oxycodone, Tramadol, Flexeril, Lidoderm patch Pain Management SVC consulted- recommend to maximize utilization of PRN PO medications evaluated by PT/OT- needs rolling walker return to [facility] to continue pain management, PT/OT HYPERTENSION / HYPERTENSIVE URGENCY Blood pressures as high as 211/118 in the ED. Patient did not take her lisinopril the morning admission. BP's fluctuating due to back pain and emotional stress. increased Amlodipine from 2.5 to 5mg po daily Continued lisinopril, PRN Clonidine BP improving monitor closely OSTEOPOROSIS 25-OH D level = 28. -- Continue calcitriol. ARRHYTHMIAS NOCTURNAL HYPOXEMIA Sinus arrhythmia vs WAP on telemetry. Sinus bradycardia in 30's while sleeping. -- nocturnal pulse oximetry: patient would need 2 L of O2 via Nasal cannula while sleeping CHF, Chronic left ventricular diastolic heart failure. euvolemic Diurese PRN. HYPONATREMIA Serum sodium 128 at time of admission. Chronic. Probable SIADH. Na 125 --> given iV nSS --> Na 132 monitor Na levels regularly CKD III Serum creatinine 1.12 at time of admission. Avoid potential nephrotoxins when able. Tried celecoxib for severe back pain, but creatinine aretha to 1.48. --- crea improved to 1.10 -- on discharge day, crea 1.24 repeat crea in 2 days and monitor regularly (also on Lisinopril) HYPOTHYROIDISM TSH 4.4 Continue levothyroxine. DEPRESSION mood stable VTE PROPHYLAXIS Moderate risk for VTE. SQ heparin given Ambulate as able. RESUSCITATION STATUS Full code as discussed in admission H&P. DISPOSITION d/c to [facility] ff up with PCP in 3-5 days, details in dc instructions Current Inpatient Medications: Current Inpatient Medications Medications (Trade) Dose Ordered Sig/Ernestine Route Start Time Stop Time Status Last Admin Dose Admin Heparin Sodium (Porcine) (Heparin Sq 5000 Unit/0.5ml) 5,000 unit Q12 SQ 12/31/17 21:00 01/30/18 20:59 01/06/18 08:39 5,000 UNIT Miscellaneous (Iv Fluids Completed) 1 ea PRN PRN N/A 12/31/17 16:15 12/31/18 16:14 Aspirin (Ecotrin Tab) 81 mg QAM PO 01/01/18 09:00 01/31/18 08:59 01/06/18 08:42 81 MG Buspirone HCl (Buspar Tab) 5 mg BID PRN PO 12/31/17 18:00 01/30/18 17:59 01/05/18 08:14 5 MG Calcitriol (Rocaltrol Cap) 0.25 mcg QAM PO 01/01/18 09:00 01/31/18 08:59 01/06/18 08:43 0.25 MCG Cyanocobalamin (Vitamin B-12 Tab) 1,000 mcg Q2D@0900 PO 01/01/18 09:00 01/31/18 08:59 01/05/18 08:17 1,000 MCG Diclofenac Sodium (Voltaren 1% Top Gel) 1 appln BID EXT 12/31/17 21:00 01/30/18 20:59 01/06/18 08:42 1 APPLN Levothyroxine Sodium (Synthroid Tab) 75 mcg DAILYBB PO 01/01/18 06:00 01/31/18 05:59 01/06/18 06:07 75 MCG Lisinopril (Zestril Tab) 20 mg DAILY PO 01/01/18 09:00 01/31/18 08:59 01/06/18 08:43 20 MG Ondansetron HCl (Zofran Tab) 4 mg Q12 PRN PO 12/31/17 18:00 01/30/18 17:59 01/03/18 00:25 4 MG Simvastatin (Zocor Tab) 20 mg HS PO 12/31/17 21:00 01/30/18 20:59 01/05/18 19:47 20 MG Tramadol HCl (Ultram Tab) 50 mg Q6 PRN PO 12/31/17 18:00 01/30/18 17:59 01/06/18 10:38 50 MG Miscellaneous Information (Order Awaiting Action) 1 ea QS N/A 01/01/18 00:00 01/31/18 00:00 01/01/18 16:43 1 EA Pantoprazole Sodium (Protonix Tab) 40 mg BIDM PO 01/01/18 07:30 01/31/18 07:29 01/06/18 08:38 40 MG Polyethylene (Miralax Powder Packet) 17 gm BID PRN PO 12/31/17 18:00 01/30/18 17:59 01/06/18 14:30 17 GM Lidocaine (Lidoderm Patch 5%) 1 patch QAM TD 01/01/18 09:00 01/31/18 08:59 01/06/18 08:44 1 PATCH Miscellaneous (Remove Lidoderm Patch) 1 ea DAILY@21 N/A 01/01/18 21:00 01/31/18 20:59 01/05/18 19:45 1 EA Clonidine HCl (Catapres Tab) 0.1 mg Q6H PRN PO 12/31/17 18:15 01/30/18 18:14 01/03/18 08:30 0.1 MG Amlodipine Besylate (Norvasc Tab) 5 mg HS PO 01/03/18 21:00 01/30/18 20:59 01/05/18 19:47 5 MG Cyclobenzaprine HCl (Flexeril Tab) 5 mg BID PRN PO 01/03/18 11:00 02/02/18 10:59 01/05/18 06:35 5 MG Senna/Docusate Sodium (Senokot S Tab) 1 tab QAM PO 01/04/18 09:00 02/03/18 08:59 01/06/18 08:43 1 TAB Polyethylene (Miralax Powder Packet) 17 gm DAILY PRN PO 01/03/18 11:15 02/02/18 11:14 Fentanyl (Duragesic Patch) 12 mcg Q72H TD 01/05/18 12:00 01/19/18 11:59 01/05/18 11:46 12 MCG Miscellaneous (Fentanyl Patch Remove & Waste) 1 ea Q3D N/A 01/08/18 12:00 02/07/18 11:59 Miscellaneous Information (Check Fentanyl Patch Placement) 1 ea QS N/A 01/05/18 16:00 02/04/18 15:59 01/06/18 08:41 1 EA Oxycodone HCl (Roxicodone Immediate Rel Tab) 5 mg Q4H PRN PO 01/05/18 11:00 01/14/18 17:59 01/06/18 13:34 5 MG
[2018-01-06] MEDS ORDERED: SENN-83 PO (16:01)
[2018-01-06] MEDS ORDERED: HPRIS5M SQ (16:01)
[2018-01-06] MEDS ORDERED: ACET-1693 PO (16:01)
[2018-01-06] MEDS ORDERED: RXC5 PO (16:01)
[2018-01-06] MEDS ORDERED: DRGTP12 TD (16:01)
[2018-01-06] MEDS ORDERED: PRED10TA PO (16:01)
[2018-01-06] MEDS ORDERED: NRV5 PO (16:01)
[2018-01-06] MEDS ORDERED: FLX5 PO (16:01)
[2018-01-06] MEDS ORDERED: LDDP5 TD (16:01)
--- NOTE | 2018-01-06 16:17 | Discharge Instructions ---
Discharge Instructions Date of Service Jan 06, 2018. Admission Reason for Admission: Back Pain, Hypertensive Urgency Discharge Discharge Diagnosis / Problem: LUMBAR COMPRESSION FRACTURE, BACK PAIN Discharge Goals Goal(s): Diagnostic testing, Therapeutic intervention Activity Recommendations Activity Level: Assistance Required Therapies: Physical Therapy, Occupational Therapy . Additional Information Patient informed of condition: Yes Advance Directives: No (UNKNOWN) DNR: No (PATIENT IS A FULL CODE) Level of Care: Skilled Communicable Disease: No Prognosis: Improving Oxygen at (LPM): 2 LITERS VIA NC WHILE SLEEPING Instructions / Follow-Up Instructions / Follow-Up MONITOR BP AND HR. PLEASE REFER TO ACCOMPANYING HOSPITAL DISCHARGE SUMMARY FOR FURTHER DETAILS. Please follow Speech Therapy recommendations: 1. Regular diet "SLIPPERY", thin liquids. Choose foods that are moist, loose, slippery; avoid foods that are doughy, thick, dry (e.g., soft breads, thick meat, etc.). Add condiments to foods such as sauce or gravy to assist in keeping foods moist 2. Aspiration and GERD precautions: FULLY UPRIGHT for meals and for 30 minutes after meals; head of bed at least 30-degrees at all times. Straws OK. DO NOT eat in bed, must be out of bed and in a chair for meals. 3. Safe swallow strategies: Rest breaks during meals. Small frequent meals. Alternate solids and liquids as needed. 4. Consider adjustment of reflux medications to assist with management of esophageal dysphagia. 5. Patient would benefit from continued D[employer] [employer] services upon discharge for carryover of diet, safe swallow stratgies, and montioring diet tolerance. Current Hospital Diet Patient's current hospital diet: AHA Diet (Heart Healthy) Discharge Diet Recommended Diet: AHA Diet (Heart Healthy) Procedures Procedures Performed: LUMBAR SPINE XRAY Pending Studies Studies pending at discharge: yes List of pending studies: PLEASE REFER TO ACCOMPANYING HOSPITAL DISCHARGE SUMMARY FOR FURTHER DETAILS. Physician Orders On Transfer Special Precautions: MONITOR BP AND HR. PLEASE REFER TO ACCOMPANYING HOSPITAL DISCHARGE SUMMARY FOR FURTHER DETAILS. Please follow Speech Therapy recommendations: 1. Regular diet "SLIPPERY", thin liquids. Choose foods that are moist, loose, slippery; avoid foods that are doughy, thick, dry (e.g., soft breads, thick meat, etc.). Add condiments to foods such as sauce or gravy to assist in keeping foods moist 2. Aspiration and GERD precautions: FULLY UPRIGHT for meals and for 30 minutes after meals; head of bed at least 30-degrees at all times. Straws OK. DO NOT eat in bed, must be out of bed and in a chair for meals. 3. Safe swallow strategies: Rest breaks during meals. Small frequent meals. Alternate solids and liquids as needed. 4. Consider adjustment of reflux medications to assist with management of esophageal dysphagia. 5. Patient would benefit from continued D[facility] P[employer] services upon discharge for carryover of diet, safe swallow stratgies, and montioring diet tolerance. Medical Emergencies . Who to Call and When: Medical Emergencies: If at any time you feel your situation is an emergency, please call 911 immediately. . Non-Emergent Contact Non-Emergency issues call your: Primary Care Provider Call Non-Emergent contact if: you have a fever, your pain is not controlled, your pain is worsening, you have any medication questions . Past History Medical & Surgical History: (1) Spinal stenosis of lumbar region (2) Osteoporosis (3) Hyponatremia (4) Glaucoma (5) Hypertension (6) Hyperlipidemia (7) Hypothyroidism (8) CTS (carpal tunnel syndrome) (9) CKD (chronic kidney disease), stage III (10) CHF (congestive heart failure) (11) GERD (gastroesophageal reflux disease) (12) Generalized anxiety disorder (13) Major depressive disorder, recurrent, moderate (14) Back pain (15) Hypertensive urgency (16) Intractable low back pain (17) H/O colonoscopy (18) H/O knee surgery (19) History of bladder surgery . "Provider Documentation" section prepared by Hugo Gotti. . Core Measure Problem Core Measures: None
--- NOTE | 2018-01-06 16:30 | Discharge Summary ---
Discharge Summary Date of Service Jan 06, 2018. Discharge Summary Admission Date: Jan 03, 2018 at 08:07 Discharge Date: Jan 06, 2018 Discharge Disposition: [facility] facility Principal Diagnosis: BACK PAIN likely secondary to New osteoporotic compression fracture of L1 Secondary Diagnoses/Problems: Please refer to hospital course below. Procedures: L-SPINE MIN 4 VIEWS ROUTINE CLINICAL HISTORY: 87 years-old Female presenting with low back pain. TECHNIQUE: Frontal, bilateral oblique, lateral, and coned in lateral views of the lumbar spine were obtained. COMPARISON: CT from 11/08/2017. FINDINGS: No significant scoliosis. Straightening of normal lumbar lordosis. Interval development of a compression deformity of the inferior endplate of L1 with approximately 50% anterior vertebral body height loss. This is new from the prior exam. Remaining vertebral bodies demonstrate normal height and alignment. Multilevel intervertebral disc height loss with vacuum disc phenomenon and osteophytosis noted at several levels. There is also significant posterior bony spurring resulting in multilevel osseous neural foraminal narrowing. Osteopenia. Atherosclerosis. Marked stool burden in the right colon with a moderate stool burden in the remaining colon. Lung bases clear. IMPRESSION: 1. Interval development of a compression deformity of L1 consistent with compression fracture in the setting of osteopenia. 2. Advanced multilevel degenerative changes with multilevel osseous neural foraminal narrowing. Electronically signed by: Jacob Vallejo M.D. 12/31/2017 1:26 PM Dictated Date/Time: 12/31/2017 1:24 PM Consultations: Pain Management Service Pending Studies/Follow-Up: Please refer to hospital course below Medication Reconciliation New Medications: Prednisone Tab (Prednisone) 10 Mg Tab 10 MG PO UD for 4 Days, #3 TAB 0 Refills take 1 tab po daily x 2 days, then take 1/2 tab po daily x 2 days, then STOP Amlodipine Besylate (Amlodipine Besylate) 5 Mg Tab 5 MG PO HS for 30 Days, TAB Cyclobenzaprine HCl (Cyclobenzaprine HCl) 5 Mg Tab 5 MG PO BID PRN for back/hip pain for 10 Days, #20 TAB 2 Refills Fentanyl (Fentanyl) 12 Mcg Tdsy 12 MCG TD Q72H for 7 Days, #3 PATCH 0 Refills Heparin Sod (Porcine) (Heparin Sodium) 5,000 Unit/0.5 Ml Inj 5000 UNIT SQ Q12 for 10 Days Lidocaine (Lidocaine) 1 Patch Tdsy 1 PATCH TD QAM for 14 Days Oxycodone HCl (Oxycodone HCl) 5 Mg Tab 5 MG PO Q4H PRN for severe pain for 7 Days, #10 TAB 0 Refills Changed Medications: Acetaminophen Tab (Tylenol) 325 Mg Tab 650 MG PO Q6H PRN for Pain or Fever for 30 Days (Changed from: Q4) Continued Medications: Aspirin (Aspirin EC Low Dose) 81 Mg Ectab 81 MG PO QAM Buspirone Hcl (Buspirone Hcl) 5 Mg Tab 5 MG PO BID PRN for Anxiety/Agitation for 30 Days, #60 TAB Calcitriol (Rocaltrol Cap) 0.25 Mcg Cap 0.25 MCG PO QAM, CAP Cyanocobalamin (Vitamin B-12) 1,000 Mcg Tab 1000 MCG PO Q2D Cyclosporine (Ophth) (Restasis) 0.05 % Emu 1 DROP OP BID, BTL Diclofenac Sod (Voltaren) 100 Appln/100 Gm Gel 1 APPLN TOP BID Levothyroxine Sodium (Synthroid) 75 Mcg Tab 75 MCG PO DAILYBB Lisinopril (Zestril) 10 Mg Tab 20 MG PO DAILY, TAB Meclizine Hcl (Meclizine Hcl) 25 Mg Tab 25 MG PO Q8 PRN for Dizziness or Vertigo Multivitamin (Multivitamin) Tab 1 TAB PO QDL, TAB Omeprazole (Prilosec) 20 Mg Capcr 20 MG PO BIDM Ondansetron Hcl (Zofran) 4 Mg Tab 4 MG PO Q12 PRN for Nausea, TAB Polyethylene Glycol 3350 (Miralax) 1 Pow Pow 17 GM PO DAILY, #255 GM Sennosides-Docusate Sodium (Senexon-S) 1 Tab Tab 1 TAB PO DAILY for 30 Days (This prescription has been renewed) Simvastatin (Zocor) 20 Mg Tab 20 MG PO HS, TAB Tramadol (Ultram) 50 Mg Tab 50 MG PO Q6 PRN for Pain, TAB Discontinued Medications: Amlodipine (Norvasc) 5 Mg Tab 2.5 MG PO HS Docusate Sodium (Colace) 100 Mg Cap 100 MG PO BID for 30 Days, #60 CAP Oxycodone/Acetaminophen 5MG/325MG (Percocet 5MG/325MG) Tab 1 TABLET PO Q6H PRN for Pain, TAB PAIN Admission Information HPI (per Admitting provider): 87-year-old female followed by Dr. Jean. History of hypertension, diastolic CHF, lumbar spinal stenosis, and other problems noted below. She lives at home with her . They live in a two-story dwelling, but stay on the first floor. Patient ambulates with a walker. is in declining health. She has been experiencing low back pain for several years, but recently worse. Back pain attributed to lumbar spinal stenosis. She has been seen by Pain Management. Fell 2 or 3 months ago and suffered a laceration of her forehead. Recently experiencing worsening low back pain radiating to both hips. Taking tramadol and oxycodone/acetaminophen with minimal relief. Evaluated today in the ED. Unable to ambulate independently; referred for hospitalization. . Physical Exam (per Admitting): CONSTITUTIONAL vital signs as noted above elderly female, no acute distress EYES conjunctivae clear; lids normal pupils equal and reactive to light EARS, NOSE, MOUTH AND THROAT external inspection of ears and nose unremarkable hearing grossly intact to spoken voice with hearing aids oropharynx clear NECK no masses; trachea midline thyroid normal RESPIRATORY normal respiratory effort; no respiratory distress clear to percussion clear to auscultation CARDIOVASCULAR regular rate and rhythm with occasional ectopy II/ systolic murmur at base, S4 gallop no JVD carotid arteries 2/2; no bruits appreciated pedal pulses diminished capillary refill toes 2-3 sec no pretibial edema GASTROINTESTINAL normal bowel sounds, soft, nontender; no palpable masses no hepatomegaly; no splenomegaly LYMPHATIC no cervical adenopathy MUSCULOSKELETAL no lumbar spinal or paraspinal tenderness no pain with straight leg raising bilaterally no cyanosis; no digital clubbing no calf tenderness motor strength extremities grossly intact SKIN no rash warm and dry NEUROLOGIC PERRL, EOMI, no facial palsy, no dysarthria, tongue midline patellar DTR's 1/2 PSYCHIATRIC oriented to person, place, time depressed, tearful . Hospital Course BACK PAIN likely secondary to New osteoporotic compression fracture of L1 History of lumbar spinal stenosis. Intractable pain and unable to ambulate independently. Stopped celecoxib because of rising creatinine pain medications titrated during admission due to severe, intractable back pain Pain Management SVC consulted given Prednisone 20mg x 2 days, then taper PRN Oxycodone, Tramadol, Flexeril, Lidoderm patch recommend to maximize utilization of PRN PO medications continue to titrate pain medications in [facility], PT/OT- needs rolling walker HYPERTENSION / HYPERTENSIVE URGENCY Blood pressures as high as 211/118 in the ED. Patient did not take her lisinopril the morning admission. BP's fluctuating due to back pain and emotional stress. increased Amlodipine from 2.5 to 5mg po daily Continued lisinopril, PRN Clonidine BP improving monitor closely OSTEOPOROSIS 25-OH D level = 28. -- Continue calcitriol. ARRHYTHMIAS NOCTURNAL HYPOXEMIA Sinus arrhythmia vs WAP on telemetry. Sinus bradycardia in 30's while sleeping. -- nocturnal pulse oximetry: patient would need 2 L of O2 via Nasal cannula while sleeping CHF, Chronic left ventricular diastolic heart failure. euvolemic Diurese PRN. HYPONATREMIA Serum sodium 128 at time of admission. Chronic. Probable SIADH. Na 125 --> given iV nSS --> Na 132 monitor Na levels regularly CKD III Serum creatinine 1.12 at time of admission. Avoid potential nephrotoxins when able. Tried celecoxib for severe back pain, but creatinine aretha to 1.48. --- crea improved to 1.10 -- on discharge day, crea 1.24 repeat crea in 2 days and monitor regularly (also on Lisinopril) HYPOTHYROIDISM TSH 4.4 Continue levothyroxine. DEPRESSION mood stable VTE PROPHYLAXIS Moderate risk for VTE. SQ heparin - please re-evaluate duration Ambulate as able. RESUSCITATION STATUS Full code as discussed in admission H&P. DISPOSITION d/c to [facility] ff up with PCP in 3-5 days, details in dc instructions Total time spent on discharge = 40 minutes This includes examination of the patient, discharge planning, medication reconciliation, and communication with other providers. Discharge Instructions MONITOR BP AND HR. PLEASE REFER TO ACCOMPANYING HOSPITAL DISCHARGE SUMMARY FOR FURTHER DETAILS. Please follow Speech Therapy recommendations: 1. Regular diet "SLIPPERY", thin liquids. Choose foods that are moist, loose, slippery; avoid foods that are doughy, thick, dry (e.g., soft breads, thick meat, etc.). Add condiments to foods such as sauce or gravy to assist in keeping foods moist 2. Aspiration and GERD precautions: FULLY UPRIGHT for meals and for 30 minutes after meals; head of bed at least 30-degrees at all times. Straws OK. DO NOT eat in bed, must be out of bed and in a chair for meals. 3. Safe swallow strategies: Rest breaks during meals. Small frequent meals. Alternate solids and liquids as needed. 4. Consider adjustment of reflux medications to assist with management of esophageal dysphagia. 5. Patient would benefit from continued RIGHT OF WAY AGENT services upon discharge for carryover of diet, safe swallow stratgies, and montioring diet tolerance.
[2018-01-06 16:44] VITALS: BP 123/77; PULSE 71; TEMP 36.4; O2SAT 98
[2018-01-08] MEDS ORDERED: FENTANYL PATCH REMOVE & WASTE SCH (12:00)
== END 2018-01-06 18:51 | DRG 543 ==
LOC: EDBD 11:19 → C.EDC 11:22 → C.2T 15:39 → ENRESERV 16:00 → C.2T 01-02 13:31 → OBSVTOIN 01-03 08:07 → C.2T 01-03 21:33
PROVIDERS: ADMIT Hospitalist; ATTEND Internal Medicine
DX: M80.08XA Age-related osteoporosis with current pathological fracture, vertebra(e), initial encounter for fracture (principal); I50.32 Chronic diastolic (congestive) heart failure; I13.0 Hypertensive heart and chronic kidney disease with heart failure and stage 1 through stage 4 chronic kidney disease, or unspecified chronic kidney disease; E87.1 Hypo-osmolality and hyponatremia; N18.3 Chronic kidney disease, stage 3 (moderate); M48.061 Spinal stenosis, lumbar region without neurogenic claudication; K21.9 Gastro-esophageal reflux disease without esophagitis; I16.0 Hypertensive urgency; Z79.891 Long term (current) use of opiate analgesic; F41.1 Generalized anxiety disorder; E03.9 Hypothyroidism, unspecified; E78.5 Hyperlipidemia, unspecified